=== PATIENT | male | born 1955 | race African-American/Black ===

== ENCOUNTER 2018-03-18 10:52 | Inpatient (IN) | payer SELFPAY ==
[2018-03-18 11:54] LABS: Absolute Lymphocytes (CBC) 1.2 K/uL (0.7-4.9); Absolute Monocytes 0.9 K/uL (0.1-1.3); Absolute Neutrophil 11.3 K/uL (1.8-8.0); Basophils % 0.5 % (0-1.3); Eosinophils % 0.2 % (0-4.4); Hematocrit 45.6 % (39.6-49.0); Lymphocytes % 9.1 % (15.3-44.8); MCH 27.7 pg (27.0-35.0); MCV 83.6 fL (80-100); MPV 7.6 fL (7.6-11.3); Monocytes % 6.4 % (3.3-12.3); RBC Red Blood Cell Count 5.46 M/uL (4.33-5.43)
[2018-03-18 12:05] LABS: Protime INR 1.03
[2018-03-18 12:25] LABS: Albumin 4.3 g/dL (3.4-5.0); Bilirubin Direct 0.1 mg/dL (0-0.2); Bilirubin Total 0.5 mg/dL (0.2-1.0); CKMB Creatine Kinase MB 2.2 ng/mL (0.3-3.6); Magnesium 2.3 mg/dL (1.8-2.4); Potassium 4.9 mmol/L (3.5-5.1); Protein, Total 8.6 g/dL (6.4-8.2)
--- NOTE | 2018-03-18 12:30 | RAD REPORT ---
EXAM DESCRIPTION: RAD - Chest Single View - 03/18/2018 11:58 am CLINICAL HISTORY: Hypertension, weakness, shortness of breath COMPARISON: September 2015 TECHNIQUE: AP portable chest image was obtained 1151 hours . FINDINGS: No peripheral mass or consolidation. Lung markings are prominent but not clearly different from the comparison. Heart and vasculature are normal. No measurable pleural effusion and no pneumot horax. No gross bony abnormality seen. No acute aortic findings suspected. IMPRESSION: No acute cardiopulmonary process. No significant change from comparison.
[2018-03-18] MEDS ORDERED: NA CHLORIDE 0.9% 1,000 ML ONE (12:41)
[2018-03-18] MEDS ORDERED: FENTANYL CITR 100 MCG/2 ML ONE (12:41)
--- NOTE | 2018-03-18 12:51 | EKG ---
Test Date: 2018-03-18 Test Time: 11:39:22 [employer] Manager: BALTA MEASUREMENT RESULTS: Intervals: Rate: 89 [place]: 160 QRSD: 68 QT: 342 QTc: 416 [place]: P: 43 [place]: 160 QRS: 8 T: 36 INTERPRETIVE STATEMENTS: Normal sinus rhythm Normal ECG Compared to ECG 10/14/2015 19:38:58 Left ventricular hypertrophy no longer present Myocardial infarct finding no longer present Electronically Signed On 03-18-18 12:50:42 CDT by Gold Ribeiro
[2018-03-18 13:18] LABS: Arterial Blood Carboxyhemoglob 0.6 % (0-1.5); Blood Gas Oxyhemoglobin 92.5 % (94-97); Blood O2 Saturation 94.1 % (92-98.5)
[2018-03-18 13:33] LABS: Uric Acid 10.3 mg/dL (3.5-7.2)
--- NOTE | 2018-03-18 13:35 | EDPHYS ---
Physician Documentation [facility] Name: Lambert Perera Age: 62 yrs Sex: Male : 1955 Arrival Date: 03/18/2018 Time: 11:07 Bed 16 Private MD: ED Physician Jorge Luis Urias HPI: 03/18 11:25 This 62 yrs old Black Male presents to ER via Ambulatory with complaints of weakness. snw 11:25 Pt states he felt generally weak yesterday and today he went to work and fell, c/o snw generalized bilateral extremity discomfort. Onset: The symptoms/episode began/occurred suddenly. Severity of symptoms: At their worst the symptoms were moderate. It is unknown whether or not the patient has had similar symptoms in the past. It is unknown whether or not the patient has recently seen a physician. . very poor historian, some history gleaned from family at bedside. Will call [facility] for list of meds. Historical: - Allergies: 11:17 No Known Allergies; hj - Home Meds: 11:28 omeprazole 20 mg Oral cpDR 1 cap once daily [Active]; lisinopril 20 mg Oral tab 1 tab hj twice a day [Active]; metformin 1,000 mg Oral tab 1 tab 2 times per day [Active]; lovastatin 20 mg Oral tab 1 tab once daily [Active]; Viagra 50 mg Oral tab 1 tab once daily [Active]; - PMHx: 11:17 Hypertension; hj 11:28 Diabetes - NIDDM; hj - PSHx: 11:17 None; hj - Immunization history:: Adult Immunizations unknown. - Social history:: Smoking status: Patient/guardian denies using tobacco, Patient/guardian denies using alcohol. - Ebola Screening: : Patient negative for fever greater than or equal to 101.5 degrees Fahrenheit, and additional compatible Ebola Virus Disease symptoms Patient denies exposure to infectious person Patient denies travel to an Ebola-affected area in the 21 days before illness onset. ROS: 11:25 Eyes: Negative for injury, pain, redness, and discharge, ENT: Negative for injury, snw pain, and discharge, Neck: Negative for injury, pain, and swelling, Cardiovascular: Negative for chest pain, palpitations, and edema, Respiratory: Negative for shortness of breath, cough, wheezing, and pleuritic chest pain, Abdomen/GI: Negative for abdominal pain, nausea, vomiting, diarrhea, and constipation, Back: Negative for injury and pain, : Negative for injury, bleeding, discharge, and swelling, Skin: Negative for injury, rash, and discoloration, Neuro: Negative for headache, weakness, numbness, tingling, and seizure. 11:25 Constitutional: Positive for malaise. 11:25 MS/extremity: Positive for lower extremity weakness and discomfort. Exam: 11:32 Head/Face: Normocephalic, atraumatic. Eyes: Pupils equal round and reactive to light, snw extra-ocular motions intact. Lids and lashes normal. Conjunctiva and sclera are non-icteric and not injected. Cornea within normal limits. Periorbital areas with no swelling, redness, or edema. ENT: Nares patent. No nasal discharge, no septal abnormalities noted. Tympanic membranes are normal and external auditory canals are clear. Oropharynx with no redness, swelling, or masses, exudates, or evidence of obstruction, uvula midline. Mucous membranes moist. Neck: Trachea midline, no thyromegaly or masses palpated, and no cervical lymphadenopathy. Supple, full range of motion without nuchal rigidity, or vertebral point tenderness. No Meningismus. Chest/axilla: Normal chest wall appearance and motion. Nontender with no deformity. No lesions are appreciated. Cardiovascular: Regular rate and rhythm with a normal S1 and S2. No gallops, murmurs, or rubs. Normal PMI, no JVD. No pulse deficits. Respiratory: Lungs have equal breath sounds bilaterally, clear to auscultation and percussion. No rales, rhonchi or wheezes noted. No increased work of breathing, no retractions or nasal flaring. Abdomen/GI: Soft, non-tender, with normal bowel sounds. No distension or tympany. No guarding or rebound. No evidence of tenderness throughout. Back: No spinal tenderness. No costovertebral tenderness. Full range of motion. Skin: Warm, dry with normal turgor. Normal color with no rashes, no lesions, and no evidence of cellulitis. MS/ Extremity: Pulses equal, no cyanosis. Neurovascular intact. Full, normal range of motion. Neuro: Awake and alert, GCS 15, oriented to person, place, time, and situation. Cranial nerves II-XII grossly intact. Motor strength 5/5 in all extremities. Sensory grossly intact. Cerebellar exam normal. Normal gait. 11:32 Constitutional: The patient appears alert, listless. Vital Signs: 11:18 BP 137 / 82; Pulse 89; Resp 18; Temp 98.1(O); Pulse Ox 98% on R/A; Weight 63.5 kg; hj Height 5 ft. 6 in. (167.64 cm); Pain 10/10; 11:18 Body Mass Index 22.60 (63.50 kg, 167.64 cm) hj MDM: 11:15 Patient medically screened. snw 13:33 Data reviewed: vital signs, nurses notes. Data interpreted: Pulse oximetry: on room air snw is 98 %. Interpretation: normal. Counseling: I had a detailed discussion with the patient and/or guardian regarding: the historical points, exam findings, and any diagnostic results supporting the discharge/admit diagnosis, the presence of at least one elevated blood pressure reading (>120/80) during this emergency department visit, lab results, radiology results, the need for further work-up and treatment in the hospital. Physician consultation: Derek Marcos DO was called at 13:33, was contacted at 13:33, regarding admission, to the telemetry unit. in the emergency department to see patient at 13:33. 03/18 11:24 Order name: Basic Metabolic Panel; Complete Time: 12:50 snw 03/18 11:24 Order name: CBC with Diff; Complete Time: 12:05 snw 03/18 11:24 Order name: Ckmb; Complete Time: 12:50 snw 03/18 11:24 Order name: CPK; Complete Time: 12:50 snw 03/18 11:24 Order name: LFT's; Complete Time: 12:50 snw 03/18 11:24 Order name: Magnesium; Complete Time: 12:50 snw 03/18 11:24 Order name: NT PRO-BNP; Complete Time: 12:50 snw 03/18 11:24 Order name: PT-INR; Complete Time: 12:24 snw 03/18 11:24 Order name: Ptt, Activated; Complete Time: 12:24 snw 03/18 11:24 Order name: Troponin (emerg Dept Use Only); Complete Time: 12:18 snw 03/18 12:49 Order name: Hepatitis Panel 03/18 12:49 Order name: Add On-Lab 03/18 12:49 Order name: ABG; Complete Time: 13:23 03/18 13:20 Order name: Uric Acid; Complete Time: 13:37 EDMS 03/18 11:24 Order name: XRAY Chest (1 view); Complete Time: 12:33 03/18 11:24 Order name: EKG; Complete Time: 11:25 03/18 11:24 Order name: Cardiac monitoring; Complete Time: 11:30 03/18 11:24 Order name: EKG - Nurse/Tech; Complete Time: 11:40 03/18 11:24 Order name: IV Saline Lock; Complete Time: 11:40 03/18 11:24 Order name: Labs collected and sent; Complete Time: 11:40 03/18 11:24 Order name: O2 Per Protocol; Complete Time: 11:30 03/18 11:24 Order name: O2 Sat Monitoring; Complete Time: 11:30 03/18 12:51 Order name: US Rp Exam Complete; Complete Time: 13:37 03/18 13:20 Order name: Lactic Dehydrogenase; Complete Time: 13:37 EDMS 03/18 13:54 Order name: Misc. Lab Test 03/18 14:12 Order name: Labs - recollect needed: Hepatitis panel; Complete Time: 14:33 iw Administered Medications: 12:36 Drug: NS 0.9% 1000 ml Route: IV; Rate: 75 ml/hr; Site: left antecubital; hj 14:20 Follow up: IV Status: Infusion continued hj 12:36 Drug: fentaNYL (PF) 25 mcg Route: IVP; Site: left antecubital; hj 13:19 Follow up: Response: No adverse reaction; Pain is decreased hj 13:31 Drug: NS 0.9% 500 ml Volume: 500 ml; Route: IV; Rate: 1 bolus; Site: left antecubital; hj 13:40 Follow up: IV Status: Completed infusion hj Disposition: 03/18/18 13:34 Hospitalization ordered by Derek Marcos for Inpatient Admission. Preliminary diagnosis is Acute kidney failure. - Bed requested for Telemetry/MedSurg (Inpatient). - Status is Inpatient Admission. hj - Condition is Stable. - Problem is new. - Symptoms are unchanged. UTI on Admission? No Addendum: 03/21/2018 10:21 Co-signature as Attending Physician, Jorge Luis Urias MD I agree with the assessment and c cantu plan of care. Signatures: Dispatcher [employer] EDUT Jorge Luis Urias MD MD cha Therrien, Shelly, OPERATIONS COORDINATOR-C OPERATIONS COORDINATOR-Csnw Nati Nunez RN RN Abdirizak Wallace RN RN Jacklyn Mix Corrections: (The following items were deleted from the chart) 03/18 11:28 11:17 Home Meds: blood pressure med; hj 14:51 13:34 Hospitalization Ordered by Derek Marcos DO for Inpatient Admission. Preliminary eb diagnosis is Acute kidney failure. Bed requested for Telemetry/MedSurg (Inpatient). Status is Inpatient Admission. Condition is Stable. Problem is new. Symptoms are unchanged. UTI on Admission? No. snw 15:45 14:51 03/18/2018 13:34 Hospitalization Ordered by Derek aMrcos DO for Inpatient hj Admission. Preliminary diagnosis is Acute kidney failure. Bed requested for Telemetry/MedSurg (Inpatient). Status is Inpatient Admission. Condition is Stable. Problem is new. Symptoms are unchanged. UTI on Admission? No. eb
--- NOTE | 2018-03-18 13:35 | ER ---
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 Transition of care: patient was not received from another setting of care. Onset of symptoms was March 18, 2018. Risk Assessment: Do you want to hurt yourself or someone else? Patient reports no desire to harm self or others. Initial Sepsis Screen: Does the patient meet any 2 criteria? No. Patient's initial sepsis screen is negative. Does the patient have a suspected source of infection? No. Patient's initial sepsis screen is negative. Care prior to arrival: None. 11:14 Method Of Arrival: Ambulatory 11:14 Acuity: SHERLEY 3 hj Triage Assessment: 11:17 General: Appears in no apparent distress. uncomfortable, Behavior is calm, cooperative, hj appropriate for age. Pain: Complains of pain in right leg and left leg. EENT: No signs and/or symptoms were reported regarding the EENT system. Neuro: Level of Consciousness is awake, alert, obeys commands, Oriented to person, place, time, situation, Appropriate for age. Cardiovascular: Capillary refill < 3 seconds Patient's skin is warm and dry. Respiratory: Airway is patent Respiratory effort is even, unlabored, Respiratory pattern is regular, symmetrical. GI: No signs and/or symptoms were reported involving the gastrointestinal system. : No signs and/or symptoms were reported regarding the genitourinary system. Derm: No signs and/or symptoms reported regarding the dermatologic system. Musculoskeletal: Reports pain in right leg and left leg. Historical: - Allergies: 11:17 No Known Allergies; hj - Home Meds: 11:28 omeprazole 20 mg Oral cpDR 1 cap once daily [Active]; lisinopril 20 mg Oral tab 1 tab hj twice a day [Active]; metformin 1,000 mg Oral tab 1 tab 2 times per day [Active]; lovastatin 20 mg Oral tab 1 tab once daily [Active]; Viagra 50 mg Oral tab 1 tab once daily [Active]; - PMHx: 11:17 Hypertension; hj 11:28 Diabetes - NIDDM; hj - PSHx: 11:17 None; hj - Immunization history:: Adult Immunizations unknown. - Social history:: Smoking status: Patient/guardian denies using tobacco, Patient/guardian denies using alcohol. - Ebola Screening: : Patient negative for fever greater than or equal to 101.5 degrees Fahrenheit, and additional compatible Ebola Virus Disease symptoms Patient denies exposure to infectious person Patient denies travel to an Ebola-affected area in the 21 days before illness onset. Screenin:17 Abuse screen: Denies threats or abuse. Denies injuries from another. Nutritional hj screening: No deficits noted. Tuberculosis screening: No symptoms or risk factors identified. Fall Risk None identified. Assessment: 11:17 Reassessment: see triage for assessment;. hj 11:29 Reassessment: called [facility] for list of Rx pt is taking;. hj Vital Signs: 11:18 BP 137 / 82; Pulse 89; Resp 18; Temp 98.1(O); Pulse Ox 98% on R/A; Weight 63.5 kg; hj Height 5 ft. 6 in. (167.64 cm); Pain 10/10; 11:18 Body Mass Index 22.60 (63.50 kg, 167.64 cm) hj ED Course: 11:07 Patient arrived in ED. as 11:13 Abdirizak Wallace, ZAHEER is Primary Nurse. hj 11:14 Roya Sparks FNP-C is PHCP. snw 11:15 Jorge Luis Urias MD is Attending Physician. snw 11:16 Triage completed. hj 11:18 Arm band placed on right wrist. hj 11:18 Patient has correct armband on for positive identification. Placed in gown. Bed in low hj position. Call light in reach. Side rails up X 1. Adult w/ patient. 11:40 Initial lab(s) drawn, by me, sent to lab. Inserted saline lock: 22 gauge in left hj antecubital area, using aseptic technique. Blood collected. 11:48 EKG done, by sleep tech. reviewed by Roya TORRES. at1 11:57 X-ray completed. Portable x-ray completed in exam room. Patient tolerated procedure jb2 well. 11:58 XRAY Chest (1 view) In Process Unspecified. EDMS 13:01 hepatitis drawn and sent to lab by me. dh3 13:27 US Rp Exam Complete In Process Unspecified. EDMS 13:34 Derek Marcos DO is Hospitalizing Provider. snw 14:32 Lab(s) recollected, by me, sent to lab. 3 15:44 No provider procedures requiring assistance completed. Patient admitted, IV remains in hj place. Administered Medications: 12:36 Drug: NS 0.9% 1000 ml Route: IV; Rate: 75 ml/hr; Site: left antecubital; hj 14:20 Follow up: IV Status: Infusion continued hj 12:36 Drug: fentaNYL (PF) 25 mcg Route: IVP; Site: left antecubital; hj 13:19 Follow up: Response: No adverse reaction; Pain is decreased hj 13:31 Drug: NS 0.9% 500 ml Volume: 500 ml; Route: IV; Rate: 1 bolus; Site: left antecubital; hj 13:40 Follow up: IV Status: Completed infusion hj Outcome: 13:34 Decision to Hospitalize by Provider. snw 15:44 Admitted to Tele accompanied by [facility], via wheelchair, room 414, with chart, Report hj called to Lavell Jones RN 15:44 Condition: stable 15:44 Instructed on the need for admit, Demonstrated understanding of instructions. 15:45 Patient left the ED. Signatures: Dispatcher [employer] EDVA Roya Sparks FNP-C COMPUTER AIDED DESIGN DRAFTER-CsnMarques Rosa jb2 Becky George Amanda, industrial technician EKG Tat1 Abdirizak Wallace, RN RN Heidi Gonzales 3 Corrections: (The following items were deleted from the chart) 11:28 11:17 Home Meds: blood pressure med; [facility]
--- NOTE | 2018-03-18 13:35 | RAD REPORT ---
EXAM DESCRIPTION: US - Renal Ultrasound-Complete - 03/18/2018 1:27 pm CLINICAL HISTORY: acute renal failure COMPARISON: ABDOMINAL EXAM LIMITED dated 09/30/2008 FINDINGS: Both kidneys are normal in size, shape and echotexture. The right kidney measures 8.6 x 4.7 x 4.2 cm. No hydronephrosis, focal mass or perinephric fluid. The left kidney measures 9.8 x 5.5 x 5.0 cm. No hydronephrosis, focal mass or perinephric fluid. The urinary bladder is incompletely distended without gross abnormality seen. IMPRESSION: Unremarkable renal sonogram.
[2018-03-18] MEDS ORDERED: ACETAMINOPHEN 500 MG TAB PO PRN (13:46)
[2018-03-18] MEDS ORDERED: ONDANSETRON 4 MG/2 ML VIAL IV PRN (13:46)
--- NOTE | 2018-03-18 14:34 | P.HP ---
Certification for Inpatient Patient admitted to: Inpatient With expected LOS: >2 Midnights Patient will require the following post-hospital care: None Practitioner: I am a practitioner with admitting privileges, knowledge of patient current condition, hospital course, and medical plan of care. Services: Services provided to patient in accordance with Admission requirements found in Title 42 Section 412.3 of the Code of Federal Regulations Patient History Date of Service: 03/18/18 Primary Care Provider: Bill Boyce Reason for admission: Fatigue and Leg pain History of Present Illness: 62 yo AAM presented to the ER with fatigue and pain to the lower extremities bilaterally. Patient reports that this started yesterday. He felt tired yesterday but went to work. 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 He felt nausea last night. Some mild discomfort noted to the lower abdomen last night. Today he went to work. He had increased fatigue with pain to the thighs bilaterally. He was not able to walk due to fatigue. His boss told that he could not work and that he need to go see his doctor. He came to the ER for evaluation. In the ER he was evaluated. He was found to be in acute renal failure with BUN- 48, Creatinine-6.9 and GFR of 10. His uric acid and calcium was elevated at 10.3 and 10.4 respectively. WBC-13.5. BNP 252. Trop and CPK was normal. CXR was normal. Renal US was normal. He was admitted for further evaluation. When I saw him he was slightly improved. He still had some mild pain to the thighs. He has history of HTN, DM and Hyperlipidemia. He is taking Metformin, Lisinopril and Lovastatin. He occasionally takes Alleve. He does not smoke or drink alcohol. He has been taking medication for quite some time. He does not recall any issues with his kidney. Allergies No Known Allergies Allergy (Verified 11/18/12 09:15) Home medications list reviewed: Yes - Past Medical/Surgical History Diabetic: Yes -: DM Type 2 -: HTN -: Hyperlipidemia Past Surgical History: Patient denies surgical history Psychosocial/ Personal History: He is . He has 2 children. 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 - Family History Family History: Reviewed- Non-Contributory - Social History Smoking Status: Never smoker Alcohol use: No CD- Drugs: No Caffeine use: Yes Place of Residence: Home Review of Systems General: Weakness, Malaise, As per HPI Eyes: Unremarkable ENT: Unremarkable Respiratory: Unremarkable Cardiovascular: Unremarkable Gastrointestinal: Nausea, As per HPI Genitourinary: Unremarkable Musculoskeletal: Leg Pain, As per HPI Integumentary: Unremarkable Neurological: Weakness, As per HPI Lymphatics: Unremarkable Physical Examination - Physical Exam General: Alert, In no apparent distress, Oriented x3, Cooperative HEENT: Atraumatic, Normocephalic, PERRLA, Other (dry mucous membranes. ) Neck: Supple, No Thyromegaly Respiratory: Clear to auscultation bilaterally, Normal air movement Cardiovascular: Normal pulses, Regular rate/rhythm Gastrointestinal: Normal bowel sounds, Soft and benign, Non-distended, No tenderness, No masses, No rebound, No guarding Musculoskeletal: No erythema, No warmth, Tenderness (Mild tenderness to the thighs. ) Integumentary: No tenderness/swelling, No erythema, No warmth, No cyanosis Neurological: Normal speech, Normal strength at 5/5 x4 extr, Normal tone, Normal affect Lymphatics: No axilla or inguinal lymphadenopathy - Studies Laboratory Data (last 24 hrs) 03/18/18 11:40: Uric Acid 10.3 H 03/18/18 11:40: PT 12.1, INR 1.03, APTT 29.4 03/18/18 11:40: WBC 13.5 H, Hgb 15.1, Hct 45.6, Plt Count 307 03/18/18 11:40: Sodium 137, Potassium 4.9, BUN 48 H, Creatinine 6.90 H*, Glucose 132 H, Magnesium 2.3, Total Bilirubin 0.5, AST 18, ALT 23, Alkaline Phosphatase 74 Assessment and Plan - Problems (Diagnosis) (1) Acute renal failure Current Visit: Yes Status: Acute Plan: Likely from dehydration and meds-Metformin/DISHA/NSAIDS. Will stop medication. Renal US is normal with no hydronephrosis or obstruction. Will give IV fluids. Will monitor renal function. Will consult Nephrology to further address. (2) Dehydration Current Visit: Yes Status: Acute Plan: Will provide IV fluids. (3) Muscle pain Current Visit: Yes Status: Acute Plan: Likely from Dehydration. Continue as above. (4) Diabetes mellitus Current Visit: Yes Status: Chronic Plan: Will HOLD Metformin. Will provide sliding scale. Will check A1c. Qualifiers: Diabetes mellitus type: type 2 Diabetes mellitus terminal make up operator insulin use: without terminal make up operator use Diabetes mellitus complication status: with kidney complications Diabetes mellitus complication detail: with other kidney complication Qualified Code(s): E11.29 - Type 2 diabetes mellitus with other diabetic kidney complication (5) HTN (hypertension) Current Visit: Yes Status: Chronic Plan: Will DC DISHA inhibitor. Will provide Coreg for HTN. Qualifiers: Hypertension type: essential hypertension Qualified Code(s): I10 - Essential (primary) hypertension (6) Hyperlipidemia Current Visit: Yes Status: Chronic Plan: Will HOLD Lovastatin. Will check Lipids. (7) GERD (gastroesophageal reflux disease) Current Visit: Yes Status: Suspected Plan: Will provide Protonix. Qualifiers: Esophagitis presence: esophagitis presence not specified Qualified Code(s) : K21.9 - Gastro-esophageal reflux disease without esophagitis (8) Nausea & vomiting Current Visit: Yes Status: Acute Plan: Will provide medication. Qualifiers: Vomiting type: unspecified Vomiting Intractability: unspecified Qualified Code(s): R11.2 - Nausea with vomiting, unspecified Discharge Plan: Home Plan to discharge in: Greater than 2 days - Advance Directives Does patient have a Living Will: No Does patient have a Durable POA for Healthcare: No - Code Status/Comfort Care Code Status Assessed: Yes Time Spent Managing Pts Care (In Minutes): 55
[2018-03-18] MEDS: INSULIN -REGULAR HUMAN 50 UNIT/0.5 ML ML SQ SCH ×2 (16:17→21:00)
[2018-03-18 16:36] LABS: Urine Appearance CLOUDY; Urine Blood NEGATIVE (NEG); Urine Color DK YELLOW; Urine Glucose NEGATIVE (NEG); Urine Protein 2+ (NEG); Urine Specific Gravity 1.025 (1.005-1.030); Urine Urobilinogen 0.2 mg/dL (0.2-1.0)
[2018-03-18 16:47] LABS: Urine Bilirubin NEGATIVE (NEG); Urine Microscopic Reflex ORDER UMIC
[2018-03-18] MEDS: CARVEDILOL 3.125 MG TAB PO SCH (18:06)
[2018-03-18] MEDS: NA CHLORIDE 0.9% 1,000 ML IV SCH (18:44)
[2018-03-18 19:41] LABS: Calcium Oxalate Crystals- Ur MODERATE (NONE SEEN); Urine Bacteria 20-50 /HPF (NONE SEEN); Urine Culture Reflex Order REFLEXED; Urine Mucus 3+ /HPF (NONE SEEN); Urine RBC <5 /HPF (NONE SEEN)
--- NOTE | 2018-03-19 00:58 | CON ---
Date of Consultation: 03/18/2018 Chief Complaint: Acute kidney injury. History Of Present Illness: The patient was found to have severe azotemia, creatinine is 6.9, BUN 48, associated with decreased urine output and generalized weakness. The patient came to the hospital because of recent status post fall and generalized weakness. The patient was found to have acute kidney injury. The patient has history of diabetes mellitus. Previously, he was taking metformin, lisinopril, and lovastatin. The patient is taken off metformin due to acute kidney injury and lisinopril was stopped because of risk of hyperkalemia. Review of Systems: Constitutional: The patient denies fever or chills. Eyes: Denies vision changes. Ears, Nose, Mouth, and Throat: Denies sore throat or earache. Respiratory: Denies PND or orthopnea. Cardiovascular: Denies chest pain or palpitation. GI: Denies nausea or vomiting. : Denies dysuria or hematuria. Musculoskeletal: Denies gout. Denies muscle aches, although he had a recent fall. All other systems reviewed and all are negative. Past Medical History: Diabetes mellitus type 2, hypertension, hyperlipidemia. The patient denies previous history of kidney stone, prostate problem, or kidney disease. Social History: Denies tobacco, alcohol, or illicit drugs. Family History: No kidney disease in the family. Physical Examination: General: Not in acute distress. Eyes: Anicteric sclerae. EOMI. Ears, Nose, Mouth, and Throat: Oral mucosa moist. No pallor. Neck: Supple. No JVD. No bruits. Lungs: Clear to auscultation bilaterally. Heart: S1, S2. Abdomen: Soft, benign, nontender. No rebound. No guarding. No flank tenderness. Extremities: No clubbing, no cyanosis, no edema. Neurological: Moving extremities. Cranial nerves intact. Psychiatric: Alert and oriented x3. Normal affect. Blood Work: Uric acid 10.3, PT 12.1, INR 1.03, PTT 29.4. WBC 13.5, hemoglobin 15.1, platelet count 307,000. Sodium 137, potassium 4.9, BUN 48, creatinine 6.9 , glucose 132, magnesium 2.3, bilirubin is 0.5. AST 18, ALT 23, 80, 74. Renal ultrasound unremarkable. Right kidney 8.6, left kidney 9.8. No perinephric fluid. No hydronephrosis. CK level is within normal limits. Impression And Plan: 1. Acute kidney injury, likely due to prerenal azotemia. Rhabdomyolysis was ruled out. The patient did not have hydronephrosis. There is no evidence of urinary retention. Continue IV fluids for hydration. The patient has prerenal azotemia. Urinalysis does not show acute changes. There is positive proteinuria present. Re-evaluate proteinuria panel when renal function is at baseline. The patient may need workup for monoclonal gammopathy of unknown significance. The patient was taken off DISHA inhibitor and the patient will avoid nonsteroidal anti-inflammatory medication due to acute kidney injury. 2. Continue normal saline for hydration. Monitor daily urine output and renal panel. JAKE/MODRafael Voice ID: [id number] Report ID: [id number] MTDBritt
[2018-03-19] MEDS: NA CHLORIDE 0.9% 1,000 ML IV SCH ×4 (02:46→20:46)
[2018-03-19 05:17] LABS: Absolute Lymphocytes (CBC) 2.6 K/uL (0.7-4.9); Absolute Monocytes 1.1 K/uL (0.1-1.3); Absolute Neutrophil 6.1 K/uL (1.8-8.0); Basophils % 0.6 % (0-1.3); Eosinophils % 0.7 % (0-4.4); Hematocrit 36.6 % (39.6-49.0); Lymphocytes % 26.3 % (15.3-44.8); MCH 27.9 pg (27.0-35.0); MCV 84.5 fL (80-100); MPV 7.6 fL (7.6-11.3); Monocytes % 10.7 % (3.3-12.3); RBC Red Blood Cell Count 4.33 M/uL (4.33-5.43)
[2018-03-19] MEDS: CARVEDILOL 3.125 MG TAB PO SCH ×2 (05:28→17:02)
[2018-03-19 05:43] LABS: Magnesium 2.1 mg/dL (1.8-2.4); Potassium 4.7 mmol/L (3.5-5.1); Thyroid Stimulating Hormone 0.3 uIU/mL (0.36-3.74)
[2018-03-19] MEDS: INSULIN -REGULAR HUMAN 50 UNIT/0.5 ML ML SQ SCH ×4 (07:30→21:00)
[2018-03-19] MEDS: PANTOPRAZOLE 40MG TABLET PO SCH (08:24)
--- NOTE | 2018-03-19 10:01 | P.PN ---
Subjective Date of Service: 03/19/18 Primary Care Provider: [facility] Chief Complaint: Fatigue and Leg pain Subjective: Improving Physical Examination - Vital Signs Temperature: 97.6 F Blood Pressure: 123/66 Pulse: 79 Respirations: 18 Pulse Ox (%): 99 - Physical Exam General: Alert, In no apparent distress, Oriented x3, Cooperative HEENT: Atraumatic Neck: Supple Respiratory: Clear to auscultation bilaterally, Normal air movement Cardiovascular: Normal pulses, Regular rate/rhythm Gastrointestinal: Normal bowel sounds, Soft and benign, Non-distended, No tenderness, No masses, No rebound, No guarding Musculoskeletal: No erythema, No tenderness, No warmth Integumentary: No tenderness/swelling, No erythema, No warmth, No cyanosis Neurological: Normal speech, Normal strength at 5/5 x4 extr, Normal tone, Normal affect - Studies Laboratory Data (last 24 hrs) 03/18/18 11:40: Uric Acid 10.3 H 03/18/18 11:40: PT 12.1, INR 1.03, APTT 29.4 03/18/18 11:40: WBC 13.5 H, Hgb 15.1, Hct 45.6, Plt Count 307 03/18/18 11:40: Sodium 137, Potassium 4.9, BUN 48 H, Creatinine 6.90 H*, Glucose 132 H, Magnesium 2.3, Total Bilirubin 0.5, AST 18, ALT 23, Alkaline Phosphatase 74 Medications List Reviewed: Yes Assessment & Plan - Problems (Diagnosis) (1) Acute renal failure Current Visit: Yes Status: Acute Plan: Likely from dehydration and meds-Metformin/DISHA/NSAIDS. Medications have been held. Continue IV fluids. Overall improved. Will continue to monitor electrolytes. Anticipate discharge in the next 1-2 days. Will discuss with nephrology. (2) Dehydration Current Visit: Yes Status: Acute Plan: Will continue with IV fluids. (3) Muscle pain Current Visit: Yes Status: Acute Plan: Likely from Dehydration. Continue as above. (4) Diabetes mellitus Current Visit: Yes Status: Chronic Plan: Will HOLD Metformin. A1c 6.9. Will continue sliding scale. Will need to make adjustments to medications at discharge. 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 Will continue with carvedilol for HTN. Blood pressure stable this time. Qualifiers: Hypertension type: essential hypertension Qualified Code(s): I10 - Essential (primary) hypertension (6) Hyperlipidemia Current Visit: Yes Status: Chronic Plan: Will HOLD Lovastatin. LDL well controlled. (7) GERD (gastroesophageal reflux disease) Current Visit: Yes Status: Suspected Plan: Will continue with PPI. Qualifiers: Esophagitis presence: esophagitis presence not specified Qualified Code(s) : K21.9 - Gastro-esophageal reflux disease without esophagitis (8) Nausea & vomiting Current Visit: Yes Status: Acute Plan: Will provide medication. Qualifiers: Vomiting type: unspecified Vomiting Intractability: unspecified Qualified Code(s): R11.2 - Nausea with vomiting, unspecified Discharge Plan: Home Plan to discharge in: 24 Hours (to 48 hours) Time Spent Managing Pts Care (In Minutes): 55
--- NOTE | 2018-03-19 11:37 | RAD REPORT ---
EXAM DESCRIPTION: RAD - Chest Single View - 03/19/2018 6:35 am CLINICAL HISTORY: Follow up SOB/Fatigue Chest pain. COMPARISON: Chest Single View dated 03/18/2018; CHEST PA AND LAT 2 VIEW dated 10/14/2015; CHEST SINGLE VIEW dated 01/21/2014; CHEST SINGLE VIEW dated 11/18/2012 FINDINGS: Portable technique limits examination quality. The lungs are underinflated resulting in vascular crowding. The heart is normal in size. No displaced fractures. IMPRESSION: Underinflated lungs.
[2018-03-19] MEDS: TRAMADOL HCL 50 MG TAB PO PRN ×2 (13:46→20:45)
[2018-03-19] MEDS: ENOXAPARIN 30 MG/0.3 ML SQ SCH (13:48)
--- NOTE | 2018-03-20 02:10 | PN ---
Date of Progress Note: 03/19/2018 Chief Complaint: Acute kidney injury, severe volume depletion. History Of Present Illness: The patient was found to have severe prerenal azotemia, nonoliguric ATN. Azotemia has not improved significantly. Urine output is improving. The patient is responding to IV fluids. Review of Systems: Denies cough, hemoptysis. Denies nausea, vomiting, diarrhea. Physical Examination: Lungs: Clear to auscultation bilaterally. Heart: S1, S2. Abdomen: Soft, benign. Extremities: No edema. Laboratory Data: Sodium 140, potassium 4.7, chloride 109, CO2 25, BUN 51, creatinine 3.70, glucose 133, calcium 8.9. Impression And Plan: 1. Acute kidney injury. The patient has history of diabetes and hypertension. The patient was taken off DISHA inhibitor because of acute kidney injury. Monitor electrolytes. Continue low-potassium diet. The patient has high risk of hyperkalemia. 2. Diabetes mellitus. Continue insulin. The patient is not a candidate of metformin because of acute kidney injury. 3. Hypovolemia. Continue IV fluids. Monitor urine output and fluid balance. Plan is to check daily renal panel to assess kidney function. I spent total 36 min including 26 min to coordinate care plan. JAKE/ANDRE Voice ID: [id number] Report ID: [id number] MARCELLO
[2018-03-20] MEDS: CARVEDILOL 3.125 MG TAB PO SCH (05:08)
[2018-03-20] MEDS: NA CHLORIDE 0.9% 1,000 ML IV SCH (05:09)
[2018-03-20 05:14] LABS: Absolute Lymphocytes (CBC) 2.7 K/uL (0.7-4.9); Absolute Monocytes 0.8 K/uL (0.1-1.3); Absolute Neutrophil 4.1 K/uL (1.8-8.0); Basophils % 0.5 % (0-1.3); Eosinophils % 1.4 % (0-4.4); Hematocrit 37.1 % (39.6-49.0); Lymphocytes % 34.5 % (15.3-44.8); MCH 28.2 pg (27.0-35.0); MCV 84.9 fL (80-100); MPV 7.7 fL (7.6-11.3); Monocytes % 10.2 % (3.3-12.3); RBC Red Blood Cell Count 4.37 M/uL (4.33-5.43)
[2018-03-20 05:39] LABS: Magnesium 1.6 mg/dL (1.8-2.4); Potassium 4.7 mmol/L (3.5-5.1)
[2018-03-20] MEDS ORDERED: MAGNESIUM SULFATE 1 gm IVPB 1 GM/100 ML BAG IV ONE ×2 (05:52→09:00)
[2018-03-20] MEDS: INSULIN -REGULAR HUMAN 50 UNIT/0.5 ML ML SQ SCH ×2 (07:30→11:30)
[2018-03-20] MEDS: PANTOPRAZOLE 40MG TABLET PO SCH (07:55)
[2018-03-20] MEDS ORDERED: CARVEDILOL 3.125 MG TAB PO SCH (08:00)
[2018-03-20] MEDS: ENOXAPARIN 30 MG/0.3 ML SQ SCH (09:08)
--- NOTE | 2018-03-20 13:27 | P.PN ---
Subjective Date of Service: 03/20/18 Primary Care Provider: Patt[facility] Carli Chief Complaint: Fatigue and Leg pain Subjective: Improving Physical Examination - Vital Signs Temperature: 98.1 F Blood Pressure: 165/84 Pulse: 89 Respirations: 17 Pulse Ox (%): 98 - Physical Exam General: Alert, In no apparent distress, Oriented x3, Cooperative HEENT: Atraumatic Neck: Supple Respiratory: Clear to auscultation bilaterally, Normal air movement Cardiovascular: Normal pulses, Regular rate/rhythm Gastrointestinal: Normal bowel sounds, Soft and benign, Non-distended, No tenderness, No masses, No rebound, No guarding Musculoskeletal: No tenderness, No warmth Integumentary: No tenderness/swelling, No erythema, No warmth, No cyanosis Neurological: Normal speech, Normal strength at 5/5 x4 extr, Normal tone, Normal affect Lymphatics: No axilla or inguinal lymphadenopathy - Studies Medications List Reviewed: Yes Assessment & Plan - Problems (Diagnosis) (1) Acute renal failure Current Visit: Yes Status: Acute Plan: Likely from dehydration and meds-Metformin/DISHA/NSAIDS. Overall improved. Renal function close to baseline. Will discuss with nephrology. Possible discharge today. Will need to discontinue metformin an DISHA-inhibitor along with NSAIDs at discharge. Medications will need to be adjusted. The patient will need a follow up with nephrology in 1 week. (2) Dehydration Current Visit: Yes Status: Acute Plan: Will continue with IV fluids. (3) Muscle pain Current Visit: Yes Status: Acute Plan: Likely from Dehydration. Continue as above. (4) Diabetes mellitus Current Visit: Yes Status: Chronic Plan: Will HOLD Metformin. A1c 6.9. Will continue sliding scale. Will need to make adjustments to medications at discharge. 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 Will continue to increase carvedilol for better blood pressure control. Qualifiers: Hypertension type: essential hypertension Qualified Code(s): I10 - Essential (primary) hypertension (6) Hyperlipidemia Current Visit: Yes Status: Chronic Plan: Will restart home medication. (7) GERD (gastroesophageal reflux disease) Current Visit: Yes Status: Suspected Plan: Will continue with PPI. Qualifiers: Esophagitis presence: esophagitis presence not specified Qualified Code(s) : K21.9 - Gastro-esophageal reflux disease without esophagitis (8) Nausea & vomiting Current Visit: Yes Status: Acute Plan: Will provide medication. Qualifiers: Vomiting type: unspecified Vomiting Intractability: unspecified Qualified Code(s): R11.2 - Nausea with vomiting, unspecified Discharge Plan: Home Plan to discharge in: 24 Hours Time Spent Managing Pts Care (In Minutes): 55
--- NOTE | 2018-03-20 14:42 | P.DS ---
Admission Date: 03/18/18 Discharge Date: 03/20/18 Primary Care Provider: Creswell Carli Disposition: ROUTINE DISCHARGE Discharge Condition: GOOD Reason for Admission: Fatigue and Leg pain Consultations: Nephrology-Dr. 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 - Type 2 diabetes mellitus with other diabetic kidney complication (5) HTN (hypertension) Current Visit: Yes Status: Chronic Qualifiers: Hypertension type: essential hypertension Qualified Code(s): I10 - Essential (primary) hypertension (6) Hyperlipidemia Current Visit: Yes Status: Chronic (7) GERD (gastroesophageal reflux disease) Current Visit: Yes Status: Suspected Qualifiers: Esophagitis presence: esophagitis presence not specified Qualified Code(s) : K21.9 - Gastro-esophageal reflux disease without esophagitis (8) Nausea & vomiting Current Visit: Yes Status: Acute Qualifiers: Vomiting type: unspecified Vomiting Intractability: unspecified Qualified Code(s): R11.2 - Nausea with vomiting, unspecified Brief History of Present Illness: 62 yo AAM presented to the ER with fatigue and pain to the lower extremities bilaterally. Patient reports that this started yesterday. He felt tired yesterday but went to work. 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 He felt nausea last night. Some mild discomfort noted to the lower abdomen last night. Today he went to work. He had increased fatigue with pain to the thighs bilaterally. He was not able to walk due to fatigue. His boss told that he could not work and that he need to go see his doctor. He came to the ER for evaluation. In the ER he was evaluated. He was found to be in acute renal failure with BUN- 48, Creatinine-6.9 and GFR of 10. His uric acid and calcium was elevated at 10.3 and 10.4 respectively. WBC-13.5. BNP 252. Trop and CPK was normal. CXR was normal. Renal US was normal. He was admitted for further evaluation. When I saw him he was slightly improved. He still had some mild pain to the thighs. He has history of HTN, DM and Hyperlipidemia. He is taking Metformin, Lisinopril and Lovastatin. He occasionally takes Alleve. He does not smoke or drink alcohol. He has been taking medication for quite some time. He does not recall any issues with his kidney. Hospital Course: Patient presented with acute renal failure likely secondary to medication and dehydration. Patient had been taking metformin and lisinopril for diabetes and hypertension. Patient had been working out side. 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 Patient is not been taking good oral intake. Patient received IV fluids. Nephrology evaluated patient. Renal ultrasound unremarkable. Renal function back to baseline. At discharge metformin and lisinopril has been discontinued. Patient encouraged to increase fluid intake. Recommendation to recheck lab- BMP in 1 week to monitor resolution. Recommendation for the patient follow up with nephrology in 1 week to follow up this hospitalization. He will need a follow up with his PCP within 1 week to recheck lab and to be cleared to go back to work. Patient has diabetes. Hemoglobin A1c well controlled. At discharge metformin has been discontinued due to acute renal failure. At discharge he will continue with glimepiride 1 mg daily. Recommendation is to maintain blood sugars less 140 fasting and less than 200 after meals. Further adjustment can be done by his PCP. Patient has hypertension. Lisinopril has been discontinued due to acute renal failure. At discharge he will continue with carvedilol 6.25 mg 1 pill twice daily. Recommendation is to maintain blood pressures less 150/80. Further adjustment can be done by his PCP. Patient has hyperlipidemia. He will continue with lovastatin 20 mg daily. Patient has GERD. He will continue with Prilosec daily. Vital Signs/Physical Exam: Temp Pulse Resp BP Pulse Ox 98.1 F 89 17 165/84 H 98 03/20/18 13:27 03/20/18 13:27 03/20/18 13:27 03/20/18 13:27 03/20/18 13:27 General: Alert, In no apparent distress, Oriented x3, Cooperative HEENT: Atraumatic Neck: Supple, No Thyromegaly Respiratory: Clear to auscultation bilaterally, Normal air movement Cardiovascular: Normal pulses, Regular rate/rhythm Gastrointestinal: Normal bowel sounds, Soft and benign, Non-distended, No tenderness, No masses, No rebound, No guarding Musculoskeletal: No erythema, No tenderness, No warmth Integumentary: No tenderness/swelling, No erythema, No warmth, No cyanosis Neurological: Normal speech, Normal strength at 5/5 x4 extr, Normal tone, Normal affect Laboratory Data at Discharge: WBC 7.7 K/uL (4.3-10.9) D 03/20/18 04:22 Hgb 12.3 g/dL (13.6-17.9) L 03/20/18 04:22 Hct 37.1 % (39.6-49.0) L 03/20/18 04:22 Plt Count 219 K/uL (152-406) 03/20/18 04:22 PT 12.1 SECONDS (9.5-12.5) 03/18/18 11:40 INR 1.03 03/18/18 11:40 APTT 29.4 SECONDS (24.3-36.9) 03/18/18 11:40 Sodium 141 mmol/L (136-145) 03/20/18 04:22 Potassium 4.7 mmol/L (3.5-5.1) 03/20/18 04:22 BUN 26 mg/dL (7-18) H D 03/20/18 04:22 Creatinine 1.60 mg/dL (0.55-1.3) H D 03/20/18 04:22 Glucose 123 mg/dL (74-106) H 03/20/18 04:22 Uric Acid 10.3 mg/dL (3.5-7.2) H 03/18/18 11:40 Magnesium 1.6 mg/dL (1.8-2.4) L D 03/20/18 04:22 Total Bilirubin 0.5 mg/dL (0.2-1.0) 03/18/18 11:40 AST 18 U/L (15-37) 03/18/18 11:40 ALT 23 U/L (12-78) 03/18/18 11:40 Alkaline Phosphatase 74 U/L (45-117) 03/18/18 11:40 Triglycerides 206 mg/dL (<150) H 03/19/18 04:45 Cholesterol 143 mg/dL (<200) 03/19/18 04:45 HDL Cholesterol 28 mg/dL (40-60) L 03/19/18 04:45 Cholesterol/HDL Ratio 5.11 03/19/18 04:45 Home Medications: Lovastatin 20 mg PO DAILY 03/18/18 Omeprazole 20 mg PO DAILY 03/18/18 Sildenafil Citrate [Viagra] 50 mg PO PRN PRN 03/18/18 Carvedilol [Coreg] 6.25 mg PO BID #60 tab 03/20/18 Glimepiride 1 mg PO DAILY #30 tablet 03/20/18 New Medications: Carvedilol [Coreg] 6.25 mg PO BID #60 tab Glimepiride 1 mg PO DAILY #30 tablet Patient Discharge Instructions: 1. Patient will need a follow up with his PCP in 1 week to follow up this hospitalization. 2. Patient presented with acute renal failure likely secondary to medication and dehydration. Renal function back to baseline. At discharge metformin and lisinopril has been discontinued. Patient encouraged to increase fluid intake. Recommendation to recheck lab- BMP in 1 week to monitor resolution. Recommendation for the patient follow up with nephrology in 1 week to follow up this hospitalization. He will need a follow up with his PCP within 1 week to recheck lab and to be cleared to go back to work. 3. Patient has diabetes. Hemoglobin A1c well controlled. At discharge metformin has been discontinued due to acute renal failure. At discharge he will continue with glimepiride 1 mg daily. Recommendation is to maintain blood sugars less 140 fasting and less than 200 after meals. Further adjustment can be done by his PCP. 4. Patient has hypertension. Lisinopril has been discontinued due to acute renal failure. At discharge he will continue with carvedilol 6.25 mg 1 pill twice daily. Recommendation is to maintain blood pressures less 150/80. Further adjustment can be done by his PCP. 5. Patient has hyperlipidemia. He will continue with lovastatin 20 mg daily. 6. Patient has GERD. He will continue with Prilosec daily. Diet: ADA Activity: Ad alka Time spent managing pt's care (in minutes): 55
[2018-03-20] MEDS ORDERED: ATORVASTATIN 10 MG TAB PO SCH (21:00)
[2018-03-21 03:22] LABS: HBsAG Nonreactive (Nonreactive); Hepatitis A IgM Antibody Nonreactive
--- NOTE | 2018-03-21 04:13 | PN ---
Date of Progress Note: 03/20/2018 Chief Complaint: Acute kidney injury. History Of Present Illness: Acute kidney injury, severe, nonoliguric, associated with volume depleti on. The patient is responding to IV fluids. The patient is tolerating p.o. intake. He completed IV normal saline and renal function has improved significantly over the last 48 hours. Yesterday, crea tinine was 3.7 and today creatinine improved to 1.6. The patient denies nausea, vomiting. Physical Examination: LUNGS: Clear to auscultation bilaterally. HEART: S1, S2. ABDOMEN: Soft, benign. EXTREMITIES: No edema. Laboratory Data: Hemoglobin 12.3, WBC 7.7, platelet count is 219. Sodium 141, potassium 4.7, chlori de 109, CO2 26, BUN 26, creatinine 1.6, glucose 123, magnesium 1.6, calcium 8.3. Impression And Plan: 1.Acute kidney injury, in recovery phase. Continue p.o. hydration. 2.Hypomagnesemia. Replacement ordered. 3.Hypertension. Hold DISHA inhibitor. Adjust blood pressure medication for adequate blood pressure c ontrol. 4.Diabetes mellitus. The patient is not a candidate for metformin due to acute kidney injury and ri sk of lactic acidosis. The above plan was discussed with attending and with the patient and family m kj at the bedside. 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 JAKE/ANDRE Voice ID: [id number] Report ID: [id number]
[2018-03-21] MEDS ORDERED: HOME MED 1 EA UNK (Lovastatin [Lovastatin] 20 MG) PO SCH (09:00)
== END 2018-03-20 15:40 | disposition home or self-care (01) | DRG 684 ==
LOC: ER 10:52 → ERHOLD 13:36 → 4TH 15:33
PROVIDERS: ADMIT Family Medicine; ATTEND Family Medicine
DX: N17.9 Acute kidney failure, unspecified (principal); E83.42 Hypomagnesemia; I10 Essential (primary) hypertension; E11.29 Type 2 diabetes mellitus with other diabetic kidney complication; E78.5 Hyperlipidemia, unspecified; K21.9 Gastro-esophageal reflux disease without esophagitis; E86.0 Dehydration; M79.1 Myalgia; R11.2 Nausea with vomiting, unspecified; T38.3X5A Adverse effect of insulin and oral hypoglycemic [antidiabetic] drugs, initial encounter; T46.4X5A Adverse effect of angiotensin-converting-enzyme inhibitors, initial encounter; Z79.84 Long term (current) use of oral hypoglycemic drugs
CPT/HCPCS: 36415; 71045; 76770; 80048; 80061; 80074; 80076; 81003; 81015; 82550; 82553; 82805; 82962; 83036; 83615; 83735; 83880; 84439; 84443; 84484; 84550; 85025; 85610; 85730; 87086; 87088; 93005; 96361; 96374; 99285; J1650; J3010; J3475; J7030

== ENCOUNTER 2022-11-05 15:55 | Emergency (ER) | payer OTHER ==
--- OUTSIDE RECORDS SUMMARY | 2022-11-05 16:10 | XMS REPORT | Continuity of Care Document ---
:1955 Author Organization [facility] t Address [address] [facility] [address] [place] [address] Care Team Providers Name Role Phone ELIDIASONIZEKE Primary Care Physician Unavailable ERMA CAROLINA Attending Clinician Unavailable YULISA FELIPE Attending Clinician Unavailable Yulisa Felipe MD Attending Clinician Problems Condition Condition Condition Status Onset Resolution Last Treating Co mments Source Name Details Category Date Date Treatment Clinician Date No known No known Disease Unive rs active active ity of problems problems [facility] Allergies, Adverse Reactions, Alerts Allergy Allergy Status Severity Reaction(s) Onset Inactive Treating Comm ents Source Name Type Date Date Clinician NO KNOWN Drug Active Univers ALLERGIE Class ity of S [facility] Social History Social Habit Start Date Stop Date Quantity Comments [facility] to SARS-CoV[facility]2 Not sure [facility] [place] [facility] Smoking Status Start Date Stop Date Source Unknown if ever smoked [facility] y [facility] Medications Ordered Filled Start Stop Current Ordering Indication Dosage Frequency Signature Comments Components Source Medication Medication Date Date Medication? Clinician (SIG) Name Name TAKE 2021-08 No TABLET 2-16 DAILY. 00:00: 00 TAKE 2021-08 No CAPSULE BY 2-16 MOUTH ONCE 00:00: DAILY 00 TAKE 2021-08 No TABLET BY 2-16 MOUTH AT 00:00: BEDTIME 00 Dose 2021-08 No Unknown 2-16 00:00: 00 Dose 2021-08 No Unknown 2-13 00:00: 00 TAKE 2021-08 No TABLET BY 2-13 MOUTH ONCE 00:00: DAILY FOR 00 BLOOD PRESSURE Dose 2022-1 No Unknown 2-13 00:00: 00 Dose 2022-1 No Unknown 2-13 00:00: 00 TAKE 1 2-1 No TABLET BY 2-13 MOUTH TWICE 00:00: DAILY FOR 00 DIABETES Dose 2-1 No Unknown 2-13 00:00: 00 TAKE 1 2-1 No CAPSULE BY 2-13 MOUTH ONCE 00:00: DAILY 00 TAKE 1 2022-0 No CAPSULE 8-08 ONCE DAILY. 00:00: 00 Dose 2022-0 No Unknown 8-08 00:00: 00 TAKE 1 2022-0 No CAPSULE 8-08 ONCE DAILY. 00:00: 00 TAKE 1 2-0 No CAPSULE 8-08 ONCE DAILY. 00:00: 00 Dose 2022-0 No Unknown 8-04 00:00: 00 Dose 2022-0 No Unknown 8-04 00:00: 00 Dose 2022-0 No Unknown 8-04 00:00: 00 Dose 2022-0 No Unknown 8-04 00:00: 00 Dose 2022-0 No Unknown 8-02 00:00: 00 Dose 2022-0 No Unknown 8-02 00:00: 00 Dose 2022-0 No Unknown 8-02 00:00: 00 Dose 2022-0 No Unknown 8-02 00:00: 00 Dose 2022-0 No Unknown 8-02 00:00: 00 Dose 2022-0 No Unknown 8-02 00:00: 00 Dose 2022-0 No Unknown 8-02 00:00: 00 Dose 2022-0 No Unknown 8-02 00:00: 00 Dose 2022-0 No Unknown 7-19 00:00: 00 Dose 2022-0 No Unknown 7-19 00:00: 00 Dose 2022-0 No Unknown 7-19 00:00: 00 Dose 2022-0 No Unknown 7-19 00:00: 00 Dose 2022-0 No Unknown 7-19 00:00: 00 Dose 2022-0 No Unknown 7-19 00:00: 00 Dose 2022-0 No Unknown 7-19 00:00: 00 Dose 2022-0 No Unknown 7-19 00:00: 00 Nexium 40 2022-0 No 1mg mg 6-24 capsule,del 00:00: ayed 00 release TAKE 1 2-0 No 40 CAPSULE 6-24 ONCE DAILY. 00:00: 00 Nexium 40 2022-0 No 1mg mg 6-24 capsule,del 00:00: ayed 00 release TAKE 1 2022-0 No 40 CAPSULE 6-24 ONCE DAILY. 00:00: 00 Nexium 40 2022-0 No 1mg mg 6-24 capsule,del 00:00: ayed 00 release TAKE 1 2022-0 No 40 CAPSULE 6-24 ONCE DAILY. 00:00: 00 Nexium 40 2022-0 No 1mg mg 6-24 capsule,del 00:00: ayed 00 release TAKE 1 2022-0 No 40 CAPSULE 6-24 ONCE DAILY. 00:00: 00 famotidine 2022-0 No 1mg 20 mg 6-08 tablet 00:00: 00 famotidine 2022-0 No 1mg 20 mg 6-08 tablet 00:00: 00 famotidine 2022-0 No 1mg 20 mg 6-08 tablet 00:00: 00 famotidine 2022-0 No 1mg 20 mg 6-08 tablet 00:00: 00 Dose 2022-0 No Unknown 6-06 00:00: 00 Dose 2022-0 No Unknown 6-06 00:00: 00 Dose 2022-0 No Unknown 6-06 00:00: 00 Dose 2022-0 No Unknown 6-06 00:00: 00 docusate 2022-0 No 1mg calcium 240 6-04 mg capsule 00:00: 00 omeprazole 2022-0 No 1mg 40 mg 6-04 capsule,del 00:00: ayed 00 release Dose 2022-0 No Unknown 6-04 00:00: 00 docusate 2022-0 No 1mg calcium 240 6-04 mg capsule 00:00: 00 omeprazole 2022-0 No 1mg 40 mg 6-04 capsule,del 00:00: ayed 00 release Dose 2022-0 No Unknown 6-04 00:00: 00 docusate 2022-0 No 1mg calcium 240 6-04 mg capsule 00:00: 00 omeprazole 2022-0 No 1mg 40 mg 6-04 capsule,del 00:00: ayed 00 release Dose 2022-0 No Unknown 6-04 00:00: 00 docusate 2022-0 No 1mg calcium 240 6-04 mg capsule 00:00: 00 omeprazole 2022-0 No 1mg 40 mg 6-04 capsule,del 00:00: ayed 00 release Dose 2022-0 No Unknown 6-04 00:00: 00 Bromfed DM 2022-0 No 10mg/5 2 mg-30 5-01 mL mg-10 mg/5 00:00: mL oral 00 syrup Bromfed DM 2022-0 No 10mg/5 2 mg-30 5-01 mL mg-10 mg/5 00:00: mL oral 00 syrup Bromfed DM 2022-0 No 10mg/5 2 mg-30 5-01 mL mg-10 mg/5 00:00: mL oral 00 syrup Bromfed DM 2022-0 No 10mg/5 2 mg-30 5-01 mL mg-10 mg/5 00:00: mL oral 00 syrup amlodipine 2022-0 No 1mg 10 mg 4-29 tablet 00:00: 00 Dose 2022-0 No Unknown 4-29 00:00: 00 Dose 2022-0 No Unknown 4-29 00:00: 00 Dose 2022-0 No Unknown 4-29 00:00: 00 losartan 50 2022-0 No 1mg mg-hydrochl 4-29 orothiazide 00:00: 12.5 mg 00 tablet amlodipine 2022-0 No 1mg 10 mg 4-29 tablet 00:00: 00 carvedilol 2022-0 No 1mg 25 mg 4-29 tablet 00:00: 00 atorvastati 2022-0 No 1mg n 20 mg 4-29 tablet 00:00: 00 losartan 50 2022-0 No 1mg mg-hydrochl 4-29 orothiazide 00:00: 12.5 mg 00 tablet amlodipine 2022-0 No 1mg 10 mg 4-29 tablet 00:00: 00 carvedilol 2022-0 No 1mg 25 mg 4-29 tablet 00:00: 00 atorvastati 2022-0 No 1mg n 20 mg 4-29 tablet 00:00: 00 losartan 50 2022-0 No 1mg mg-hydrochl 4-29 orothiazide 00:00: 12.5 mg 00 tablet amlodipine 2022-0 No 1mg 10 mg 4-29 tablet 00:00: 00 carvedilol 2022-0 No 1mg 25 mg 4-29 tablet 00:00: 00 atorvastati 2022-0 No 1mg n 20 mg 4-29 tablet 00:00: 00 omeprazole 2022-0 No 1mg 20 mg 4-06 capsule,del 00:00: ayed 00 release omeprazole 2022-0 No 1mg 20 mg 4-06 capsule,del 00:00: ayed 00 release omeprazole 2022-0 No 1mg 20 mg 4-06 capsule,del 00:00: ayed 00 release omeprazole 2022-0 No 1mg 20 mg 4-06 capsule,del 00:00: ayed 00 release omeprazole 2022-0 No 1mg 20 mg 4-06 capsule,del 00:00: ayed 00 release omeprazole 2022-0 No 1mg 20 mg 4-06 capsule,del 00:00: ayed 00 release omeprazole 2022-0 No 1mg 20 mg 4-06 capsule,del 00:00: ayed 00 release omeprazole 2022-0 No 1mg 20 mg 4-06 capsule,del 00:00: ayed 00 release omeprazole 2022-0 No 1mg 20 mg 3-07 capsule,del 00:00: ayed 00 release omeprazole 2022-0 No 1mg 20 mg 3-07 capsule,del 00:00: ayed 00 release omeprazole 2022-0 No 1mg 20 mg 3-07 capsule,del 00:00: ayed 00 release omeprazole 2022-0 No 1mg 20 mg 3-07 capsule,del 00:00: ayed 00 release omeprazole 2022-0 No 1mg 20 mg 3-06 capsule,del 00:00: ayed 00 release omeprazole 2022-0 No 1mg 20 mg 3-06 capsule,del 00:00: ayed 00 release omeprazole 2022-0 No 1mg 20 mg 3-06 capsule,del 00:00: ayed 00 release omeprazole 2022-0 No 1mg 20 mg 3-06 capsule,del 00:00: ayed 00 release Dose 2022-0 No Unknown 3-05 00:00: 00 Dose 2022-0 No Unknown 3-05 00:00: 00 Dose 2022-0 No Unknown 3-05 00:00: 00 Dose 2022-0 No Unknown 3-05 00:00: 00 losartan 50 2022-0 No 1mg mg-hydrochl 2-02 orothiazide 00:00: 12.5 mg 00 tablet amlodipine 2022-0 No 1mg 10 mg 2-02 tablet 00:00: 00 carvedilol 2022-0 No 1mg 25 mg 2-02 tablet 00:00: 00 metformin 2022-0 No 1mg 1,000 mg 2-02 tablet 00:00: 00 atorvastati 2022-0 No 1mg n 20 mg 2-02 tablet 00:00: 00 Dose 2022-0 No Unknown 2-02 00:00: 00 losartan 50 2022-0 No 1mg mg-hydrochl 2-02 orothiazide 00:00: 12.5 mg 00 tablet amlodipine 2022-0 No 1mg 10 mg 2-02 tablet 00:00: 00 aspirin 81 2022-0 No 1mg mg 2-02 tablet,mariano 00:00: yed release 00 carvedilol 2022-0 No 1mg 25 mg 2-02 tablet 00:00: 00 metformin 2022-0 No 1mg 1,000 mg 2-02 tablet 00:00: 00 atorvastati 2022-0 No 1mg n 20 mg 2-02 tablet 00:00: 00 losartan 50 2022-0 No 1mg mg-hydrochl 2-02 orothiazide 00:00: 12.5 mg 00 tablet amlodipine 2022-0 No 1mg 10 mg 2-02 tablet 00:00: 00 aspirin 81 2022-0 No 1mg mg 2-02 tablet,mariano 00:00: yed release 00 carvedilol 2022-0 No 1mg 25 mg 2-02 tablet 00:00: 00 metformin 2022-0 No 1mg 1,000 mg 2-02 tablet 00:00: 00 atorvastati 2022-0 No 1mg n 20 mg 2-02 tablet 00:00: 00 losartan 50 2022-0 No 1mg mg-hydrochl 2-02 orothiazide 00:00: 12.5 mg 00 tablet amlodipine 2022-0 No 1mg 10 mg 2-02 tablet 00:00: 00 aspirin 81 2022-0 No 1mg mg 2-02 tablet,mariano 00:00: yed release 00 carvedilol 2022-0 No 1mg 25 mg 2-02 tablet 00:00: 00 metformin 2022-0 No 1mg 1,000 mg 2-02 tablet 00:00: 00 atorvastati 2021-0 No 1mg n 20 mg 2-02 tablet 00:00: 00 losartan 50 2020-1 No 1mg mg-hydrochl 1-18 orothiazide 00:00: 12.5 mg 00 tablet losartan 50 2020-1 No 1mg mg-hydrochl 1-18 orothiazide 00:00: 12.5 mg 00 tablet losartan 50 2020-1 No 1mg mg-hydrochl 1-18 orothiazide 00:00: 12.5 mg 00 tablet losartan 50 2020-1 No 1mg mg-hydrochl 1-18 orothiazide 00:00: 12.5 mg 00 tablet amlodipine 2020-1 No 1mg 10 mg 1-13 tablet 00:00: 00 amlodipine 2020-1 No 1mg 10 mg 1-13 tablet 00:00: 00 amlodipine 2020-1 No 1mg 10 mg 1-13 tablet 00:00: 00 amlodipine 2020-1 No 1mg 10 mg 1-13 tablet 00:00: 00 amlodipine 2020-1 No 1mg 10 mg 1-08 tablet 00:00: 00 aspirin 81 2020-1 No 1mg mg 1-08 tablet,mariano 00:00: yed release 00 carvedilol 2020-1 No 1mg 25 mg 1-08 tablet 00:00: 00 metformin 2020-1 No 1mg 1,000 mg 1-08 tablet 00:00: 00 atorvastati 2020-1 No 1mg n 20 mg 1-08 tablet 00:00: 00 atorvastati 2020-1 No 1mg n 20 mg 1-08 tablet 00:00: 00 amlodipine 2020-1 No 1mg 10 mg 1-08 tablet 00:00: 00 aspirin 81 2020-1 No 1mg mg 1-08 tablet,mariano 00:00: yed release 00 carvedilol 2020-1 No 1mg 25 mg 1-08 tablet 00:00: 00 metformin 1-1 No 1mg 1,000 mg 1-08 tablet 00:00: 00 atorvastati 2020-1 No 1mg n 20 mg 1-08 tablet 00:00: 00 atorvastati 2020-1 No 1mg n 20 mg 1-08 tablet 00:00: 00 amlodipine 2020-1 No 1mg 10 mg 1-08 tablet 00:00: 00 aspirin 81 2020-1 No 1mg mg 1-08 tablet,mariano 00:00: yed release 00 carvedilol 1-1 No 1mg 25 mg 1-08 tablet 00:00: 00 metformin 1-1 No 1mg 1,000 mg 1-08 tablet 00:00: 00 atorvastati 2020-1 No 1mg n 20 mg 1-08 tablet 00:00: 00 atorvastati 1-1 No 1mg n 20 mg 1-08 tablet 00:00: 00 amlodipine 1-1 No 1mg 10 mg 1-08 tablet 00:00: 00 aspirin 81 2020-1 No 1mg mg 1-08 tablet,mariano 00:00: yed release 00 carvedilol 1-1 No 1mg 25 mg 1-08 tablet 00:00: 00 metformin 1-1 No 1mg 1,000 mg 1-08 tablet 00:00: 00 atorvastati 2020-1 No 1mg n 20 mg 1-08 tablet 00:00: 00 atorvastati 1-1 No 1mg n 20 mg 1-08 tablet 00:00: 00 amlodipine 1-1 No 1mg 10 mg 1-03 tablet 00:00: 00 amlodipine 1-1 No 1mg 10 mg 1-03 tablet 00:00: 00 amlodipine 1-1 No 1mg 10 mg 1-03 tablet 00:00: 00 amlodipine 1-1 No 1mg 10 mg 1-03 tablet 00:00: 00 atorvastati 1-1 No 1mg n 20 mg 0-29 tablet 00:00: 00 atorvastati 1-1 No 1mg n 20 mg 0-29 tablet 00:00: 00 atorvastati 1-1 No 1mg n 20 mg 0-29 tablet 00:00: 00 atorvastati 1-1 No 1mg n 20 mg 0-29 tablet 00:00: 00 ibuprofen 2021-0 No 1mg 800 mg 7-05 tablet 00:00: 00 ibuprofen 2021-0 No 1mg 800 mg 7-05 tablet 00:00: 00 ibuprofen 2021-0 No 1mg 800 mg 7-05 tablet 00:00: 00 ibuprofen 2021-0 No 1mg 800 mg 7-05 tablet 00:00: 00 amlodipine 2021-0 No 1mg 10 mg 5-06 tablet 00:00: 00 amlodipine 2021-0 No 1mg 10 mg 5-06 tablet 00:00: 00 losartan 50 2021-0 No 1mg mg-hydrochl 5-06 orothiazide 00:00: 12.5 mg 00 tablet aspirin 81 2021-0 No 1mg mg 5-06 tablet,mariano 00:00: yed release 00 losartan 50 2021-0 No 1mg mg-hydrochl 5-06 orothiazide 00:00: 12.5 mg 00 tablet carvedilol 2021-0 No 1mg 25 mg 5-06 tablet 00:00: 00 metformin 2021-0 No 1mg 1,000 mg 5-06 tablet 00:00: 00 atorvastati 2021-0 No 1mg n 20 mg 5-06 tablet 00:00: 00 omeprazole 2021-0 No 1mg 20 mg 5-06 capsule,del 00:00: ayed 00 release aspirin 81 1-0 No 1mg mg 5-06 tablet,mariano 00:00: yed release 00 carvedilol 2021-0 No 1mg 25 mg 5-06 tablet 00:00: 00 metformin 2021-0 No 1mg 1,000 mg 5-06 tablet 00:00: 00 atorvastati 2021-0 No 1mg n 20 mg 5-06 tablet 00:00: 00 omeprazole 2021-0 No 1mg 20 mg 5-06 capsule,del 00:00: ayed 00 release amlodipine 2021-0 No 1mg 10 mg 5-06 tablet 00:00: 00 losartan 50 1-0 No 1mg mg-hydrochl 5-06 orothiazide 00:00: 12.5 mg 00 tablet aspirin 81 2021-0 No 1mg mg 5-06 tablet,mariano 00:00: yed release 00 carvedilol 2021-0 No 1mg 25 mg 5-06 tablet 00:00: 00 metformin 2021-0 No 1mg 1,000 mg 5-06 tablet 00:00: 00 atorvastati 2021-0 No 1mg n 20 mg 5-06 tablet 00:00: 00 omeprazole 2021-0 No 1mg 20 mg 5-06 capsule,del 00:00: ayed 00 release amlodipine 2021-0 No 1mg 10 mg 5-06 tablet 00:00: 00 losartan 50 2021-0 No 1mg mg-hydrochl 5-06 orothiazide 00:00: 12.5 mg 00 tablet aspirin 81 2021-0 No 1mg mg 5-06 tablet,mariano 00:00: yed release 00 carvedilol 2021-0 No 1mg 25 mg 5-06 tablet 00:00: 00 metformin 2021-0 No 1mg 1,000 mg 5-06 tablet 00:00: 00 atorvastati 2021-0 No 1mg n 20 mg 5-06 tablet 00:00: 00 omeprazole 2021-0 No 1mg 20 mg 5-06 capsule,del 00:00: ayed 00 release amlodipine 2021-0 No 1mg 10 mg 4-24 tablet 00:00: 00 losartan 50 2021-0 No 1mg mg-hydrochl 4-24 orothiazide 00:00: 12.5 mg 00 tablet carvedilol 2021-0 No 1mg 25 mg 4-24 tablet 00:00: 00 metformin 2021-0 No 1mg 1,000 mg 4-24 tablet 00:00: 00 atorvastati 2021-0 No 1mg n 20 mg 4-24 tablet 00:00: 00 amlodipine 2021-0 No 1mg 10 mg 4-24 tablet 00:00: 00 losartan 50 2021-0 No 1mg mg-hydrochl 4-24 orothiazide 00:00: 12.5 mg 00 tablet carvedilol 2021-0 No 1mg 25 mg 4-24 tablet 00:00: 00 metformin 2021-0 No 1mg 1,000 mg 4-24 tablet 00:00: 00 atorvastati 2021-0 No 1mg n 20 mg 4-24 tablet 00:00: 00 amlodipine 2021-0 No 1mg 10 mg 4-24 tablet 00:00: 00 losartan 50 2021-0 No 1mg mg-hydrochl 4-24 orothiazide 00:00: 12.5 mg 00 tablet carvedilol 2021-0 No 1mg 25 mg 4-24 tablet 00:00: 00 metformin 2021-0 No 1mg 1,000 mg 4-24 tablet 00:00: 00 atorvastati 2021-0 No 1mg n 20 mg 4-24 tablet 00:00: 00 amlodipine 2021-0 No 1mg 10 mg 4-24 tablet 00:00: 00 losartan 50 2021-0 No 1mg mg-hydrochl 4-24 orothiazide 00:00: 12.5 mg 00 tablet carvedilol 2021-0 No 1mg 25 mg 4-24 tablet 00:00: 00 metformin 2021-0 No 1mg 1,000 mg 4-24 tablet 00:00: 00 atorvastati 2021-0 No 1mg n 20 mg 4-24 tablet 00:00: 00 omeprazole 2021-0 No 1mg 20 mg 3-01 capsule,del 00:00: ayed 00 release omeprazole 2021-0 No 1mg 20 mg 3-01 capsule,del 00:00: ayed 00 release omeprazole 2021-0 No 1mg 20 mg 3-01 capsule,del 00:00: ayed 00 release omeprazole 2021-0 No 1mg 20 mg 3-01 capsule,del 00:00: ayed 00 release omeprazole 2021-0 No 1mg 20 mg 3-01 capsule,del 00:00: ayed 00 release omeprazole 2021-0 No 1mg 20 mg 3-01 capsule,del 00:00: ayed 00 release omeprazole 2021-0 No 1mg 20 mg 3-01 capsule,del 00:00: ayed 00 release omeprazole 2021-0 No 1mg 20 mg 3-01 capsule,del 00:00: ayed 00 release losartan 50 1-0 No 1mg mg-hydrochl 2-08 orothiazide 00:00: 12.5 mg 00 tablet carvedilol 2021-0 No 1mg 25 mg 2-08 tablet 00:00: 00 metformin 2021-0 No 1mg 1,000 mg 2-08 tablet 00:00: 00 atorvastati 2021-0 No 1mg n 20 mg 2-08 tablet 00:00: 00 amlodipine 2021-0 No 1mg 10 mg 2-08 tablet 00:00: 00 losartan 50 2021-0 No 1mg mg-hydrochl 2-08 orothiazide 00:00: 12.5 mg 00 tablet carvedilol 2021-0 No 1mg 25 mg 2-08 tablet 00:00: 00 metformin 2021-0 No 1mg 1,000 mg 2-08 tablet 00:00: 00 atorvastati 2021-0 No 1mg n 20 mg 2-08 tablet 00:00: 00 amlodipine 2021-0 No 1mg 10 mg 2-08 tablet 00:00: 00 losartan 50 2021-0 No 1mg mg-hydrochl 2-08 orothiazide 00:00: 12.5 mg 00 tablet carvedilol 2021-0 No 1mg 25 mg 2-08 tablet 00:00: 00 metformin 2021-0 No 1mg 1,000 mg 2-08 tablet 00:00: 00 atorvastati 2021-0 No 1mg n 20 mg 2-08 tablet 00:00: 00 amlodipine 2021-0 No 1mg 10 mg 2-08 tablet 00:00: 00 losartan 50 2021-0 No 1mg mg-hydrochl 2-08 orothiazide 00:00: 12.5 mg 00 tablet carvedilol 2021-0 No 1mg 25 mg 2-08 tablet 00:00: 00 metformin 2021-0 No 1mg 1,000 mg 2-08 tablet 00:00: 00 atorvastati 2021-0 No 1mg n 20 mg 2-08 tablet 00:00: 00 amlodipine 2021-0 No 1mg 10 mg 2-08 tablet 00:00: 00 omeprazole 2021-0 No 1mg 20 mg 1-25 capsule,del 00:00: ayed 00 release omeprazole 2021-0 No 1mg 20 mg 1-25 capsule,del 00:00: ayed 00 release omeprazole 2021-0 No 1mg 20 mg 1-25 capsule,del 00:00: ayed 00 release omeprazole 2021-0 No 1mg 20 mg 1-25 capsule,del 00:00: ayed 00 release omeprazole 2020-1 No 1mg 20 mg 2-01 capsule,del 00:00: ayed 00 release omeprazole 2020-1 No 1mg 20 mg 2-01 capsule,del 00:00: ayed 00 release omeprazole 2020-1 No 1mg 20 mg 2-01 capsule,del 00:00: ayed 00 release omeprazole 2020-1 No 1mg 20 mg 2-01 capsule,del 00:00: ayed 00 release losartan 50 2020-1 No 1mg mg-hydrochl 1-03 orothiazide 00:00: 12.5 mg 00 tablet amlodipine 2019-1 No 1mg 10 mg 1-03 tablet 00:00: 00 carvedilol 2019-1 No 1mg 25 mg 1-03 tablet 00:00: 00 metformin 2020-1 No 1mg 1,000 mg 1-03 tablet 00:00: 00 atorvastati 2019- No 1mg n 20 mg 1-03 tablet 00:00: 00 losartan 50 2019-1 No 1mg mg-hydrochl 1-03 orothiazide 00:00: 12.5 mg 00 tablet amlodipine 2019- No 1mg 10 mg 1-03 tablet 00:00: 00 carvedilol 2019- No 1mg 25 mg 1-03 tablet 00:00: 00 metformin 2019-1 No 1mg 1,000 mg 1-03 tablet 00:00: 00 atorvastati 2019- No 1mg n 20 mg 1-03 tablet 00:00: 00 losartan 50 2019-1 No 1mg mg-hydrochl 1-03 orothiazide 00:00: 12.5 mg 00 tablet amlodipine 2019- No 1mg 10 mg 1-03 tablet 00:00: 00 carvedilol 2019- No 1mg 25 mg 1-03 tablet 00:00: 00 metformin 2019-1 No 1mg 1,000 mg 1-03 tablet 00:00: 00 atorvastati 2019- No 1mg n 20 mg 1-03 tablet 00:00: 00 losartan 50 2019- No 1mg mg-hydrochl 1-03 orothiazide 00:00: 12.5 mg 00 tablet amlodipine 2019- No 1mg 10 mg 1-03 tablet 00:00: 00 carvedilol 2019- No 1mg 25 mg 1-03 tablet 00:00: 00 metformin 2019-1 No 1mg 1,000 mg 1-03 tablet 00:00: 00 atorvastati 2019- No 1mg n 20 mg 1-03 tablet 00:00: 00 omeprazole 2019-1 No 1mg 20 mg 0-29 capsule,del 00:00: ayed 00 release omeprazole 2019- No 1mg 20 mg 0-29 capsule,del 00:00: ayed 00 release omeprazole 2019- No 1mg 20 mg 0-29 capsule,del 00:00: ayed 00 release omeprazole 2019- No 1mg 20 mg 0-29 capsule,del 00:00: ayed 00 release losartan 50 2019-08 No 1mg mg-hydrochl 0-15 orothiazide 00:00: 12.5 mg 00 tablet losartan 50 2019-08 No 1mg mg-hydrochl 0-15 orothiazide 00:00: 12.5 mg 00 tablet losartan 50 2019-08 No 1mg mg-hydrochl 0-15 orothiazide 00:00: 12.5 mg 00 tablet losartan 50 2019-08 No 1mg mg-hydrochl 0-15 orothiazide 00:00: 12.5 mg 00 tablet metFORMIN 2019-0 Yes TAKE 1 Univer s 1,000 mg 9-15 TABLET BY ity of tablet 00:00: MOUTH [place] 00 TWICE Medical DAILY FOR Branch DIABETES metFORMIN 2019-0 Yes TAKE 1 Univer s 1,000 mg 9-15 TABLET BY ity of tablet 00:00: MOUTH [place] 00 TWICE Medical DAILY FOR Branch DIABETES atorvastati 2019-0 No 1mg n 20 mg 8-31 tablet 00:00: 00 atorvastati 2020-0 No 1mg n 20 mg 8-31 tablet 00:00: 00 atorvastati 2020-0 No 1mg n 20 mg 8-31 tablet 00:00: 00 atorvastati 2020-0 No 1mg n 20 mg 8-31 tablet 00:00: 00 losartan-hy 2019-0 Yes 1{tbl} Take 1 Un russell drochloroth 8-29 tablet by ity of iazide 00:00: mouth [place] 50-12.5 mg 00 daily. Medical per tablet Branch losartan-hy 2020-0 Yes 1{tbl} Take 1 Un russell drochloroth 8-29 tablet by ity of iazide 00:00: mouth [place] 50-12.5 mg 00 daily. Medical per tablet Branch atorvastati 2020-0 Yes 20mg Take 20 mg Univers n 20 mg 8-25 by mouth ity of tablet 00:00: at [place] [address] bedtime. Medical Branch atorvastati 2020-0 Yes 20mg Take 20 mg Univers n 20 mg 8-25 by mouth ity of tablet 00:00: at [place] [address] bedtime. Medical Branch atorvastati 2020-0 No 1mg n 20 mg 8-24 tablet 00:00: 00 atorvastati 2020-0 No 1mg n 20 mg 8-24 tablet 00:00: 00 atorvastati 2020-0 No 1mg n 20 mg 8-24 tablet 00:00: 00 atorvastati 2020-0 No 1mg n 20 mg 8-24 tablet 00:00: 00 losartan 50 2020-0 No 1mg mg-hydrochl 8-18 orothiazide 00:00: 12.5 mg 00 tablet amlodipine 2020-0 No 1mg 10 mg 8-18 tablet 00:00: 00 carvedilol 2020-0 No 1mg 25 mg 8-18 tablet 00:00: 00 metformin 2020-0 No 1mg 1,000 mg 8-18 tablet 00:00: 00 losartan 50 2020-0 No 1mg mg-hydrochl 8-18 orothiazide 00:00: 12.5 mg 00 tablet amlodipine 2020-0 No 1mg 10 mg 8-18 tablet 00:00: 00 carvedilol 2020-0 No 1mg 25 mg 8-18 tablet 00:00: 00 metformin 2020-0 No 1mg 1,000 mg 8-18 tablet 00:00: 00 losartan 50 2020-0 No 1mg mg-hydrochl 8-18 orothiazide 00:00: 12.5 mg 00 tablet amlodipine 2020-0 No 1mg 10 mg 8-18 tablet 00:00: 00 carvedilol 2020-0 No 1mg 25 mg 8-18 tablet 00:00: 00 metformin 2020-0 No 1mg 1,000 mg 8-18 tablet 00:00: 00 losartan 50 2020-0 No 1mg mg-hydrochl 8-18 orothiazide 00:00: 12.5 mg 00 tablet amlodipine 2020-0 No 1mg 10 mg 8-18 tablet 00:00: 00 carvedilol 2020-0 No 1mg 25 mg 8-18 tablet 00:00: 00 metformin 2020-0 No 1mg 1,000 mg 8-18 tablet 00:00: 00 carvediloL 2020-0 Yes 25mg Take 25 mg U nivers 25 mg 8-16 by mouth 2 ity of tablet 00:00: (two) [place] times Medical daily. Branch carvediloL 2020-0 Yes 25mg Take 25 mg U nivers 25 mg 8-16 by mouth 2 ity of tablet 00:00: (two) [place] times Medical daily. Branch amLODIPine 2020-0 Yes TAKE 1 Unive rs 10 mg 8-12 TABLET BY ity of tablet 00:00: MOUTH ONCE [place] DAILY FOR Medical BLOOD Branch PRESSURE amLODIPine 2020-0 Yes TAKE 1 Unive rs 10 mg 8-12 TABLET BY ity of tablet 00:00: MOUTH ONCE [place] DAILY FOR Medical BLOOD Branch PRESSURE omeprazole 2020-0 Yes 20mg Take 20 mg U nivers 20 mg 8-01 by mouth ity of capsule 00:00: daily. [place] [facility] [place] omeprazole 2020-0 Yes 20mg Take 20 mg U nivers 20 mg 8-01 by mouth ity of capsule 00:00: daily. [place] [facility] nystatin 2020-0 Yes SWISH AND Univ ers 100,000 7-21 HOLD ONE ity of unit/mL 00:00: [place]FU [place] suspension 00 L (4 6ML) Medi tressa IN MOUTH Branch FOR ONE MINUTE THEN SPIT OUT FOUR TIMES A DAY nystatin 2020-0 Yes SWISH AND Univ ers 100,000 7-21 HOLD ONE ity of unit/mL 00:00: [place]FU [place] suspension 00 L (4 6ML) Medi tressa IN MOUTH Branch FOR ONE MINUTE THEN SPIT OUT FOUR TIMES A DAY losartan 50 2020-0 No 1mg mg-hydrochl 7-14 orothiazide 00:00: 12.5 mg 00 tablet losartan 50 2020-0 No 1mg mg-hydrochl 7-14 orothiazide 00:00: 12.5 mg 00 tablet losartan 50 2020-0 No 1mg mg-hydrochl 7-14 orothiazide 00:00: 12.5 mg 00 tablet losartan 50 2020-0 No 1mg mg-hydrochl 7-14 orothiazide 00:00: 12.5 mg 00 tablet atorvastati 2020-0 No 1mg n 20 mg 6-24 tablet 00:00: 00 atorvastati 2020-0 No 1mg n 20 mg 6-24 tablet 00:00: 00 atorvastati 2020-0 No 1mg n 20 mg 6-24 tablet 00:00: 00 atorvastati 2020-0 No 1mg n 20 mg 6-24 tablet 00:00: 00 atorvastati 2020-0 No 1mg n 20 mg 6-23 tablet 00:00: 00 atorvastati 2020-0 No 1mg n 20 mg 6-23 tablet 00:00: 00 atorvastati 2020-0 No 1mg n 20 mg 6-23 tablet 00:00: 00 atorvastati 2020-0 No 1mg n 20 mg 6-23 tablet 00:00: 00 Macrobid 2020-0 No 1mg 100 mg 5-14 capsule 00:00: 00 aspirin 81 2020-0 No 1mg mg 5-14 tablet,mariano 00:00: yed release 00 amlodipine 2020-0 No 1mg 10 mg 5-14 tablet 00:00: 00 glimepiride 2020-0 No 1mg 2 mg tablet 5-14 00:00: 00 metformin 2020-0 No 1mg 1,000 mg 5-14 tablet 00:00: 00 carvedilol 2020-0 No 1mg 25 mg 5-14 tablet 00:00: 00 omeprazole 2020-0 No 1mg 20 mg 5-14 capsule,del 00:00: ayed 00 release Macrobid 2020-0 No 1mg 100 mg 5-14 capsule 00:00: 00 aspirin 81 2020-0 No 1mg mg 5-14 tablet,mariano 00:00: yed release 00 amlodipine 2020-0 No 1mg 10 mg 5-14 tablet 00:00: 00 glimepiride 2020-0 No 1mg 2 mg tablet 5-14 00:00: 00 aspirin 81 2020-0 No 1mg mg 5-14 tablet,mariano 00:00: yed release 00 amlodipine 2020-0 No 1mg 10 mg 5-14 tablet 00:00: 00 glimepiride 2020-0 No 1mg 2 mg tablet 5-14 00:00: 00 metformin 2020-0 No 1mg 1,000 mg 5-14 tablet 00:00: 00 carvedilol 2020-0 No 1mg 25 mg 5-14 tablet 00:00: 00 metformin 2020-0 No 1mg 1,000 mg 5-14 tablet 00:00: 00 omeprazole 2020-0 No 1mg 20 mg 5-14 capsule,del 00:00: ayed 00 release Macrobid 2020-0 No 1mg 100 mg 5-14 capsule 00:00: 00 carvedilol 2020-0 No 1mg 25 mg 5-14 tablet 00:00: 00 omeprazole 2020-0 No 1mg 20 mg 5-14 capsule,del 00:00: ayed 00 release Macrobid 2020-0 No 1mg 100 mg 5-14 capsule 00:00: 00 aspirin 81 2020-0 No 1mg mg 5-14 tablet,mariano 00:00: yed release 00 amlodipine 2020-0 No 1mg 10 mg 5-14 tablet 00:00: 00 glimepiride 2020-0 No 1mg 2 mg tablet 5-14 00:00: 00 metformin 2020-0 No 1mg 1,000 mg 5-14 tablet 00:00: 00 carvedilol 2020-0 No 1mg 25 mg 5-14 tablet 00:00: 00 omeprazole 2020-0 No 1mg 20 mg 5-14 capsule,del 00:00: ayed 00 release aspirin 81 2020-0 No 1mg mg 2-26 tablet,mariano 00:00: yed release 00 amlodipine 2020-0 No 1mg 10 mg 2-26 tablet 00:00: 00 metformin 2020-0 No 1mg 1,000 mg 2-26 tablet 00:00: 00 carvedilol 2020-0 No 1mg 25 mg 2-26 tablet 00:00: 00 glimepiride 2020-0 No 1mg 2 mg tablet 2-26 00:00: 00 omeprazole 2020-0 No 1mg 20 mg 2-26 capsule,del 00:00: ayed 00 release aspirin 81 2020-0 No 1mg mg 2-26 tablet,mariano 00:00: yed release 00 amlodipine 2020-0 No 1mg 10 mg 2-26 tablet 00:00: 00 metformin 2020-0 No 1mg 1,000 mg 2-26 tablet 00:00: 00 carvedilol 2020-0 No 1mg 25 mg 2-26 tablet 00:00: 00 glimepiride 2020-0 No 1mg 2 mg tablet 2-26 00:00: 00 omeprazole 2020-0 No 1mg 20 mg 2-26 capsule,del 00:00: ayed 00 release aspirin 81 2020-0 No 1mg mg 2-26 tablet,mariano 00:00: yed release 00 amlodipine 2020-0 No 1mg 10 mg 2-26 tablet 00:00: 00 metformin 2020-0 No 1mg 1,000 mg 2-26 tablet 00:00: 00 carvedilol 2020-0 No 1mg 25 mg 2-26 tablet 00:00: 00 glimepiride 2020-0 No 1mg 2 mg tablet 2-26 00:00: 00 omeprazole 2020-0 No 1mg 20 mg 2-26 capsule,del 00:00: ayed 00 release aspirin 81 2020-0 No 1mg mg 2-26 tablet,mariano 00:00: yed release 00 amlodipine 2020-0 No 1mg 10 mg 2-26 tablet 00:00: 00 metformin 2020-0 No 1mg 1,000 mg 2-26 tablet 00:00: 00 carvedilol 2020-0 No 1mg 25 mg 2-26 tablet 00:00: 00 glimepiride 2020-0 No 1mg 2 mg tablet 2-26 00:00: 00 omeprazole 2020-0 No 1mg 20 mg 2-26 capsule,del 00:00: ayed 00 release amoxicillin 2020-0 No 1mg 500 mg 1-11 tablet 00:00: 00 amoxicillin 2020-0 No 1mg 500 mg 1-11 tablet 00:00: 00 amoxicillin 2020-0 No 1mg 500 mg 1-11 tablet 00:00: 00 amoxicillin 2020-0 No 1mg 500 mg 1-11 tablet 00:00: 00 amoxicillin 2019-1 No 1mg 500 mg 1-21 capsule 00:00: 00 Tessalon 2019-1 No 1mg Perles 100 1-21 mg capsule 00:00: 00 amoxicillin 2019-1 No 1mg 500 mg 1-21 capsule 00:00: 00 Tessalon 2019-1 No 1mg Perles 100 1-21 mg capsule 00:00: 00 amoxicillin 2019-1 No 1mg 500 mg 1-21 capsule 00:00: 00 Tessalon 2019-1 No 1mg Perles 100 1-21 mg capsule 00:00: 00 amoxicillin 2019-1 No 1mg 500 mg 1-21 capsule 00:00: 00 Tessalon 2019-1 No 1mg Perles 100 1-21 mg capsule 00:00: 00 aspirin 81 2019-1 No 1mg mg 1-14 tablet,mariano 00:00: yed release 00 aspirin 81 2019-1 No 1mg mg 1-14 tablet,mariano 00:00: yed release 00 aspirin 81 2019-1 No 1mg mg 1-14 tablet,mariano 00:00: yed release 00 aspirin 81 2019-1 No 1mg mg 1-14 tablet,mariano 00:00: yed release 00 amlodipine 2019-1 No 1mg 10 mg 1-04 tablet 00:00: 00 losartan 50 2018-1 No 1mg mg-hydrochl 1-04 orothiazide 00:00: 12.5 mg 00 tablet glimepiride 2018- No 1mg 2 mg tablet 104 00:00: 00 carvedilol 2019-1 No 1mg 25 mg 1-04 tablet 00:00: 00 metformin 2019-1 No 1mg 1,000 mg 1-04 tablet 00:00: 00 atorvastati 2018-1 No 1mg n 20 mg 1-04 tablet 00:00: 00 omeprazole 2018-1 No 1mg 20 mg 1-04 capsule,del 00:00: ayed 00 release amlodipine 2018- No 1mg 10 mg 1-04 tablet 00:00: 00 losartan 50 2018- No 1mg mg-hydrochl 1-04 orothiazide 00:00: 12.5 mg 00 tablet glimepiride 2018- No 1mg 2 mg tablet 04 00:00: 00 carvedilol 2018-1 No 1mg 25 mg 1-04 tablet 00:00: 00 metformin 2018-1 No 1mg 1,000 mg 1-04 tablet 00:00: 00 atorvastati 2018-1 No 1mg n 20 mg 1-04 tablet 00:00: 00 omeprazole 2018-1 No 1mg 20 mg 1-04 capsule,del 00:00: ayed 00 release amlodipine 2018-1 No 1mg 10 mg 1-04 tablet 00:00: 00 losartan 50 2018-1 No 1mg mg-hydrochl 1-04 orothiazide 00:00: 12.5 mg 00 tablet glimepiride 2018- No 1mg 2 mg tablet 104 00:00: 00 carvedilol 2018-1 No 1mg 25 mg 1-04 tablet 00:00: 00 metformin 2019-1 No 1mg 1,000 mg 1-04 tablet 00:00: 00 atorvastati 2018-1 No 1mg n 20 mg 1-04 tablet 00:00: 00 omeprazole 2019-1 No 1mg 20 mg 1-04 capsule,del 00:00: ayed 00 release amlodipine 2018-1 No 1mg 10 mg 1-04 tablet 00:00: 00 losartan 50 2018-1 No 1mg mg-hydrochl 1-04 orothiazide 00:00: 12.5 mg 00 tablet glimepiride 2019-1 No 1mg 2 mg tablet 1-04 00:00: 00 carvedilol 2019-1 No 1mg 25 mg 1-04 tablet 00:00: 00 metformin 2019-1 No 1mg 1,000 mg 1-04 tablet 00:00: 00 atorvastati 2019-1 No 1mg n 20 mg 1-04 tablet 00:00: 00 omeprazole 2019-1 No 1mg 20 mg 1-04 capsule,del 00:00: ayed 00 release meclizine 2019-0 No 1mg 25 mg 8-22 tablet 00:00: 00 ondansetron 2019-0 No 1mg 8 mg 8-22 disintegrat 00:00: ing tablet 00 meclizine 2019-0 No 1mg 25 mg 8-22 tablet 00:00: 00 ondansetron 2019-0 No 1mg 8 mg 8-22 disintegrat 00:00: ing tablet 00 meclizine 2019-0 No 1mg 25 mg 8-22 tablet 00:00: 00 ondansetron 2019-0 No 1mg 8 mg 8-22 disintegrat 00:00: ing tablet 00 meclizine 2019-0 No 1mg 25 mg 8-22 tablet 00:00: 00 ondansetron 2019-0 No 1mg 8 mg 8-22 disintegrat 00:00: ing tablet 00 amlodipine 2019-0 No 1mg 10 mg 8-03 tablet 00:00: 00 aspirin 81 2019-0 No 1mg mg 8-03 tablet,mariano 00:00: yed release 00 glimepiride 2019-0 No 1mg 2 mg tablet 8-03 00:00: 00 carvedilol 2019-0 No 1mg 25 mg 8-03 tablet 00:00: 00 metformin 2019-0 No 1mg 1,000 mg 8-03 tablet 00:00: 00 omeprazole 2019-0 No 1mg 20 mg 8-03 capsule,del 00:00: ayed 00 release amlodipine 2019-0 No 1mg 10 mg 8-03 tablet 00:00: 00 aspirin 81 2019-0 No 1mg mg 8-03 tablet,mariano 00:00: yed release 00 glimepiride 2019-0 No 1mg 2 mg tablet 8-03 00:00: 00 carvedilol 2019-0 No 1mg 25 mg 8-03 tablet 00:00: 00 metformin 2019-0 No 1mg 1,000 mg 8-03 tablet 00:00: 00 omeprazole 2019-0 No 1mg 20 mg 8-03 capsule,del 00:00: ayed 00 release amlodipine 2019-0 No 1mg 10 mg 8-03 tablet 00:00: 00 aspirin 81 2019-0 No 1mg mg 8-03 tablet,mariano 00:00: yed release 00 glimepiride 2019-0 No 1mg 2 mg tablet 8-03 00:00: 00 carvedilol 2019-0 No 1mg 25 mg 8-03 tablet 00:00: 00 metformin 2019-0 No 1mg 1,000 mg 8-03 tablet 00:00: 00 omeprazole 2019-0 No 1mg 20 mg 8-03 capsule,del 00:00: ayed 00 release amlodipine 2019-0 No 1mg 10 mg 8-03 tablet 00:00: 00 aspirin 81 2019-0 No 1mg mg 8-03 tablet,mariano 00:00: yed release 00 glimepiride 2019-0 No 1mg 2 mg tablet 8-03 00:00: 00 carvedilol 2019-0 No 1mg 25 mg 8-03 tablet 00:00: 00 metformin 2019-0 No 1mg 1,000 mg 8-03 tablet 00:00: 00 omeprazole 2019-0 No 1mg 20 mg 8-03 capsule,del 00:00: ayed 00 release aspirin 81 2019-0 No 1mg mg 3-22 tablet,mariano 00:00: yed release 00 amlodipine 2019-0 No 1mg 10 mg 3-22 tablet 00:00: 00 glimepiride 2019-0 No 1mg 2 mg tablet 3-22 00:00: 00 carvedilol 2019-0 No 1mg 25 mg 3-22 tablet 00:00: 00 metformin 2019-0 No 1mg 1,000 mg 3-22 tablet 00:00: 00 omeprazole 2019-0 No 1mg 20 mg 3-22 capsule,del 00:00: ayed 00 release aspirin 81 2019-0 No 1mg mg 3-22 tablet,mariano 00:00: yed release 00 amlodipine 2019-0 No 1mg 10 mg 3-22 tablet 00:00: 00 glimepiride 2019-0 No 1mg 2 mg tablet 3-22 00:00: 00 carvedilol 2019-0 No 1mg 25 mg 3-22 tablet 00:00: 00 metformin 2019-0 No 1mg 1,000 mg 3-22 tablet 00:00: 00 omeprazole 2019-0 No 1mg 20 mg 3-22 capsule,del 00:00: ayed 00 release aspirin 81 2019-0 No 1mg mg 3-22 tablet,mariano 00:00: yed release 00 amlodipine 2019-0 No 1mg 10 mg 3-22 tablet 00:00: 00 glimepiride 2019-0 No 1mg 2 mg tablet 3-22 00:00: 00 carvedilol 2019-0 No 1mg 25 mg 3-22 tablet 00:00: 00 metformin 2019-0 No 1mg 1,000 mg 3-22 tablet 00:00: 00 omeprazole 2019-0 No 1mg 20 mg 3-22 capsule,del 00:00: ayed 00 release aspirin 81 2019-0 No 1mg mg 3-22 tablet,mariano 00:00: yed release 00 amlodipine 2019-0 No 1mg 10 mg 3-22 tablet 00:00: 00 glimepiride 2019-0 No 1mg 2 mg tablet 3-22 00:00: 00 carvedilol 2019-0 No 1mg 25 mg 3-22 tablet 00:00: 00 metformin 2019-0 No 1mg 1,000 mg 3-22 tablet 00:00: 00 omeprazole 2019-0 No 1mg 20 mg 3-22 capsule,del 00:00: ayed 00 release aspirin 81 2019-0 No 1mg mg 1-30 tablet,mariano 00:00: yed release 00 aspirin 81 2019-0 No 1mg mg 1-30 tablet,mariano 00:00: yed release 00 aspirin 81 2019-0 No 1mg mg 1-30 tablet,mariano 00:00: yed release 00 aspirin 81 2019-0 No 1mg mg 1-30 tablet,mariano 00:00: yed release 00 glimepiride 2018-1 No 1mg 2 mg tablet 2-20 00:00: 00 omeprazole 2018-1 No 1mg 20 mg 2-20 capsule,del 00:00: ayed 00 release glimepiride 2018-1 No 1mg 2 mg tablet 2-20 00:00: 00 omeprazole 2018-1 No 1mg 20 mg 2-20 capsule,del 00:00: ayed 00 release glimepiride 2018-1 No 1mg 2 mg tablet 2-20 00:00: 00 omeprazole 2018-1 No 1mg 20 mg 2-20 capsule,del 00:00: ayed 00 release glimepiride 2018-1 No 1mg 2 mg tablet 2-20 00:00: 00 omeprazole 2018-1 No 1mg 20 mg 2-20 capsule,del 00:00: ayed 00 release amlodipine 2018-1 No 1mg 10 mg 2-19 tablet 00:00: 00 carvedilol 2018-1 No 1mg 25 mg 2-19 tablet 00:00: 00 metformin 2018-1 No 1mg 1,000 mg 2-19 tablet 00:00: 00 amlodipine 2018-1 No 1mg 10 mg 2-19 tablet 00:00: 00 carvedilol 2018-1 No 1mg 25 mg 2-19 tablet 00:00: 00 metformin 2018-1 No 1mg 1,000 mg 2-19 tablet 00:00: 00 amlodipine 2018-1 No 1mg 10 mg 2-19 tablet 00:00: 00 carvedilol 2018-1 No 1mg 25 mg 2-19 tablet 00:00: 00 metformin 2018-1 No 1mg 1,000 mg 2-19 tablet 00:00: 00 amlodipine 2018-1 No 1mg 10 mg 2-19 tablet 00:00: 00 carvedilol 2018-1 No 1mg 25 mg 2-19 tablet 00:00: 00 metformin 2018-1 No 1mg 1,000 mg 2-19 tablet 00:00: 00 glimepiride 2018-1 No 1mg 1 mg tablet 0-30 00:00: 00 omeprazole 2018-1 No 1mg 20 mg 0-30 capsule,del 00:00: ayed 00 release glimepiride 2018-1 No 1mg 1 mg tablet 0-30 00:00: 00 omeprazole 2018-1 No 1mg 20 mg 0-30 capsule,del 00:00: ayed 00 release glimepiride 2018-1 No 1mg 1 mg tablet 0-30 00:00: 00 omeprazole 2018-1 No 1mg 20 mg 0-30 capsule,del 00:00: ayed 00 release glimepiride 2018-1 No 1mg 1 mg tablet 0-30 00:00: 00 omeprazole 2018-1 No 1mg 20 mg 0-30 capsule,del 00:00: ayed 00 release amlodipine 2018-0 No 1mg 10 mg 9-26 tablet 00:00: 00 carvedilol 2018-0 No 1mg 12.5 mg 9-26 tablet 00:00: 00 metformin 2018-0 No 1mg 1,000 mg 9-26 tablet 00:00: 00 lovastatin 2018-0 No 1mg 20 mg 9-26 tablet 00:00: 00 amlodipine 2018-0 No 1mg 10 mg 9-26 tablet 00:00: 00 carvedilol 2018-0 No 1mg 12.5 mg 9-26 tablet 00:00: 00 metformin 2018-0 No 1mg 1,000 mg 9-26 tablet 00:00: 00 lovastatin 2018-0 No 1mg 20 mg 9-26 tablet 00:00: 00 amlodipine 2018-0 No 1mg 10 mg 9-26 tablet 00:00: 00 carvedilol 2018-0 No 1mg 12.5 mg 9-26 tablet 00:00: 00 metformin 2018-0 No 1mg 1,000 mg 9-26 tablet 00:00: 00 lovastatin 2018-0 No 1mg 20 mg 9-26 tablet 00:00: 00 amlodipine 2018-0 No 1mg 10 mg 9-26 tablet 00:00: 00 carvedilol 2018-0 No 1mg 12.5 mg 9-26 tablet 00:00: 00 metformin 2018-0 No 1mg 1,000 mg 9-26 tablet 00:00: 00 lovastatin 2018-0 No 1mg 20 mg 9-26 tablet 00:00: 00 lovastatin 2018-0 No 1mg 20 mg 9-15 tablet 00:00: 00 lovastatin 2018-0 No 1mg 20 mg 9-15 tablet 00:00: 00 lovastatin 2018-0 No 1mg 20 mg 9-15 tablet 00:00: 00 lovastatin 2018-0 No 1mg 20 mg 9-15 tablet 00:00: 00 amlodipine 2018-0 No 1mg 5 mg tablet 8 00:00: 00 amlodipine 2018-0 No 1mg 5 mg tablet 8 00:00: 00 amlodipine 2018-0 No 1mg 5 mg tablet 8 00:00: 00 amlodipine 2018-0 No 1mg 5 mg tablet 830 00:00: 00 glimepiride 2018-0 No 1mg 1 mg tablet 8 00:00: 00 carvedilol 2018-0 No 1mg 6.25 mg 8-22 tablet 00:00: 00 omeprazole 2018-0 No 1mg 20 mg 8-22 capsule,del 00:00: ayed 00 release glimepiride 2018-0 No 1mg 1 mg tablet 8 00:00: 00 carvedilol 2018-0 No 1mg 6.25 mg 8-22 tablet 00:00: 00 omeprazole 2018-0 No 1mg 20 mg 8-22 capsule,del 00:00: ayed 00 release glimepiride 2018-0 No 1mg 1 mg tablet 8 00:00: 00 carvedilol 2018-0 No 1mg 6.25 mg 8-22 tablet 00:00: 00 omeprazole 2018-0 No 1mg 20 mg 8-22 capsule,del 00:00: ayed 00 release glimepiride 2018-0 No 1mg 1 mg tablet 8 00:00: 00 carvedilol 2018-0 No 1mg 6.25 mg 8-22 tablet 00:00: 00 omeprazole 2018-0 No 1mg 20 mg 8-22 capsule,del 00:00: ayed 00 release glimepiride 2018-0 No 1mg 1 mg tablet 7 00:00: 00 carvedilol 2018-0 No 1mg 6.25 mg 7-31 tablet 00:00: 00 glimepiride 2018-0 No 1mg 1 mg tablet 7 00:00: 00 carvedilol 2018-0 No 1mg 6.25 mg 7-31 tablet 00:00: 00 glimepiride 2018-0 No 1mg 1 mg tablet 7 00:00: 00 carvedilol 2018-0 No 1mg 6.25 mg 7-31 tablet 00:00: 00 glimepiride 2018-0 No 1mg 1 mg tablet 7 00:00: 00 carvedilol 2018-0 No 1mg 6.25 mg 7-31 tablet 00:00: 00 Viagra 50 2018-0 No 1mg mg tablet 6 00:00: 00 metformin 2018-0 No 1mg 1,000 mg 6-30 tablet 00:00: 00 lisinopril 2018-0 No 1mg 20 mg 6-30 tablet 00:00: 00 lovastatin 2018-0 No 1mg 20 mg 6-30 tablet 00:00: 00 omeprazole 2018-0 No 1mg 20 mg 6-30 capsule,del 00:00: ayed 00 release Viagra 50 2018-0 No 1mg mg tablet 30 00:00: 00 metformin 2018-0 No 1mg 1,000 mg 6-30 tablet 00:00: 00 lisinopril 2018-0 No 1mg 20 mg 6-30 tablet 00:00: 00 lovastatin 2018-0 No 1mg 20 mg 6-30 tablet 00:00: 00 omeprazole 2018-0 No 1mg 20 mg 6-30 capsule,del 00:00: ayed 00 release Viagra 50 2018-0 No 1mg mg tablet 02-19 00:00: 00 metformin 2018-0 No 1mg 1,000 mg 6-30 tablet 00:00: 00 lisinopril 2018-0 No 1mg 20 mg 6-30 tablet 00:00: 00 lovastatin 2018-0 No 1mg 20 mg 6-30 tablet 00:00: 00 omeprazole 2018-0 No 1mg 20 mg 6-30 capsule,del 00:00: ayed 00 release Viagra 50 2018-0 No 1mg mg tablet 02-19 00:00: 00 metformin 2018-0 No 1mg 1,000 mg 6-30 tablet 00:00: 00 lisinopril 2018-0 No 1mg 20 mg 6-30 tablet 00:00: 00 lovastatin 2018-0 No 1mg 20 mg 6-30 tablet 00:00: 00 omeprazole 2018-0 No 1mg 20 mg 6-30 capsule,del 00:00: ayed 00 release Viagra 50 2018-0 No 1mg mg tablet 01-28 00:00: 00 Viagra 50 2018-0 No 1mg mg tablet 01-28 00:00: 00 Viagra 50 2018-0 No 1mg mg tablet 01-28 00:00: 00 Viagra 50 2018-0 No 1mg mg tablet 01-28 00:00: 00 omeprazole 2018-0 No 1mg 20 mg 6-05 capsule,del 00:00: ayed 00 release omeprazole 2018-0 No 1mg 20 mg 6-05 capsule,del 00:00: ayed 00 release omeprazole 2018-0 No 1mg 20 mg 6-05 capsule,del 00:00: ayed 00 release omeprazole 2018-0 No 1mg 20 mg 6-05 capsule,del 00:00: ayed 00 release ranitidine 2018-0 No 1mg 300 mg 3-24 tablet 00:00: 00 lisinopril 2018-0 No 1mg 20 mg 3-24 tablet 00:00: 00 metformin 2018-0 No mg 500 mg 3-24 tablet 00:00: 00 lovastatin 2018-0 No 1mg 20 mg 3-24 tablet 00:00: 00 ranitidine 2018-0 No 1mg 300 mg 3-24 tablet 00:00: 00 lisinopril 2018-0 No 1mg 20 mg 3-24 tablet 00:00: 00 metformin 2018-0 No mg 500 mg 3-24 tablet 00:00: 00 lovastatin 2018-0 No 1mg 20 mg 3-24 tablet 00:00: 00 ranitidine 2018-0 No 1mg 300 mg 3-24 tablet 00:00: 00 lisinopril 2018-0 No 1mg 20 mg 3-24 tablet 00:00: 00 metformin 2018-0 No mg 500 mg 3-24 tablet 00:00: 00 lovastatin 2018-0 No 1mg 20 mg 3-24 tablet 00:00: 00 ranitidine 2018-0 No 1mg 300 mg 3-24 tablet 00:00: 00 lisinopril 2018-0 No 1mg 20 mg 3-24 tablet 00:00: 00 metformin 2018-0 No mg 500 mg 3-24 tablet 00:00: 00 lovastatin 2018-0 No 1mg 20 mg 3-24 tablet 00:00: 00 Viagra 50 2018-0 No 1mg mg tablet 2-21 00:00: 00 Viagra 50 2018-0 No 1mg mg tablet 2-21 00:00: 00 Viagra 50 2018-0 No 1mg mg tablet 2-21 00:00: 00 Viagra 50 2018-0 No 1mg mg tablet 2-21 00:00: 00 ranitidine 2018-0 No 1mg 300 mg 2-14 tablet 00:00: 00 ranitidine 2018-0 No 1mg 300 mg 2-14 tablet 00:00: 00 ranitidine 2018-0 No 1mg 300 mg 2-14 tablet 00:00: 00 ranitidine 2018-0 No 1mg 300 mg 2-14 tablet 00:00: 00 lovastatin 2018-0 No 1mg 20 mg 2-04 tablet 00:00: 00 lisinopril 2018-0 No 1mg 20 mg 2-04 tablet 00:00: 00 metformin 2018-0 No mg 500 mg 2-04 tablet 00:00: 00 lovastatin 2018-0 No 1mg 20 mg 2-04 tablet 00:00: 00 lisinopril 2018-0 No 1mg 20 mg 2-04 tablet 00:00: 00 metformin 2018-0 No mg 500 mg 2-04 tablet 00:00: 00 lovastatin 2018-0 No 1mg 20 mg 2-04 tablet 00:00: 00 lisinopril 2018-0 No 1mg 20 mg 2-04 tablet 00:00: 00 metformin 2018-0 No mg 500 mg 2-04 tablet 00:00: 00 lovastatin 2018-0 No 1mg 20 mg 2-04 tablet 00:00: 00 lisinopril 2018-0 No 1mg 20 mg 2-04 tablet 00:00: 00 metformin 2018-0 No mg 500 mg 2-04 tablet 00:00: 00 lisinopril 2018-0 No 1mg 10 mg 1-30 tablet 00:00: 00 lisinopril 2018-0 No 1mg 10 mg 1-30 tablet 00:00: 00 lisinopril 2018-0 No 1mg 10 mg 1-30 tablet 00:00: 00 lisinopril 2018-0 No 1mg 10 mg 1-30 tablet 00:00: 00 hydrochloro 2018-0 No 1mg thiazide 25 1-23 mg tablet 00:00: 00 Norvasc 10 2018-0 No 1mg mg tablet 1- 00:00: 00 ranitidine 2018-0 No 1mg 300 mg 1-23 tablet 00:00: 00 aspirin 325 2018-0 No 1mg mg tablet 1 00:00: 00 hydrochloro 2018-0 No 1mg thiazide 25 1-23 mg tablet 00:00: 00 hydrochloro 2018-0 No 1mg thiazide 25 1-23 mg tablet 00:00: 00 Norvasc 10 2018-0 No 1mg mg tablet 1 00:00: 00 ranitidine 2018-0 No 1mg 300 mg 1-23 tablet 00:00: 00 aspirin 325 2018-0 No 1mg mg tablet 09-14 00:00: 00 Norvasc 10 2018-0 No 1mg mg tablet 09-14 00:00: 00 ranitidine 2018-0 No 1mg 300 mg 1-23 tablet 00:00: 00 aspirin 325 2018-0 No 1mg mg tablet 09-14 00:00: 00 hydrochloro 2018-0 No 1mg thiazide 25 1-23 mg tablet 00:00: 00 Norvasc 10 2018-0 No 1mg mg tablet 09-14 00:00: 00 ranitidine 2018-0 No 1mg 300 mg 1-23 tablet 00:00: 00 aspirin 325 2018-0 No 1mg mg tablet 09-14 00:00: 00 Immunizations Ordered Immunization Filled Immunization Date Status Commen ts Source Name Name Hector ROSA-Jose 2021-08-12 Completed Vaccine 00:00:00 Hector SQUIRESID-Jose 2021-08-12 Completed Vaccine 00:00:00 Hector COVID-19 2021-08-12 Completed Vaccine 00:00:00 Hector COVID-19 2021-08-12 Completed Vaccine 00:00:00 Influenza, seasonal, 2020-06-29 Completed inj 00:00:00 Influenza, seasonal, 2020-06-29 Completed inj 00:00:00 Influenza, seasonal, 2020-06-29 Completed inj 00:00:00 Influenza, seasonal, 2020-06-29 Completed inj 00:00:00 Tdap 2017-09-14 Completed 00:00:00 Tdap 2017-09-14 Completed 00:00:00 Tdap 2017-09-14 Completed 00:00:00 Tdap 2017-09-14 Completed 00:00:00 Vital Signs Vital Name Observation Time Observation Value Comments Source Systolic blood 2020-05-20 15:10:00 150 mm[Hg] [facility] Diastolic blood 2020-05-20 15:10:00 83 mm[Hg] [facility] Heart rate 2020-05-20 15:10:00 73 /[facility] Body temperature 2020-05-20 15:10:00 36.17 Mar[facility] Respiratory rate 2020-05-20 15:10:00 18 /min [facility] Body weight 2020-05-20 15:10:00 72.848 kg [facility] BP Systolic 2022-08-27 08:52:00 143 mm[Hg] BP Diastolic 2022-08-27 08:52:00 80 mm[Hg] Weight Measured 2022-08-27 08:52:00 156.60 pounds Height Measured 2022-08-27 08:52:00 65.00 inches Body Temperature 2022-08-27 08:52:00 97.90 degrees Heart Rate 2022-08-27 08:52:00 75.00 /min Respiratory Rate 2022-08-27 08:52:00 17.00 /min BP Systolic 2022-07-28 11:14:00 148 mm[Hg] BP Diastolic 2022-07-28 11:14:00 78 mm[Hg] Weight Measured 2022-07-28 11:14:00 161.20 pounds Height Measured 2022-07-28 11:14:00 65.00 inches Body Temperature 2022-07-28 11:14:00 99.20 degrees Heart Rate 2022-07-28 11:14:00 71.00 /min Respiratory Rate 2022-07-28 11:14:00 18.00 /min BP Systolic 2022-07-06 14:18:00 134 mm[Hg] BP Diastolic 2022-07-06 14:18:00 71 mm[Hg] Weight Measured 2022-07-06 14:18:00 160.60 pounds Height Measured 2022-07-06 14:18:00 65.00 inches Body Temperature 2022-07-06 14:18:00 98.90 degrees Heart Rate 2022-07-06 14:18:00 71.00 /min Respiratory Rate 2022-07-06 14:18:00 BP Systolic 2022-03-30 10:45:00 110 mm[Hg] BP Diastolic 2022-03-30 10:45:00 63 mm[Hg] Weight Measured 2022-03-30 10:45:00 162.00 pounds Height Measured 2022-03-30 10:45:00 65.00 inches Body Temperature 2022-03-30 10:45:00 97.50 degrees Heart Rate 2022-03-30 10:45:00 74.00 /min Respiratory Rate 2022-03-30 10:45:00 24.00 /min BP Systolic 2022-03-26 15:36:00 153 mm[Hg] BP Diastolic 2022-03-26 15:36:00 73 mm[Hg] Weight Measured 2022-03-26 15:36:00 Height Measured 2022-03-26 15:36:00 65.00 inches Body Temperature 2022-03-26 15:36:00 98.60 degrees Heart Rate 2022-03-26 15:36:00 68.00 /min Respiratory Rate 2022-03-26 15:36:00 18.00 /min BP Systolic 2022-03-06 09:56:00 149 mm[Hg] BP Diastolic 2022-03-06 09:56:00 79 mm[Hg] Weight Measured 2022-03-06 09:56:00 Height Measured 2022-03-06 09:56:00 Body Temperature 2022-03-06 09:56:00 Heart Rate 2022-03-06 09:56:00 Respiratory Rate 2022-03-06 09:56:00 BP Systolic 2022-02-03 15:47:00 142 mm[Hg] BP Diastolic 2022-02-03 15:47:00 81 mm[Hg] Weight Measured 2022-02-03 15:47:00 158.80 pounds Height Measured 2022-02-03 15:47:00 65.00 inches Body Temperature 2022-02-03 15:47:00 97.60 degrees Heart Rate 2022-02-03 15:47:00 72.00 /min Respiratory Rate 2022-02-03 15:47:00 21.00 /min BP Systolic 2022-01-28 15:13:00 133 mm[Hg] BP Diastolic 2022-01-28 15:13:00 65 mm[Hg] Weight Measured 2022-01-28 15:13:00 160.80 pounds Height Measured 2022-01-28 15:13:00 65.00 inches Body Temperature 2022-01-28 15:13:00 97.80 degrees Heart Rate 2022-01-28 15:13:00 73.00 /min Respiratory Rate 2022-01-28 15:13:00 24.00 /min BP Systolic 2022-01-24 08:46:00 128 mm[Hg] BP Diastolic 2022-01-24 08:46:00 70 mm[Hg] Weight Measured 2022-01-24 08:46:00 160.00 pounds Height Measured 2022-01-24 08:46:00 65.00 inches Body Temperature 2022-01-24 08:46:00 98.90 degrees Heart Rate 2022-01-24 08:46:00 78.00 /min Respiratory Rate 2022-01-24 08:46:00 BP Systolic 2021-12-18 16:25:00 BP Diastolic 2021-12-18 16:25:00 Weight Measured 2021-12-18 16:25:00 161.80 pounds Height Measured 2021-12-18 16:25:00 65.00 inches Body Temperature 2021-12-18 16:25:00 Heart Rate 2021-12-18 16:25:00 Respiratory Rate 2021-12-18 16:25:00 BP Systolic 2021-11-26 11:53:00 103 mm[Hg] BP Diastolic 2021-11-26 11:53:00 76 mm[Hg] Weight Measured 2021-11-26 11:53:00 161.80 pounds Height Measured 2021-11-26 11:53:00 65.00 inches Body Temperature 2021-11-26 11:53:00 97.60 degrees Heart Rate 2021-11-26 11:53:00 70.00 /min Respiratory Rate 2021-11-26 11:53:00 21.00 /min BP Systolic 2021-10-13 09:41:00 144 mm[Hg] BP Diastolic 2021-10-13 09:41:00 78 mm[Hg] Weight Measured 2021-10-13 09:41:00 161.20 pounds Height Measured 2021-10-13 09:41:00 65.00 inches Body Temperature 2021-10-13 09:41:00 98.10 degrees Heart Rate 2021-10-13 09:41:00 75.00 /min Respiratory Rate 2021-10-13 09:41:00 16.00 /min BP Systolic 2021-09-24 08:26:00 147 mm[Hg] BP Diastolic 2021-09-24 08:26:00 87 mm[Hg] Weight Measured 2021-09-24 08:26:00 161.80 pounds Height Measured 2021-09-24 08:26:00 65.00 inches Body Temperature 2021-09-24 08:26:00 98.30 degrees Heart Rate 2021-09-24 08:26:00 71.00 /min Respiratory Rate 2021-09-24 08:26:00 16.00 /min Procedures Procedure Date / Time Performed Performing Clinician Sourc e POCT URINALYSIS AUTO 2020-05-20 15:23:00 Yulisa Felipe [facility] Plan of Care Planned Activity Planned Date Details Comments Source Goal Plan of Care Note [code = 37428-9] Goal Plan of Care Note [code = 34766-9] Goal Plan of Care Note [code = 42644-1] Goal Plan of Care Note [code = 84673-8] Goal Plan of Care Note [code = 40501-9] Goal Plan of Care Note [code = 33919-6] Goal Plan of Care Note [code = 92257-8] Goal Plan of Care Note [code = 18041-2] Goal Plan of Care Note [code = 55536-6] Goal Plan of Care Note [code = 63064-2] Goal Plan of Care Note [code = 02672-4] Goal Plan of Care Note [code = 10545-3] Goal Plan of Care Note [code = 51149-6] Goal Plan of Care Note [code = 28262-4] Goal Plan of Care Note [code = 72617-7] Goal Plan of Care Note [code = 76050-9] Goal Plan of Care Note [code = 97694-6] Goal Plan of Care Note [code = 78998-1] Goal Plan of Care Note [code = 98367-2] Goal Plan of Care Note [code = 83303-6] Goal Plan of Care Note [code = 51889-6] Goal Plan of Care Note [code = 07589-4] Goal Plan of Care Note [code = 71783-6] Goal Plan of Care Note [code = 07608-5] Goal Plan of Care Note [code = 00249-3] Goal Plan of Care Note [code = 60238-5] Goal Plan of Care Note [code = 47131-5] Goal Plan of Care Note [code = 33879-5] Goal Plan of Care Note [code = 60226-1] Goal Plan of Care Note [code = 50886-0] Goal Plan of Care Note [code = 75272-1] Goal Plan of Care Note [code = 33195-4] Goal Plan of Care Note [code = 99684-8] Goal Plan of Care Note [code = 90732-9] Goal Plan of Care Note [code = 73078-9] Goal Plan of Care Note [code = 25856-3] Goal Plan of Care Note [code = 05248-2] Goal Plan of Care Note [code = 54045-1] Goal Plan of Care Note [code = 65804-7] Goal Plan of Care Note [code = 29808-9] Goal Plan of Care Note [code = 18354-7] Goal Plan of Care Note [code = 49210-8] Goal Plan of Care Note [code = 55714-5] Goal Plan of Care Note [code = 16923-5] Goal Plan of Care Note [code = 59151-5] Goal Plan of Care Note [code = 41834-2] Goal Plan of Care Note [code = 88428-3] Goal Plan of Care Note [code = 80472-8] Goal Plan of Care Note [code = 65357-8] Goal Plan of Care Note [code = 81051-6] Goal Plan of Care Note [code = 50589-5] Goal Plan of Care Note [code = 87243-5] Goal Plan of Care Note [code = 62394-0] Goal Plan of Care Note [code = 86826-7] Goal Plan of Care Note [code = 99176-0] Goal Plan of Care Note [code = 53738-4] Goal Plan of Care Note [code = 57696-9] Goal Plan of Care Note [code = 64436-0] Goal Plan of Care Note [code = 07767-4] Goal Plan of Care Note [code = 44976-3] Goal Plan of Care Note [code = 05530-9] Goal Plan of Care Note [code = 90630-7] Goal Plan of Care Note [code = 91913-5] Goal Plan of Care Note [code = 26977-9] Goal Plan of Care Note [code = 54188-2] Goal Plan of Care Note [code = 78492-1] Goal Plan of Care Note [code = 43616-7] Goal Plan of Care Note [code = 03809-6] Goal Plan of Care Note [code = 27927-8] Goal Plan of Care Note [code = 93242-3] Goal Plan of Care Note [code = 68862-6] Goal Plan of Care Note [code = 29926-5] Goal Plan of Care Note [code = 76112-5] Goal Plan of Care Note [code = 97507-9] Goal Plan of Care Note [code = 15802-8] Goal Plan of Care Note [code = 71087-9] Goal Plan of Care Note [code = 05723-5] Goal Plan of Care Note [code = 60008-2] Goal Plan of Care Note [code = 16172-0] Goal Plan of Care Note [code = 94809-8] Goal Plan of Care Note [code = 61171-5] Goal Plan of Care Note [code = 94349-1] Goal Plan of Care Note [code = 54218-7] Goal Plan of Care Note [code = 50015-9] Goal Plan of Care Note [code = 82512-4] Goal Plan of Care Note [code = 20664-0] Goal Plan of Care Note [code = 41097-5] Goal Plan of Care Note [code = 80922-7] Goal Plan of Care Note [code = 35468-6] Goal Plan of Care Note [code = 73612-2] Goal Plan of Care Note [code = 50759-0] Goal Plan of Care Note [code = 54628-7] Goal Plan of Care Note [code = 92866-6] Goal Plan of Care Note [code = 25366-8] Goal Plan of Care Note [code = 37510-2] Goal Plan of Care Note [code = 65343-3] Goal Plan of Care Note [code = 89582-6] Goal Plan of Care Note [code = 39985-0] Goal Plan of Care Note [code = 52845-6] Goal Plan of Care Note [code = 15188-1] Goal Plan of Care Note [code = 91153-1] Goal Plan of Care Note [code = 95728-5] Goal Plan of Care Note [code = 85114-5] Goal Plan of Care Note [code = 68056-5] Goal Plan of Care Note [code = 06197-8] Goal Plan of Care Note [code = 03162-0] Goal Plan of Care Note [code = 05466-6] Goal Plan of Care Note [code = 00425-8] Goal Plan of Care Note [code = 70627-3] Goal Plan of Care Note [code = 47251-6] Goal Plan of Care Note [code = 51753-7] Goal Plan of Care Note [code = 09206-8] Goal Plan of Care Note [code = 46295-8] Goal Plan of Care Note [code = 68884-7] Goal Plan of Care Note [code = 82053-1] Goal Plan of Care Note [code = 71435-1] Goal Plan of Care Note [code = 90027-1] Goal Plan of Care Note [code = 81532-8] Goal Plan of Care Note [code = 11620-2] Goal Plan of Care Note [code = 38034-1] Goal Plan of Care Note [code = 42249-0] Goal Plan of Care Note [code = 30407-6] Goal Plan of Care Note [code = 00092-8] Goal Plan of Care Note [code = 74713-9] Goal Plan of Care Note [code = 55648-5] Goal Plan of Care Note [code = 89866-0] Encounters Start End Encounter Admission Attending Care Care Encounter Source Date/Time Date/Time Type Type Clinicians Facility Department ID 2022-10-21 2022-10-21 Outpatient SFA SFA [id number] 023 Anoop 09:05:48 09:05:48 0301 F Gabriel 2022-09-29 2022-09-29 Outpatient SFA SFA [id number] 023 Anoop 11:21:33 11:21:33 0207 F Morenci 2022-08-28 2022-08-28 Outpatient SFA SFA [id number] 023 Anoop 10:50:45 10:50:45 0106 [facility] 2022-08-27 2022-08-27 Outpatient SFA SFA [id number] 023 Anoop 08:31:37 08:31:37 0105 F Morenci 2022-08-27 2022-08-27 Outpatient [id number]- [id number] 00:00:00 00:00:00 Visit 036e-4fa1 36e-4fa1-a -y8ca-508 9eb-63618w 32csc0u87 eb8a94 2022-07-30 2022-07-30 Outpatient SFA SFA 84567-6 022 Anoop 10:15:02 10:15:02 1208 F Gabriel 2022-07-28 2022-07-28 Outpatient SFA SFA [id number] 022 Anoop 11:11:30 11:11:30 1206 F Gabriel 2022-07-28 2022-07-28 Outpatient [id number]- [id number] b74t8b-e 00:00:00 00:00:00 Visit sl07-319x t17-070l-f -s301-h33 902-e56e0f [id number] 223d47 2022-07-06 2022-07-06 Outpatient SFA SFA 12307-2 022 Anoop 14:10:48 14:10:48 1114 F Gabriel 2022-07-06 2022-07-06 Outpatient [id number]- [id number] b94zeh-8 00:00:00 00:00:00 Visit 91g3-3i83 5u7-0b79-d -bbaa-728 baa-7284e1 [id number] 8172-10-10 2022-06-01 Outpatient SFA SFA 14289-3 022 Anoop 11:11:54 11:11:54 1010 F Gabriel 2022-03-30 2022-03-30 Outpatient [id number]- [id number] 0z5123-3 00:00:00 00:00:00 Visit 8533-4b53 533-4b53-b -h43e-ffa 82c-vuz367 819ks8co7 ca3ef7 2020-11-04 2020-11-04 Outpatient Apolonia [facility] [id number] [facility] 16:00:00 15:29:37 ERMA [facility] 2020-10-14 2020-10-14 Outpatient Apolonia [facility] [id number] [facility] 12:40:00 15:41:21 ERMA [facility] 2020-06-17 2020-06-17 Outpatient Apolonia FELIPE [facility] [id number] [facility] 09:00:00 09:00:00 YULISA [facility] 2020-05-20 2020-05-20 Office Regine [facility] [id number] [facility] 09:15:33 09:45:33 Visit Yulisa Bonilla [id number] i Gila 4.2.7.2.686 Cleve Mason [id number] Nv dical [address] 2020-05-20 2020-05-20 Outpatient R MAHINKHRIS [facility] [id number] [facility] 09:30:00 09:30:00 YULISA [facility] Results Test Description Test Time Test Comments Results Result Comments Source LIPID PANEL 2022-08-28 06:51:25 Test Item Value Reference Range Interpretation Comme nts CHOLESTEROL (test code = 2210) 141 MG/DL <200 TRIGLYCERIDES (test code = 2232) 187 MG/DL <150 H HDL CHOLESTEROL (test code = 35 MG/DL >39 L 2219) CALC LDL CHOL (test code = 2237) 78 MG/DL <100 NOTE: CALCULATED LDL IS BASED ON AMALIA-BECERRA METHOD WHICHINCLUDES A DJUSTABLE TRIGLYCERIDE:VL DL CHOLESTEROL RATIO.THIS FACT OR VARIES BY MEASURED TRIGLY CERIDE AND NON-HDLCHOLESTE ROL CONCENTRATIONS WITH INCREASED CALCULATED LDL SEENIN HIGHER T RIGLYCERIDE OR LOWER NON-HDL S PECIMENS. FOR MOREINFORMATION , SEE CLIENT ANNOUNCEMENT AT [email or web address] RATIO LDL/HDL (test code = 2.23 RATIO <3.55 2237) COMPREHENSIVE METABOLIC [id number] 06:51:25 Test Item Value Reference Range Interpretation Comments GLUCOSE (test code = 164 MG/DL 70-99 H 2216) BUN (test code = 18 MG/DL 8-23 2207) CREATININE (test 1.16 MG/DL 0.80-1.40 code = 2214) eGFR (2020 CKD-EPI) 70 >60 (test code = 90325) ML/MIN/1.73 CALC BUN/CREAT (test 16 RATIO 28 code = 2235) SODIUM (test code = 137 MEQ/L 577-118 1726) POTASSIUM (test code 4.2 MEQ/L 3.5-5.4 = 2228) CHLORIDE (test code 96 MEQ/L 95-107 = 2215) CARBON DIOXIDE (test 27 MEQ/L 19-31 code = 2206) CALCIUM (test code = 10.0 MG/DL 8.5-10.5 2208) PROTEIN, TOTAL (test 6.9 G/DL 6.1-8.3 code = 2229) ALBUMIN (test code = 4.4 G/DL 3.5-5.2 2200) CALC GLOBULIN (test 2.5 G/DL 1.9-3.7 code = 2240) CALC A/G RATIO (test 1.8 RATIO 1.0-2.6 code = 2234) BILIRUBIN, TOTAL 0.5 MG/DL See_Comment [Automated message] (test code = 2207) The Osurv which generated this result transmitted ref erence range: <=1.2. T he reference range was not used to int erpret this result as normal/abnormal . ALKALINE PHOSPHATASE 76 U/L 40-123 (test code = 2204) AST (test code = 14 U/L 9-50 2217) ALT (test code = 14 U/L 5-50 UNLESS OTH ERWISE 2218) INDICATED, ALL TESTING PERFORM ED ATCLINICAL PATH [facility], [facility]. [address] [place] [id number] [place] [address] DIRECTOR: JARRET BOND M.D. CLIA NUMBER [id number] CAP ACCREDITATION N O. [id number] HEMOGLOBIN [id number] 02:33:17 Test Item Value Reference Range Interpretation Comments HEMOGLOBIN A1c (test 7.0 % 4.2-5.6 H AMERIC AN DIABETES code = 35957) ASSOCIATION IDELINES FOR HGB A1C: PREDIABETES/INC REASED RISK . . . . . . . 5.7 -6.4% DIAGNOSIS OF DI ABETES . . . . . . . . . >=6 .5% WITH CONFIRMATION OR APPROPRIATE SYMPTOMS NOTE: ASSAY MAY BE AFFECTED BY HEMOGLOBINOPATH IES (SICKLE CELL ANEMIA, S- C DISEASE, OTHERS) OR [place] FICIALLY LOWERED BY DECR EASED RED CELL SURVIVAL ( HEMOLYTIC ANEMIAS, BLOOD LOSS, ETC.). CONSIDER ALTERN ATE TESTING OR LABORATORY C ONSULTATION. H. PYLORI (BREATH)2022-02-12 13:01:06 Test Item Value Reference Range Interpretation Comments H. PYLORI (BREATH) NEGATIVE NEGATIVE UNLESS O THERWISE (test code = 93543) INDICATE D, ALL TESTING PERFORMED [facility] PATHOLOGY FOR[facility], [facility]. [address] [place] [address] [address]ERESA DIRECTOR: JARRET BOND M.D. CLIA NUMBER [id number] CAP ACCREDITATION N O. [id number] H. PYLORI (BREATH)2022-02-12 00:00:00 Test Item Value Reference Range Interpretation Comments H. PYLORI (BREATH) (test code = NEGATIVE 90850) H. PYLORI (BREATH)2022-02-12 00:00:00 Test Item Value Reference Range Interpretation Comments H. PYLORI (BREATH) (test code = NEGATIVE 68195) H. PYLORI (BREATH)2022-02-12 00:00:00 Test Item Value Reference Range Interpretation Comments H. PYLORI (BREATH) (test code = NEGATIVE 28353) H. PYLORI (BREATH)2022-02-12 00:00:00 Test Item Value Reference Range Interpretation Comments H. PYLORI (BREATH) (test code = NEGATIVE 37420) H. PYLORI (BREATH)2022-02-12 00:00:00 Test Item Value Reference Range Interpretation Comments H. PYLORI (BREATH) (test code = NEGATIVE 48532) H. PYLORI (BREATH)2022-02-12 00:00:00 Test Item Value Reference Range Interpretation Comments H. PYLORI (BREATH) (test code = NEGATIVE 73569) H. PYLORI (BREATH)2022-02-12 00:00:00 Test Item Value Reference Range Interpretation Comments H. PYLORI (BREATH) (test code = NEGATIVE 94639) H. PYLORI (BREATH)2022-02-12 00:00:00 Test Item Value Reference Range Interpretation Comments H. PYLORI (BREATH) (test code = NEGATIVE 99103) COMPREHENSIVE METABOLIC [id number] 02:04:03 Test Item Value Reference Range Interpretation Comments GLUCOSE (test code = 123 MG/DL 70-99 H 2216) BUN (test code = 14 MG/DL 04-14) CREATININE (test 1.17 MG/DL 0.80-1.40 code = 2214) eGFR (2020 CKD-EPI) 70 ML/MIN/1.73 >60 (test code = 94597) CALC BUN/CREAT (test 12 RATIO 6-28 code = 2235) SODIUM (test code = 141 MEQ/L 640-025 0210) POTASSIUM (test code 4.6 MEQ/L 3.5-5.4 = 222) CHLORIDE (test code 99 MEQ/L 95-107 = 221) CARBON DIOXIDE (test 26 MEQ/L 19-31 code = 2206) CALCIUM (test code = 10.3 MG/DL 8.5-10.5 2208) PROTEIN, TOTAL (test 7.5 G/DL 6.1-8.3 code = 222) ALBUMIN (test code = 4.6 G/DL 3.5-5.2 2200) CALC GLOBULIN (test 2.9 G/DL 1.9-3.7 code = 224) CALC A/G RATIO (test 1.6 RATIO 1.0-2.6 code = 223) BILIRUBIN, TOTAL 0.5 MG/DL See_Comment [Automated message] (test code = 2206) The syste m which generated this result transmit richard reference range : <=1.2. The refe rence range was not u sed to interpret th is result as normal/abnormal . ALKALINE PHOSPHATASE 81 U/L 40-123 (test code = 2203) AST (test code = 20 U/L 9-50 2217) ALT (test code = 21 U/L 5-50 2218) [id number] 02:03:52 Test Item Value Reference Range Interpretation Comments LIPASE (test code = 2057) 36 U/L 13-60 [id number] 02:03:52 Test Item Value Reference Range Interpretation Comments AMYLASE (test code = 93 U/L 28-100 UNLESS OTHERWISE 2204) INDICATED, ALL TESTING PERFORMED [facility] [address] [place], [place] [id number] [place] [address] DIRECTOR: JARRET BOND M.D. CLIA NUMBER [id number] CAP ACCREDITATION N O. [id number] COMPREHENSIVE METABOLIC [id number] 00:00:00 Test Item Value Reference Range Interpretation Comments GLUCOSE (test code = 7) 123 MG/DL BUN (test code = 2207) 14 MG/DL CREATININE (test code = 4) 1.17 MG/DL eGFR (2020 CKD-EPI) (test code 70 ML/MIN/1.73 = 26652) CALC BUN/CREAT (test code = 12 RATIO 2235) SODIUM (test code = 2231) 141 MEQ/L POTASSIUM (test code = 2228) 4.6 MEQ/L CHLORIDE (test code = 2215) 99 MEQ/L CARBON DIOXIDE (test code = 26 MEQ/L 2206) CALCIUM (test code = 2209) 10.3 MG/DL PROTEIN, TOTAL (test code = 7.5 G/DL 222) ALBUMIN (test code = 2201) 4.6 G/DL CALC GLOBULIN (test code = 2.9 G/DL 2240) CALC A/G RATIO (test code = 1.6 RATIO 2234) BILIRUBIN, TOTAL (test code = 0.5 MG/DL 2206) ALKALINE PHOSPHATASE (test 81 U/L code = 2204) AST (test code = 2218) 20 U/L ALT (test code = 2219) 21 U/L COMPREHENSIVE METABOLIC [id number] 00:00:00 Test Item Value Reference Range Interpretation Comments GLUCOSE (test code = 2217) 123 MG/DL BUN (test code = 2208) 14 MG/DL CREATININE (test code = 2214) 1.17 MG/DL eGFR (2020 CKD-EPI) (test code 70 ML/MIN/1.73 = 25070) CALC BUN/CREAT (test code = 12 RATIO 2235) SODIUM (test code = 2231) 141 MEQ/L POTASSIUM (test code = 2228) 4.6 MEQ/L CHLORIDE (test code = 2215) 99 MEQ/L CARBON DIOXIDE (test code = 26 MEQ/L 2205) CALCIUM (test code = 2209) 10.3 MG/DL PROTEIN, TOTAL (test code = 7.5 G/DL 2229) ALBUMIN (test code = 2201) 4.6 G/DL CALC GLOBULIN (test code = 2.9 G/DL 2240) CALC A/G RATIO (test code = 1.6 RATIO 2234) BILIRUBIN, TOTAL (test code = 0.5 MG/DL 2206) ALKALINE PHOSPHATASE (test 81 U/L code = 2204) AST (test code = 2218) 20 U/L ALT (test code = 2219) 21 U/L [id number] 00:00:00 Test Item Value Reference Range Interpretation Comments LIPASE (test code = 205) 36 U/L [id number] 00:00:00 Test Item Value Reference Range Interpretation Comments LIPASE (test code = 2057) 36 U/L [id number] 00:00:00 Test Item Value Reference Range Interpretation Comments LIPASE (test code = 2057) 36 U/L [id number] 00:00:00 Test Item Value Reference Range Interpretation Comments AMYLASE (test code = 5) 93 U/L [id number] 00:00:00 Test Item Value Reference Range Interpretation Comments AMYLASE (test code = 2205) 93 U/L COMPREHENSIVE METABOLIC [id number] 00:00:00 Test Item Value Reference Range Interpretation Comments GLUCOSE (test code = 2217) 123 MG/DL BUN (test code = 2208) 14 MG/DL CREATININE (test code = 2214) 1.17 MG/DL eGFR (2020 CKD-EPI) (test code 70 ML/MIN/1.73 = 86355) CALC BUN/CREAT (test code = 12 RATIO 2235) SODIUM (test code = 2231) 141 MEQ/L POTASSIUM (test code = 2228) 4.6 MEQ/L CHLORIDE (test code = 2215) 99 MEQ/L CARBON DIOXIDE (test code = 26 MEQ/L 6) CALCIUM (test code = 2209) 10.3 MG/DL PROTEIN, TOTAL (test code = 7.5 G/DL 2228) ALBUMIN (test code = 2201) 4.6 G/DL CALC GLOBULIN (test code = 2.9 G/DL 2240) CALC A/G RATIO (test code = 1.6 RATIO 2234) BILIRUBIN, TOTAL (test code = 0.5 MG/DL 2206) ALKALINE PHOSPHATASE (test 81 U/L code = 2204) AST (test code = 2218) 20 U/L ALT (test code = 2219) 21 U/L COMPREHENSIVE METABOLIC [id number] 00:00:00 Test Item Value Reference Range Interpretation Comments GLUCOSE (test code = 2217) 123 MG/DL BUN (test code = 2208) 14 MG/DL CREATININE (test code = 2214) 1.17 MG/DL eGFR (2020 CKD-EPI) (test code 70 ML/MIN/1.73 = 20357) CALC BUN/CREAT (test code = 12 RATIO 2235) SODIUM (test code = 2231) 141 MEQ/L POTASSIUM (test code = 2228) 4.6 MEQ/L CHLORIDE (test code = 2215) 99 MEQ/L CARBON DIOXIDE (test code = 26 MEQ/L 2205) CALCIUM (test code = 2209) 10.3 MG/DL PROTEIN, TOTAL (test code = 7.5 G/DL 2228) ALBUMIN (test code = 2201) 4.6 G/DL CALC GLOBULIN (test code = 2.9 G/DL 2239) CALC A/G RATIO (test code = 1.6 RATIO 2233) BILIRUBIN, TOTAL (test code = 0.5 MG/DL 2206) ALKALINE PHOSPHATASE (test 81 U/L code = 2204) AST (test code = 2218) 20 U/L ALT (test code = 2219) 21 U/L [id number] 00:00:00 Test Item Value Reference Range Interpretation Comments LIPASE (test code = 205) 36 U/L [id number] 00:00:00 Test Item Value Reference Range Interpretation Comments LIPASE (test code = 2058) 36 U/L [id number] 00:00:00 Test Item Value Reference Range Interpretation Comments LIPASE (test code = 2058) 36 U/L [id number] 00:00:00 Test Item Value Reference Range Interpretation Comments AMYLASE (test code = 2205) 93 U/L [id number] 00:00:00 Test Item Value Reference Range Interpretation Comments AMYLASE (test code = 2205) 93 U/L COMPREHENSIVE METABOLIC [id number] 00:00:00 Test Item Value Reference Range Interpretation Comments GLUCOSE (test code = 2217) 123 MG/DL BUN (test code = 2208) 14 MG/DL CREATININE (test code = 2214) 1.17 MG/DL eGFR (2020 CKD-EPI) (test code 70 ML/MIN/1.73 = 23376) CALC BUN/CREAT (test code = 12 RATIO 2234) SODIUM (test code = 2231) 141 MEQ/L POTASSIUM (test code = 2228) 4.6 MEQ/L CHLORIDE (test code = 2215) 99 MEQ/L CARBON DIOXIDE (test code = 26 MEQ/L 2205) CALCIUM (test code = 2209) 10.3 MG/DL PROTEIN, TOTAL (test code = 7.5 G/DL 222) ALBUMIN (test code = 2201) 4.6 G/DL CALC GLOBULIN (test code = 2.9 G/DL 2240) CALC A/G RATIO (test code = 1.6 RATIO 2234) BILIRUBIN, TOTAL (test code = 0.5 MG/DL 2206) ALKALINE PHOSPHATASE (test 81 U/L code = 2204) AST (test code = 2218) 20 U/L ALT (test code = 2219) 21 U/L COMPREHENSIVE METABOLIC [id number] 00:00:00 Test Item Value Reference Range Interpretation Comments GLUCOSE (test code = 2217) 123 MG/DL BUN (test code = 2208) 14 MG/DL CREATININE (test code = 2214) 1.17 MG/DL eGFR (2020 CKD-EPI) (test code 70 ML/MIN/1.73 = 61400) CALC BUN/CREAT (test code = 12 RATIO 2235) SODIUM (test code = 2231) 141 MEQ/L POTASSIUM (test code = 2228) 4.6 MEQ/L CHLORIDE (test code = 2215) 99 MEQ/L CARBON DIOXIDE (test code = 26 MEQ/L 6) CALCIUM (test code = 2209) 10.3 MG/DL PROTEIN, TOTAL (test code = 7.5 G/DL 2228) ALBUMIN (test code = 2201) 4.6 G/DL CALC GLOBULIN (test code = 2.9 G/DL 2240) CALC A/G RATIO (test code = 1.6 RATIO 2234) BILIRUBIN, TOTAL (test code = 0.5 MG/DL 2206) ALKALINE PHOSPHATASE (test 81 U/L code = 2204) AST (test code = 2218) 20 U/L ALT (test code = 2219) 21 U/L [id number] 00:00:00 Test Item Value Reference Range Interpretation Comments LIPASE (test code = 2057) 36 U/L [id number] 00:00:00 Test Item Value Reference Range Interpretation Comments LIPASE (test code = 2057) 36 U/L [id number] 00:00:00 Test Item Value Reference Range Interpretation Comments LIPASE (test code = 2057) 36 U/L [id number] 00:00:00 Test Item Value Reference Range Interpretation Comments AMYLASE (test code = 2205) 93 U/L [id number] 00:00:00 Test Item Value Reference Range Interpretation Comments AMYLASE (test code = 2205) 93 U/L COMPREHENSIVE METABOLIC [id number] 00:00:00 Test Item Value Reference Range Interpretation Comments GLUCOSE (test code = 2217) 123 MG/DL BUN (test code = 2208) 14 MG/DL CREATININE (test code = 2214) 1.17 MG/DL eGFR (2020 CKD-EPI) (test code 70 ML/MIN/1.73 = 17907) CALC BUN/CREAT (test code = 12 RATIO 2235) SODIUM (test code = 2231) 141 MEQ/L POTASSIUM (test code = 2228) 4.6 MEQ/L CHLORIDE (test code = 2215) 99 MEQ/L CARBON DIOXIDE (test code = 26 MEQ/L 2205) CALCIUM (test code = 2209) 10.3 MG/DL PROTEIN, TOTAL (test code = 7.5 G/DL 2228) ALBUMIN (test code = 2201) 4.6 G/DL CALC GLOBULIN (test code = 2.9 G/DL 2239) CALC A/G RATIO (test code = 1.6 RATIO 2234) BILIRUBIN, TOTAL (test code = 0.5 MG/DL 2206) ALKALINE PHOSPHATASE (test 81 U/L code = 2204) AST (test code = 2218) 20 U/L ALT (test code = 2219) 21 U/L COMPREHENSIVE METABOLIC [id number] 00:00:00 Test Item Value Reference Range Interpretation Comments GLUCOSE (test code = 2217) 123 MG/DL BUN (test code = 2208) 14 MG/DL CREATININE (test code = 2214) 1.17 MG/DL eGFR (2020 CKD-EPI) (test code 70 ML/MIN/1.73 = 65393) CALC BUN/CREAT (test code = 12 RATIO 2235) SODIUM (test code = 2231) 141 MEQ/L POTASSIUM (test code = 2228) 4.6 MEQ/L CHLORIDE (test code = 2215) 99 MEQ/L CARBON DIOXIDE (test code = 26 MEQ/L 220) CALCIUM (test code = 2209) 10.3 MG/DL PROTEIN, TOTAL (test code = 7.5 G/DL 2228) ALBUMIN (test code = 2201) 4.6 G/DL CALC GLOBULIN (test code = 2.9 G/DL 2239) CALC A/G RATIO (test code = 1.6 RATIO 4) BILIRUBIN, TOTAL (test code = 0.5 MG/DL 2206) ALKALINE PHOSPHATASE (test 81 U/L code = 2204) AST (test code = 2218) 20 U/L ALT (test code = 2219) 21 U/L [id number] 00:00:00 Test Item Value Reference Range Interpretation Comments LIPASE (test code = 2057) 36 U/L [id number] 00:00:00 Test Item Value Reference Range Interpretation Comments LIPASE (test code = 2057) 36 U/L [id number] 00:00:00 Test Item Value Reference Range Interpretation Comments LIPASE (test code = 2057) 36 U/L [id number] 00:00:00 Test Item Value Reference Range Interpretation Comments AMYLASE (test code = 2204) 93 U/L [id number] 00:00:00 Test Item Value Reference Range Interpretation Comments AMYLASE (test code = 2204) 93 U/L HEMOGLOBIN [id number] 04:23:33 Test Item Value Reference Range Interpretation Comments HEMOGLOBIN A1c (test 6.8 % 4.2-5.6 H AMERI CAN DIABETES code = 56737) ASSOCIATION IDELINES FOR HGB A1C: PREDIABETES/INC REASED RISK . . . . . . . 5.7 -6.4% DIAGNOSIS OF DI ABETES . . . . . . . . . >=6 .5% WITH CONFIRMATION OR APPROPRIATE SYMPTOMS NOTE: ASSAY MAY BE AFFECTED BY HEMOGLOBINOPATH IES (SICKLE CELL ANEMIA, S- C DISEASE, OTHERS) OR [place] FICIALLY LOWERED BY DECR EASED RED CELL SURVIVAL ( HEMOLYTIC ANEMIAS, BLOOD LOSS, ETC.). CONSIDER ALTERN ATE TESTING OR LABORATORY C ONSULTATION. CBC W/AUTO DIFF WITH [id number] 04:15:41 Test Item Value Reference Range Interpretation Comments WBC (test code = 13.4 K/UL 3.5-11.0 H 1001) RBC (test code = 5.15 M/UL 4.50-6.10 1002) HEMOGLOBIN (test code 14.0 G/DL 13.5-17.0 = 1003) HEMATOCRIT (test code 43.7 % 40.0-51.0 = 1004) MCV (test code = 84.9 fL 80.0-99.0 1005) MCH (test code = 27.2 PG 25.0-33.0 1006) MCHC (test code = 32.0 G/DL 31.0-36.0 1007) RDW (test code = 13.3 % 11.5-15.0 1038) NEUTROPHILS (test 83.4 % code = 1008) LYMPHOCYTES (test 10.1 % code = 1010) MONOCYTES (test code 5.5 % = 1011) EOSINOPHILS (test 0.3 % code = 1012) BASOPHILS (test code 0.3 % = 1013) IMMATURE GRANULOCYTES 0.4 % (test code = 1036) NUCLEATED RBCS (test 0.0 /100 WBC'S See_Comment [Aut omated code = 1065) message] The sy stem which generated this result transmitted reference range : 0.0. The refere nce range was not u sed to interpret th is result as normal/abnormal . PLATELET COUNT (test 340 K/UL 130-400 code = 1015) ABSOLUTE NEUTROPHILS 11.18 K/UL 1.50-7.50 H (test code = 1066) ABSOLUTE LYMPHOCYTES 1.35 K/UL 1.00-4.00 (test code = 1067) ABSOLUTE MONOCYTES 0.73 K/UL 0.20-1.00 (test code = 1068) ABSOLUTE EOSINOPHILS 0.04 K/UL 0.00-0.50 (test code = 1040) ABSOLUTE BASOPHILS 0.04 K/UL 0.00-0.20 (test code = 1069) ABS IMMATURE 0.05 K/UL 0.00-0.10 GRANULOCYTES (test code = 1020) ABS NUCLEATED RBCS 0.00 K/UL 0.00-0.11 (test code = 83699) CBC W/AUTO [id number] 00:00:00 Test Item Value Reference Range Interpretation Comments WBC (test code = 1001) 13.4 K/UL RBC (test code = 1002) 5.15 M/UL HEMOGLOBIN (test code = 1003) 14.0 G/DL HEMATOCRIT (test code = 1004) 43.7 % MCV (test code = 1005) 84.9 fL MCH (test code = 1006) 27.2 PG MCHC (test code = 1007) 32.0 G/DL RDW (test code = 1038) 13.3 % NEUTROPHILS (test code = 1008) 83.4 % LYMPHOCYTES (test code = 1010) 10.1 % MONOCYTES (test code = 1011) 5.5 % EOSINOPHILS (test code = 1012) 0.3 % BASOPHILS (test code = 1013) 0.3 % IMMATURE GRANULOCYTES (test 0.4 % code = 1036) NUCLEATED RBCS (test code = 0.0 /100WBC'S 1065) PLATELET COUNT (test code = 340 K/UL 1015) ABSOLUTE NEUTROPHILS (test code 11.18 K/UL = 1066) ABSOLUTE LYMPHOCYTES (test code 1.35 K/UL = 1067) ABSOLUTE MONOCYTES (test code = 0.73 K/UL 1068) ABSOLUTE EOSINOPHILS (test code 0.04 K/UL = 1040) ABSOLUTE BASOPHILS (test code = 0.04 K/UL 1069) ABS IMMATURE GRANULOCYTES (test 0.05 K/UL code = 1020) ABS NUCLEATED RBCS (test code = 0.00 K/UL 55195) CBC W/AUTO [id number] 00:00:00 Test Item Value Reference Range Interpretation Comments WBC (test code = 1001) 13.4 K/UL RBC (test code = 1002) 5.15 M/UL HEMOGLOBIN (test code = 1003) 14.0 G/DL HEMATOCRIT (test code = 1004) 43.7 % MCV (test code = 1005) 84.9 fL MCH (test code = 1006) 27.2 PG MCHC (test code = 1007) 32.0 G/DL RDW (test code = 1038) 13.3 % NEUTROPHILS (test code = 1008) 83.4 % LYMPHOCYTES (test code = 1010) 10.1 % MONOCYTES (test code = 1011) 5.5 % EOSINOPHILS (test code = 1012) 0.3 % BASOPHILS (test code = 1013) 0.3 % IMMATURE GRANULOCYTES (test 0.4 % code = 1036) NUCLEATED RBCS (test code = 0.0 /100WBC'S 1065) PLATELET COUNT (test code = 340 K/UL 1015) ABSOLUTE NEUTROPHILS (test code 11.18 K/UL = 1066) ABSOLUTE LYMPHOCYTES (test code 1.35 K/UL = 1067) ABSOLUTE MONOCYTES (test code = 0.73 K/UL 1068) ABSOLUTE EOSINOPHILS (test code 0.04 K/UL = 1040) ABSOLUTE BASOPHILS (test code = 0.04 K/UL 1069) ABS IMMATURE GRANULOCYTES (test 0.05 K/UL code = 1020) ABS NUCLEATED RBCS (test code = 0.00 K/UL 82055) CBC W/AUTO [id number] 00:00:00 Test Item Value Reference Range Interpretation Comments WBC (test code = 1001) 13.4 K/UL RBC (test code = 1002) 5.15 M/UL HEMOGLOBIN (test code = 1003) 14.0 G/DL HEMATOCRIT (test code = 1004) 43.7 % MCV (test code = 1005) 84.9 fL MCH (test code = 1006) 27.2 PG MCHC (test code = 1007) 32.0 G/DL RDW (test code = 1038) 13.3 % NEUTROPHILS (test code = 1008) 83.4 % LYMPHOCYTES (test code = 1010) 10.1 % MONOCYTES (test code = 1011) 5.5 % EOSINOPHILS (test code = 1012) 0.3 % BASOPHILS (test code = 1013) 0.3 % IMMATURE GRANULOCYTES (test 0.4 % code = 1036) NUCLEATED RBCS (test code = 0.0 /100WBC'S 1065) PLATELET COUNT (test code = 340 K/UL 1015) ABSOLUTE NEUTROPHILS (test code 11.18 K/UL = 1066) ABSOLUTE LYMPHOCYTES (test code 1.35 K/UL = 1067) ABSOLUTE MONOCYTES (test code = 0.73 K/UL 1068) ABSOLUTE EOSINOPHILS (test code 0.04 K/UL = 1040) ABSOLUTE BASOPHILS (test code = 0.04 K/UL 1069) ABS IMMATURE GRANULOCYTES (test 0.05 K/UL code = 1020) ABS NUCLEATED RBCS (test code = 0.00 K/UL 90626) HEMOGLOBIN [id number] 00:00:00 Test Item Value Reference Range Interpretation Comments HEMOGLOBIN A1c (test code = 70901) 6.8 % HEMOGLOBIN [id number] 00:00:00 Test Item Value Reference Range Interpretation Comments HEMOGLOBIN A1c (test code = 07237) 6.8 % HEMOGLOBIN [id number] 00:00:00 Test Item Value Reference Range Interpretation Comments HEMOGLOBIN A1c (test code = 68638) 6.8 % CBC W/AUTO [id number] 00:00:00 Test Item Value Reference Range Interpretation Comments WBC (test code = 1001) 13.4 K/UL RBC (test code = 1002) 5.15 M/UL HEMOGLOBIN (test code = 1003) 14.0 G/DL HEMATOCRIT (test code = 1004) 43.7 % MCV (test code = 1005) 84.9 fL MCH (test code = 1006) 27.2 PG MCHC (test code = 1007) 32.0 G/DL RDW (test code = 1038) 13.3 % NEUTROPHILS (test code = 1008) 83.4 % LYMPHOCYTES (test code = 1010) 10.1 % MONOCYTES (test code = 1011) 5.5 % EOSINOPHILS (test code = 1012) 0.3 % BASOPHILS (test code = 1013) 0.3 % IMMATURE GRANULOCYTES (test 0.4 % code = 1036) NUCLEATED RBCS (test code = 0.0 /100WBC'S 1065) PLATELET COUNT (test code = 340 K/UL 1015) ABSOLUTE NEUTROPHILS (test code 11.18 K/UL = 1066) ABSOLUTE LYMPHOCYTES (test code 1.35 K/UL = 1067) ABSOLUTE MONOCYTES (test code = 0.73 K/UL 1068) ABSOLUTE EOSINOPHILS (test code 0.04 K/UL = 1040) ABSOLUTE BASOPHILS (test code = 0.04 K/UL 1069) ABS IMMATURE GRANULOCYTES (test 0.05 K/UL code = 1020) ABS NUCLEATED RBCS (test code = 0.00 K/UL 40387) CBC W/AUTO [id number] 00:00:00 Test Item Value Reference Range Interpretation Comments WBC (test code = 1001) 13.4 K/UL RBC (test code = 1002) 5.15 M/UL HEMOGLOBIN (test code = 1003) 14.0 G/DL HEMATOCRIT (test code = 1004) 43.7 % MCV (test code = 1005) 84.9 fL MCH (test code = 1006) 27.2 PG MCHC (test code = 1007) 32.0 G/DL RDW (test code = 1038) 13.3 % NEUTROPHILS (test code = 1008) 83.4 % LYMPHOCYTES (test code = 1010) 10.1 % MONOCYTES (test code = 1011) 5.5 % EOSINOPHILS (test code = 1012) 0.3 % BASOPHILS (test code = 1013) 0.3 % IMMATURE GRANULOCYTES (test 0.4 % code = 1036) NUCLEATED RBCS (test code = 0.0 /100WBC'S 1065) PLATELET COUNT (test code = 340 K/UL 1015) ABSOLUTE NEUTROPHILS (test code 11.18 K/UL = 1066) ABSOLUTE LYMPHOCYTES (test code 1.35 K/UL = 1067) ABSOLUTE MONOCYTES (test code = 0.73 K/UL 1068) ABSOLUTE EOSINOPHILS (test code 0.04 K/UL = 1040) ABSOLUTE BASOPHILS (test code = 0.04 K/UL 1069) ABS IMMATURE GRANULOCYTES (test 0.05 K/UL code = 1020) ABS NUCLEATED RBCS (test code = 0.00 K/UL 22717) CBC W/AUTO [id number] 00:00:00 Test Item Value Reference Range Interpretation Comments WBC (test code = 1001) 13.4 K/UL RBC (test code = 1002) 5.15 M/UL HEMOGLOBIN (test code = 1003) 14.0 G/DL HEMATOCRIT (test code = 1004) 43.7 % MCV (test code = 1005) 84.9 fL MCH (test code = 1006) 27.2 PG MCHC (test code = 1007) 32.0 G/DL RDW (test code = 1038) 13.3 % NEUTROPHILS (test code = 1008) 83.4 % LYMPHOCYTES (test code = 1010) 10.1 % MONOCYTES (test code = 1011) 5.5 % EOSINOPHILS (test code = 1012) 0.3 % BASOPHILS (test code = 1013) 0.3 % IMMATURE GRANULOCYTES (test 0.4 % code = 1036) NUCLEATED RBCS (test code = 0.0 /100WBC'S 1065) PLATELET COUNT (test code = 340 K/UL 1015) ABSOLUTE NEUTROPHILS (test code 11.18 K/UL = 1066) ABSOLUTE LYMPHOCYTES (test code 1.35 K/UL = 1067) ABSOLUTE MONOCYTES (test code = 0.73 K/UL 1068) ABSOLUTE EOSINOPHILS (test code 0.04 K/UL = 1040) ABSOLUTE BASOPHILS (test code = 0.04 K/UL 1069) ABS IMMATURE GRANULOCYTES (test 0.05 K/UL code = 1020) ABS NUCLEATED RBCS (test code = 0.00 K/UL 85936) HEMOGLOBIN [id number] 00:00:00 Test Item Value Reference Range Interpretation Comments HEMOGLOBIN A1c (test code = 32284) 6.8 % HEMOGLOBIN [id number] 00:00:00 Test Item Value Reference Range Interpretation Comments HEMOGLOBIN A1c (test code = 48465) 6.8 % HEMOGLOBIN [id number] 00:00:00 Test Item Value Reference Range Interpretation Comments HEMOGLOBIN A1c (test code = 77983) 6.8 % CBC W/AUTO [id number] 00:00:00 Test Item Value Reference Range Interpretation Comments WBC (test code = 1001) 13.4 K/UL RBC (test code = 1002) 5.15 M/UL HEMOGLOBIN (test code = 1003) 14.0 G/DL HEMATOCRIT (test code = 1004) 43.7 % MCV (test code = 1005) 84.9 fL MCH (test code = 1006) 27.2 PG MCHC (test code = 1007) 32.0 G/DL RDW (test code = 1038) 13.3 % NEUTROPHILS (test code = 1008) 83.4 % LYMPHOCYTES (test code = 1010) 10.1 % MONOCYTES (test code = 1011) 5.5 % EOSINOPHILS (test code = 1012) 0.3 % BASOPHILS (test code = 1013) 0.3 % IMMATURE GRANULOCYTES (test 0.4 % code = 1036) NUCLEATED RBCS (test code = 0.0 /100WBC'S 1065) PLATELET COUNT (test code = 340 K/UL 1015) ABSOLUTE NEUTROPHILS (test code 11.18 K/UL = 1066) ABSOLUTE LYMPHOCYTES (test code 1.35 K/UL = 1067) ABSOLUTE MONOCYTES (test code = 0.73 K/UL 1068) ABSOLUTE EOSINOPHILS (test code 0.04 K/UL = 1040) ABSOLUTE BASOPHILS (test code = 0.04 K/UL 1069) ABS IMMATURE GRANULOCYTES (test 0.05 K/UL code = 1020) ABS NUCLEATED RBCS (test code = 0.00 K/UL 35906) CBC W/AUTO [id number] 00:00:00 Test Item Value Reference Range Interpretation Comments WBC (test code = 1001) 13.4 K/UL RBC (test code = 1002) 5.15 M/UL HEMOGLOBIN (test code = 1003) 14.0 G/DL HEMATOCRIT (test code = 1004) 43.7 % MCV (test code = 1005) 84.9 fL MCH (test code = 1006) 27.2 PG MCHC (test code = 1007) 32.0 G/DL RDW (test code = 1038) 13.3 % NEUTROPHILS (test code = 1008) 83.4 % LYMPHOCYTES (test code = 1010) 10.1 % MONOCYTES (test code = 1011) 5.5 % EOSINOPHILS (test code = 1012) 0.3 % BASOPHILS (test code = 1013) 0.3 % IMMATURE GRANULOCYTES (test 0.4 % code = 1036) NUCLEATED RBCS (test code = 0.0 /100WBC'S 1065) PLATELET COUNT (test code = 340 K/UL 1015) ABSOLUTE NEUTROPHILS (test code 11.18 K/UL = 1066) ABSOLUTE LYMPHOCYTES (test code 1.35 K/UL = 1067) ABSOLUTE MONOCYTES (test code = 0.73 K/UL 1068) ABSOLUTE EOSINOPHILS (test code 0.04 K/UL = 1040) ABSOLUTE BASOPHILS (test code = 0.04 K/UL 1069) ABS IMMATURE GRANULOCYTES (test 0.05 K/UL code = 1020) ABS NUCLEATED RBCS (test code = 0.00 K/UL 83695) CBC W/AUTO [id number] 00:00:00 Test Item Value Reference Range Interpretation Comments WBC (test code = 1001) 13.4 K/UL RBC (test code = 1002) 5.15 M/UL HEMOGLOBIN (test code = 1003) 14.0 G/DL HEMATOCRIT (test code = 1004) 43.7 % MCV (test code = 1005) 84.9 fL MCH (test code = 1006) 27.2 PG MCHC (test code = 1007) 32.0 G/DL RDW (test code = 1038) 13.3 % NEUTROPHILS (test code = 1008) 83.4 % LYMPHOCYTES (test code = 1010) 10.1 % MONOCYTES (test code = 1011) 5.5 % EOSINOPHILS (test code = 1012) 0.3 % BASOPHILS (test code = 1013) 0.3 % IMMATURE GRANULOCYTES (test 0.4 % code = 1036) NUCLEATED RBCS (test code = 0.0 /100WBC'S 1065) PLATELET COUNT (test code = 340 K/UL 1015) ABSOLUTE NEUTROPHILS (test code 11.18 K/UL = 1066) ABSOLUTE LYMPHOCYTES (test code 1.35 K/UL = 1067) ABSOLUTE MONOCYTES (test code = 0.73 K/UL 1068) ABSOLUTE EOSINOPHILS (test code 0.04 K/UL = 1040) ABSOLUTE BASOPHILS (test code = 0.04 K/UL 1069) ABS IMMATURE GRANULOCYTES (test 0.05 K/UL code = 1020) ABS NUCLEATED RBCS (test code = 0.00 K/UL 70153) HEMOGLOBIN [id number] 00:00:00 Test Item Value Reference Range Interpretation Comments HEMOGLOBIN A1c (test code = 50402) 6.8 % HEMOGLOBIN [id number] 00:00:00 Test Item Value Reference Range Interpretation Comments HEMOGLOBIN A1c (test code = 55375) 6.8 % HEMOGLOBIN [id number] 00:00:00 Test Item Value Reference Range Interpretation Comments HEMOGLOBIN A1c (test code = 75130) 6.8 % CBC W/AUTO [id number] 00:00:00 Test Item Value Reference Range Interpretation Comments WBC (test code = 1001) 13.4 K/UL RBC (test code = 1002) 5.15 M/UL HEMOGLOBIN (test code = 1003) 14.0 G/DL HEMATOCRIT (test code = 1004) 43.7 % MCV (test code = 1005) 84.9 fL MCH (test code = 1006) 27.2 PG MCHC (test code = 1007) 32.0 G/DL RDW (test code = 1038) 13.3 % NEUTROPHILS (test code = 1008) 83.4 % LYMPHOCYTES (test code = 1010) 10.1 % MONOCYTES (test code = 1011) 5.5 % EOSINOPHILS (test code = 1012) 0.3 % BASOPHILS (test code = 1013) 0.3 % IMMATURE GRANULOCYTES (test 0.4 % code = 1036) NUCLEATED RBCS (test code = 0.0 /100WBC'S 1065) PLATELET COUNT (test code = 340 K/UL 1015) ABSOLUTE NEUTROPHILS (test code 11.18 K/UL = 1066) ABSOLUTE LYMPHOCYTES (test code 1.35 K/UL = 1067) ABSOLUTE MONOCYTES (test code = 0.73 K/UL 1068) ABSOLUTE EOSINOPHILS (test code 0.04 K/UL = 1040) ABSOLUTE BASOPHILS (test code = 0.04 K/UL 1069) ABS IMMATURE GRANULOCYTES (test 0.05 K/UL code = 1020) ABS NUCLEATED RBCS (test code = 0.00 K/UL 24229) CBC W/AUTO [id number] 00:00:00 Test Item Value Reference Range Interpretation Comments WBC (test code = 1001) 13.4 K/UL RBC (test code = 1002) 5.15 M/UL HEMOGLOBIN (test code = 1003) 14.0 G/DL HEMATOCRIT (test code = 1004) 43.7 % MCV (test code = 1005) 84.9 fL MCH (test code = 1006) 27.2 PG MCHC (test code = 1007) 32.0 G/DL RDW (test code = 1038) 13.3 % NEUTROPHILS (test code = 1008) 83.4 % LYMPHOCYTES (test code = 1010) 10.1 % MONOCYTES (test code = 1011) 5.5 % EOSINOPHILS (test code = 1012) 0.3 % BASOPHILS (test code = 1013) 0.3 % IMMATURE GRANULOCYTES (test 0.4 % code = 1036) NUCLEATED RBCS (test code = 0.0 /100WBC'S 1065) PLATELET COUNT (test code = 340 K/UL 1015) ABSOLUTE NEUTROPHILS (test code 11.18 K/UL = 1066) ABSOLUTE LYMPHOCYTES (test code 1.35 K/UL = 1067) ABSOLUTE MONOCYTES (test code = 0.73 K/UL 1068) ABSOLUTE EOSINOPHILS (test code 0.04 K/UL = 1040) ABSOLUTE BASOPHILS (test code = 0.04 K/UL 1069) ABS IMMATURE GRANULOCYTES (test 0.05 K/UL code = 1020) ABS NUCLEATED RBCS (test code = 0.00 K/UL 64192) CBC W/AUTO [id number] 00:00:00 Test Item Value Reference Range Interpretation Comments WBC (test code = 1001) 13.4 K/UL RBC (test code = 1002) 5.15 M/UL HEMOGLOBIN (test code = 1003) 14.0 G/DL HEMATOCRIT (test code = 1004) 43.7 % MCV (test code = 1005) 84.9 fL MCH (test code = 1006) 27.2 PG MCHC (test code = 1007) 32.0 G/DL RDW (test code = 1038) 13.3 % NEUTROPHILS (test code = 1008) 83.4 % LYMPHOCYTES (test code = 1010) 10.1 % MONOCYTES (test code = 1011) 5.5 % EOSINOPHILS (test code = 1012) 0.3 % BASOPHILS (test code = 1013) 0.3 % IMMATURE GRANULOCYTES (test 0.4 % code = 1036) NUCLEATED RBCS (test code = 0.0 /100WBC'S 1065) PLATELET COUNT (test code = 340 K/UL 1015) ABSOLUTE NEUTROPHILS (test code 11.18 K/UL = 1066) ABSOLUTE LYMPHOCYTES (test code 1.35 K/UL = 1067) ABSOLUTE MONOCYTES (test code = 0.73 K/UL 1068) ABSOLUTE EOSINOPHILS (test code 0.04 K/UL = 1040) ABSOLUTE BASOPHILS (test code = 0.04 K/UL 1069) ABS IMMATURE GRANULOCYTES (test 0.05 K/UL code = 1020) ABS NUCLEATED RBCS (test code = 0.00 K/UL 13330) HEMOGLOBIN [id number] 00:00:00 Test Item Value Reference Range Interpretation Comments HEMOGLOBIN A1c (test code = 76318) 6.8 % HEMOGLOBIN [id number] 00:00:00 Test Item Value Reference Range Interpretation Comments HEMOGLOBIN A1c (test code = 28773) 6.8 % HEMOGLOBIN [id number] 00:00:00 Test Item Value Reference Range Interpretation Comments HEMOGLOBIN A1c (test code = 44019) 6.8 % LIPID [id number] 03:48:14 Test Item Value Reference Range Interpretation Comments CHOLESTEROL (test 132 MG/DL <200 code = 2210) TRIGLYCERIDES (test 63 MG/DL <150 code = 2232) HDL CHOLESTEROL (test 37 MG/DL >39 L code = 2220) CALC LDL CHOL (test 81 MG/DL <100 NOTE: C ALCULATED LDL code = 2237) IS BASED ON AMALIA-BECERRA METHOD WHICHINCLUDES ADJUSTABLE TRIGLYCERIDE:VL DL CHOLESTEROL RAT IO.THIS FACTOR VARIES B Y MEASURED TRIGLY CERIDE AND NON-HDLCHOL ESTEROL CONCENTRATIONS WITH INCREASED CALCU LATED LDL SEENIN HIGH ER TRIGLYCERIDE OR LOWER NON-HDL SPECIME NS. FOR MOREINFORMATION , SEE CLIENT ANNOUNCE MENT AT [email or web address] RISK RATIO LDL/HDL 2.19 RATIO <3.55 UNLESS O THERWISE (test code = 2238) INDICATED , ALL TESTING PERFORMED [facility], [facility] [address] [place] [id number] [facility] DIRECTOR: JARRET BOND M.D. CLIA NUMBER [id number] CAP ACCREDITATION N O. [id number] HEMOGLOBIN [id number] 03:30:53 Test Item Value Reference Range Interpretation Comments HEMOGLOBIN A1c (test 7.1 % 4.2-5.6 H AMERIC AN DIABETES code = 66733) ASSOCIATION IDELINES FOR HGB A1C: PREDIABETES/INC REASED RISK . . . . . . . 5.7 -6.4% DIAGNOSIS OF DI ABETES . . . . . . . . . >=6 .5% WITH CONFIRMATION OR APPROPRIATE SYMPTOMS NOTE: ASSAY MAY BE AFFECTED BY HEMOGLOBINOPATH IES (SICKLE CELL ANEMIA, S- C DISEASE, OTHERS) OR [place] FICIALLY LOWERED BY DECR EASED RED CELL SURVIVAL ( HEMOLYTIC ANEMIAS, BLOOD LOSS, ETC.). CONSIDER ALTERN ATE TESTING OR LABORATORY C ONSULTATION. HEMOGLOBIN [id number] 00:00:00 Test Item Value Reference Range Interpretation Comments HEMOGLOBIN A1c (test code = 58906) 7.1 % HEMOGLOBIN [id number] 00:00:00 Test Item Value Reference Range Interpretation Comments HEMOGLOBIN A1c (test code = 11479) 7.1 % HEMOGLOBIN [id number] 00:00:00 Test Item Value Reference Range Interpretation Comments HEMOGLOBIN A1c (test code = 81344) 7.1 % LIPID [id number] 00:00:00 Test Item Value Reference Range Interpretation Comments CHOLESTEROL (test code = 2210) 132 MG/DL TRIGLYCERIDES (test code = 2232) 63 MG/DL HDL CHOLESTEROL (test code = 2220) 37 MG/DL CALC LDL CHOL (test code = 2237) 81 MG/DL RISK RATIO LDL/HDL (test code = 2.19 RATIO 2238) LIPID [id number] 00:00:00 Test Item Value Reference Range Interpretation Comments CHOLESTEROL (test code = 2210) 132 MG/DL TRIGLYCERIDES (test code = 2232) 63 MG/DL HDL CHOLESTEROL (test code = 2220) 37 MG/DL CALC LDL CHOL (test code = 2237) 81 MG/DL RISK RATIO LDL/HDL (test code = 2.19 RATIO 2238) HEMOGLOBIN [id number] 00:00:00 Test Item Value Reference Range Interpretation Comments HEMOGLOBIN A1c (test code = 33786) 7.1 % HEMOGLOBIN [id number] 00:00:00 Test Item Value Reference Range Interpretation Comments HEMOGLOBIN A1c (test code = 38439) 7.1 % HEMOGLOBIN [id number] 00:00:00 Test Item Value Reference Range Interpretation Comments HEMOGLOBIN A1c (test code = 13982) 7.1 % LIPID [id number] 00:00:00 Test Item Value Reference Range Interpretation Comments CHOLESTEROL (test code = 2210) 132 MG/DL TRIGLYCERIDES (test code = 2232) 63 MG/DL HDL CHOLESTEROL (test code = 2220) 37 MG/DL CALC LDL CHOL (test code = 2237) 81 MG/DL RISK RATIO LDL/HDL (test code = 2.19 RATIO 2238) LIPID [id number] 00:00:00 Test Item Value Reference Range Interpretation Comments CHOLESTEROL (test code = 2210) 132 MG/DL TRIGLYCERIDES (test code = 2232) 63 MG/DL HDL CHOLESTEROL (test code = 2220) 37 MG/DL CALC LDL CHOL (test code = 2237) 81 MG/DL RISK RATIO LDL/HDL (test code = 2.19 RATIO 2238) HEMOGLOBIN [id number] 00:00:00 Test Item Value Reference Range Interpretation Comments HEMOGLOBIN A1c (test code = 07506) 7.1 % HEMOGLOBIN [id number] 00:00:00 Test Item Value Reference Range Interpretation Comments HEMOGLOBIN A1c (test code = 94097) 7.1 % HEMOGLOBIN [id number] 00:00:00 Test Item Value Reference Range Interpretation Comments HEMOGLOBIN A1c (test code = 17893) 7.1 % LIPID [id number] 00:00:00 Test Item Value Reference Range Interpretation Comments CHOLESTEROL (test code = 2210) 132 MG/DL TRIGLYCERIDES (test code = 2232) 63 MG/DL HDL CHOLESTEROL (test code = 2220) 37 MG/DL CALC LDL CHOL (test code = 2237) 81 MG/DL RISK RATIO LDL/HDL (test code = 2.19 RATIO 2238) LIPID [id number] 00:00:00 Test Item Value Reference Range Interpretation Comments CHOLESTEROL (test code = 2210) 132 MG/DL TRIGLYCERIDES (test code = 2232) 63 MG/DL HDL CHOLESTEROL (test code = 2220) 37 MG/DL CALC LDL CHOL (test code = 2237) 81 MG/DL RISK RATIO LDL/HDL (test code = 2.19 RATIO 2238) HEMOGLOBIN [id number] 00:00:00 Test Item Value Reference Range Interpretation Comments HEMOGLOBIN A1c (test code = 79193) 7.1 % HEMOGLOBIN [id number] 00:00:00 Test Item Value Reference Range Interpretation Comments HEMOGLOBIN A1c (test code = 35306) 7.1 % HEMOGLOBIN [id number] 00:00:00 Test Item Value Reference Range Interpretation Comments HEMOGLOBIN A1c (test code = 72491) 7.1 % LIPID [id number] 00:00:00 Test Item Value Reference Range Interpretation Comments CHOLESTEROL (test code = 2210) 132 MG/DL TRIGLYCERIDES (test code = 2232) 63 MG/DL HDL CHOLESTEROL (test code = 2220) 37 MG/DL CALC LDL CHOL (test code = 2237) 81 MG/DL RISK RATIO LDL/HDL (test code = 2.19 RATIO 2238) LIPID [id number] 00:00:00 Test Item Value Reference Range Interpretation Comments CHOLESTEROL (test code = 2210) 132 MG/DL TRIGLYCERIDES (test code = 2232) 63 MG/DL HDL CHOLESTEROL (test code = 2220) 37 MG/DL CALC LDL CHOL (test code = 2237) 81 MG/DL RISK RATIO LDL/HDL (test code = 2.19 RATIO 2238) HEMOGLOBIN [id number] 00:00:00 Test Item Value Reference Range Interpretation Comments HEMOGLOBIN A1c (test code = 53140) 6.7 % HEMOGLOBIN [id number] 00:00:00 Test Item Value Reference Range Interpretation Comments HEMOGLOBIN A1c (test code = 03708) 6.7 % HEMOGLOBIN [id number] 00:00:00 Test Item Value Reference Range Interpretation Comments HEMOGLOBIN A1c (test code = 29979) 6.7 % LIPID [id number] 00:00:00 Test Item Value Reference Range Interpretation Comments CHOLESTEROL (test code = 2210) 128 MG/DL TRIGLYCERIDES (test code = 2232) 97 MG/DL HDL CHOLESTEROL (test code = 2220) 34 MG/DL CALC LDL CHOL (test code = 2237) 76 MG/DL RISK RATIO LDL/HDL (test code = 2.24 RATIO 2238) LIPID [id number] 00:00:00 Test Item Value Reference Range Interpretation Comments CHOLESTEROL (test code = 2210) 128 MG/DL TRIGLYCERIDES (test code = 2232) 97 MG/DL HDL CHOLESTEROL (test code = 2220) 34 MG/DL CALC LDL CHOL (test code = 2237) 76 MG/DL RISK RATIO LDL/HDL (test code = 2.24 RATIO 2238) HEMOGLOBIN [id number] 00:00:00 Test Item Value Reference Range Interpretation Comments HEMOGLOBIN A1c (test code = 94303) 6.7 % HEMOGLOBIN [id number] 00:00:00 Test Item Value Reference Range Interpretation Comments HEMOGLOBIN A1c (test code = 84590) 6.7 % HEMOGLOBIN [id number] 00:00:00 Test Item Value Reference Range Interpretation Comments HEMOGLOBIN A1c (test code = 07813) 6.7 % LIPID [id number] 00:00:00 Test Item Value Reference Range Interpretation Comments CHOLESTEROL (test code = 2210) 128 MG/DL TRIGLYCERIDES (test code = 2232) 97 MG/DL HDL CHOLESTEROL (test code = 2220) 34 MG/DL CALC LDL CHOL (test code = 2237) 76 MG/DL RISK RATIO LDL/HDL (test code = 2.24 RATIO 2238) LIPID [id number] 00:00:00 Test Item Value Reference Range Interpretation Comments CHOLESTEROL (test code = 2210) 128 MG/DL TRIGLYCERIDES (test code = 2232) 97 MG/DL HDL CHOLESTEROL (test code = 2220) 34 MG/DL CALC LDL CHOL (test code = 2237) 76 MG/DL RISK RATIO LDL/HDL (test code = 2.24 RATIO 2238) HEMOGLOBIN [id number] 00:00:00 Test Item Value Reference Range Interpretation Comments HEMOGLOBIN A1c (test code = 11433) 6.7 % HEMOGLOBIN [id number] 00:00:00 Test Item Value Reference Range Interpretation Comments HEMOGLOBIN A1c (test code = 18539) 6.7 % HEMOGLOBIN [id number] 00:00:00 Test Item Value Reference Range Interpretation Comments HEMOGLOBIN A1c (test code = 59456) 6.7 % LIPID [id number] 00:00:00 Test Item Value Reference Range Interpretation Comments CHOLESTEROL (test code = 2210) 128 MG/DL TRIGLYCERIDES (test code = 2232) 97 MG/DL HDL CHOLESTEROL (test code = 2220) 34 MG/DL CALC LDL CHOL (test code = 2237) 76 MG/DL RISK RATIO LDL/HDL (test code = 2.24 RATIO 2238) LIPID [id number] 00:00:00 Test Item Value Reference Range Interpretation Comments CHOLESTEROL (test code = 2210) 128 MG/DL TRIGLYCERIDES (test code = 2232) 97 MG/DL HDL CHOLESTEROL (test code = 2220) 34 MG/DL CALC LDL CHOL (test code = 2237) 76 MG/DL RISK RATIO LDL/HDL (test code = 2.24 RATIO 2238) HEMOGLOBIN [id number] 00:00:00 Test Item Value Reference Range Interpretation Comments HEMOGLOBIN A1c (test code = 70176) 6.7 % HEMOGLOBIN [id number] 00:00:00 Test Item Value Reference Range Interpretation Comments HEMOGLOBIN A1c (test code = 22863) 6.7 % HEMOGLOBIN [id number] 00:00:00 Test Item Value Reference Range Interpretation Comments HEMOGLOBIN A1c (test code = 20139) 6.7 % LIPID [id number] 00:00:00 Test Item Value Reference Range Interpretation Comments CHOLESTEROL (test code = 2210) 128 MG/DL TRIGLYCERIDES (test code = 2232) 97 MG/DL HDL CHOLESTEROL (test code = 2220) 34 MG/DL CALC LDL CHOL (test code = 2237) 76 MG/DL RISK RATIO LDL/HDL (test code = 2.24 RATIO 2238) LIPID [id number] 00:00:00 Test Item Value Reference Range Interpretation Comments CHOLESTEROL (test code = 2210) 128 MG/DL TRIGLYCERIDES (test code = 2232) 97 MG/DL HDL CHOLESTEROL (test code = 2220) 34 MG/DL CALC LDL CHOL (test code = 2237) 76 MG/DL RISK RATIO LDL/HDL (test code = 2.24 RATIO 2238) HEMOGLOBIN [id number] 00:00:00 Test Item Value Reference Range Interpretation Comments HEMOGLOBIN A1c (test code = 76842) 6.8 % HEMOGLOBIN [id number] 00:00:00 Test Item Value Reference Range Interpretation Comments HEMOGLOBIN A1c (test code = 48375) 6.8 % HEMOGLOBIN [id number] 00:00:00 Test Item Value Reference Range Interpretation Comments HEMOGLOBIN A1c (test code = 54456) 6.8 % LIPID [id number] 00:00:00 Test Item Value Reference Range Interpretation Comments CHOLESTEROL (test code = 2210) 146 MG/DL TRIGLYCERIDES (test code = 2232) 90 MG/DL HDL CHOLESTEROL (test code = 2220) 36 MG/DL CALC LDL CHOL (test code = 2237) 92 MG/DL RISK RATIO LDL/HDL (test code = 2.56 RATIO 2238) LIPID [id number] 00:00:00 Test Item Value Reference Range Interpretation Comments CHOLESTEROL (test code = 2210) 146 MG/DL TRIGLYCERIDES (test code = 2232) 90 MG/DL HDL CHOLESTEROL (test code = 2220) 36 MG/DL CALC LDL CHOL (test code = 2237) 92 MG/DL RISK RATIO LDL/HDL (test code = 2.56 RATIO 2238) COMPREHENSIVE METABOLIC [id number] 00:00:00 Test Item Value Reference Range Interpretation Comments GLUCOSE (test code = 2217) 121 MG/DL BUN (test code = 2208) 16 MG/DL CREATININE (test code = 2214) 1.02 MG/DL eGFR AMER. (test code 90 ML/MIN/1.73 = 94463) eGFR NON- AMER. (test 78 ML/MIN/1.73 code = 82319) CALC BUN/CREAT (test code = 16 RATIO 2235) SODIUM (test code = 2231) 139 MEQ/L POTASSIUM (test code = 2228) 4.3 MEQ/L CHLORIDE (test code = 2215) 101 MEQ/L CARBON DIOXIDE (test code = 28 MEQ/L 2205) CALCIUM (test code = 2209) 9.9 MG/DL PROTEIN, TOTAL (test code = 7.3 G/DL 2228) ALBUMIN (test code = 2201) 4.6 G/DL CALC GLOBULIN (test code = 2.7 G/DL 2239) CALC A/G RATIO (test code = 1.7 RATIO 2234) BILIRUBIN, TOTAL (test code = 0.4 MG/DL 2206) ALKALINE PHOSPHATASE (test 67 U/L code = 2204) AST (test code = 2218) 12 U/L ALT (test code = 2219) 11 U/L COMPREHENSIVE METABOLIC [id number] 00:00:00 Test Item Value Reference Range Interpretation Comments GLUCOSE (test code = 2217) 121 MG/DL BUN (test code = 2208) 16 MG/DL CREATININE (test code = 2214) 1.02 MG/DL eGFR AMER. (test code 90 ML/MIN/1.73 = 38166) eGFR NON- AMER. (test 78 ML/MIN/1.73 code = 81731) CALC BUN/CREAT (test code = 16 RATIO 2235) SODIUM (test code = 2231) 139 MEQ/L POTASSIUM (test code = 2228) 4.3 MEQ/L CHLORIDE (test code = 2215) 101 MEQ/L CARBON DIOXIDE (test code = 28 MEQ/L 2205) CALCIUM (test code = 2209) 9.9 MG/DL PROTEIN, TOTAL (test code = 7.3 G/DL 2228) ALBUMIN (test code = 2201) 4.6 G/DL CALC GLOBULIN (test code = 2.7 G/DL 224) CALC A/G RATIO (test code = 1.7 RATIO 2234) BILIRUBIN, TOTAL (test code = 0.4 MG/DL 2206) ALKALINE PHOSPHATASE (test 67 U/L code = 2204) AST (test code = 2218) 12 U/L ALT (test code = 2219) 11 U/L HEMOGLOBIN [id number] 00:00:00 Test Item Value Reference Range Interpretation Comments HEMOGLOBIN A1c (test code = 53931) 6.8 % HEMOGLOBIN [id number] 00:00:00 Test Item Value Reference Range Interpretation Comments HEMOGLOBIN A1c (test code = 92350) 6.8 % HEMOGLOBIN [id number] 00:00:00 Test Item Value Reference Range Interpretation Comments HEMOGLOBIN A1c (test code = 00225) 6.8 % LIPID [id number] 00:00:00 Test Item Value Reference Range Interpretation Comments CHOLESTEROL (test code = 2210) 146 MG/DL TRIGLYCERIDES (test code = 2232) 90 MG/DL HDL CHOLESTEROL (test code = 2220) 36 MG/DL CALC LDL CHOL (test code = 2237) 92 MG/DL RISK RATIO LDL/HDL (test code = 2.56 RATIO 2238) LIPID [id number] 00:00:00 Test Item Value Reference Range Interpretation Comments CHOLESTEROL (test code = 2210) 146 MG/DL TRIGLYCERIDES (test code = 2232) 90 MG/DL HDL CHOLESTEROL (test code = 2220) 36 MG/DL CALC LDL CHOL (test code = 2237) 92 MG/DL RISK RATIO LDL/HDL (test code = 2.56 RATIO 2238) COMPREHENSIVE METABOLIC [id number] 00:00:00 Test Item Value Reference Range Interpretation Comments GLUCOSE (test code = 2217) 121 MG/DL BUN (test code = 2208) 16 MG/DL CREATININE (test code = 2214) 1.02 MG/DL eGFR AMER. (test code 90 ML/MIN/1.73 = 97559) eGFR NON- AMER. (test 78 ML/MIN/1.73 code = 13538) CALC BUN/CREAT (test code = 16 RATIO 2235) SODIUM (test code = 2231) 139 MEQ/L POTASSIUM (test code = 2228) 4.3 MEQ/L CHLORIDE (test code = 2215) 101 MEQ/L CARBON DIOXIDE (test code = 28 MEQ/L 6) CALCIUM (test code = 2209) 9.9 MG/DL PROTEIN, TOTAL (test code = 7.3 G/DL 222) ALBUMIN (test code = 2201) 4.6 G/DL CALC GLOBULIN (test code = 2.7 G/DL 2240) CALC A/G RATIO (test code = 1.7 RATIO 2234) BILIRUBIN, TOTAL (test code = 0.4 MG/DL 220) ALKALINE PHOSPHATASE (test 67 U/L code = 2204) AST (test code = 2218) 12 U/L ALT (test code = 2219) 11 U/L COMPREHENSIVE METABOLIC [id number] 00:00:00 Test Item Value Reference Range Interpretation Comments GLUCOSE (test code = 2217) 121 MG/DL BUN (test code = 2208) 16 MG/DL CREATININE (test code = 2214) 1.02 MG/DL eGFR AMER. (test code 90 ML/MIN/1.73 = 12973) eGFR NON- AMER. (test 78 ML/MIN/1.73 code = 22440) CALC BUN/CREAT (test code = 16 RATIO 2235) SODIUM (test code = 2231) 139 MEQ/L POTASSIUM (test code = 2228) 4.3 MEQ/L CHLORIDE (test code = 2215) 101 MEQ/L CARBON DIOXIDE (test code = 28 MEQ/L 2205) CALCIUM (test code = 2209) 9.9 MG/DL PROTEIN, TOTAL (test code = 7.3 G/DL 2228) ALBUMIN (test code = 2201) 4.6 G/DL CALC GLOBULIN (test code = 2.7 G/DL 2239) CALC A/G RATIO (test code = 1.7 RATIO 2233) BILIRUBIN, TOTAL (test code = 0.4 MG/DL 2206) ALKALINE PHOSPHATASE (test 67 U/L code = 2204) AST (test code = 2218) 12 U/L ALT (test code = 2219) 11 U/L HEMOGLOBIN [id number] 00:00:00 Test Item Value Reference Range Interpretation Comments HEMOGLOBIN A1c (test code = 19016) 6.8 % HEMOGLOBIN [id number] 00:00:00 Test Item Value Reference Range Interpretation Comments HEMOGLOBIN A1c (test code = 38050) 6.8 % HEMOGLOBIN [id number] 00:00:00 Test Item Value Reference Range Interpretation Comments HEMOGLOBIN A1c (test code = 35511) 6.8 % LIPID [id number] 00:00:00 Test Item Value Reference Range Interpretation Comments CHOLESTEROL (test code = 2210) 146 MG/DL TRIGLYCERIDES (test code = 2232) 90 MG/DL HDL CHOLESTEROL (test code = 2220) 36 MG/DL CALC LDL CHOL (test code = 2237) 92 MG/DL RISK RATIO LDL/HDL (test code = 2.56 RATIO 2238) LIPID [id number] 00:00:00 Test Item Value Reference Range Interpretation Comments CHOLESTEROL (test code = 2210) 146 MG/DL TRIGLYCERIDES (test code = 2232) 90 MG/DL HDL CHOLESTEROL (test code = 2220) 36 MG/DL CALC LDL CHOL (test code = 2237) 92 MG/DL RISK RATIO LDL/HDL (test code = 2.56 RATIO 2238) COMPREHENSIVE METABOLIC [id number] 00:00:00 Test Item Value Reference Range Interpretation Comments GLUCOSE (test code = 2217) 121 MG/DL BUN (test code = 2208) 16 MG/DL CREATININE (test code = 2214) 1.02 MG/DL eGFR AMER. (test code 90 ML/MIN/1.73 = 20498) eGFR NON- AMER. (test 78 ML/MIN/1.73 code = 58651) CALC BUN/CREAT (test code = 16 RATIO 2235) SODIUM (test code = 2231) 139 MEQ/L POTASSIUM (test code = 2228) 4.3 MEQ/L CHLORIDE (test code = 2215) 101 MEQ/L CARBON DIOXIDE (test code = 28 MEQ/L 220) CALCIUM (test code = 2209) 9.9 MG/DL PROTEIN, TOTAL (test code = 7.3 G/DL 2228) ALBUMIN (test code = 2201) 4.6 G/DL CALC GLOBULIN (test code = 2.7 G/DL 2240) CALC A/G RATIO (test code = 1.7 RATIO 2234) BILIRUBIN, TOTAL (test code = 0.4 MG/DL 2206) ALKALINE PHOSPHATASE (test 67 U/L code = 2204) AST (test code = 2218) 12 U/L ALT (test code = 2219) 11 U/L COMPREHENSIVE METABOLIC [id number] 00:00:00 Test Item Value Reference Range Interpretation Comments GLUCOSE (test code = 2217) 121 MG/DL BUN (test code = 2208) 16 MG/DL CREATININE (test code = 2214) 1.02 MG/DL eGFR AMER. (test code 90 ML/MIN/1.73 = 78913) eGFR NON- AMER. (test 78 ML/MIN/1.73 code = 05697) CALC BUN/CREAT (test code = 16 RATIO 2235) SODIUM (test code = 2231) 139 MEQ/L POTASSIUM (test code = 2228) 4.3 MEQ/L CHLORIDE (test code = 2215) 101 MEQ/L CARBON DIOXIDE (test code = 28 MEQ/L 2206) CALCIUM (test code = 2209) 9.9 MG/DL PROTEIN, TOTAL (test code = 7.3 G/DL 2228) ALBUMIN (test code = 2201) 4.6 G/DL CALC GLOBULIN (test code = 2.7 G/DL 2240) CALC A/G RATIO (test code = 1.7 RATIO 2234) BILIRUBIN, TOTAL (test code = 0.4 MG/DL 2206) ALKALINE PHOSPHATASE (test 67 U/L code = 2204) AST (test code = 2218) 12 U/L ALT (test code = 2219) 11 U/L HEMOGLOBIN [id number] 00:00:00 Test Item Value Reference Range Interpretation Comments HEMOGLOBIN A1c (test code = 55248) 6.8 % HEMOGLOBIN [id number] 00:00:00 Test Item Value Reference Range Interpretation Comments HEMOGLOBIN A1c (test code = 97456) 6.8 % HEMOGLOBIN [id number] 00:00:00 Test Item Value Reference Range Interpretation Comments HEMOGLOBIN A1c (test code = 10911) 6.8 % LIPID [id number] 00:00:00 Test Item Value Reference Range Interpretation Comments CHOLESTEROL (test code = 2210) 146 MG/DL TRIGLYCERIDES (test code = 2232) 90 MG/DL HDL CHOLESTEROL (test code = 2220) 36 MG/DL CALC LDL CHOL (test code = 2237) 92 MG/DL RISK RATIO LDL/HDL (test code = 2.56 RATIO 2238) LIPID [id number] 00:00:00 Test Item Value Reference Range Interpretation Comments CHOLESTEROL (test code = 2210) 146 MG/DL TRIGLYCERIDES (test code = 2232) 90 MG/DL HDL CHOLESTEROL (test code = 2220) 36 MG/DL CALC LDL CHOL (test code = 2237) 92 MG/DL RISK RATIO LDL/HDL (test code = 2.56 RATIO 2238) COMPREHENSIVE METABOLIC [id number] 00:00:00 Test Item Value Reference Range Interpretation Comments GLUCOSE (test code = 2217) 121 MG/DL BUN (test code = 2208) 16 MG/DL CREATININE (test code = 2214) 1.02 MG/DL eGFR AMER. (test code 90 ML/MIN/1.73 = 42635) eGFR NON- AMER. (test 78 ML/MIN/1.73 code = 57476) CALC BUN/CREAT (test code = 16 RATIO 2235) SODIUM (test code = 2231) 139 MEQ/L POTASSIUM (test code = 2228) 4.3 MEQ/L CHLORIDE (test code = 2215) 101 MEQ/L CARBON DIOXIDE (test code = 28 MEQ/L 2205) CALCIUM (test code = 2209) 9.9 MG/DL PROTEIN, TOTAL (test code = 7.3 G/DL 2229) ALBUMIN (test code = 2201) 4.6 G/DL CALC GLOBULIN (test code = 2.7 G/DL 2240) CALC A/G RATIO (test code = 1.7 RATIO 2234) BILIRUBIN, TOTAL (test code = 0.4 MG/DL 2206) ALKALINE PHOSPHATASE (test 67 U/L code = 2204) AST (test code = 2218) 12 U/L ALT (test code = 2219) 11 U/L COMPREHENSIVE METABOLIC [id number] 00:00:00 Test Item Value Reference Range Interpretation Comments GLUCOSE (test code = 2217) 121 MG/DL BUN (test code = 2208) 16 MG/DL CREATININE (test code = 2214) 1.02 MG/DL eGFR AMER. (test code 90 ML/MIN/1.73 = 50141) eGFR NON- AMER. (test 78 ML/MIN/1.73 code = 39473) CALC BUN/CREAT (test code = 16 RATIO 2235) SODIUM (test code = 2231) 139 MEQ/L POTASSIUM (test code = 2228) 4.3 MEQ/L CHLORIDE (test code = 2215) 101 MEQ/L CARBON DIOXIDE (test code = 28 MEQ/L 2206) CALCIUM (test code = 2209) 9.9 MG/DL PROTEIN, TOTAL (test code = 7.3 G/DL 2228) ALBUMIN (test code = 2201) 4.6 G/DL CALC GLOBULIN (test code = 2.7 G/DL 2240) CALC A/G RATIO (test code = 1.7 RATIO 2234) BILIRUBIN, TOTAL (test code = 0.4 MG/DL 2206) ALKALINE PHOSPHATASE (test 67 U/L code = 2204) AST (test code = 2218) 12 U/L ALT (test code = 2219) 11 U/L HEMOGLOBIN [id number] 00:00:00 Test Item Value Reference Range Interpretation Comments HEMOGLOBIN A1c (test code = 90985) 6.7 % HEMOGLOBIN [id number] 00:00:00 Test Item Value Reference Range Interpretation Comments HEMOGLOBIN A1c (test code = 18843) 6.7 % HEMOGLOBIN [id number] 00:00:00 Test Item Value Reference Range Interpretation Comments HEMOGLOBIN A1c (test code = 60625) 6.7 % MICROALBUMIN/CREATININE, RANDOM AND [id number] 00:00:00 Test Item Value Reference Range Interpretation Comments CREATININE, URINE, CONC. (test 121.3 MG/DL code = 2072) ALBUMIN, URINE, RANDOM (test code <0.2 MG/DL = 18095) CALC ALBUMIN/CREAT, RND (test <2 MG/G code = 78800) MICROALBUMIN/CREATININE, RANDOM AND [id number] 00:00:00 Test Item Value Reference Range Interpretation Comments CREATININE, URINE, CONC. (test 121.3 MG/DL code = 2072) ALBUMIN, URINE, RANDOM (test code <0.2 MG/DL = 55754) CALC ALBUMIN/CREAT, RND (test <2 MG/G code = 73748) HEMOGLOBIN [id number] 00:00:00 Test Item Value Reference Range Interpretation Comments HEMOGLOBIN A1c (test code = 40405) 6.7 % HEMOGLOBIN [id number] 00:00:00 Test Item Value Reference Range Interpretation Comments HEMOGLOBIN A1c (test code = 77517) 6.7 % HEMOGLOBIN [id number] 00:00:00 Test Item Value Reference Range Interpretation Comments HEMOGLOBIN A1c (test code = 92682) 6.7 % MICROALBUMIN/CREATININE, RANDOM AND [id number] 00:00:00 Test Item Value Reference Range Interpretation Comments CREATININE, URINE, CONC. (test 121.3 MG/DL code = 2072) ALBUMIN, URINE, RANDOM (test code <0.2 MG/DL = 61115) CALC ALBUMIN/CREAT, RND (test <2 MG/G code = 55584) MICROALBUMIN/CREATININE, RANDOM AND [id number] 00:00:00 Test Item Value Reference Range Interpretation Comments CREATININE, URINE, CONC. (test 121.3 MG/DL code = 2072) ALBUMIN, URINE, RANDOM (test code <0.2 MG/DL = 43385) CALC ALBUMIN/CREAT, RND (test <2 MG/G code = 93726) HEMOGLOBIN [id number] 00:00:00 Test Item Value Reference Range Interpretation Comments HEMOGLOBIN A1c (test code = 10635) 6.7 % HEMOGLOBIN [id number] 00:00:00 Test Item Value Reference Range Interpretation Comments HEMOGLOBIN A1c (test code = 79245) 6.7 % HEMOGLOBIN [id number] 00:00:00 Test Item Value Reference Range Interpretation Comments HEMOGLOBIN A1c (test code = 43604) 6.7 % MICROALBUMIN/CREATININE, RANDOM AND [id number] 00:00:00 Test Item Value Reference Range Interpretation Comments CREATININE, URINE, CONC. (test 121.3 MG/DL code = 2072) ALBUMIN, URINE, RANDOM (test code <0.2 MG/DL = 85293) CALC ALBUMIN/CREAT, RND (test <2 MG/G code = 72344) MICROALBUMIN/CREATININE, RANDOM AND [id number] 00:00:00 Test Item Value Reference Range Interpretation Comments CREATININE, URINE, CONC. (test 121.3 MG/DL code = 2072) ALBUMIN, URINE, RANDOM (test code <0.2 MG/DL = 80762) CALC ALBUMIN/CREAT, RND (test <2 MG/G code = 50155) HEMOGLOBIN [id number] 00:00:00 Test Item Value Reference Range Interpretation Comments HEMOGLOBIN A1c (test code = 02746) 6.7 % HEMOGLOBIN [id number] 00:00:00 Test Item Value Reference Range Interpretation Comments HEMOGLOBIN A1c (test code = 18346) 6.7 % HEMOGLOBIN [id number] 00:00:00 Test Item Value Reference Range Interpretation Comments HEMOGLOBIN A1c (test code = 80218) 6.7 % MICROALBUMIN/CREATININE, RANDOM AND [id number] 00:00:00 Test Item Value Reference Range Interpretation Comments CREATININE, URINE, CONC. (test 121.3 MG/DL code = 2072) ALBUMIN, URINE, RANDOM (test code <0.2 MG/DL = 35410) CALC ALBUMIN/CREAT, RND (test <2 MG/G code = 35843) MICROALBUMIN/CREATININE, RANDOM AND [id number] 00:00:00 Test Item Value Reference Range Interpretation Comments CREATININE, URINE, CONC. (test 121.3 MG/DL code = 2072) ALBUMIN, URINE, RANDOM (test code <0.2 MG/DL = 86065) CALC ALBUMIN/CREAT, RND (test <2 MG/G code = 72372) POCT URINALYSIS, [id number] 15:23:00 Test Item Value Reference Range Interpretation Comments POCT U SP GRAV (test code = 1.020 mg/dl 1.005-1.025 3255) POCT PH U (test code = 3254) 7.5 mg/dl 5-8 POCT U LEUK EST (test code = Negative Negative - Negative 3263) POCT U NIT (test code = 3262) Negative Negative - Negative POCT U PROT (test code = Negative Negative - Negative 3259) POCT U GLU (test code = 3256) Negative Negative - Negative POCT U KETONE (test code = Negative Negative - Negative 3258) POCT U UROBILI (test code = 1.0 mg/dl 0.2-1 3260) POCT U BILI (test code = Negative Negative - Negative 3261) POCT U BLD (test code = 3257) Negative Negative - Negative POCT U COLOR (test code = yellow 3266) POCT U APPEAR (test code = clear 3267) Lab Interpretation (test code Normal = 00251-3) [facility] [id number] 15:23:00 Test Item Value Reference Range Interpretation Comments POCT U SP GRAV (test code = 1.020 mg/dl 1.005-1.025 3255) POCT PH U (test code = 3254) 7.5 mg/dl 5-8 POCT U LEUK EST (test code = Negative Negative - Negative 3263) POCT U NIT (test code = 3262) Negative Negative - Negative POCT U PROT (test code = Negative Negative - Negative 3259) POCT U GLU (test code = 3256) Negative Negative - Negative POCT U KETONE (test code = Negative Negative - Negative 3258) POCT U UROBILI (test code = 1.0 mg/dl 0.2-1 3260) POCT U BILI (test code = Negative Negative - Negative 3261) POCT U BLD (test code = 3257) Negative Negative - Negative POCT U COLOR (test code = yellow 3266) POCT U APPEAR (test code = clear 3267) Lab Interpretation (test code Normal = 76579-5) [facility] [id number] 00:00:00 Test Item Value Reference Range Interpretation Comments GLUCOSE (test code = 2217) 219 MG/DL BUN (test code = 2208) 16 MG/DL CREATININE (test code = 2214) 1.13 MG/DL eGFR AMER. (test code 80 ML/MIN/1.73 = 52935) eGFR NON- AMER. (test 69 ML/MIN/1.73 code = 38048) CALC BUN/CREAT (test code = 14 RATIO 2235) SODIUM (test code = 2231) 137 MEQ/L POTASSIUM (test code = 2228) 4.2 MEQ/L CHLORIDE (test code = 2215) 99 MEQ/L CARBON DIOXIDE (test code = 23 MEQ/L 2205) CALCIUM (test code = 2209) 10.0 MG/DL PROTEIN, TOTAL (test code = 6.8 G/DL 2228) ALBUMIN (test code = 2201) 4.5 G/DL CALC GLOBULIN (test code = 2.3 G/DL 2240) CALC A/G RATIO (test code = 2.0 RATIO 2234) BILIRUBIN, TOTAL (test code = 0.4 MG/DL 2206) ALKALINE PHOSPHATASE (test 70 U/L code = 2204) AST (test code = 2218) 18 U/L ALT (test code = 2219) 17 U/L COMPREHENSIVE METABOLIC [id number] 00:00:00 Test Item Value Reference Range Interpretation Comments GLUCOSE (test code = 2217) 219 MG/DL BUN (test code = 2208) 16 MG/DL CREATININE (test code = 2214) 1.13 MG/DL eGFR AMER. (test code 80 ML/MIN/1.73 = 83645) eGFR NON- AMER. (test 69 ML/MIN/1.73 code = 09442) CALC BUN/CREAT (test code = 14 RATIO 2235) SODIUM (test code = 2231) 137 MEQ/L POTASSIUM (test code = 2228) 4.2 MEQ/L CHLORIDE (test code = 2215) 99 MEQ/L CARBON DIOXIDE (test code = 23 MEQ/L 2205) CALCIUM (test code = 2209) 10.0 MG/DL PROTEIN, TOTAL (test code = 6.8 G/DL 2228) ALBUMIN (test code = 2201) 4.5 G/DL CALC GLOBULIN (test code = 2.3 G/DL 2240) CALC A/G RATIO (test code = 2.0 RATIO 2234) BILIRUBIN, TOTAL (test code = 0.4 MG/DL 2206) ALKALINE PHOSPHATASE (test 70 U/L code = 2204) AST (test code = 2218) 18 U/L ALT (test code = 2219) 17 U/L VITAMIN [id number] 00:00:00 Test Item Value Reference Range Interpretation Comments VITAMIN B-12 (test code = 2840) 340 PG/ML VITAMIN [id number] 00:00:00 Test Item Value Reference Range Interpretation Comments VITAMIN B-12 (test code = 2840) 340 PG/ML VITAMIN [id number] 00:00:00 Test Item Value Reference Range Interpretation Comments VITAMIN B-12 (test code = 2840) 340 PG/ML VITAMIN D, 25 [id number] 00:00:00 Test Item Value Reference Range Interpretation Comments VITAMIN D, 25 OH (test code = 4958) 28 NG/ML VITAMIN D, 25 [id number] 00:00:00 Test Item Value Reference Range Interpretation Comments VITAMIN D, 25 OH (test code = 4958) 28 NG/ML COMPREHENSIVE METABOLIC [id number] 00:00:00 Test Item Value Reference Range Interpretation Comments GLUCOSE (test code = 2217) 219 MG/DL BUN (test code = 2208) 16 MG/DL CREATININE (test code = 2214) 1.13 MG/DL eGFR AMER. (test code 80 ML/MIN/1.73 = 41434) eGFR NON- AMER. (test 69 ML/MIN/1.73 code = 88807) CALC BUN/CREAT (test code = 14 RATIO 2234) SODIUM (test code = 2231) 137 MEQ/L POTASSIUM (test code = 2228) 4.2 MEQ/L CHLORIDE (test code = 2215) 99 MEQ/L CARBON DIOXIDE (test code = 23 MEQ/L 2205) CALCIUM (test code = 2209) 10.0 MG/DL PROTEIN, TOTAL (test code = 6.8 G/DL 2228) ALBUMIN (test code = 220) 4.5 G/DL CALC GLOBULIN (test code = 2.3 G/DL 2239) CALC A/G RATIO (test code = 2.0 RATIO 2233) BILIRUBIN, TOTAL (test code = 0.4 MG/DL 2207) ALKALINE PHOSPHATASE (test 70 U/L code = 2204) AST (test code = 2218) 18 U/L ALT (test code = 2219) 17 U/L COMPREHENSIVE METABOLIC [id number] 00:00:00 Test Item Value Reference Range Interpretation Comments GLUCOSE (test code = 2217) 219 MG/DL BUN (test code = 2208) 16 MG/DL CREATININE (test code = 2214) 1.13 MG/DL eGFR AMER. (test code 80 ML/MIN/1.73 = 01763) eGFR NON- AMER. (test 69 ML/MIN/1.73 code = 59119) CALC BUN/CREAT (test code = 14 RATIO 2235) SODIUM (test code = 2231) 137 MEQ/L POTASSIUM (test code = 2228) 4.2 MEQ/L CHLORIDE (test code = 2215) 99 MEQ/L CARBON DIOXIDE (test code = 23 MEQ/L 2205) CALCIUM (test code = 2209) 10.0 MG/DL PROTEIN, TOTAL (test code = 6.8 G/DL 2228) ALBUMIN (test code = 2201) 4.5 G/DL CALC GLOBULIN (test code = 2.3 G/DL 2240) CALC A/G RATIO (test code = 2.0 RATIO 2234) BILIRUBIN, TOTAL (test code = 0.4 MG/DL 2206) ALKALINE PHOSPHATASE (test 70 U/L code = 2204) AST (test code = 2218) 18 U/L ALT (test code = 2219) 17 U/L VITAMIN [id number] 00:00:00 Test Item Value Reference Range Interpretation Comments VITAMIN B-12 (test code = 2840) 340 PG/ML VITAMIN [id number] 00:00:00 Test Item Value Reference Range Interpretation Comments VITAMIN B-12 (test code = 2840) 340 PG/ML VITAMIN [id number] 00:00:00 Test Item Value Reference Range Interpretation Comments VITAMIN B-12 (test code = 2840) 340 PG/ML VITAMIN D, 25 [id number] 00:00:00 Test Item Value Reference Range Interpretation Comments VITAMIN D, 25 OH (test code = 4958) 28 NG/ML VITAMIN D, 25 [id number] 00:00:00 Test Item Value Reference Range Interpretation Comments VITAMIN D, 25 OH (test code = 4958) 28 NG/ML COMPREHENSIVE METABOLIC [id number] 00:00:00 Test Item Value Reference Range Interpretation Comments GLUCOSE (test code = 2217) 219 MG/DL BUN (test code = 2208) 16 MG/DL CREATININE (test code = 2214) 1.13 MG/DL eGFR AMER. (test code 80 ML/MIN/1.73 = 37012) eGFR NON- AMER. (test 69 ML/MIN/1.73 code = 20807) CALC BUN/CREAT (test code = 14 RATIO 2235) SODIUM (test code = 2231) 137 MEQ/L POTASSIUM (test code = 2228) 4.2 MEQ/L CHLORIDE (test code = 2215) 99 MEQ/L CARBON DIOXIDE (test code = 23 MEQ/L 220) CALCIUM (test code = 2209) 10.0 MG/DL PROTEIN, TOTAL (test code = 6.8 G/DL 2228) ALBUMIN (test code = 2201) 4.5 G/DL CALC GLOBULIN (test code = 2.3 G/DL 224) CALC A/G RATIO (test code = 2.0 RATIO 2234) BILIRUBIN, TOTAL (test code = 0.4 MG/DL 2206) ALKALINE PHOSPHATASE (test 70 U/L code = 2204) AST (test code = 2218) 18 U/L ALT (test code = 2219) 17 U/L COMPREHENSIVE METABOLIC [id number] 00:00:00 Test Item Value Reference Range Interpretation Comments GLUCOSE (test code = 2217) 219 MG/DL BUN (test code = 2208) 16 MG/DL CREATININE (test code = 2214) 1.13 MG/DL eGFR AMER. (test code 80 ML/MIN/1.73 = 30570) eGFR NON- AMER. (test 69 ML/MIN/1.73 code = 69648) CALC BUN/CREAT (test code = 14 RATIO 2235) SODIUM (test code = 2231) 137 MEQ/L POTASSIUM (test code = 2228) 4.2 MEQ/L CHLORIDE (test code = 2215) 99 MEQ/L CARBON DIOXIDE (test code = 23 MEQ/L 2206) CALCIUM (test code = 2209) 10.0 MG/DL PROTEIN, TOTAL (test code = 6.8 G/DL 2229) ALBUMIN (test code = 2201) 4.5 G/DL CALC GLOBULIN (test code = 2.3 G/DL 2239) CALC A/G RATIO (test code = 2.0 RATIO 2233) BILIRUBIN, TOTAL (test code = 0.4 MG/DL 2206) ALKALINE PHOSPHATASE (test 70 U/L code = 2204) AST (test code = 2218) 18 U/L ALT (test code = 2219) 17 U/L VITAMIN [id number] 00:00:00 Test Item Value Reference Range Interpretation Comments VITAMIN B-12 (test code = 2840) 340 PG/ML VITAMIN [id number] 00:00:00 Test Item Value Reference Range Interpretation Comments VITAMIN B-12 (test code = 2840) 340 PG/ML VITAMIN [id number] 00:00:00 Test Item Value Reference Range Interpretation Comments VITAMIN B-12 (test code = 2840) 340 PG/ML VITAMIN D, 25 [id number] 00:00:00 Test Item Value Reference Range Interpretation Comments VITAMIN D, 25 OH (test code = 4958) 28 NG/ML VITAMIN D, 25 [id number] 00:00:00 Test Item Value Reference Range Interpretation Comments VITAMIN D, 25 OH (test code = 4958) 28 NG/ML COMPREHENSIVE METABOLIC [id number] 00:00:00 Test Item Value Reference Range Interpretation Comments GLUCOSE (test code = 2217) 219 MG/DL BUN (test code = 2208) 16 MG/DL CREATININE (test code = 2214) 1.13 MG/DL eGFR AMER. (test code 80 ML/MIN/1.73 = 47906) eGFR NON- AMER. (test 69 ML/MIN/1.73 code = 00517) CALC BUN/CREAT (test code = 14 RATIO 2235) SODIUM (test code = 2231) 137 MEQ/L POTASSIUM (test code = 2228) 4.2 MEQ/L CHLORIDE (test code = 2215) 99 MEQ/L CARBON DIOXIDE (test code = 23 MEQ/L 2205) CALCIUM (test code = 2209) 10.0 MG/DL PROTEIN, TOTAL (test code = 6.8 G/DL 2228) ALBUMIN (test code = 2201) 4.5 G/DL CALC GLOBULIN (test code = 2.3 G/DL 2240) CALC A/G RATIO (test code = 2.0 RATIO 2234) BILIRUBIN, TOTAL (test code = 0.4 MG/DL 2206) ALKALINE PHOSPHATASE (test 70 U/L code = 2204) AST (test code = 2218) 18 U/L ALT (test code = 2219) 17 U/L COMPREHENSIVE METABOLIC [id number] 00:00:00 Test Item Value Reference Range Interpretation Comments GLUCOSE (test code = 2217) 219 MG/DL BUN (test code = 2208) 16 MG/DL CREATININE (test code = 2214) 1.13 MG/DL eGFR AMER. (test code 80 ML/MIN/1.73 = 59468) eGFR NON- AMER. (test 69 ML/MIN/1.73 code = 26875) CALC BUN/CREAT (test code = 14 RATIO 2235) SODIUM (test code = 2231) 137 MEQ/L POTASSIUM (test code = 2228) 4.2 MEQ/L CHLORIDE (test code = 2215) 99 MEQ/L CARBON DIOXIDE (test code = 23 MEQ/L 2205) CALCIUM (test code = 2209) 10.0 MG/DL PROTEIN, TOTAL (test code = 6.8 G/DL 2228) ALBUMIN (test code = 2201) 4.5 G/DL CALC GLOBULIN (test code = 2.3 G/DL 2240) CALC A/G RATIO (test code = 2.0 RATIO 2234) BILIRUBIN, TOTAL (test code = 0.4 MG/DL 2206) ALKALINE PHOSPHATASE (test 70 U/L code = 2204) AST (test code = 2218) 18 U/L ALT (test code = 2219) 17 U/L VITAMIN [id number] 00:00:00 Test Item Value Reference Range Interpretation Comments VITAMIN B-12 (test code = 2840) 340 PG/ML VITAMIN [id number] 00:00:00 Test Item Value Reference Range Interpretation Comments VITAMIN B-12 (test code = 2840) 340 PG/ML VITAMIN [id number] 00:00:00 Test Item Value Reference Range Interpretation Comments VITAMIN B-12 (test code = 2840) 340 PG/ML VITAMIN D, 25 [id number] 00:00:00 Test Item Value Reference Range Interpretation Comments VITAMIN D, 25 OH (test code = 4958) 28 NG/ML VITAMIN D, 25 [id number] 00:00:00 Test Item Value Reference Range Interpretation Comments VITAMIN D, 25 OH (test code = 4958) 28 NG/ML CBC W/AUTO [id number] 00:00:00 Test Item Value Reference Range Interpretation Comments WBC (test code = 1001) 7.4 K/UL RBC (test code = 1002) 4.92 M/UL HEMOGLOBIN (test code = 1003) 13.7 G/DL HEMATOCRIT (test code = 1004) 40.0 % MCV (test code = 1005) 81.3 fL MCH (test code = 1006) 27.8 PG MCHC (test code = 1007) 34.3 G/DL RDW (test code = 1038) 13.3 % NEUTROPHILS (test code = 1008) 54.9 % LYMPHOCYTES (test code = 1010) 34.5 % MONOCYTES (test code = 1011) 7.7 % EOSINOPHILS (test code = 1012) 2.2 % BASOPHILS (test code = 1013) 0.7 % PLATELET COUNT (test code = 1015) 346 K/UL CBC W/AUTO [id number] 00:00:00 Test Item Value Reference Range Interpretation Comments WBC (test code = 1001) 7.4 K/UL RBC (test code = 1002) 4.92 M/UL HEMOGLOBIN (test code = 1003) 13.7 G/DL HEMATOCRIT (test code = 1004) 40.0 % MCV (test code = 1005) 81.3 fL MCH (test code = 1006) 27.8 PG MCHC (test code = 1007) 34.3 G/DL RDW (test code = 1038) 13.3 % NEUTROPHILS (test code = 1008) 54.9 % LYMPHOCYTES (test code = 1010) 34.5 % MONOCYTES (test code = 1011) 7.7 % EOSINOPHILS (test code = 1012) 2.2 % BASOPHILS (test code = 1013) 0.7 % PLATELET COUNT (test code = 1015) 346 K/UL CBC W/AUTO [id number] 00:00:00 Test Item Value Reference Range Interpretation Comments WBC (test code = 1001) 7.4 K/UL RBC (test code = 1002) 4.92 M/UL HEMOGLOBIN (test code = 1003) 13.7 G/DL HEMATOCRIT (test code = 1004) 40.0 % MCV (test code = 1005) 81.3 fL MCH (test code = 1006) 27.8 PG MCHC (test code = 1007) 34.3 G/DL RDW (test code = 1038) 13.3 % NEUTROPHILS (test code = 1008) 54.9 % LYMPHOCYTES (test code = 1010) 34.5 % MONOCYTES (test code = 1011) 7.7 % EOSINOPHILS (test code = 1012) 2.2 % BASOPHILS (test code = 1013) 0.7 % PLATELET COUNT (test code = 1015) 346 K/UL HEMOGLOBIN [id number] 00:00:00 Test Item Value Reference Range Interpretation Comments HEMOGLOBIN A1c (test code = 62750) 6.2 % HEMOGLOBIN [id number] 00:00:00 Test Item Value Reference Range Interpretation Comments HEMOGLOBIN A1c (test code = 93512) 6.2 % HEMOGLOBIN [id number] 00:00:00 Test Item Value Reference Range Interpretation Comments HEMOGLOBIN A1c (test code = 03909) 6.2 % LIPID [id number] 00:00:00 Test Item Value Reference Range Interpretation Comments CHOLESTEROL (test code = 2210) 124 MG/DL TRIGLYCERIDES (test code = 2232) 97 MG/DL HDL CHOLESTEROL (test code = 2220) 33 MG/DL CALC LDL CHOL (test code = 2237) 73 MG/DL RISK RATIO LDL/HDL (test code = 2.21 RATIO 2238) LIPID [id number] 00:00:00 Test Item Value Reference Range Interpretation Comments CHOLESTEROL (test code = 2210) 124 MG/DL TRIGLYCERIDES (test code = 2232) 97 MG/DL HDL CHOLESTEROL (test code = 2220) 33 MG/DL CALC LDL CHOL (test code = 2237) 73 MG/DL RISK RATIO LDL/HDL (test code = 2.21 RATIO 2238) COMPREHENSIVE METABOLIC [id number] 00:00:00 Test Item Value Reference Range Interpretation Comments GLUCOSE (test code = 2217) 99 MG/DL BUN (test code = 2208) 18 MG/DL CREATININE (test code = 2214) 1.04 MG/DL eGFR AMER. (test code 89 ML/MIN/1.73 = 37612) eGFR NON- AMER. (test 77 ML/MIN/1.73 code = 54632) CALC BUN/CREAT (test code = 17 RATIO 2235) SODIUM (test code = 2231) 142 MEQ/L POTASSIUM (test code = 2228) 4.0 MEQ/L CHLORIDE (test code = 2215) 101 MEQ/L CARBON DIOXIDE (test code = 27 MEQ/L 2205) CALCIUM (test code = 2209) 9.6 MG/DL PROTEIN, TOTAL (test code = 7.3 G/DL 2228) ALBUMIN (test code = 2201) 4.7 G/DL CALC GLOBULIN (test code = 2.6 G/DL 2240) CALC A/G RATIO (test code = 1.8 RATIO 2234) BILIRUBIN, TOTAL (test code = 0.4 MG/DL 2206) ALKALINE PHOSPHATASE (test 69 U/L code = 2204) AST (test code = 2218) 15 U/L ALT (test code = 2219) 16 U/L COMPREHENSIVE METABOLIC [id number] 00:00:00 Test Item Value Reference Range Interpretation Comments GLUCOSE (test code = 2217) 99 MG/DL BUN (test code = 2208) 18 MG/DL CREATININE (test code = 2214) 1.04 MG/DL eGFR AMER. (test code 89 ML/MIN/1.73 = 41600) eGFR NON- AMER. (test 77 ML/MIN/1.73 code = 38973) CALC BUN/CREAT (test code = 17 RATIO 2235) SODIUM (test code = 2231) 142 MEQ/L POTASSIUM (test code = 2228) 4.0 MEQ/L CHLORIDE (test code = 2215) 101 MEQ/L CARBON DIOXIDE (test code = 27 MEQ/L 220) CALCIUM (test code = 2209) 9.6 MG/DL PROTEIN, TOTAL (test code = 7.3 G/DL 2228) ALBUMIN (test code = 2201) 4.7 G/DL CALC GLOBULIN (test code = 2.6 G/DL 2240) CALC A/G RATIO (test code = 1.8 RATIO 2234) BILIRUBIN, TOTAL (test code = 0.4 MG/DL 2206) ALKALINE PHOSPHATASE (test 69 U/L code = 2204) AST (test code = 2218) 15 U/L ALT (test code = 2219) 16 U/L ALBUMIN, URINE, RANDOM [ADDED]2020-01-05 00:00:00 Test Item Value Reference Range Interpretation Comments ALBUMIN, URINE, RANDOM (test code <0.2 MG/DL = 37354) ALBUMIN, URINE, RANDOM [ADDED]2020-01-05 00:00:00 Test Item Value Reference Range Interpretation Comments ALBUMIN, URINE, RANDOM (test code <0.2 MG/DL = 24983) CBC W/AUTO [id number] 00:00:00 Test Item Value Reference Range Interpretation Comments WBC (test code = 1001) 7.4 K/UL RBC (test code = 1002) 4.92 M/UL HEMOGLOBIN (test code = 1003) 13.7 G/DL HEMATOCRIT (test code = 1004) 40.0 % MCV (test code = 1005) 81.3 fL MCH (test code = 1006) 27.8 PG MCHC (test code = 1007) 34.3 G/DL RDW (test code = 1038) 13.3 % NEUTROPHILS (test code = 1008) 54.9 % LYMPHOCYTES (test code = 1010) 34.5 % MONOCYTES (test code = 1011) 7.7 % EOSINOPHILS (test code = 1012) 2.2 % BASOPHILS (test code = 1013) 0.7 % PLATELET COUNT (test code = 1015) 346 K/UL CBC W/AUTO [id number] 00:00:00 Test Item Value Reference Range Interpretation Comments WBC (test code = 1001) 7.4 K/UL RBC (test code = 1002) 4.92 M/UL HEMOGLOBIN (test code = 1003) 13.7 G/DL HEMATOCRIT (test code = 1004) 40.0 % MCV (test code = 1005) 81.3 fL MCH (test code = 1006) 27.8 PG MCHC (test code = 1007) 34.3 G/DL RDW (test code = 1038) 13.3 % NEUTROPHILS (test code = 1008) 54.9 % LYMPHOCYTES (test code = 1010) 34.5 % MONOCYTES (test code = 1011) 7.7 % EOSINOPHILS (test code = 1012) 2.2 % BASOPHILS (test code = 1013) 0.7 % PLATELET COUNT (test code = 1015) 346 K/UL CBC W/AUTO [id number] 00:00:00 Test Item Value Reference Range Interpretation Comments WBC (test code = 1001) 7.4 K/UL RBC (test code = 1002) 4.92 M/UL HEMOGLOBIN (test code = 1003) 13.7 G/DL HEMATOCRIT (test code = 1004) 40.0 % MCV (test code = 1005) 81.3 fL MCH (test code = 1006) 27.8 PG MCHC (test code = 1007) 34.3 G/DL RDW (test code = 1038) 13.3 % NEUTROPHILS (test code = 1008) 54.9 % LYMPHOCYTES (test code = 1010) 34.5 % MONOCYTES (test code = 1011) 7.7 % EOSINOPHILS (test code = 1012) 2.2 % BASOPHILS (test code = 1013) 0.7 % PLATELET COUNT (test code = 1015) 346 K/UL HEMOGLOBIN [id number] 00:00:00 Test Item Value Reference Range Interpretation Comments HEMOGLOBIN A1c (test code = 53984) 6.2 % HEMOGLOBIN [id number] 00:00:00 Test Item Value Reference Range Interpretation Comments HEMOGLOBIN A1c (test code = 14701) 6.2 % HEMOGLOBIN [id number] 00:00:00 Test Item Value Reference Range Interpretation Comments HEMOGLOBIN A1c (test code = 64906) 6.2 % LIPID [id number] 00:00:00 Test Item Value Reference Range Interpretation Comments CHOLESTEROL (test code = 2210) 124 MG/DL TRIGLYCERIDES (test code = 2232) 97 MG/DL HDL CHOLESTEROL (test code = 2220) 33 MG/DL CALC LDL CHOL (test code = 2237) 73 MG/DL RISK RATIO LDL/HDL (test code = 2.21 RATIO 2238) LIPID [id number] 00:00:00 Test Item Value Reference Range Interpretation Comments CHOLESTEROL (test code = 2210) 124 MG/DL TRIGLYCERIDES (test code = 2232) 97 MG/DL HDL CHOLESTEROL (test code = 2220) 33 MG/DL CALC LDL CHOL (test code = 2237) 73 MG/DL RISK RATIO LDL/HDL (test code = 2.21 RATIO 2238) COMPREHENSIVE METABOLIC [id number] 00:00:00 Test Item Value Reference Range Interpretation Comments GLUCOSE (test code = 2217) 99 MG/DL BUN (test code = 2208) 18 MG/DL CREATININE (test code = 2214) 1.04 MG/DL eGFR AMER. (test code 89 ML/MIN/1.73 = 85029) eGFR NON- AMER. (test 77 ML/MIN/1.73 code = 33291) CALC BUN/CREAT (test code = 17 RATIO 2235) SODIUM (test code = 2231) 142 MEQ/L POTASSIUM (test code = 2228) 4.0 MEQ/L CHLORIDE (test code = 2215) 101 MEQ/L CARBON DIOXIDE (test code = 27 MEQ/L 220) CALCIUM (test code = 2209) 9.6 MG/DL PROTEIN, TOTAL (test code = 7.3 G/DL 2228) ALBUMIN (test code = 2201) 4.7 G/DL CALC GLOBULIN (test code = 2.6 G/DL 2240) CALC A/G RATIO (test code = 1.8 RATIO 2234) BILIRUBIN, TOTAL (test code = 0.4 MG/DL 2206) ALKALINE PHOSPHATASE (test 69 U/L code = 2204) AST (test code = 2218) 15 U/L ALT (test code = 2219) 16 U/L COMPREHENSIVE METABOLIC [id number] 00:00:00 Test Item Value Reference Range Interpretation Comments GLUCOSE (test code = 2217) 99 MG/DL BUN (test code = 2208) 18 MG/DL CREATININE (test code = 2214) 1.04 MG/DL eGFR AMER. (test code 89 ML/MIN/1.73 = 69275) eGFR NON- AMER. (test 77 ML/MIN/1.73 code = 02596) CALC BUN/CREAT (test code = 17 RATIO 2235) SODIUM (test code = 2231) 142 MEQ/L POTASSIUM (test code = 2228) 4.0 MEQ/L CHLORIDE (test code = 2215) 101 MEQ/L CARBON DIOXIDE (test code = 27 MEQ/L 2206) CALCIUM (test code = 2209) 9.6 MG/DL PROTEIN, TOTAL (test code = 7.3 G/DL 2228) ALBUMIN (test code = 2201) 4.7 G/DL CALC GLOBULIN (test code = 2.6 G/DL 2240) CALC A/G RATIO (test code = 1.8 RATIO 2234) BILIRUBIN, TOTAL (test code = 0.4 MG/DL 2207) ALKALINE PHOSPHATASE (test 69 U/L code = 2204) AST (test code = 2218) 15 U/L ALT (test code = 2219) 16 U/L ALBUMIN, URINE, RANDOM [ADDED]2020-01-05 00:00:00 Test Item Value Reference Range Interpretation Comments ALBUMIN, URINE, RANDOM (test code <0.2 MG/DL = 82684) ALBUMIN, URINE, RANDOM [ADDED]2020-01-05 00:00:00 Test Item Value Reference Range Interpretation Comments ALBUMIN, URINE, RANDOM (test code <0.2 MG/DL = 12157) CBC W/AUTO [id number] 00:00:00 Test Item Value Reference Range Interpretation Comments WBC (test code = 1001) 7.4 K/UL RBC (test code = 1002) 4.92 M/UL HEMOGLOBIN (test code = 1003) 13.7 G/DL HEMATOCRIT (test code = 1004) 40.0 % MCV (test code = 1005) 81.3 fL MCH (test code = 1006) 27.8 PG MCHC (test code = 1007) 34.3 G/DL RDW (test code = 1038) 13.3 % NEUTROPHILS (test code = 1008) 54.9 % LYMPHOCYTES (test code = 1010) 34.5 % MONOCYTES (test code = 1011) 7.7 % EOSINOPHILS (test code = 1012) 2.2 % BASOPHILS (test code = 1013) 0.7 % PLATELET COUNT (test code = 1015) 346 K/UL CBC W/AUTO [id number] 00:00:00 Test Item Value Reference Range Interpretation Comments WBC (test code = 1001) 7.4 K/UL RBC (test code = 1002) 4.92 M/UL HEMOGLOBIN (test code = 1003) 13.7 G/DL HEMATOCRIT (test code = 1004) 40.0 % MCV (test code = 1005) 81.3 fL MCH (test code = 1006) 27.8 PG MCHC (test code = 1007) 34.3 G/DL RDW (test code = 1038) 13.3 % NEUTROPHILS (test code = 1008) 54.9 % LYMPHOCYTES (test code = 1010) 34.5 % MONOCYTES (test code = 1011) 7.7 % EOSINOPHILS (test code = 1012) 2.2 % BASOPHILS (test code = 1013) 0.7 % PLATELET COUNT (test code = 1015) 346 K/UL CBC W/AUTO [id number] 00:00:00 Test Item Value Reference Range Interpretation Comments WBC (test code = 1001) 7.4 K/UL RBC (test code = 1002) 4.92 M/UL HEMOGLOBIN (test code = 1003) 13.7 G/DL HEMATOCRIT (test code = 1004) 40.0 % MCV (test code = 1005) 81.3 fL MCH (test code = 1006) 27.8 PG MCHC (test code = 1007) 34.3 G/DL RDW (test code = 1038) 13.3 % NEUTROPHILS (test code = 1008) 54.9 % LYMPHOCYTES (test code = 1010) 34.5 % MONOCYTES (test code = 1011) 7.7 % EOSINOPHILS (test code = 1012) 2.2 % BASOPHILS (test code = 1013) 0.7 % PLATELET COUNT (test code = 1015) 346 K/UL HEMOGLOBIN [id number] 00:00:00 Test Item Value Reference Range Interpretation Comments HEMOGLOBIN A1c (test code = 41521) 6.2 % HEMOGLOBIN [id number] 00:00:00 Test Item Value Reference Range Interpretation Comments HEMOGLOBIN A1c (test code = 15662) 6.2 % HEMOGLOBIN [id number] 00:00:00 Test Item Value Reference Range Interpretation Comments HEMOGLOBIN A1c (test code = 11955) 6.2 % LIPID [id number] 00:00:00 Test Item Value Reference Range Interpretation Comments CHOLESTEROL (test code = 2210) 124 MG/DL TRIGLYCERIDES (test code = 2232) 97 MG/DL HDL CHOLESTEROL (test code = 2220) 33 MG/DL CALC LDL CHOL (test code = 2237) 73 MG/DL RISK RATIO LDL/HDL (test code = 2.21 RATIO 2238) LIPID [id number] 00:00:00 Test Item Value Reference Range Interpretation Comments CHOLESTEROL (test code = 2210) 124 MG/DL TRIGLYCERIDES (test code = 2232) 97 MG/DL HDL CHOLESTEROL (test code = 2220) 33 MG/DL CALC LDL CHOL (test code = 2237) 73 MG/DL RISK RATIO LDL/HDL (test code = 2.21 RATIO 2238) COMPREHENSIVE METABOLIC [id number] 00:00:00 Test Item Value Reference Range Interpretation Comments GLUCOSE (test code = 2217) 99 MG/DL BUN (test code = 2208) 18 MG/DL CREATININE (test code = 2214) 1.04 MG/DL eGFR AMER. (test code 89 ML/MIN/1.73 = 80981) eGFR NON- AMER. (test 77 ML/MIN/1.73 code = 30475) CALC BUN/CREAT (test code = 17 RATIO 2235) SODIUM (test code = 2231) 142 MEQ/L POTASSIUM (test code = 2228) 4.0 MEQ/L CHLORIDE (test code = 2215) 101 MEQ/L CARBON DIOXIDE (test code = 27 MEQ/L 2206) CALCIUM (test code = 2209) 9.6 MG/DL PROTEIN, TOTAL (test code = 7.3 G/DL 2228) ALBUMIN (test code = 2201) 4.7 G/DL CALC GLOBULIN (test code = 2.6 G/DL 2240) CALC A/G RATIO (test code = 1.8 RATIO 4) BILIRUBIN, TOTAL (test code = 0.4 MG/DL 2206) ALKALINE PHOSPHATASE (test 69 U/L code = 2204) AST (test code = 2218) 15 U/L ALT (test code = 2219) 16 U/L COMPREHENSIVE METABOLIC [id number] 00:00:00 Test Item Value Reference Range Interpretation Comments GLUCOSE (test code = 2217) 99 MG/DL BUN (test code = 2208) 18 MG/DL CREATININE (test code = 2214) 1.04 MG/DL eGFR AMER. (test code 89 ML/MIN/1.73 = 97402) eGFR NON- AMER. (test 77 ML/MIN/1.73 code = 29757) CALC BUN/CREAT (test code = 17 RATIO 2235) SODIUM (test code = 2231) 142 MEQ/L POTASSIUM (test code = 2228) 4.0 MEQ/L CHLORIDE (test code = 2215) 101 MEQ/L CARBON DIOXIDE (test code = 27 MEQ/L 2206) CALCIUM (test code = 2209) 9.6 MG/DL PROTEIN, TOTAL (test code = 7.3 G/DL 2229) ALBUMIN (test code = 2201) 4.7 G/DL CALC GLOBULIN (test code = 2.6 G/DL 2240) CALC A/G RATIO (test code = 1.8 RATIO 2234) BILIRUBIN, TOTAL (test code = 0.4 MG/DL 220) ALKALINE PHOSPHATASE (test 69 U/L code = 2204) AST (test code = 2218) 15 U/L ALT (test code = 2219) 16 U/L ALBUMIN, URINE, RANDOM [ADDED]2020-01-05 00:00:00 Test Item Value Reference Range Interpretation Comments ALBUMIN, URINE, RANDOM (test code <0.2 MG/DL = 89176) ALBUMIN, URINE, RANDOM [ADDED]2020-01-05 00:00:00 Test Item Value Reference Range Interpretation Comments ALBUMIN, URINE, RANDOM (test code <0.2 MG/DL = 25334) CBC W/AUTO [id number] 00:00:00 Test Item Value Reference Range Interpretation Comments WBC (test code = 1001) 7.4 K/UL RBC (test code = 1002) 4.92 M/UL HEMOGLOBIN (test code = 1003) 13.7 G/DL HEMATOCRIT (test code = 1004) 40.0 % MCV (test code = 1005) 81.3 fL MCH (test code = 1006) 27.8 PG MCHC (test code = 1007) 34.3 G/DL RDW (test code = 1038) 13.3 % NEUTROPHILS (test code = 1008) 54.9 % LYMPHOCYTES (test code = 1010) 34.5 % MONOCYTES (test code = 1011) 7.7 % EOSINOPHILS (test code = 1012) 2.2 % BASOPHILS (test code = 1013) 0.7 % PLATELET COUNT (test code = 1015) 346 K/UL CBC W/AUTO [id number] 00:00:00 Test Item Value Reference Range Interpretation Comments WBC (test code = 1001) 7.4 K/UL RBC (test code = 1002) 4.92 M/UL HEMOGLOBIN (test code = 1003) 13.7 G/DL HEMATOCRIT (test code = 1004) 40.0 % MCV (test code = 1005) 81.3 fL MCH (test code = 1006) 27.8 PG MCHC (test code = 1007) 34.3 G/DL RDW (test code = 1038) 13.3 % NEUTROPHILS (test code = 1008) 54.9 % LYMPHOCYTES (test code = 1010) 34.5 % MONOCYTES (test code = 1011) 7.7 % EOSINOPHILS (test code = 1012) 2.2 % BASOPHILS (test code = 1013) 0.7 % PLATELET COUNT (test code = 1015) 346 K/UL CBC W/AUTO [id number] 00:00:00 Test Item Value Reference Range Interpretation Comments WBC (test code = 1001) 7.4 K/UL RBC (test code = 1002) 4.92 M/UL HEMOGLOBIN (test code = 1003) 13.7 G/DL HEMATOCRIT (test code = 1004) 40.0 % MCV (test code = 1005) 81.3 fL MCH (test code = 1006) 27.8 PG MCHC (test code = 1007) 34.3 G/DL RDW (test code = 1038) 13.3 % NEUTROPHILS (test code = 1008) 54.9 % LYMPHOCYTES (test code = 1010) 34.5 % MONOCYTES (test code = 1011) 7.7 % EOSINOPHILS (test code = 1012) 2.2 % BASOPHILS (test code = 1013) 0.7 % PLATELET COUNT (test code = 1015) 346 K/UL HEMOGLOBIN [id number] 00:00:00 Test Item Value Reference Range Interpretation Comments HEMOGLOBIN A1c (test code = 00295) 6.2 % HEMOGLOBIN [id number] 00:00:00 Test Item Value Reference Range Interpretation Comments HEMOGLOBIN A1c (test code = 94262) 6.2 % HEMOGLOBIN [id number] 00:00:00 Test Item Value Reference Range Interpretation Comments HEMOGLOBIN A1c (test code = 24233) 6.2 % LIPID [id number] 00:00:00 Test Item Value Reference Range Interpretation Comments CHOLESTEROL (test code = 2210) 124 MG/DL TRIGLYCERIDES (test code = 2232) 97 MG/DL HDL CHOLESTEROL (test code = 2220) 33 MG/DL CALC LDL CHOL (test code = 2237) 73 MG/DL RISK RATIO LDL/HDL (test code = 2.21 RATIO 2238) LIPID [id number] 00:00:00 Test Item Value Reference Range Interpretation Comments CHOLESTEROL (test code = 2210) 124 MG/DL TRIGLYCERIDES (test code = 2232) 97 MG/DL HDL CHOLESTEROL (test code = 2220) 33 MG/DL CALC LDL CHOL (test code = 2237) 73 MG/DL RISK RATIO LDL/HDL (test code = 2.21 RATIO 2238) COMPREHENSIVE METABOLIC [id number] 00:00:00 Test Item Value Reference Range Interpretation Comments GLUCOSE (test code = 2217) 99 MG/DL BUN (test code = 2208) 18 MG/DL CREATININE (test code = 2214) 1.04 MG/DL eGFR AMER. (test code 89 ML/MIN/1.73 = 18993) eGFR NON- AMER. (test 77 ML/MIN/1.73 code = 64642) CALC BUN/CREAT (test code = 17 RATIO 2235) SODIUM (test code = 2231) 142 MEQ/L POTASSIUM (test code = 2228) 4.0 MEQ/L CHLORIDE (test code = 2215) 101 MEQ/L CARBON DIOXIDE (test code = 27 MEQ/L 2205) CALCIUM (test code = 2209) 9.6 MG/DL PROTEIN, TOTAL (test code = 7.3 G/DL 2228) ALBUMIN (test code = 2201) 4.7 G/DL CALC GLOBULIN (test code = 2.6 G/DL 2240) CALC A/G RATIO (test code = 1.8 RATIO 2234) BILIRUBIN, TOTAL (test code = 0.4 MG/DL 2206) ALKALINE PHOSPHATASE (test 69 U/L code = 2204) AST (test code = 2218) 15 U/L ALT (test code = 2219) 16 U/L COMPREHENSIVE METABOLIC [id number] 00:00:00 Test Item Value Reference Range Interpretation Comments GLUCOSE (test code = 2217) 99 MG/DL BUN (test code = 2208) 18 MG/DL CREATININE (test code = 2214) 1.04 MG/DL eGFR AMER. (test code 89 ML/MIN/1.73 = 48926) eGFR NON- AMER. (test 77 ML/MIN/1.73 code = 22844) CALC BUN/CREAT (test code = 17 RATIO 2235) SODIUM (test code = 2231) 142 MEQ/L POTASSIUM (test code = 2228) 4.0 MEQ/L CHLORIDE (test code = 2215) 101 MEQ/L CARBON DIOXIDE (test code = 27 MEQ/L 2205) CALCIUM (test code = 2209) 9.6 MG/DL PROTEIN, TOTAL (test code = 7.3 G/DL 2228) ALBUMIN (test code = 2201) 4.7 G/DL CALC GLOBULIN (test code = 2.6 G/DL 2239) CALC A/G RATIO (test code = 1.8 RATIO 2233) BILIRUBIN, TOTAL (test code = 0.4 MG/DL 2206) ALKALINE PHOSPHATASE (test 69 U/L code = 2203) AST (test code = 2218) 15 U/L ALT (test code = 221) 16 U/L ALBUMIN, URINE, RANDOM [ADDED]2020-01-05 00:00:00 Test Item Value Reference Range Interpretation Comments ALBUMIN, URINE, RANDOM (test code <0.2 MG/DL = 44075) ALBUMIN, URINE, RANDOM [ADDED]2020-01-05 00:00:00 Test Item Value Reference Range Interpretation Comments ALBUMIN, URINE, RANDOM (test code <0.2 MG/DL = 93934) [id number] 00:00:00 Test Item Value Reference Range Interpretation Comments TESTOSTERONE (test code = 2830) 452 NG/DL [id number] 00:00:00 Test Item Value Reference Range Interpretation Comments TESTOSTERONE (test code = 2830) 452 NG/DL PSA, [id number] 00:00:00 Test Item Value Reference Range Interpretation Comments PSA, TOTAL (test code = 2606) 2.08 NG/ML PSA, [id number] 00:00:00 Test Item Value Reference Range Interpretation Comments PSA, TOTAL (test code = 2606) 2.08 NG/ML PSA, [id number] 00:00:00 Test Item Value Reference Range Interpretation Comments PSA, TOTAL (test code = 2606) 2.08 NG/ML [id number] 00:00:00 Test Item Value Reference Range Interpretation Comments TESTOSTERONE (test code = 2830) 452 NG/DL [id number] 00:00:00 Test Item Value Reference Range Interpretation Comments TESTOSTERONE (test code = 2830) 452 NG/DL PSA, [id number] 00:00:00 Test Item Value Reference Range Interpretation Comments PSA, TOTAL (test code = 2606) 2.08 NG/ML PSA, [id number] 00:00:00 Test Item Value Reference Range Interpretation Comments PSA, TOTAL (test code = 2606) 2.08 NG/ML PSA, [id number] 00:00:00 Test Item Value Reference Range Interpretation Comments PSA, TOTAL (test code = 2606) 2.08 NG/ML [id number] 00:00:00 Test Item Value Reference Range Interpretation Comments TESTOSTERONE (test code = 2830) 452 NG/DL [id number] 00:00:00 Test Item Value Reference Range Interpretation Comments TESTOSTERONE (test code = 2830) 452 NG/DL PSA, [id number] 00:00:00 Test Item Value Reference Range Interpretation Comments PSA, TOTAL (test code = 2606) 2.08 NG/ML PSA, [id number] 00:00:00 Test Item Value Reference Range Interpretation Comments PSA, TOTAL (test code = 2606) 2.08 NG/ML PSA, [id number] 00:00:00 Test Item Value Reference Range Interpretation Comments PSA, TOTAL (test code = 2606) 2.08 NG/ML [id number] 00:00:00 Test Item Value Reference Range Interpretation Comments TESTOSTERONE (test code = 2830) 452 NG/DL [id number] 00:00:00 Test Item Value Reference Range Interpretation Comments TESTOSTERONE (test code = 2830) 452 NG/DL PSA, [id number] 00:00:00 Test Item Value Reference Range Interpretation Comments PSA, TOTAL (test code = 2606) 2.08 NG/ML PSA, [id number] 00:00:00 Test Item Value Reference Range Interpretation Comments PSA, TOTAL (test code = 2606) 2.08 NG/ML PSA, [id number] 00:00:00 Test Item Value Reference Range Interpretation Comments PSA, TOTAL (test code = 2606) 2.08 NG/ML CBC W/AUTO [id number] 00:00:00 Test Item Value Reference Range Interpretation Comments WBC (test code = 1001) 6.9 K/UL RBC (test code = 1002) 5.36 M/UL HEMOGLOBIN (test code = 1003) 14.4 G/DL HEMATOCRIT (test code = 1004) 43.4 % MCV (test code = 1005) 81.0 fL MCH (test code = 1006) 26.9 PG MCHC (test code = 1007) 33.2 G/DL RDW (test code = 1038) 12.9 % NEUTROPHILS (test code = 1008) 58.4 % LYMPHOCYTES (test code = 1010) 30.7 % MONOCYTES (test code = 1011) 8.3 % EOSINOPHILS (test code = 1012) 1.9 % BASOPHILS (test code = 1013) 0.7 % PLATELET COUNT (test code = 1015) 368 K/UL CBC W/AUTO [id number] 00:00:00 Test Item Value Reference Range Interpretation Comments WBC (test code = 1001) 6.9 K/UL RBC (test code = 1002) 5.36 M/UL HEMOGLOBIN (test code = 1003) 14.4 G/DL HEMATOCRIT (test code = 1004) 43.4 % MCV (test code = 1005) 81.0 fL MCH (test code = 1006) 26.9 PG MCHC (test code = 1007) 33.2 G/DL RDW (test code = 1038) 12.9 % NEUTROPHILS (test code = 1008) 58.4 % LYMPHOCYTES (test code = 1010) 30.7 % MONOCYTES (test code = 1011) 8.3 % EOSINOPHILS (test code = 1012) 1.9 % BASOPHILS (test code = 1013) 0.7 % PLATELET COUNT (test code = 1015) 368 K/UL CBC W/AUTO [id number] 00:00:00 Test Item Value Reference Range Interpretation Comments WBC (test code = 1001) 6.9 K/UL RBC (test code = 1002) 5.36 M/UL HEMOGLOBIN (test code = 1003) 14.4 G/DL HEMATOCRIT (test code = 1004) 43.4 % MCV (test code = 1005) 81.0 fL MCH (test code = 1006) 26.9 PG MCHC (test code = 1007) 33.2 G/DL RDW (test code = 1038) 12.9 % NEUTROPHILS (test code = 1008) 58.4 % LYMPHOCYTES (test code = 1010) 30.7 % MONOCYTES (test code = 1011) 8.3 % EOSINOPHILS (test code = 1012) 1.9 % BASOPHILS (test code = 1013) 0.7 % PLATELET COUNT (test code = 1015) 368 K/UL LIPID [id number] 00:00:00 Test Item Value Reference Range Interpretation Comments CHOLESTEROL (test code = 2210) 142 MG/DL TRIGLYCERIDES (test code = 2232) 62 MG/DL HDL CHOLESTEROL (test code = 2220) 38 MG/DL CALC LDL CHOL (test code = 2237) 92 MG/DL RISK RATIO LDL/HDL (test code = 2.41 RATIO 2238) LIPID [id number] 00:00:00 Test Item Value Reference Range Interpretation Comments CHOLESTEROL (test code = 2210) 142 MG/DL TRIGLYCERIDES (test code = 2232) 62 MG/DL HDL CHOLESTEROL (test code = 2220) 38 MG/DL CALC LDL CHOL (test code = 2237) 92 MG/DL RISK RATIO LDL/HDL (test code = 2.41 RATIO 2238) HEMOGLOBIN [id number] 00:00:00 Test Item Value Reference Range Interpretation Comments HEMOGLOBIN A1c (test code = 11563) 6.4 % HEMOGLOBIN [id number] 00:00:00 Test Item Value Reference Range Interpretation Comments HEMOGLOBIN A1c (test code = 88493) 6.4 % HEMOGLOBIN [id number] 00:00:00 Test Item Value Reference Range Interpretation Comments HEMOGLOBIN A1c (test code = 75573) 6.4 % COMPREHENSIVE METABOLIC [id number] 00:00:00 Test Item Value Reference Range Interpretation Comments GLUCOSE (test code = 2217) 109 MG/DL BUN (test code = 2208) 14 MG/DL CREATININE (test code = 2214) 0.94 MG/DL eGFR AMER. (test code 101 ML/MIN/1.73 = 02419) eGFR NON- AMER. (test 87 ML/MIN/1.73 code = 08593) CALC BUN/CREAT (test code = 15 RATIO 2235) SODIUM (test code = 2231) 141 MEQ/L POTASSIUM (test code = 2228) 4.6 MEQ/L CHLORIDE (test code = 2215) 99 MEQ/L CARBON DIOXIDE (test code = 30 MEQ/L 2205) CALCIUM (test code = 2209) 9.8 MG/DL PROTEIN, TOTAL (test code = 7.3 G/DL 222) ALBUMIN (test code = 2201) 4.5 G/DL CALC GLOBULIN (test code = 2.8 G/DL 2240) CALC A/G RATIO (test code = 1.6 RATIO 2234) BILIRUBIN, TOTAL (test code = 0.4 MG/DL 2207) ALKALINE PHOSPHATASE (test 79 U/L code = 2204) AST (test code = 2218) 19 U/L ALT (test code = 2219) 29 U/L COMPREHENSIVE METABOLIC [id number] 00:00:00 Test Item Value Reference Range Interpretation Comments GLUCOSE (test code = 2217) 109 MG/DL BUN (test code = 2208) 14 MG/DL CREATININE (test code = 2214) 0.94 MG/DL eGFR AMER. (test code 101 ML/MIN/1.73 = 80198) eGFR NON- AMER. (test 87 ML/MIN/1.73 code = 11402) CALC BUN/CREAT (test code = 15 RATIO 2235) SODIUM (test code = 2231) 141 MEQ/L POTASSIUM (test code = 2228) 4.6 MEQ/L CHLORIDE (test code = 2215) 99 MEQ/L CARBON DIOXIDE (test code = 30 MEQ/L 2205) CALCIUM (test code = 2209) 9.8 MG/DL PROTEIN, TOTAL (test code = 7.3 G/DL 2228) ALBUMIN (test code = 2201) 4.5 G/DL CALC GLOBULIN (test code = 2.8 G/DL 2240) CALC A/G RATIO (test code = 1.6 RATIO 2234) BILIRUBIN, TOTAL (test code = 0.4 MG/DL 7) ALKALINE PHOSPHATASE (test 79 U/L code = 2204) AST (test code = 2218) 19 U/L ALT (test code = 2219) 29 U/L CBC W/AUTO [id number] 00:00:00 Test Item Value Reference Range Interpretation Comments WBC (test code = 1001) 6.9 K/UL RBC (test code = 1002) 5.36 M/UL HEMOGLOBIN (test code = 1003) 14.4 G/DL HEMATOCRIT (test code = 1004) 43.4 % MCV (test code = 1005) 81.0 fL MCH (test code = 1006) 26.9 PG MCHC (test code = 1007) 33.2 G/DL RDW (test code = 1038) 12.9 % NEUTROPHILS (test code = 1008) 58.4 % LYMPHOCYTES (test code = 1010) 30.7 % MONOCYTES (test code = 1011) 8.3 % EOSINOPHILS (test code = 1012) 1.9 % BASOPHILS (test code = 1013) 0.7 % PLATELET COUNT (test code = 1015) 368 K/UL CBC W/AUTO [id number] 00:00:00 Test Item Value Reference Range Interpretation Comments WBC (test code = 1001) 6.9 K/UL RBC (test code = 1002) 5.36 M/UL HEMOGLOBIN (test code = 1003) 14.4 G/DL HEMATOCRIT (test code = 1004) 43.4 % MCV (test code = 1005) 81.0 fL MCH (test code = 1006) 26.9 PG MCHC (test code = 1007) 33.2 G/DL RDW (test code = 1038) 12.9 % NEUTROPHILS (test code = 1008) 58.4 % LYMPHOCYTES (test code = 1010) 30.7 % MONOCYTES (test code = 1011) 8.3 % EOSINOPHILS (test code = 1012) 1.9 % BASOPHILS (test code = 1013) 0.7 % PLATELET COUNT (test code = 1015) 368 K/UL CBC W/AUTO [id number] 00:00:00 Test Item Value Reference Range Interpretation Comments WBC (test code = 1001) 6.9 K/UL RBC (test code = 1002) 5.36 M/UL HEMOGLOBIN (test code = 1003) 14.4 G/DL HEMATOCRIT (test code = 1004) 43.4 % MCV (test code = 1005) 81.0 fL MCH (test code = 1006) 26.9 PG MCHC (test code = 1007) 33.2 G/DL RDW (test code = 1038) 12.9 % NEUTROPHILS (test code = 1008) 58.4 % LYMPHOCYTES (test code = 1010) 30.7 % MONOCYTES (test code = 1011) 8.3 % EOSINOPHILS (test code = 1012) 1.9 % BASOPHILS (test code = 1013) 0.7 % PLATELET COUNT (test code = 1015) 368 K/UL LIPID [id number] 00:00:00 Test Item Value Reference Range Interpretation Comments CHOLESTEROL (test code = 2210) 142 MG/DL TRIGLYCERIDES (test code = 2232) 62 MG/DL HDL CHOLESTEROL (test code = 2220) 38 MG/DL CALC LDL CHOL (test code = 2237) 92 MG/DL RISK RATIO LDL/HDL (test code = 2.41 RATIO 2238) LIPID [id number] 00:00:00 Test Item Value Reference Range Interpretation Comments CHOLESTEROL (test code = 2210) 142 MG/DL TRIGLYCERIDES (test code = 2232) 62 MG/DL HDL CHOLESTEROL (test code = 2220) 38 MG/DL CALC LDL CHOL (test code = 2237) 92 MG/DL RISK RATIO LDL/HDL (test code = 2.41 RATIO 2238) HEMOGLOBIN [id number] 00:00:00 Test Item Value Reference Range Interpretation Comments HEMOGLOBIN A1c (test code = 16599) 6.4 % HEMOGLOBIN [id number] 00:00:00 Test Item Value Reference Range Interpretation Comments HEMOGLOBIN A1c (test code = 93721) 6.4 % HEMOGLOBIN [id number] 00:00:00 Test Item Value Reference Range Interpretation Comments HEMOGLOBIN A1c (test code = 35381) 6.4 % COMPREHENSIVE METABOLIC [id number] 00:00:00 Test Item Value Reference Range Interpretation Comments GLUCOSE (test code = 2217) 109 MG/DL BUN (test code = 2208) 14 MG/DL CREATININE (test code = 2214) 0.94 MG/DL eGFR AMER. (test code 101 ML/MIN/1.73 = 90291) eGFR NON- AMER. (test 87 ML/MIN/1.73 code = 95890) CALC BUN/CREAT (test code = 15 RATIO 2235) SODIUM (test code = 2231) 141 MEQ/L POTASSIUM (test code = 2228) 4.6 MEQ/L CHLORIDE (test code = 2215) 99 MEQ/L CARBON DIOXIDE (test code = 30 MEQ/L 2205) CALCIUM (test code = 2209) 9.8 MG/DL PROTEIN, TOTAL (test code = 7.3 G/DL 2228) ALBUMIN (test code = 220) 4.5 G/DL CALC GLOBULIN (test code = 2.8 G/DL 2240) CALC A/G RATIO (test code = 1.6 RATIO 2234) BILIRUBIN, TOTAL (test code = 0.4 MG/DL 2206) ALKALINE PHOSPHATASE (test 79 U/L code = 2204) AST (test code = 2218) 19 U/L ALT (test code = 2219) 29 U/L COMPREHENSIVE METABOLIC [id number] 00:00:00 Test Item Value Reference Range Interpretation Comments GLUCOSE (test code = 2217) 109 MG/DL BUN (test code = 2208) 14 MG/DL CREATININE (test code = 2214) 0.94 MG/DL eGFR AMER. (test code 101 ML/MIN/1.73 = 33629) eGFR NON- AMER. (test 87 ML/MIN/1.73 code = 79034) CALC BUN/CREAT (test code = 15 RATIO 2235) SODIUM (test code = 2231) 141 MEQ/L POTASSIUM (test code = 2228) 4.6 MEQ/L CHLORIDE (test code = 2215) 99 MEQ/L CARBON DIOXIDE (test code = 30 MEQ/L 2205) CALCIUM (test code = 2209) 9.8 MG/DL PROTEIN, TOTAL (test code = 7.3 G/DL 2228) ALBUMIN (test code = 2201) 4.5 G/DL CALC GLOBULIN (test code = 2.8 G/DL 2240) CALC A/G RATIO (test code = 1.6 RATIO 2234) BILIRUBIN, TOTAL (test code = 0.4 MG/DL 2206) ALKALINE PHOSPHATASE (test 79 U/L code = 2204) AST (test code = 2218) 19 U/L ALT (test code = 2219) 29 U/L CBC W/AUTO [id number] 00:00:00 Test Item Value Reference Range Interpretation Comments WBC (test code = 1001) 6.9 K/UL RBC (test code = 1002) 5.36 M/UL HEMOGLOBIN (test code = 1003) 14.4 G/DL HEMATOCRIT (test code = 1004) 43.4 % MCV (test code = 1005) 81.0 fL MCH (test code = 1006) 26.9 PG MCHC (test code = 1007) 33.2 G/DL RDW (test code = 1038) 12.9 % NEUTROPHILS (test code = 1008) 58.4 % LYMPHOCYTES (test code = 1010) 30.7 % MONOCYTES (test code = 1011) 8.3 % EOSINOPHILS (test code = 1012) 1.9 % BASOPHILS (test code = 1013) 0.7 % PLATELET COUNT (test code = 1015) 368 K/UL CBC W/AUTO [id number] 00:00:00 Test Item Value Reference Range Interpretation Comments WBC (test code = 1001) 6.9 K/UL RBC (test code = 1002) 5.36 M/UL HEMOGLOBIN (test code = 1003) 14.4 G/DL HEMATOCRIT (test code = 1004) 43.4 % MCV (test code = 1005) 81.0 fL MCH (test code = 1006) 26.9 PG MCHC (test code = 1007) 33.2 G/DL RDW (test code = 1038) 12.9 % NEUTROPHILS (test code = 1008) 58.4 % LYMPHOCYTES (test code = 1010) 30.7 % MONOCYTES (test code = 1011) 8.3 % EOSINOPHILS (test code = 1012) 1.9 % BASOPHILS (test code = 1013) 0.7 % PLATELET COUNT (test code = 1015) 368 K/UL CBC W/AUTO [id number] 00:00:00 Test Item Value Reference Range Interpretation Comments WBC (test code = 1001) 6.9 K/UL RBC (test code = 1002) 5.36 M/UL HEMOGLOBIN (test code = 1003) 14.4 G/DL HEMATOCRIT (test code = 1004) 43.4 % MCV (test code = 1005) 81.0 fL MCH (test code = 1006) 26.9 PG MCHC (test code = 1007) 33.2 G/DL RDW (test code = 1038) 12.9 % NEUTROPHILS (test code = 1008) 58.4 % LYMPHOCYTES (test code = 1010) 30.7 % MONOCYTES (test code = 1011) 8.3 % EOSINOPHILS (test code = 1012) 1.9 % BASOPHILS (test code = 1013) 0.7 % PLATELET COUNT (test code = 1015) 368 K/UL LIPID [id number] 00:00:00 Test Item Value Reference Range Interpretation Comments CHOLESTEROL (test code = 2210) 142 MG/DL TRIGLYCERIDES (test code = 2232) 62 MG/DL HDL CHOLESTEROL (test code = 2220) 38 MG/DL CALC LDL CHOL (test code = 2237) 92 MG/DL RISK RATIO LDL/HDL (test code = 2.41 RATIO 2238) LIPID [id number] 00:00:00 Test Item Value Reference Range Interpretation Comments CHOLESTEROL (test code = 2210) 142 MG/DL TRIGLYCERIDES (test code = 2232) 62 MG/DL HDL CHOLESTEROL (test code = 2220) 38 MG/DL CALC LDL CHOL (test code = 2237) 92 MG/DL RISK RATIO LDL/HDL (test code = 2.41 RATIO 2238) HEMOGLOBIN [id number] 00:00:00 Test Item Value Reference Range Interpretation Comments HEMOGLOBIN A1c (test code = 56697) 6.4 % HEMOGLOBIN [id number] 00:00:00 Test Item Value Reference Range Interpretation Comments HEMOGLOBIN A1c (test code = 37581) 6.4 % HEMOGLOBIN [id number] 00:00:00 Test Item Value Reference Range Interpretation Comments HEMOGLOBIN A1c (test code = 56283) 6.4 % COMPREHENSIVE METABOLIC [id number] 00:00:00 Test Item Value Reference Range Interpretation Comments GLUCOSE (test code = 2217) 109 MG/DL BUN (test code = 2208) 14 MG/DL CREATININE (test code = 2214) 0.94 MG/DL eGFR AMER. (test code 101 ML/MIN/1.73 = 74246) eGFR NON- AMER. (test 87 ML/MIN/1.73 code = 02751) CALC BUN/CREAT (test code = 15 RATIO 2235) SODIUM (test code = 2231) 141 MEQ/L POTASSIUM (test code = 2228) 4.6 MEQ/L CHLORIDE (test code = 2215) 99 MEQ/L CARBON DIOXIDE (test code = 30 MEQ/L 2205) CALCIUM (test code = 2209) 9.8 MG/DL PROTEIN, TOTAL (test code = 7.3 G/DL 2228) ALBUMIN (test code = 2201) 4.5 G/DL CALC GLOBULIN (test code = 2.8 G/DL 2239) CALC A/G RATIO (test code = 1.6 RATIO 2233) BILIRUBIN, TOTAL (test code = 0.4 MG/DL 2207) ALKALINE PHOSPHATASE (test 79 U/L code = 2204) AST (test code = 2218) 19 U/L ALT (test code = 2219) 29 U/L COMPREHENSIVE METABOLIC [id number] 00:00:00 Test Item Value Reference Range Interpretation Comments GLUCOSE (test code = 2217) 109 MG/DL BUN (test code = 2208) 14 MG/DL CREATININE (test code = 2214) 0.94 MG/DL eGFR AMER. (test code 101 ML/MIN/1.73 = 33224) eGFR NON- AMER. (test 87 ML/MIN/1.73 code = 81372) CALC BUN/CREAT (test code = 15 RATIO 2235) SODIUM (test code = 2231) 141 MEQ/L POTASSIUM (test code = 2228) 4.6 MEQ/L CHLORIDE (test code = 2215) 99 MEQ/L CARBON DIOXIDE (test code = 30 MEQ/L 2205) CALCIUM (test code = 2209) 9.8 MG/DL PROTEIN, TOTAL (test code = 7.3 G/DL 2228) ALBUMIN (test code = 2201) 4.5 G/DL CALC GLOBULIN (test code = 2.8 G/DL 2240) CALC A/G RATIO (test code = 1.6 RATIO 2234) BILIRUBIN, TOTAL (test code = 0.4 MG/DL 2206) ALKALINE PHOSPHATASE (test 79 U/L code = 2204) AST (test code = 2218) 19 U/L ALT (test code = 2219) 29 U/L CBC W/AUTO [id number] 00:00:00 Test Item Value Reference Range Interpretation Comments WBC (test code = 1001) 6.9 K/UL RBC (test code = 1002) 5.36 M/UL HEMOGLOBIN (test code = 1003) 14.4 G/DL HEMATOCRIT (test code = 1004) 43.4 % MCV (test code = 1005) 81.0 fL MCH (test code = 1006) 26.9 PG MCHC (test code = 1007) 33.2 G/DL RDW (test code = 1038) 12.9 % NEUTROPHILS (test code = 1008) 58.4 % LYMPHOCYTES (test code = 1010) 30.7 % MONOCYTES (test code = 1011) 8.3 % EOSINOPHILS (test code = 1012) 1.9 % BASOPHILS (test code = 1013) 0.7 % PLATELET COUNT (test code = 1015) 368 K/UL CBC W/AUTO [id number] 00:00:00 Test Item Value Reference Range Interpretation Comments WBC (test code = 1001) 6.9 K/UL RBC (test code = 1002) 5.36 M/UL HEMOGLOBIN (test code = 1003) 14.4 G/DL HEMATOCRIT (test code = 1004) 43.4 % MCV (test code = 1005) 81.0 fL MCH (test code = 1006) 26.9 PG MCHC (test code = 1007) 33.2 G/DL RDW (test code = 1038) 12.9 % NEUTROPHILS (test code = 1008) 58.4 % LYMPHOCYTES (test code = 1010) 30.7 % MONOCYTES (test code = 1011) 8.3 % EOSINOPHILS (test code = 1012) 1.9 % BASOPHILS (test code = 1013) 0.7 % PLATELET COUNT (test code = 1015) 368 K/UL CBC W/AUTO [id number] 00:00:00 Test Item Value Reference Range Interpretation Comments WBC (test code = 1001) 6.9 K/UL RBC (test code = 1002) 5.36 M/UL HEMOGLOBIN (test code = 1003) 14.4 G/DL HEMATOCRIT (test code = 1004) 43.4 % MCV (test code = 1005) 81.0 fL MCH (test code = 1006) 26.9 PG MCHC (test code = 1007) 33.2 G/DL RDW (test code = 1038) 12.9 % NEUTROPHILS (test code = 1008) 58.4 % LYMPHOCYTES (test code = 1010) 30.7 % MONOCYTES (test code = 1011) 8.3 % EOSINOPHILS (test code = 1012) 1.9 % BASOPHILS (test code = 1013) 0.7 % PLATELET COUNT (test code = 1015) 368 K/UL LIPID [id number] 00:00:00 Test Item Value Reference Range Interpretation Comments CHOLESTEROL (test code = 2210) 142 MG/DL TRIGLYCERIDES (test code = 2232) 62 MG/DL HDL CHOLESTEROL (test code = 2220) 38 MG/DL CALC LDL CHOL (test code = 2237) 92 MG/DL RISK RATIO LDL/HDL (test code = 2.41 RATIO 2238) LIPID [id number] 00:00:00 Test Item Value Reference Range Interpretation Comments CHOLESTEROL (test code = 2210) 142 MG/DL TRIGLYCERIDES (test code = 2232) 62 MG/DL HDL CHOLESTEROL (test code = 2220) 38 MG/DL CALC LDL CHOL (test code = 2237) 92 MG/DL RISK RATIO LDL/HDL (test code = 2.41 RATIO 2238) HEMOGLOBIN [id number] 00:00:00 Test Item Value Reference Range Interpretation Comments HEMOGLOBIN A1c (test code = 30076) 6.4 % HEMOGLOBIN [id number] 00:00:00 Test Item Value Reference Range Interpretation Comments HEMOGLOBIN A1c (test code = 07725) 6.4 % HEMOGLOBIN [id number] 00:00:00 Test Item Value Reference Range Interpretation Comments HEMOGLOBIN A1c (test code = 99083) 6.4 % COMPREHENSIVE METABOLIC [id number] 00:00:00 Test Item Value Reference Range Interpretation Comments GLUCOSE (test code = 2217) 109 MG/DL BUN (test code = 2208) 14 MG/DL CREATININE (test code = 2214) 0.94 MG/DL eGFR AMER. (test code 101 ML/MIN/1.73 = 48156) eGFR NON- AMER. (test 87 ML/MIN/1.73 code = 54534) CALC BUN/CREAT (test code = 15 RATIO 2235) SODIUM (test code = 2231) 141 MEQ/L POTASSIUM (test code = 2228) 4.6 MEQ/L CHLORIDE (test code = 2215) 99 MEQ/L CARBON DIOXIDE (test code = 30 MEQ/L 2205) CALCIUM (test code = 2209) 9.8 MG/DL PROTEIN, TOTAL (test code = 7.3 G/DL 2228) ALBUMIN (test code = 2201) 4.5 G/DL CALC GLOBULIN (test code = 2.8 G/DL 2239) CALC A/G RATIO (test code = 1.6 RATIO 2234) BILIRUBIN, TOTAL (test code = 0.4 MG/DL 2206) ALKALINE PHOSPHATASE (test 79 U/L code = 2204) AST (test code = 2218) 19 U/L ALT (test code = 2219) 29 U/L COMPREHENSIVE METABOLIC [id number] 00:00:00 Test Item Value Reference Range Interpretation Comments GLUCOSE (test code = 2217) 109 MG/DL BUN (test code = 2208) 14 MG/DL CREATININE (test code = 2214) 0.94 MG/DL eGFR AMER. (test code 101 ML/MIN/1.73 = 97161) eGFR NON- AMER. (test 87 ML/MIN/1.73 code = 53045) CALC BUN/CREAT (test code = 15 RATIO 2235) SODIUM (test code = 2231) 141 MEQ/L POTASSIUM (test code = 2228) 4.6 MEQ/L CHLORIDE (test code = 2215) 99 MEQ/L CARBON DIOXIDE (test code = 30 MEQ/L 2205) CALCIUM (test code = 2209) 9.8 MG/DL PROTEIN, TOTAL (test code = 7.3 G/DL 2228) ALBUMIN (test code = 2201) 4.5 G/DL CALC GLOBULIN (test code = 2.8 G/DL 2239) CALC A/G RATIO (test code = 1.6 RATIO 2234) BILIRUBIN, TOTAL (test code = 0.4 MG/DL 2206) ALKALINE PHOSPHATASE (test 79 U/L code = 2204) AST (test code = 2218) 19 U/L ALT (test code = 2219) 29 U/L COMPREHENSIVE METABOLIC [id number] 00:00:00 Test Item Value Reference Range Interpretation Comments GLUCOSE (test code = 2217) 182 MG/DL BUN (test code = 2208) 12 MG/DL CREATININE (test code = 2214) 0.97 MG/DL eGFR AMER. (test code 97 ML/MIN/1.73 = 55716) eGFR NON- AMER. (test 84 ML/MIN/1.73 code = 58312) CALC BUN/CREAT (test code = 12 RATIO 2235) SODIUM (test code = 2231) 140 MEQ/L POTASSIUM (test code = 2228) 4.2 MEQ/L CHLORIDE (test code = 2215) 99 MEQ/L CARBON DIOXIDE (test code = 28 MEQ/L 220) CALCIUM (test code = 2209) 9.2 MG/DL PROTEIN, TOTAL (test code = 6.9 G/DL 2228) ALBUMIN (test code = 2201) 4.4 G/DL CALC GLOBULIN (test code = 2.5 G/DL 2240) CALC A/G RATIO (test code = 1.8 RATIO 2234) BILIRUBIN, TOTAL (test code = 0.6 MG/DL 220) ALKALINE PHOSPHATASE (test 74 U/L code = 2204) AST (test code = 2218) 19 U/L ALT (test code = 2219) 28 U/L COMPREHENSIVE METABOLIC [id number] 00:00:00 Test Item Value Reference Range Interpretation Comments GLUCOSE (test code = 2217) 182 MG/DL BUN (test code = 2208) 12 MG/DL CREATININE (test code = 2214) 0.97 MG/DL eGFR AMER. (test code 97 ML/MIN/1.73 = 28536) eGFR NON- AMER. (test 84 ML/MIN/1.73 code = 98712) CALC BUN/CREAT (test code = 12 RATIO 2235) SODIUM (test code = 2231) 140 MEQ/L POTASSIUM (test code = 2228) 4.2 MEQ/L CHLORIDE (test code = 2215) 99 MEQ/L CARBON DIOXIDE (test code = 28 MEQ/L 6) CALCIUM (test code = 2209) 9.2 MG/DL PROTEIN, TOTAL (test code = 6.9 G/DL 2228) ALBUMIN (test code = 2201) 4.4 G/DL CALC GLOBULIN (test code = 2.5 G/DL 2240) CALC A/G RATIO (test code = 1.8 RATIO 2234) BILIRUBIN, TOTAL (test code = 0.6 MG/DL 2206) ALKALINE PHOSPHATASE (test 74 U/L code = 2204) AST (test code = 2218) 19 U/L ALT (test code = 2219) 28 U/L COMPREHENSIVE METABOLIC [id number] 00:00:00 Test Item Value Reference Range Interpretation Comments GLUCOSE (test code = 2217) 182 MG/DL BUN (test code = 2208) 12 MG/DL CREATININE (test code = 2214) 0.97 MG/DL eGFR AMER. (test code 97 ML/MIN/1.73 = 98892) eGFR NON- AMER. (test 84 ML/MIN/1.73 code = 70314) CALC BUN/CREAT (test code = 12 RATIO 2235) SODIUM (test code = 2231) 140 MEQ/L POTASSIUM (test code = 2228) 4.2 MEQ/L CHLORIDE (test code = 2215) 99 MEQ/L CARBON DIOXIDE (test code = 28 MEQ/L 2206) CALCIUM (test code = 2209) 9.2 MG/DL PROTEIN, TOTAL (test code = 6.9 G/DL 222) ALBUMIN (test code = 2201) 4.4 G/DL CALC GLOBULIN (test code = 2.5 G/DL 2240) CALC A/G RATIO (test code = 1.8 RATIO 2234) BILIRUBIN, TOTAL (test code = 0.6 MG/DL 2206) ALKALINE PHOSPHATASE (test 74 U/L code = 2204) AST (test code = 2218) 19 U/L ALT (test code = 2219) 28 U/L COMPREHENSIVE METABOLIC [id number] 00:00:00 Test Item Value Reference Range Interpretation Comments GLUCOSE (test code = 2217) 182 MG/DL BUN (test code = 2208) 12 MG/DL CREATININE (test code = 2214) 0.97 MG/DL eGFR AMER. (test code 97 ML/MIN/1.73 = 26015) eGFR NON- AMER. (test 84 ML/MIN/1.73 code = 62556) CALC BUN/CREAT (test code = 12 RATIO 2235) SODIUM (test code = 2231) 140 MEQ/L POTASSIUM (test code = 2228) 4.2 MEQ/L CHLORIDE (test code = 2215) 99 MEQ/L CARBON DIOXIDE (test code = 28 MEQ/L 2205) CALCIUM (test code = 2209) 9.2 MG/DL PROTEIN, TOTAL (test code = 6.9 G/DL 2229) ALBUMIN (test code = 2201) 4.4 G/DL CALC GLOBULIN (test code = 2.5 G/DL 2240) CALC A/G RATIO (test code = 1.8 RATIO 2234) BILIRUBIN, TOTAL (test code = 0.6 MG/DL 2206) ALKALINE PHOSPHATASE (test 74 U/L code = 2204) AST (test code = 2218) 19 U/L ALT (test code = 2219) 28 U/L COMPREHENSIVE METABOLIC [id number] 00:00:00 Test Item Value Reference Range Interpretation Comments GLUCOSE (test code = 2217) 182 MG/DL BUN (test code = 2208) 12 MG/DL CREATININE (test code = 2214) 0.97 MG/DL eGFR AMER. (test code 97 ML/MIN/1.73 = 66957) eGFR NON- AMER. (test 84 ML/MIN/1.73 code = 79246) CALC BUN/CREAT (test code = 12 RATIO 2235) SODIUM (test code = 2231) 140 MEQ/L POTASSIUM (test code = 2228) 4.2 MEQ/L CHLORIDE (test code = 2215) 99 MEQ/L CARBON DIOXIDE (test code = 28 MEQ/L 220) CALCIUM (test code = 2209) 9.2 MG/DL PROTEIN, TOTAL (test code = 6.9 G/DL 2228) ALBUMIN (test code = 2201) 4.4 G/DL CALC GLOBULIN (test code = 2.5 G/DL 2240) CALC A/G RATIO (test code = 1.8 RATIO 2234) BILIRUBIN, TOTAL (test code = 0.6 MG/DL 2206) ALKALINE PHOSPHATASE (test 74 U/L code = 2204) AST (test code = 2218) 19 U/L ALT (test code = 2219) 28 U/L COMPREHENSIVE METABOLIC [id number] 00:00:00 Test Item Value Reference Range Interpretation Comments GLUCOSE (test code = 2217) 182 MG/DL BUN (test code = 2208) 12 MG/DL CREATININE (test code = 2214) 0.97 MG/DL eGFR AMER. (test code 97 ML/MIN/1.73 = 78668) eGFR NON- AMER. (test 84 ML/MIN/1.73 code = 61474) CALC BUN/CREAT (test code = 12 RATIO 2235) SODIUM (test code = 2231) 140 MEQ/L POTASSIUM (test code = 2228) 4.2 MEQ/L CHLORIDE (test code = 2215) 99 MEQ/L CARBON DIOXIDE (test code = 28 MEQ/L 2206) CALCIUM (test code = 2209) 9.2 MG/DL PROTEIN, TOTAL (test code = 6.9 G/DL 2228) ALBUMIN (test code = 2201) 4.4 G/DL CALC GLOBULIN (test code = 2.5 G/DL 2240) CALC A/G RATIO (test code = 1.8 RATIO 2234) BILIRUBIN, TOTAL (test code = 0.6 MG/DL 2207) ALKALINE PHOSPHATASE (test 74 U/L code = 2204) AST (test code = 2218) 19 U/L ALT (test code = 2219) 28 U/L COMPREHENSIVE METABOLIC [id number] 00:00:00 Test Item Value Reference Range Interpretation Comments GLUCOSE (test code = 2217) 182 MG/DL BUN (test code = 2208) 12 MG/DL CREATININE (test code = 2214) 0.97 MG/DL eGFR AMER. (test code 97 ML/MIN/1.73 = 32353) eGFR NON- AMER. (test 84 ML/MIN/1.73 code = 56106) CALC BUN/CREAT (test code = 12 RATIO 2235) SODIUM (test code = 2231) 140 MEQ/L POTASSIUM (test code = 2228) 4.2 MEQ/L CHLORIDE (test code = 2215) 99 MEQ/L CARBON DIOXIDE (test code = 28 MEQ/L 2205) CALCIUM (test code = 2209) 9.2 MG/DL PROTEIN, TOTAL (test code = 6.9 G/DL 2228) ALBUMIN (test code = 2201) 4.4 G/DL CALC GLOBULIN (test code = 2.5 G/DL 2240) CALC A/G RATIO (test code = 1.8 RATIO 2234) BILIRUBIN, TOTAL (test code = 0.6 MG/DL 2206) ALKALINE PHOSPHATASE (test 74 U/L code = 2204) AST (test code = 2218) 19 U/L ALT (test code = 2219) 28 U/L COMPREHENSIVE METABOLIC [id number] 00:00:00 Test Item Value Reference Range Interpretation Comments GLUCOSE (test code = 2217) 182 MG/DL BUN (test code = 2208) 12 MG/DL CREATININE (test code = 2214) 0.97 MG/DL eGFR AMER. (test code 97 ML/MIN/1.73 = 08598) eGFR NON- AMER. (test 84 ML/MIN/1.73 code = 90361) CALC BUN/CREAT (test code = 12 RATIO 2235) SODIUM (test code = 2231) 140 MEQ/L POTASSIUM (test code = 2228) 4.2 MEQ/L CHLORIDE (test code = 2215) 99 MEQ/L CARBON DIOXIDE (test code = 28 MEQ/L 2205) CALCIUM (test code = 2209) 9.2 MG/DL PROTEIN, TOTAL (test code = 6.9 G/DL 2228) ALBUMIN (test code = 2201) 4.4 G/DL CALC GLOBULIN (test code = 2.5 G/DL 224) CALC A/G RATIO (test code = 1.8 RATIO 2234) BILIRUBIN, TOTAL (test code = 0.6 MG/DL 2206) ALKALINE PHOSPHATASE (test 74 U/L code = 2204) AST (test code = 2218) 19 U/L ALT (test code = 2219) 28 U/L LIPID PANEL [ADDED]2019-04-08 00:00:00 Test Item Value Reference Range Interpretation Comments CHOLESTEROL (test code = 2210) 120 MG/DL TRIGLYCERIDES (test code = 2232) 206 MG/DL HDL CHOLESTEROL (test code = 2220) 32 MG/DL CALC LDL CHOL (test code = 2237) 47 MG/DL RISK RATIO LDL/HDL (test code = 1.46 RATIO 2238) LIPID PANEL [ADDED]2019-04-08 00:00:00 Test Item Value Reference Range Interpretation Comments CHOLESTEROL (test code = 2210) 120 MG/DL TRIGLYCERIDES (test code = 2232) 206 MG/DL HDL CHOLESTEROL (test code = 2220) 32 MG/DL CALC LDL CHOL (test code = 2237) 47 MG/DL RISK RATIO LDL/HDL (test code = 1.46 RATIO 2238) COMPREHENSIVE METABOLIC PANEL [ADDED]2019-04-08 00:00:00 Test Item Value Reference Range Interpretation Comments GLUCOSE (test code = 2217) 225 MG/DL BUN (test code = 2208) 14 MG/DL CREATININE (test code = 2214) 0.89 MG/DL eGFR AMER. (test code 81 ML/MIN/1.73 = 26871) eGFR NON- AMER. (test 70 ML/MIN/1.73 code = 59118) CALC BUN/CREAT (test code = 16 RATIO 2235) SODIUM (test code = 2231) 139 MEQ/L POTASSIUM (test code = 2228) 4.7 MEQ/L CHLORIDE (test code = 2215) 99 MEQ/L CARBON DIOXIDE (test code = 26 MEQ/L 2205) CALCIUM (test code = 2209) 9.1 MG/DL PROTEIN, TOTAL (test code = 6.6 G/DL 222) ALBUMIN (test code = 2201) 4.3 G/DL CALC GLOBULIN (test code = 2.3 G/DL 2240) CALC A/G RATIO (test code = 1.9 RATIO 2234) BILIRUBIN, TOTAL (test code = 0.7 MG/DL 2207) ALKALINE PHOSPHATASE (test 82 U/L code = 2204) AST (test code = 2218) 22 U/L ALT (test code = 2219) 33 U/L COMPREHENSIVE METABOLIC PANEL [ADDED]2019-04-08 00:00:00 Test Item Value Reference Range Interpretation Comments GLUCOSE (test code = 2217) 225 MG/DL BUN (test code = 2208) 14 MG/DL CREATININE (test code = 2214) 0.89 MG/DL eGFR AMER. (test code 81 ML/MIN/1.73 = 24938) eGFR NON- AMER. (test 70 ML/MIN/1.73 code = 37826) CALC BUN/CREAT (test code = 16 RATIO 2235) SODIUM (test code = 2231) 139 MEQ/L POTASSIUM (test code = 2228) 4.7 MEQ/L CHLORIDE (test code = 2215) 99 MEQ/L CARBON DIOXIDE (test code = 26 MEQ/L 2206) CALCIUM (test code = 2209) 9.1 MG/DL PROTEIN, TOTAL (test code = 6.6 G/DL 2229) ALBUMIN (test code = 2201) 4.3 G/DL CALC GLOBULIN (test code = 2.3 G/DL 2240) CALC A/G RATIO (test code = 1.9 RATIO 2234) BILIRUBIN, TOTAL (test code = 0.7 MG/DL 2207) ALKALINE PHOSPHATASE (test 82 U/L code = 2204) AST (test code = 2218) 22 U/L ALT (test code = 2219) 33 U/L PSA, TOTAL [ADDED]2019-04-08 00:00:00 Test Item Value Reference Range Interpretation Comments PSA, TOTAL (test code = 2606) 1.71 NG/ML PSA, TOTAL [ADDED]2019-04-08 00:00:00 Test Item Value Reference Range Interpretation Comments PSA, TOTAL (test code = 2606) 1.71 NG/ML PSA, TOTAL [ADDED]2019-04-08 00:00:00 Test Item Value Reference Range Interpretation Comments PSA, TOTAL (test code = 2606) 1.71 NG/ML LIPID PANEL [ADDED]2019-04-08 00:00:00 Test Item Value Reference Range Interpretation Comments CHOLESTEROL (test code = 2210) 120 MG/DL TRIGLYCERIDES (test code = 2232) 206 MG/DL HDL CHOLESTEROL (test code = 2220) 32 MG/DL CALC LDL CHOL (test code = 2237) 47 MG/DL RISK RATIO LDL/HDL (test code = 1.46 RATIO 2238) LIPID PANEL [ADDED]2019-04-08 00:00:00 Test Item Value Reference Range Interpretation Comments CHOLESTEROL (test code = 2210) 120 MG/DL TRIGLYCERIDES (test code = 2232) 206 MG/DL HDL CHOLESTEROL (test code = 2220) 32 MG/DL CALC LDL CHOL (test code = 2237) 47 MG/DL RISK RATIO LDL/HDL (test code = 1.46 RATIO 2238) COMPREHENSIVE METABOLIC PANEL [ADDED]2019-04-08 00:00:00 Test Item Value Reference Range Interpretation Comments GLUCOSE (test code = 2217) 225 MG/DL BUN (test code = 2208) 14 MG/DL CREATININE (test code = 2214) 0.89 MG/DL eGFR AMER. (test code 81 ML/MIN/1.73 = 42276) eGFR NON- AMER. (test 70 ML/MIN/1.73 code = 06833) CALC BUN/CREAT (test code = 16 RATIO 2235) SODIUM (test code = 2231) 139 MEQ/L POTASSIUM (test code = 2228) 4.7 MEQ/L CHLORIDE (test code = 2215) 99 MEQ/L CARBON DIOXIDE (test code = 26 MEQ/L 2205) CALCIUM (test code = 2209) 9.1 MG/DL PROTEIN, TOTAL (test code = 6.6 G/DL 2228) ALBUMIN (test code = 2201) 4.3 G/DL CALC GLOBULIN (test code = 2.3 G/DL 2239) CALC A/G RATIO (test code = 1.9 RATIO 2234) BILIRUBIN, TOTAL (test code = 0.7 MG/DL 2206) ALKALINE PHOSPHATASE (test 82 U/L code = 2204) AST (test code = 2218) 22 U/L ALT (test code = 2219) 33 U/L COMPREHENSIVE METABOLIC PANEL [ADDED]2019-04-08 00:00:00 Test Item Value Reference Range Interpretation Comments GLUCOSE (test code = 2217) 225 MG/DL BUN (test code = 2208) 14 MG/DL CREATININE (test code = 2214) 0.89 MG/DL eGFR AMER. (test code 81 ML/MIN/1.73 = 02356) eGFR NON- AMER. (test 70 ML/MIN/1.73 code = 36724) CALC BUN/CREAT (test code = 16 RATIO 2235) SODIUM (test code = 2231) 139 MEQ/L POTASSIUM (test code = 2228) 4.7 MEQ/L CHLORIDE (test code = 2215) 99 MEQ/L CARBON DIOXIDE (test code = 26 MEQ/L 2205) CALCIUM (test code = 2209) 9.1 MG/DL PROTEIN, TOTAL (test code = 6.6 G/DL 2228) ALBUMIN (test code = 2201) 4.3 G/DL CALC GLOBULIN (test code = 2.3 G/DL 2239) CALC A/G RATIO (test code = 1.9 RATIO 2233) BILIRUBIN, TOTAL (test code = 0.7 MG/DL 2206) ALKALINE PHOSPHATASE (test 82 U/L code = 2204) AST (test code = 2218) 22 U/L ALT (test code = 2219) 33 U/L PSA, TOTAL [ADDED]2019-04-08 00:00:00 Test Item Value Reference Range Interpretation Comments PSA, TOTAL (test code = 2606) 1.71 NG/ML PSA, TOTAL [ADDED]2019-04-08 00:00:00 Test Item Value Reference Range Interpretation Comments PSA, TOTAL (test code = 2606) 1.71 NG/ML PSA, TOTAL [ADDED]2019-04-08 00:00:00 Test Item Value Reference Range Interpretation Comments PSA, TOTAL (test code = 2606) 1.71 NG/ML LIPID PANEL [ADDED]2019-04-08 00:00:00 Test Item Value Reference Range Interpretation Comments CHOLESTEROL (test code = 2210) 120 MG/DL TRIGLYCERIDES (test code = 2232) 206 MG/DL HDL CHOLESTEROL (test code = 2220) 32 MG/DL CALC LDL CHOL (test code = 2237) 47 MG/DL RISK RATIO LDL/HDL (test code = 1.46 RATIO 2238) LIPID PANEL [ADDED]2019-04-08 00:00:00 Test Item Value Reference Range Interpretation Comments CHOLESTEROL (test code = 2210) 120 MG/DL TRIGLYCERIDES (test code = 2232) 206 MG/DL HDL CHOLESTEROL (test code = 2220) 32 MG/DL CALC LDL CHOL (test code = 2237) 47 MG/DL RISK RATIO LDL/HDL (test code = 1.46 RATIO 2238) COMPREHENSIVE METABOLIC PANEL [ADDED]2019-04-08 00:00:00 Test Item Value Reference Range Interpretation Comments GLUCOSE (test code = 2217) 225 MG/DL BUN (test code = 2208) 14 MG/DL CREATININE (test code = 2214) 0.89 MG/DL eGFR AMER. (test code 81 ML/MIN/1.73 = 10275) eGFR NON- AMER. (test 70 ML/MIN/1.73 code = 83039) CALC BUN/CREAT (test code = 16 RATIO 2235) SODIUM (test code = 2231) 139 MEQ/L POTASSIUM (test code = 2228) 4.7 MEQ/L CHLORIDE (test code = 2215) 99 MEQ/L CARBON DIOXIDE (test code = 26 MEQ/L 2206) CALCIUM (test code = 2209) 9.1 MG/DL PROTEIN, TOTAL (test code = 6.6 G/DL 2228) ALBUMIN (test code = 2201) 4.3 G/DL CALC GLOBULIN (test code = 2.3 G/DL 2240) CALC A/G RATIO (test code = 1.9 RATIO 2234) BILIRUBIN, TOTAL (test code = 0.7 MG/DL 2206) ALKALINE PHOSPHATASE (test 82 U/L code = 2204) AST (test code = 2218) 22 U/L ALT (test code = 2219) 33 U/L COMPREHENSIVE METABOLIC PANEL [ADDED]2019-04-08 00:00:00 Test Item Value Reference Range Interpretation Comments GLUCOSE (test code = 2217) 225 MG/DL BUN (test code = 2208) 14 MG/DL CREATININE (test code = 2214) 0.89 MG/DL eGFR AMER. (test code 81 ML/MIN/1.73 = 66183) eGFR NON- AMER. (test 70 ML/MIN/1.73 code = 69051) CALC BUN/CREAT (test code = 16 RATIO 2235) SODIUM (test code = 2231) 139 MEQ/L POTASSIUM (test code = 2228) 4.7 MEQ/L CHLORIDE (test code = 2215) 99 MEQ/L CARBON DIOXIDE (test code = 26 MEQ/L 2205) CALCIUM (test code = 2209) 9.1 MG/DL PROTEIN, TOTAL (test code = 6.6 G/DL 2228) ALBUMIN (test code = 2201) 4.3 G/DL CALC GLOBULIN (test code = 2.3 G/DL 224) CALC A/G RATIO (test code = 1.9 RATIO 2234) BILIRUBIN, TOTAL (test code = 0.7 MG/DL 2206) ALKALINE PHOSPHATASE (test 82 U/L code = 2204) AST (test code = 2218) 22 U/L ALT (test code = 2219) 33 U/L PSA, TOTAL [ADDED]2019-04-08 00:00:00 Test Item Value Reference Range Interpretation Comments PSA, TOTAL (test code = 2606) 1.71 NG/ML PSA, TOTAL [ADDED]2019-04-08 00:00:00 Test Item Value Reference Range Interpretation Comments PSA, TOTAL (test code = 2606) 1.71 NG/ML PSA, TOTAL [ADDED]2019-04-08 00:00:00 Test Item Value Reference Range Interpretation Comments PSA, TOTAL (test code = 2606) 1.71 NG/ML LIPID PANEL [ADDED]2019-04-08 00:00:00 Test Item Value Reference Range Interpretation Comments CHOLESTEROL (test code = 2210) 120 MG/DL TRIGLYCERIDES (test code = 2232) 206 MG/DL HDL CHOLESTEROL (test code = 2220) 32 MG/DL CALC LDL CHOL (test code = 2237) 47 MG/DL RISK RATIO LDL/HDL (test code = 1.46 RATIO 2238) LIPID PANEL [ADDED]2019-04-08 00:00:00 Test Item Value Reference Range Interpretation Comments CHOLESTEROL (test code = 2210) 120 MG/DL TRIGLYCERIDES (test code = 2232) 206 MG/DL HDL CHOLESTEROL (test code = 2220) 32 MG/DL CALC LDL CHOL (test code = 2237) 47 MG/DL RISK RATIO LDL/HDL (test code = 1.46 RATIO 2238) COMPREHENSIVE METABOLIC PANEL [ADDED]2019-04-08 00:00:00 Test Item Value Reference Range Interpretation Comments GLUCOSE (test code = 2217) 225 MG/DL BUN (test code = 2208) 14 MG/DL CREATININE (test code = 2214) 0.89 MG/DL eGFR AMER. (test code 81 ML/MIN/1.73 = 50377) eGFR NON- AMER. (test 70 ML/MIN/1.73 code = 78404) CALC BUN/CREAT (test code = 16 RATIO 2235) SODIUM (test code = 2231) 139 MEQ/L POTASSIUM (test code = 2228) 4.7 MEQ/L CHLORIDE (test code = 2215) 99 MEQ/L CARBON DIOXIDE (test code = 26 MEQ/L 220) CALCIUM (test code = 2209) 9.1 MG/DL PROTEIN, TOTAL (test code = 6.6 G/DL 2228) ALBUMIN (test code = 2201) 4.3 G/DL CALC GLOBULIN (test code = 2.3 G/DL 2240) CALC A/G RATIO (test code = 1.9 RATIO 2234) BILIRUBIN, TOTAL (test code = 0.7 MG/DL 2206) ALKALINE PHOSPHATASE (test 82 U/L code = 2204) AST (test code = 2218) 22 U/L ALT (test code = 2219) 33 U/L COMPREHENSIVE METABOLIC PANEL [ADDED]2019-04-08 00:00:00 Test Item Value Reference Range Interpretation Comments GLUCOSE (test code = 2217) 225 MG/DL BUN (test code = 2208) 14 MG/DL CREATININE (test code = 2214) 0.89 MG/DL eGFR AMER. (test code 81 ML/MIN/1.73 = 35608) eGFR NON- AMER. (test 70 ML/MIN/1.73 code = 62401) CALC BUN/CREAT (test code = 16 RATIO 2235) SODIUM (test code = 2231) 139 MEQ/L POTASSIUM (test code = 2228) 4.7 MEQ/L CHLORIDE (test code = 2215) 99 MEQ/L CARBON DIOXIDE (test code = 26 MEQ/L 2206) CALCIUM (test code = 2209) 9.1 MG/DL PROTEIN, TOTAL (test code = 6.6 G/DL 2228) ALBUMIN (test code = 2201) 4.3 G/DL CALC GLOBULIN (test code = 2.3 G/DL 2240) CALC A/G RATIO (test code = 1.9 RATIO 2234) BILIRUBIN, TOTAL (test code = 0.7 MG/DL 2207) ALKALINE PHOSPHATASE (test 82 U/L code = 2204) AST (test code = 2218) 22 U/L ALT (test code = 2219) 33 U/L PSA, TOTAL [ADDED]2019-04-08 00:00:00 Test Item Value Reference Range Interpretation Comments PSA, TOTAL (test code = 2606) 1.71 NG/ML PSA, TOTAL [ADDED]2019-04-08 00:00:00 Test Item Value Reference Range Interpretation Comments PSA, TOTAL (test code = 2606) 1.71 NG/ML PSA, TOTAL [ADDED]2019-04-08 00:00:00 Test Item Value Reference Range Interpretation Comments PSA, TOTAL (test code = 2606) 1.71 NG/ML HEMOGLOBIN [id number] 00:00:00 Test Item Value Reference Range Interpretation Comments HEMOGLOBIN A1c (test code = 16387) 6.5 % HEMOGLOBIN [id number] 00:00:00 Test Item Value Reference Range Interpretation Comments HEMOGLOBIN A1c (test code = 93131) 6.5 % HEMOGLOBIN [id number] 00:00:00 Test Item Value Reference Range Interpretation Comments HEMOGLOBIN A1c (test code = 06733) 6.5 % HEMOGLOBIN [id number] 00:00:00 Test Item Value Reference Range Interpretation Comments HEMOGLOBIN A1c (test code = 59509) 6.5 % HEMOGLOBIN [id number] 00:00:00 Test Item Value Reference Range Interpretation Comments HEMOGLOBIN A1c (test code = 77543) 6.5 % HEMOGLOBIN [id number] 00:00:00 Test Item Value Reference Range Interpretation Comments HEMOGLOBIN A1c (test code = 43016) 6.5 % HEMOGLOBIN [id number] 00:00:00 Test Item Value Reference Range Interpretation Comments HEMOGLOBIN A1c (test code = 98912) 6.5 % HEMOGLOBIN [id number] 00:00:00 Test Item Value Reference Range Interpretation Comments HEMOGLOBIN A1c (test code = 23831) 6.5 % HEMOGLOBIN [id number] 00:00:00 Test Item Value Reference Range Interpretation Comments HEMOGLOBIN A1c (test code = 98263) 6.5 % HEMOGLOBIN [id number] 00:00:00 Test Item Value Reference Range Interpretation Comments HEMOGLOBIN A1c (test code = 41532) 6.5 % HEMOGLOBIN [id number] 00:00:00 Test Item Value Reference Range Interpretation Comments HEMOGLOBIN A1c (test code = 03535) 6.5 % HEMOGLOBIN [id number] 00:00:00 Test Item Value Reference Range Interpretation Comments HEMOGLOBIN A1c (test code = 44122) 6.5 % HEMOGLOBIN [id number] 00:00:00 Test Item Value Reference Range Interpretation Comments HEMOGLOBIN A1c (test code = 49977) 7.5 % HEMOGLOBIN [id number] 00:00:00 Test Item Value Reference Range Interpretation Comments HEMOGLOBIN A1c (test code = 21463) 7.5 % HEMOGLOBIN [id number] 00:00:00 Test Item Value Reference Range Interpretation Comments HEMOGLOBIN A1c (test code = 13571) 7.5 % LIPID [id number] 00:00:00 Test Item Value Reference Range Interpretation Comments CHOLESTEROL (test code = 2210) 227 MG/DL TRIGLYCERIDES (test code = 2232) 66 MG/DL HDL CHOLESTEROL (test code = 2220) 40 MG/DL CALC LDL CHOL (test code = 2237) 174 MG/DL RISK RATIO LDL/HDL (test code = 4.35 RATIO 2238) LIPID [id number] 00:00:00 Test Item Value Reference Range Interpretation Comments CHOLESTEROL (test code = 2210) 227 MG/DL TRIGLYCERIDES (test code = 2232) 66 MG/DL HDL CHOLESTEROL (test code = 2220) 40 MG/DL CALC LDL CHOL (test code = 2237) 174 MG/DL RISK RATIO LDL/HDL (test code = 4.35 RATIO 2238) COMPREHENSIVE METABOLIC [id number] 00:00:00 Test Item Value Reference Range Interpretation Comments GLUCOSE (test code = 2217) 89 MG/DL BUN (test code = 2208) 13 MG/DL CREATININE (test code = 2214) 1.06 MG/DL eGFR AMER. (test code 87 ML/MIN/1.73 = 50780) eGFR NON- AMER. (test 75 ML/MIN/1.73 code = 02496) CALC BUN/CREAT (test code = 12 RATIO 2235) SODIUM (test code = 2231) 143 MEQ/L POTASSIUM (test code = 2228) 3.9 MEQ/L CHLORIDE (test code = 2215) 103 MEQ/L CARBON DIOXIDE (test code = 28 MEQ/L 220) CALCIUM (test code = 2209) 9.2 MG/DL PROTEIN, TOTAL (test code = 7.1 G/DL 2228) ALBUMIN (test code = 2201) 4.5 G/DL CALC GLOBULIN (test code = 2.6 G/DL 2240) CALC A/G RATIO (test code = 1.7 RATIO 2234) BILIRUBIN, TOTAL (test code = 0.3 MG/DL 2206) ALKALINE PHOSPHATASE (test 66 U/L code = 2204) AST (test code = 2218) 21 U/L ALT (test code = 2219) 18 U/L COMPREHENSIVE METABOLIC [id number] 00:00:00 Test Item Value Reference Range Interpretation Comments GLUCOSE (test code = 2217) 89 MG/DL BUN (test code = 2208) 13 MG/DL CREATININE (test code = 2214) 1.06 MG/DL eGFR AMER. (test code 87 ML/MIN/1.73 = 45768) eGFR NON- AMER. (test 75 ML/MIN/1.73 code = 05736) CALC BUN/CREAT (test code = 12 RATIO 2235) SODIUM (test code = 2231) 143 MEQ/L POTASSIUM (test code = 2228) 3.9 MEQ/L CHLORIDE (test code = 2215) 103 MEQ/L CARBON DIOXIDE (test code = 28 MEQ/L 2205) CALCIUM (test code = 2209) 9.2 MG/DL PROTEIN, TOTAL (test code = 7.1 G/DL 2228) ALBUMIN (test code = 2201) 4.5 G/DL CALC GLOBULIN (test code = 2.6 G/DL 2240) CALC A/G RATIO (test code = 1.7 RATIO 2234) BILIRUBIN, TOTAL (test code = 0.3 MG/DL 2206) ALKALINE PHOSPHATASE (test 66 U/L code = 2204) AST (test code = 2218) 21 U/L ALT (test code = 2219) 18 U/L HEMOGLOBIN [id number] 00:00:00 Test Item Value Reference Range Interpretation Comments HEMOGLOBIN A1c (test code = 26933) 7.5 % HEMOGLOBIN [id number] 00:00:00 Test Item Value Reference Range Interpretation Comments HEMOGLOBIN A1c (test code = 30332) 7.5 % HEMOGLOBIN [id number] 00:00:00 Test Item Value Reference Range Interpretation Comments HEMOGLOBIN A1c (test code = 10074) 7.5 % LIPID [id number] 00:00:00 Test Item Value Reference Range Interpretation Comments CHOLESTEROL (test code = 2210) 227 MG/DL TRIGLYCERIDES (test code = 2232) 66 MG/DL HDL CHOLESTEROL (test code = 2220) 40 MG/DL CALC LDL CHOL (test code = 2237) 174 MG/DL RISK RATIO LDL/HDL (test code = 4.35 RATIO 2238) LIPID [id number] 00:00:00 Test Item Value Reference Range Interpretation Comments CHOLESTEROL (test code = 2210) 227 MG/DL TRIGLYCERIDES (test code = 2232) 66 MG/DL HDL CHOLESTEROL (test code = 2220) 40 MG/DL CALC LDL CHOL (test code = 2237) 174 MG/DL RISK RATIO LDL/HDL (test code = 4.35 RATIO 2238) COMPREHENSIVE METABOLIC [id number] 00:00:00 Test Item Value Reference Range Interpretation Comments GLUCOSE (test code = 2217) 89 MG/DL BUN (test code = 2208) 13 MG/DL CREATININE (test code = 2214) 1.06 MG/DL eGFR AMER. (test code 87 ML/MIN/1.73 = 33322) eGFR NON- AMER. (test 75 ML/MIN/1.73 code = 81324) CALC BUN/CREAT (test code = 12 RATIO 2235) SODIUM (test code = 2231) 143 MEQ/L POTASSIUM (test code = 2228) 3.9 MEQ/L CHLORIDE (test code = 2215) 103 MEQ/L CARBON DIOXIDE (test code = 28 MEQ/L 2205) CALCIUM (test code = 2209) 9.2 MG/DL PROTEIN, TOTAL (test code = 7.1 G/DL 2228) ALBUMIN (test code = 2201) 4.5 G/DL CALC GLOBULIN (test code = 2.6 G/DL 2239) CALC A/G RATIO (test code = 1.7 RATIO 2234) BILIRUBIN, TOTAL (test code = 0.3 MG/DL 2206) ALKALINE PHOSPHATASE (test 66 U/L code = 2204) AST (test code = 2218) 21 U/L ALT (test code = 2219) 18 U/L COMPREHENSIVE METABOLIC [id number] 00:00:00 Test Item Value Reference Range Interpretation Comments GLUCOSE (test code = 2217) 89 MG/DL BUN (test code = 2208) 13 MG/DL CREATININE (test code = 2214) 1.06 MG/DL eGFR AMER. (test code 87 ML/MIN/1.73 = 83264) eGFR NON- AMER. (test 75 ML/MIN/1.73 code = 76169) CALC BUN/CREAT (test code = 12 RATIO 2235) SODIUM (test code = 2231) 143 MEQ/L POTASSIUM (test code = 2228) 3.9 MEQ/L CHLORIDE (test code = 2215) 103 MEQ/L CARBON DIOXIDE (test code = 28 MEQ/L 2205) CALCIUM (test code = 2209) 9.2 MG/DL PROTEIN, TOTAL (test code = 7.1 G/DL 2228) ALBUMIN (test code = 2201) 4.5 G/DL CALC GLOBULIN (test code = 2.6 G/DL 2239) CALC A/G RATIO (test code = 1.7 RATIO 2234) BILIRUBIN, TOTAL (test code = 0.3 MG/DL 2206) ALKALINE PHOSPHATASE (test 66 U/L code = 2204) AST (test code = 2218) 21 U/L ALT (test code = 2219) 18 U/L HEMOGLOBIN [id number] 00:00:00 Test Item Value Reference Range Interpretation Comments HEMOGLOBIN A1c (test code = 28278) 7.5 % HEMOGLOBIN [id number] 00:00:00 Test Item Value Reference Range Interpretation Comments HEMOGLOBIN A1c (test code = 32855) 7.5 % HEMOGLOBIN [id number] 00:00:00 Test Item Value Reference Range Interpretation Comments HEMOGLOBIN A1c (test code = 94247) 7.5 % LIPID [id number] 00:00:00 Test Item Value Reference Range Interpretation Comments CHOLESTEROL (test code = 2210) 227 MG/DL TRIGLYCERIDES (test code = 2232) 66 MG/DL HDL CHOLESTEROL (test code = 2220) 40 MG/DL CALC LDL CHOL (test code = 2237) 174 MG/DL RISK RATIO LDL/HDL (test code = 4.35 RATIO 2238) LIPID [id number] 00:00:00 Test Item Value Reference Range Interpretation Comments CHOLESTEROL (test code = 2210) 227 MG/DL TRIGLYCERIDES (test code = 2232) 66 MG/DL HDL CHOLESTEROL (test code = 2220) 40 MG/DL CALC LDL CHOL (test code = 2237) 174 MG/DL RISK RATIO LDL/HDL (test code = 4.35 RATIO 2238) COMPREHENSIVE METABOLIC [id number] 00:00:00 Test Item Value Reference Range Interpretation Comments GLUCOSE (test code = 2217) 89 MG/DL BUN (test code = 2208) 13 MG/DL CREATININE (test code = 2214) 1.06 MG/DL eGFR AMER. (test code 87 ML/MIN/1.73 = 98693) eGFR NON- AMER. (test 75 ML/MIN/1.73 code = 41455) CALC BUN/CREAT (test code = 12 RATIO 2235) SODIUM (test code = 2231) 143 MEQ/L POTASSIUM (test code = 2228) 3.9 MEQ/L CHLORIDE (test code = 2215) 103 MEQ/L CARBON DIOXIDE (test code = 28 MEQ/L 2205) CALCIUM (test code = 2209) 9.2 MG/DL PROTEIN, TOTAL (test code = 7.1 G/DL 2228) ALBUMIN (test code = 2201) 4.5 G/DL CALC GLOBULIN (test code = 2.6 G/DL 2240) CALC A/G RATIO (test code = 1.7 RATIO 2234) BILIRUBIN, TOTAL (test code = 0.3 MG/DL 2206) ALKALINE PHOSPHATASE (test 66 U/L code = 2204) AST (test code = 2218) 21 U/L ALT (test code = 2219) 18 U/L COMPREHENSIVE METABOLIC [id number] 00:00:00 Test Item Value Reference Range Interpretation Comments GLUCOSE (test code = 2217) 89 MG/DL BUN (test code = 2208) 13 MG/DL CREATININE (test code = 2214) 1.06 MG/DL eGFR AMER. (test code 87 ML/MIN/1.73 = 84230) eGFR NON- AMER. (test 75 ML/MIN/1.73 code = 13934) CALC BUN/CREAT (test code = 12 RATIO 2235) SODIUM (test code = 2231) 143 MEQ/L POTASSIUM (test code = 2228) 3.9 MEQ/L CHLORIDE (test code = 2215) 103 MEQ/L CARBON DIOXIDE (test code = 28 MEQ/L 2205) CALCIUM (test code = 2209) 9.2 MG/DL PROTEIN, TOTAL (test code = 7.1 G/DL 2228) ALBUMIN (test code = 2201) 4.5 G/DL CALC GLOBULIN (test code = 2.6 G/DL 2239) CALC A/G RATIO (test code = 1.7 RATIO 2233) BILIRUBIN, TOTAL (test code = 0.3 MG/DL 2206) ALKALINE PHOSPHATASE (test 66 U/L code = 2204) AST (test code = 2218) 21 U/L ALT (test code = 2219) 18 U/L HEMOGLOBIN [id number] 00:00:00 Test Item Value Reference Range Interpretation Comments HEMOGLOBIN A1c (test code = 66869) 7.5 % HEMOGLOBIN [id number] 00:00:00 Test Item Value Reference Range Interpretation Comments HEMOGLOBIN A1c (test code = 75720) 7.5 % HEMOGLOBIN [id number] 00:00:00 Test Item Value Reference Range Interpretation Comments HEMOGLOBIN A1c (test code = 66547) 7.5 % LIPID [id number] 00:00:00 Test Item Value Reference Range Interpretation Comments CHOLESTEROL (test code = 2210) 227 MG/DL TRIGLYCERIDES (test code = 2232) 66 MG/DL HDL CHOLESTEROL (test code = 2220) 40 MG/DL CALC LDL CHOL (test code = 2237) 174 MG/DL RISK RATIO LDL/HDL (test code = 4.35 RATIO 2238) LIPID [id number] 00:00:00 Test Item Value Reference Range Interpretation Comments CHOLESTEROL (test code = 2210) 227 MG/DL TRIGLYCERIDES (test code = 2232) 66 MG/DL HDL CHOLESTEROL (test code = 2220) 40 MG/DL CALC LDL CHOL (test code = 2237) 174 MG/DL RISK RATIO LDL/HDL (test code = 4.35 RATIO 2238) COMPREHENSIVE METABOLIC [id number] 00:00:00 Test Item Value Reference Range Interpretation Comments GLUCOSE (test code = 2217) 89 MG/DL BUN (test code = 2208) 13 MG/DL CREATININE (test code = 2214) 1.06 MG/DL eGFR AMER. (test code 87 ML/MIN/1.73 = 75441) eGFR NON- AMER. (test 75 ML/MIN/1.73 code = 55362) CALC BUN/CREAT (test code = 12 RATIO 2235) SODIUM (test code = 2231) 143 MEQ/L POTASSIUM (test code = 2228) 3.9 MEQ/L CHLORIDE (test code = 2215) 103 MEQ/L CARBON DIOXIDE (test code = 28 MEQ/L 220) CALCIUM (test code = 2209) 9.2 MG/DL PROTEIN, TOTAL (test code = 7.1 G/DL 2228) ALBUMIN (test code = 2201) 4.5 G/DL CALC GLOBULIN (test code = 2.6 G/DL 2240) CALC A/G RATIO (test code = 1.7 RATIO 2234) BILIRUBIN, TOTAL (test code = 0.3 MG/DL 2206) ALKALINE PHOSPHATASE (test 66 U/L code = 2204) AST (test code = 2218) 21 U/L ALT (test code = 2219) 18 U/L COMPREHENSIVE METABOLIC [id number] 00:00:00 Test Item Value Reference Range Interpretation Comments GLUCOSE (test code = 2217) 89 MG/DL BUN (test code = 2208) 13 MG/DL CREATININE (test code = 2214) 1.06 MG/DL eGFR AMER. (test code 87 ML/MIN/1.73 = 90300) eGFR NON- AMER. (test 75 ML/MIN/1.73 code = 84416) CALC BUN/CREAT (test code = 12 RATIO 2235) SODIUM (test code = 2231) 143 MEQ/L POTASSIUM (test code = 2228) 3.9 MEQ/L CHLORIDE (test code = 2215) 103 MEQ/L CARBON DIOXIDE (test code = 28 MEQ/L 2206) CALCIUM (test code = 2209) 9.2 MG/DL PROTEIN, TOTAL (test code = 7.1 G/DL 9) ALBUMIN (test code = 2201) 4.5 G/DL CALC GLOBULIN (test code = 2.6 G/DL 2240) CALC A/G RATIO (test code = 1.7 RATIO 2234) BILIRUBIN, TOTAL (test code = 0.3 MG/DL 2207) ALKALINE PHOSPHATASE (test 66 U/L code = 2204) AST (test code = 2218) 21 U/L ALT (test code = 2219) 18 U/L LIPID [id number] 00:00:00 Test Item Value Reference Range Interpretation Comments CHOLESTEROL (test code = 2210) 207 MG/DL TRIGLYCERIDES (test code = 2232) 274 MG/DL HDL CHOLESTEROL (test code = 2220) 37 MG/DL CALC LDL CHOL (test code = 2237) 115 MG/DL RISK RATIO LDL/HDL (test code = 3.11 RATIO 2238) LIPID [id number] 00:00:00 Test Item Value Reference Range Interpretation Comments CHOLESTEROL (test code = 2210) 207 MG/DL TRIGLYCERIDES (test code = 2232) 274 MG/DL HDL CHOLESTEROL (test code = 2220) 37 MG/DL CALC LDL CHOL (test code = 2237) 115 MG/DL RISK RATIO LDL/HDL (test code = 3.11 RATIO 2238) LIPID [id number] 00:00:00 Test Item Value Reference Range Interpretation Comments CHOLESTEROL (test code = 2210) 207 MG/DL TRIGLYCERIDES (test code = 2232) 274 MG/DL HDL CHOLESTEROL (test code = 2220) 37 MG/DL CALC LDL CHOL (test code = 2237) 115 MG/DL RISK RATIO LDL/HDL (test code = 3.11 RATIO 2238) LIPID [id number] 00:00:00 Test Item Value Reference Range Interpretation Comments CHOLESTEROL (test code = 2210) 207 MG/DL TRIGLYCERIDES (test code = 2232) 274 MG/DL HDL CHOLESTEROL (test code = 2220) 37 MG/DL CALC LDL CHOL (test code = 2237) 115 MG/DL RISK RATIO LDL/HDL (test code = 3.11 RATIO 2238) LIPID [id number] 00:00:00 Test Item Value Reference Range Interpretation Comments CHOLESTEROL (test code = 2210) 207 MG/DL TRIGLYCERIDES (test code = 2232) 274 MG/DL HDL CHOLESTEROL (test code = 2220) 37 MG/DL CALC LDL CHOL (test code = 2237) 115 MG/DL RISK RATIO LDL/HDL (test code = 3.11 RATIO 2238) LIPID [id number] 00:00:00 Test Item Value Reference Range Interpretation Comments CHOLESTEROL (test code = 2210) 207 MG/DL TRIGLYCERIDES (test code = 2232) 274 MG/DL HDL CHOLESTEROL (test code = 2220) 37 MG/DL CALC LDL CHOL (test code = 2237) 115 MG/DL RISK RATIO LDL/HDL (test code = 3.11 RATIO 2238) LIPID [id number] 00:00:00 Test Item Value Reference Range Interpretation Comments CHOLESTEROL (test code = 2210) 207 MG/DL TRIGLYCERIDES (test code = 2232) 274 MG/DL HDL CHOLESTEROL (test code = 2220) 37 MG/DL CALC LDL CHOL (test code = 2237) 115 MG/DL RISK RATIO LDL/HDL (test code = 3.11 RATIO 2238) LIPID [id number] 00:00:00 Test Item Value Reference Range Interpretation Comments CHOLESTEROL (test code = 2210) 207 MG/DL TRIGLYCERIDES (test code = 2232) 274 MG/DL HDL CHOLESTEROL (test code = 2220) 37 MG/DL CALC LDL CHOL (test code = 2237) 115 MG/DL RISK RATIO LDL/HDL (test code = 3.11 RATIO 2238) PSA, [id number] 00:00:00 Test Item Value Reference Range Interpretation Comments PSA, TOTAL (test code = 2606) 2.45 NG/ML PSA, [id number] 00:00:00 Test Item Value Reference Range Interpretation Comments PSA, TOTAL (test code = 2606) 2.45 NG/ML PSA, [id number] 00:00:00 Test Item Value Reference Range Interpretation Comments PSA, TOTAL (test code = 2606) 2.45 NG/ML PSA, [id number] 00:00:00 Test Item Value Reference Range Interpretation Comments PSA, TOTAL (test code = 2606) 2.45 NG/ML PSA, [id number] 00:00:00 Test Item Value Reference Range Interpretation Comments PSA, TOTAL (test code = 2606) 2.45 NG/ML PSA, [id number] 00:00:00 Test Item Value Reference Range Interpretation Comments PSA, TOTAL (test code = 2606) 2.45 NG/ML PSA, [id number] 00:00:00 Test Item Value Reference Range Interpretation Comments PSA, TOTAL (test code = 2606) 2.45 NG/ML PSA, [id number] 00:00:00 Test Item Value Reference Range Interpretation Comments PSA, TOTAL (test code = 2606) 2.45 NG/ML PSA, [id number] 00:00:00 Test Item Value Reference Range Interpretation Comments PSA, TOTAL (test code = 2606) 2.45 NG/ML PSA, [id number] 00:00:00 Test Item Value Reference Range Interpretation Comments PSA, TOTAL (test code = 2606) 2.45 NG/ML PSA, [id number] 00:00:00 Test Item Value Reference Range Interpretation Comments PSA, TOTAL (test code = 2606) 2.45 NG/ML PSA, [id number] 00:00:00 Test Item Value Reference Range Interpretation Comments PSA, TOTAL (test code = 2606) 2.45 NG/ML COMPREHENSIVE METABOLIC [id number] 00:00:00 Test Item Value Reference Range Interpretation Comments GLUCOSE (test code = 2217) 123 MG/DL BUN (test code = 2208) 12 MG/DL CREATININE (test code = 2214) 1.03 MG/DL eGFR AMER. (test code 91 ML/MIN/1.73 = 30982) eGFR NON- AMER. (test 79 ML/MIN/1.73 code = 80135) CALC BUN/CREAT (test code = 12 RATIO 2235) SODIUM (test code = 2231) 141 MEQ/L POTASSIUM (test code = 2228) 5.2 MEQ/L CHLORIDE (test code = 2215) 97 MEQ/L CARBON DIOXIDE (test code = 27 MEQ/L 2205) CALCIUM (test code = 2209) 10.0 MG/DL PROTEIN, TOTAL (test code = 8.1 G/DL 2228) ALBUMIN (test code = 2201) 4.4 G/DL CALC GLOBULIN (test code = 3.7 G/DL 2240) CALC A/G RATIO (test code = 1.2 RATIO 2234) BILIRUBIN, TOTAL (test code = 0.2 MG/DL 2206) ALKALINE PHOSPHATASE (test 95 U/L code = 2204) AST (test code = 2218) 18 U/L ALT (test code = 2219) 11 U/L COMPREHENSIVE METABOLIC [id number] 00:00:00 Test Item Value Reference Range Interpretation Comments GLUCOSE (test code = 2217) 123 MG/DL BUN (test code = 2208) 12 MG/DL CREATININE (test code = 2214) 1.03 MG/DL eGFR AMER. (test code 91 ML/MIN/1.73 = 15487) eGFR NON- AMER. (test 79 ML/MIN/1.73 code = 62992) CALC BUN/CREAT (test code = 12 RATIO 2235) SODIUM (test code = 2231) 141 MEQ/L POTASSIUM (test code = 2228) 5.2 MEQ/L CHLORIDE (test code = 2215) 97 MEQ/L CARBON DIOXIDE (test code = 27 MEQ/L 2205) CALCIUM (test code = 2209) 10.0 MG/DL PROTEIN, TOTAL (test code = 8.1 G/DL 2228) ALBUMIN (test code = 220) 4.4 G/DL CALC GLOBULIN (test code = 3.7 G/DL 2239) CALC A/G RATIO (test code = 1.2 RATIO 2233) BILIRUBIN, TOTAL (test code = 0.2 MG/DL 2206) ALKALINE PHOSPHATASE (test 95 U/L code = 2204) AST (test code = 2218) 18 U/L ALT (test code = 2219) 11 U/L HEMOGLOBIN [id number] 00:00:00 Test Item Value Reference Range Interpretation Comments HEMOGLOBIN A1c (test code = 14675) 6.8 % HEMOGLOBIN [id number] 00:00:00 Test Item Value Reference Range Interpretation Comments HEMOGLOBIN A1c (test code = 59772) 6.8 % HEMOGLOBIN [id number] 00:00:00 Test Item Value Reference Range Interpretation Comments HEMOGLOBIN A1c (test code = 38875) 6.8 % COMPREHENSIVE METABOLIC [id number] 00:00:00 Test Item Value Reference Range Interpretation Comments GLUCOSE (test code = 2217) 123 MG/DL BUN (test code = 2208) 12 MG/DL CREATININE (test code = 2214) 1.03 MG/DL eGFR AMER. (test code 91 ML/MIN/1.73 = 61677) eGFR NON- AMER. (test 79 ML/MIN/1.73 code = 47543) CALC BUN/CREAT (test code = 12 RATIO 2235) SODIUM (test code = 2231) 141 MEQ/L POTASSIUM (test code = 2228) 5.2 MEQ/L CHLORIDE (test code = 2215) 97 MEQ/L CARBON DIOXIDE (test code = 27 MEQ/L 2206) CALCIUM (test code = 2209) 10.0 MG/DL PROTEIN, TOTAL (test code = 8.1 G/DL 222) ALBUMIN (test code = 2201) 4.4 G/DL CALC GLOBULIN (test code = 3.7 G/DL 2240) CALC A/G RATIO (test code = 1.2 RATIO 2234) BILIRUBIN, TOTAL (test code = 0.2 MG/DL 220) ALKALINE PHOSPHATASE (test 95 U/L code = 2204) AST (test code = 2218) 18 U/L ALT (test code = 2219) 11 U/L COMPREHENSIVE METABOLIC [id number] 00:00:00 Test Item Value Reference Range Interpretation Comments GLUCOSE (test code = 2217) 123 MG/DL BUN (test code = 2208) 12 MG/DL CREATININE (test code = 2214) 1.03 MG/DL eGFR AMER. (test code 91 ML/MIN/1.73 = 84592) eGFR NON- AMER. (test 79 ML/MIN/1.73 code = 66027) CALC BUN/CREAT (test code = 12 RATIO 2235) SODIUM (test code = 2231) 141 MEQ/L POTASSIUM (test code = 2228) 5.2 MEQ/L CHLORIDE (test code = 2215) 97 MEQ/L CARBON DIOXIDE (test code = 27 MEQ/L 2206) CALCIUM (test code = 2209) 10.0 MG/DL PROTEIN, TOTAL (test code = 8.1 G/DL 2228) ALBUMIN (test code = 2201) 4.4 G/DL CALC GLOBULIN (test code = 3.7 G/DL 2240) CALC A/G RATIO (test code = 1.2 RATIO 2234) BILIRUBIN, TOTAL (test code = 0.2 MG/DL 2207) ALKALINE PHOSPHATASE (test 95 U/L code = 2204) AST (test code = 2218) 18 U/L ALT (test code = 2219) 11 U/L HEMOGLOBIN [id number] 00:00:00 Test Item Value Reference Range Interpretation Comments HEMOGLOBIN A1c (test code = 73460) 6.8 % HEMOGLOBIN [id number] 00:00:00 Test Item Value Reference Range Interpretation Comments HEMOGLOBIN A1c (test code = 99209) 6.8 % HEMOGLOBIN [id number] 00:00:00 Test Item Value Reference Range Interpretation Comments HEMOGLOBIN A1c (test code = 57850) 6.8 % COMPREHENSIVE METABOLIC [id number] 00:00:00 Test Item Value Reference Range Interpretation Comments GLUCOSE (test code = 2217) 123 MG/DL BUN (test code = 2208) 12 MG/DL CREATININE (test code = 2214) 1.03 MG/DL eGFR AMER. (test code 91 ML/MIN/1.73 = 43207) eGFR NON- AMER. (test 79 ML/MIN/1.73 code = 75134) CALC BUN/CREAT (test code = 12 RATIO 2235) SODIUM (test code = 2231) 141 MEQ/L POTASSIUM (test code = 2228) 5.2 MEQ/L CHLORIDE (test code = 2215) 97 MEQ/L CARBON DIOXIDE (test code = 27 MEQ/L 2205) CALCIUM (test code = 2209) 10.0 MG/DL PROTEIN, TOTAL (test code = 8.1 G/DL 2228) ALBUMIN (test code = 2201) 4.4 G/DL CALC GLOBULIN (test code = 3.7 G/DL 0) CALC A/G RATIO (test code = 1.2 RATIO 4) BILIRUBIN, TOTAL (test code = 0.2 MG/DL 2206) ALKALINE PHOSPHATASE (test 95 U/L code = 2204) AST (test code = 2218) 18 U/L ALT (test code = 2219) 11 U/L COMPREHENSIVE METABOLIC [id number] 00:00:00 Test Item Value Reference Range Interpretation Comments GLUCOSE (test code = 2217) 123 MG/DL BUN (test code = 2208) 12 MG/DL CREATININE (test code = 2214) 1.03 MG/DL eGFR AMER. (test code 91 ML/MIN/1.73 = 76807) eGFR NON- AMER. (test 79 ML/MIN/1.73 code = 01269) CALC BUN/CREAT (test code = 12 RATIO 2235) SODIUM (test code = 2231) 141 MEQ/L POTASSIUM (test code = 2228) 5.2 MEQ/L CHLORIDE (test code = 2215) 97 MEQ/L CARBON DIOXIDE (test code = 27 MEQ/L 2205) CALCIUM (test code = 220) 10.0 MG/DL PROTEIN, TOTAL (test code = 8.1 G/DL 2228) ALBUMIN (test code = 2201) 4.4 G/DL CALC GLOBULIN (test code = 3.7 G/DL 2240) CALC A/G RATIO (test code = 1.2 RATIO 2234) BILIRUBIN, TOTAL (test code = 0.2 MG/DL 2206) ALKALINE PHOSPHATASE (test 95 U/L code = 2204) AST (test code = 2218) 18 U/L ALT (test code = 2219) 11 U/L HEMOGLOBIN [id number] 00:00:00 Test Item Value Reference Range Interpretation Comments HEMOGLOBIN A1c (test code = 96371) 6.8 % HEMOGLOBIN [id number] 00:00:00 Test Item Value Reference Range Interpretation Comments HEMOGLOBIN A1c (test code = 07823) 6.8 % HEMOGLOBIN [id number] 00:00:00 Test Item Value Reference Range Interpretation Comments HEMOGLOBIN A1c (test code = 57981) 6.8 % COMPREHENSIVE METABOLIC [id number] 00:00:00 Test Item Value Reference Range Interpretation Comments GLUCOSE (test code = 2217) 123 MG/DL BUN (test code = 2208) 12 MG/DL CREATININE (test code = 2214) 1.03 MG/DL eGFR AMER. (test code 91 ML/MIN/1.73 = 79454) eGFR NON- AMER. (test 79 ML/MIN/1.73 code = 76210) CALC BUN/CREAT (test code = 12 RATIO 2235) SODIUM (test code = 2231) 141 MEQ/L POTASSIUM (test code = 2228) 5.2 MEQ/L CHLORIDE (test code = 2215) 97 MEQ/L CARBON DIOXIDE (test code = 27 MEQ/L 2205) CALCIUM (test code = 2209) 10.0 MG/DL PROTEIN, TOTAL (test code = 8.1 G/DL 2228) ALBUMIN (test code = 2201) 4.4 G/DL CALC GLOBULIN (test code = 3.7 G/DL 2240) CALC A/G RATIO (test code = 1.2 RATIO 2234) BILIRUBIN, TOTAL (test code = 0.2 MG/DL 2206) ALKALINE PHOSPHATASE (test 95 U/L code = 2204) AST (test code = 2218) 18 U/L ALT (test code = 2219) 11 U/L COMPREHENSIVE METABOLIC [id number] 00:00:00 Test Item Value Reference Range Interpretation Comments GLUCOSE (test code = 2217) 123 MG/DL BUN (test code = 2208) 12 MG/DL CREATININE (test code = 2214) 1.03 MG/DL eGFR AMER. (test code 91 ML/MIN/1.73 = 61467) eGFR NON- AMER. (test 79 ML/MIN/1.73 code = 64808) CALC BUN/CREAT (test code = 12 RATIO 2235) SODIUM (test code = 2231) 141 MEQ/L POTASSIUM (test code = 2228) 5.2 MEQ/L CHLORIDE (test code = 2215) 97 MEQ/L CARBON DIOXIDE (test code = 27 MEQ/L 6) CALCIUM (test code = 2209) 10.0 MG/DL PROTEIN, TOTAL (test code = 8.1 G/DL 2228) ALBUMIN (test code = 2201) 4.4 G/DL CALC GLOBULIN (test code = 3.7 G/DL 2240) CALC A/G RATIO (test code = 1.2 RATIO 2234) BILIRUBIN, TOTAL (test code = 0.2 MG/DL 2206) ALKALINE PHOSPHATASE (test 95 U/L code = 2204) AST (test code = 2218) 18 U/L ALT (test code = 2219) 11 U/L HEMOGLOBIN [id number] 00:00:00 Test Item Value Reference Range Interpretation Comments HEMOGLOBIN A1c (test code = 92091) 6.8 % HEMOGLOBIN [id number] 00:00:00 Test Item Value Reference Range Interpretation Comments HEMOGLOBIN A1c (test code = 67920) 6.8 % HEMOGLOBIN [id number] 00:00:00 Test Item Value Reference Range Interpretation Comments HEMOGLOBIN A1c (test code = 65127) 6.8 % COMPREHENSIVE METABOLIC [id number] 00:00:00 Test Item Value Reference Range Interpretation Comments GLUCOSE (test code = 2217) 147 MG/DL BUN (test code = 2208) 8 MG/DL CREATININE (test code = 2214) 0.91 MG/DL eGFR AMER. (test code 106 ML/MIN/1.73 = 07238) eGFR NON- AMER. (test 91 ML/MIN/1.73 code = 21780) CALC BUN/CREAT (test code = 9 RATIO 2235) SODIUM (test code = 2231) 136 MEQ/L POTASSIUM (test code = 2228) 4.3 MEQ/L CHLORIDE (test code = 2215) 94 MEQ/L CARBON DIOXIDE (test code = 28 MEQ/L 2206) CALCIUM (test code = 2209) 9.3 MG/DL PROTEIN, TOTAL (test code = 8.0 G/DL 222) ALBUMIN (test code = 2201) 4.1 G/DL CALC GLOBULIN (test code = 3.9 G/DL 2240) CALC A/G RATIO (test code = 1.1 RATIO 2234) BILIRUBIN, TOTAL (test code = 0.3 MG/DL 2206) ALKALINE PHOSPHATASE (test 92 U/L code = 2204) AST (test code = 2218) 20 U/L ALT (test code = 2219) 27 U/L COMPREHENSIVE METABOLIC [id number] 00:00:00 Test Item Value Reference Range Interpretation Comments GLUCOSE (test code = 2217) 147 MG/DL BUN (test code = 2208) 8 MG/DL CREATININE (test code = 2214) 0.91 MG/DL eGFR AMER. (test code 106 ML/MIN/1.73 = 38969) eGFR NON- AMER. (test 91 ML/MIN/1.73 code = 93969) CALC BUN/CREAT (test code = 9 RATIO 2235) SODIUM (test code = 2231) 136 MEQ/L POTASSIUM (test code = 2228) 4.3 MEQ/L CHLORIDE (test code = 2215) 94 MEQ/L CARBON DIOXIDE (test code = 28 MEQ/L 2206) CALCIUM (test code = 2209) 9.3 MG/DL PROTEIN, TOTAL (test code = 8.0 G/DL 2229) ALBUMIN (test code = 2201) 4.1 G/DL CALC GLOBULIN (test code = 3.9 G/DL 2240) CALC A/G RATIO (test code = 1.1 RATIO 2234) BILIRUBIN, TOTAL (test code = 0.3 MG/DL 2206) ALKALINE PHOSPHATASE (test 92 U/L code = 2204) AST (test code = 2218) 20 U/L ALT (test code = 2219) 27 U/L LIPID [id number] 00:00:00 Test Item Value Reference Range Interpretation Comments CHOLESTEROL (test code = 2210) 210 MG/DL TRIGLYCERIDES (test code = 2232) 126 MG/DL HDL CHOLESTEROL (test code = 2220) 32 MG/DL CALC LDL CHOL (test code = 2237) 153 MG/DL RISK RATIO LDL/HDL (test code = 4.78 RATIO 2238) LIPID [id number] 00:00:00 Test Item Value Reference Range Interpretation Comments CHOLESTEROL (test code = 2210) 210 MG/DL TRIGLYCERIDES (test code = 2232) 126 MG/DL HDL CHOLESTEROL (test code = 2220) 32 MG/DL CALC LDL CHOL (test code = 2237) 153 MG/DL RISK RATIO LDL/HDL (test code = 4.78 RATIO 2238) CBC W/AUTO [id number] 00:00:00 Test Item Value Reference Range Interpretation Comments WBC (test code = 1001) 7.7 K/UL RBC (test code = 1002) 5.45 M/UL HEMOGLOBIN (test code = 1003) 14.6 G/DL HEMATOCRIT (test code = 1004) 44.2 % MCV (test code = 1005) 81.1 fL MCH (test code = 1006) 26.8 PG MCHC (test code = 1007) 33.0 G/DL RDW (test code = 1038) 12.9 % NEUTROPHILS (test code = 1008) 62.4 % LYMPHOCYTES (test code = 1010) 28.9 % MONOCYTES (test code = 1011) 7.3 % EOSINOPHILS (test code = 1012) 0.9 % BASOPHILS (test code = 1013) 0.5 % PLATELET COUNT (test code = 1015) 527 K/UL CBC W/AUTO [id number] 00:00:00 Test Item Value Reference Range Interpretation Comments WBC (test code = 1001) 7.7 K/UL RBC (test code = 1002) 5.45 M/UL HEMOGLOBIN (test code = 1003) 14.6 G/DL HEMATOCRIT (test code = 1004) 44.2 % MCV (test code = 1005) 81.1 fL MCH (test code = 1006) 26.8 PG MCHC (test code = 1007) 33.0 G/DL RDW (test code = 1038) 12.9 % NEUTROPHILS (test code = 1008) 62.4 % LYMPHOCYTES (test code = 1010) 28.9 % MONOCYTES (test code = 1011) 7.3 % EOSINOPHILS (test code = 1012) 0.9 % BASOPHILS (test code = 1013) 0.5 % PLATELET COUNT (test code = 1015) 527 K/UL CBC W/AUTO [id number] 00:00:00 Test Item Value Reference Range Interpretation Comments WBC (test code = 1001) 7.7 K/UL RBC (test code = 1002) 5.45 M/UL HEMOGLOBIN (test code = 1003) 14.6 G/DL HEMATOCRIT (test code = 1004) 44.2 % MCV (test code = 1005) 81.1 fL MCH (test code = 1006) 26.8 PG MCHC (test code = 1007) 33.0 G/DL RDW (test code = 1038) 12.9 % NEUTROPHILS (test code = 1008) 62.4 % LYMPHOCYTES (test code = 1010) 28.9 % MONOCYTES (test code = 1011) 7.3 % EOSINOPHILS (test code = 1012) 0.9 % BASOPHILS (test code = 1013) 0.5 % PLATELET COUNT (test code = 1015) 527 K/UL HEMOGLOBIN [id number] 00:00:00 Test Item Value Reference Range Interpretation Comments HEMOGLOBIN A1c (test code = 98318) 8.9 % HEMOGLOBIN [id number] 00:00:00 Test Item Value Reference Range Interpretation Comments HEMOGLOBIN A1c (test code = 80972) 8.9 % HEMOGLOBIN [id number] 00:00:00 Test Item Value Reference Range Interpretation Comments HEMOGLOBIN A1c (test code = 12572) 8.9 % [id number] 00:00:00 Test Item Value Reference Range Interpretation Comments TSH (test code = 2821) 0.960 UIU/ML [id number] 00:00:00 Test Item Value Reference Range Interpretation Comments TSH (test code = 2821) 0.960 UIU/ML [id number] 00:00:00 Test Item Value Reference Range Interpretation Comments TSH (test code = 2821) 0.960 UIU/ML PSA, [id number] 00:00:00 Test Item Value Reference Range Interpretation Comments PSA, TOTAL (test code = 2606) 15.63 NG/ML PSA, [id number] 00:00:00 Test Item Value Reference Range Interpretation Comments PSA, TOTAL (test code = 2606) 15.63 NG/ML PSA, [id number] 00:00:00 Test Item Value Reference Range Interpretation Comments PSA, TOTAL (test code = 2606) 15.63 NG/ML COMPREHENSIVE METABOLIC [id number] 00:00:00 Test Item Value Reference Range Interpretation Comments GLUCOSE (test code = 2217) 147 MG/DL BUN (test code = 2208) 8 MG/DL CREATININE (test code = 2214) 0.91 MG/DL eGFR AMER. (test code 106 ML/MIN/1.73 = 14220) eGFR NON- AMER. (test 91 ML/MIN/1.73 code = 19488) CALC BUN/CREAT (test code = 9 RATIO 2235) SODIUM (test code = 2231) 136 MEQ/L POTASSIUM (test code = 2228) 4.3 MEQ/L CHLORIDE (test code = 2215) 94 MEQ/L CARBON DIOXIDE (test code = 28 MEQ/L 6) CALCIUM (test code = 2209) 9.3 MG/DL PROTEIN, TOTAL (test code = 8.0 G/DL 2228) ALBUMIN (test code = 2201) 4.1 G/DL CALC GLOBULIN (test code = 3.9 G/DL 2240) CALC A/G RATIO (test code = 1.1 RATIO 2234) BILIRUBIN, TOTAL (test code = 0.3 MG/DL 2206) ALKALINE PHOSPHATASE (test 92 U/L code = 2204) AST (test code = 2218) 20 U/L ALT (test code = 2219) 27 U/L COMPREHENSIVE METABOLIC [id number] 00:00:00 Test Item Value Reference Range Interpretation Comments GLUCOSE (test code = 2217) 147 MG/DL BUN (test code = 2208) 8 MG/DL CREATININE (test code = 2214) 0.91 MG/DL eGFR AMER. (test code 106 ML/MIN/1.73 = 87173) eGFR NON- AMER. (test 91 ML/MIN/1.73 code = 81737) CALC BUN/CREAT (test code = 9 RATIO 2235) SODIUM (test code = 2231) 136 MEQ/L POTASSIUM (test code = 2228) 4.3 MEQ/L CHLORIDE (test code = 2215) 94 MEQ/L CARBON DIOXIDE (test code = 28 MEQ/L 2205) CALCIUM (test code = 2209) 9.3 MG/DL PROTEIN, TOTAL (test code = 8.0 G/DL 2228) ALBUMIN (test code = 2201) 4.1 G/DL CALC GLOBULIN (test code = 3.9 G/DL 2239) CALC A/G RATIO (test code = 1.1 RATIO 2233) BILIRUBIN, TOTAL (test code = 0.3 MG/DL 2206) ALKALINE PHOSPHATASE (test 92 U/L code = 2204) AST (test code = 2218) 20 U/L ALT (test code = 2219) 27 U/L LIPID [id number] 00:00:00 Test Item Value Reference Range Interpretation Comments CHOLESTEROL (test code = 2210) 210 MG/DL TRIGLYCERIDES (test code = 2232) 126 MG/DL HDL CHOLESTEROL (test code = 2220) 32 MG/DL CALC LDL CHOL (test code = 2237) 153 MG/DL RISK RATIO LDL/HDL (test code = 4.78 RATIO 2238) LIPID [id number] 00:00:00 Test Item Value Reference Range Interpretation Comments CHOLESTEROL (test code = 2210) 210 MG/DL TRIGLYCERIDES (test code = 2232) 126 MG/DL HDL CHOLESTEROL (test code = 2220) 32 MG/DL CALC LDL CHOL (test code = 2237) 153 MG/DL RISK RATIO LDL/HDL (test code = 4.78 RATIO 2238) CBC W/AUTO [id number] 00:00:00 Test Item Value Reference Range Interpretation Comments WBC (test code = 1001) 7.7 K/UL RBC (test code = 1002) 5.45 M/UL HEMOGLOBIN (test code = 1003) 14.6 G/DL HEMATOCRIT (test code = 1004) 44.2 % MCV (test code = 1005) 81.1 fL MCH (test code = 1006) 26.8 PG MCHC (test code = 1007) 33.0 G/DL RDW (test code = 1038) 12.9 % NEUTROPHILS (test code = 1008) 62.4 % LYMPHOCYTES (test code = 1010) 28.9 % MONOCYTES (test code = 1011) 7.3 % EOSINOPHILS (test code = 1012) 0.9 % BASOPHILS (test code = 1013) 0.5 % PLATELET COUNT (test code = 1015) 527 K/UL CBC W/AUTO [id number] 00:00:00 Test Item Value Reference Range Interpretation Comments WBC (test code = 1001) 7.7 K/UL RBC (test code = 1002) 5.45 M/UL HEMOGLOBIN (test code = 1003) 14.6 G/DL HEMATOCRIT (test code = 1004) 44.2 % MCV (test code = 1005) 81.1 fL MCH (test code = 1006) 26.8 PG MCHC (test code = 1007) 33.0 G/DL RDW (test code = 1038) 12.9 % NEUTROPHILS (test code = 1008) 62.4 % LYMPHOCYTES (test code = 1010) 28.9 % MONOCYTES (test code = 1011) 7.3 % EOSINOPHILS (test code = 1012) 0.9 % BASOPHILS (test code = 1013) 0.5 % PLATELET COUNT (test code = 1015) 527 K/UL CBC W/AUTO [id number] 00:00:00 Test Item Value Reference Range Interpretation Comments WBC (test code = 1001) 7.7 K/UL RBC (test code = 1002) 5.45 M/UL HEMOGLOBIN (test code = 1003) 14.6 G/DL HEMATOCRIT (test code = 1004) 44.2 % MCV (test code = 1005) 81.1 fL MCH (test code = 1006) 26.8 PG MCHC (test code = 1007) 33.0 G/DL RDW (test code = 1038) 12.9 % NEUTROPHILS (test code = 1008) 62.4 % LYMPHOCYTES (test code = 1010) 28.9 % MONOCYTES (test code = 1011) 7.3 % EOSINOPHILS (test code = 1012) 0.9 % BASOPHILS (test code = 1013) 0.5 % PLATELET COUNT (test code = 1015) 527 K/UL HEMOGLOBIN [id number] 00:00:00 Test Item Value Reference Range Interpretation Comments HEMOGLOBIN A1c (test code = 45085) 8.9 % HEMOGLOBIN [id number] 00:00:00 Test Item Value Reference Range Interpretation Comments HEMOGLOBIN A1c (test code = 44445) 8.9 % HEMOGLOBIN [id number] 00:00:00 Test Item Value Reference Range Interpretation Comments HEMOGLOBIN A1c (test code = 82400) 8.9 % [id number] 00:00:00 Test Item Value Reference Range Interpretation Comments TSH (test code = 2821) 0.960 UIU/ML [id number] 00:00:00 Test Item Value Reference Range Interpretation Comments TSH (test code = 2821) 0.960 UIU/ML [id number] 00:00:00 Test Item Value Reference Range Interpretation Comments TSH (test code = 2821) 0.960 UIU/ML PSA, [id number] 00:00:00 Test Item Value Reference Range Interpretation Comments PSA, TOTAL (test code = 2606) 15.63 NG/ML PSA, [id number] 00:00:00 Test Item Value Reference Range Interpretation Comments PSA, TOTAL (test code = 2606) 15.63 NG/ML PSA, [id number] 00:00:00 Test Item Value Reference Range Interpretation Comments PSA, TOTAL (test code = 2606) 15.63 NG/ML COMPREHENSIVE METABOLIC [id number] 00:00:00 Test Item Value Reference Range Interpretation Comments GLUCOSE (test code = 2217) 147 MG/DL BUN (test code = 2208) 8 MG/DL CREATININE (test code = 2214) 0.91 MG/DL eGFR AMER. (test code 106 ML/MIN/1.73 = 76328) eGFR NON- AMER. (test 91 ML/MIN/1.73 code = 14381) CALC BUN/CREAT (test code = 9 RATIO 2235) SODIUM (test code = 2231) 136 MEQ/L POTASSIUM (test code = 2228) 4.3 MEQ/L CHLORIDE (test code = 2215) 94 MEQ/L CARBON DIOXIDE (test code = 28 MEQ/L 2205) CALCIUM (test code = 2209) 9.3 MG/DL PROTEIN, TOTAL (test code = 8.0 G/DL 2228) ALBUMIN (test code = 2201) 4.1 G/DL CALC GLOBULIN (test code = 3.9 G/DL 2239) CALC A/G RATIO (test code = 1.1 RATIO 2234) BILIRUBIN, TOTAL (test code = 0.3 MG/DL 220) ALKALINE PHOSPHATASE (test 92 U/L code = 2204) AST (test code = 2218) 20 U/L ALT (test code = 2219) 27 U/L COMPREHENSIVE METABOLIC [id number] 00:00:00 Test Item Value Reference Range Interpretation Comments GLUCOSE (test code = 2217) 147 MG/DL BUN (test code = 2208) 8 MG/DL CREATININE (test code = 2214) 0.91 MG/DL eGFR AMER. (test code 106 ML/MIN/1.73 = 71594) eGFR NON- AMER. (test 91 ML/MIN/1.73 code = 77587) CALC BUN/CREAT (test code = 9 RATIO 2235) SODIUM (test code = 2231) 136 MEQ/L POTASSIUM (test code = 2228) 4.3 MEQ/L CHLORIDE (test code = 2215) 94 MEQ/L CARBON DIOXIDE (test code = 28 MEQ/L 2205) CALCIUM (test code = 2209) 9.3 MG/DL PROTEIN, TOTAL (test code = 8.0 G/DL 2228) ALBUMIN (test code = 2201) 4.1 G/DL CALC GLOBULIN (test code = 3.9 G/DL 2240) CALC A/G RATIO (test code = 1.1 RATIO 2234) BILIRUBIN, TOTAL (test code = 0.3 MG/DL 2206) ALKALINE PHOSPHATASE (test 92 U/L code = 2204) AST (test code = 2218) 20 U/L ALT (test code = 2219) 27 U/L LIPID [id number] 00:00:00 Test Item Value Reference Range Interpretation Comments CHOLESTEROL (test code = 2210) 210 MG/DL TRIGLYCERIDES (test code = 2232) 126 MG/DL HDL CHOLESTEROL (test code = 2220) 32 MG/DL CALC LDL CHOL (test code = 2237) 153 MG/DL RISK RATIO LDL/HDL (test code = 4.78 RATIO 2238) LIPID [id number] 00:00:00 Test Item Value Reference Range Interpretation Comments CHOLESTEROL (test code = 2210) 210 MG/DL TRIGLYCERIDES (test code = 2232) 126 MG/DL HDL CHOLESTEROL (test code = 2220) 32 MG/DL CALC LDL CHOL (test code = 2237) 153 MG/DL RISK RATIO LDL/HDL (test code = 4.78 RATIO 2238) CBC W/AUTO [id number] 00:00:00 Test Item Value Reference Range Interpretation Comments WBC (test code = 1001) 7.7 K/UL RBC (test code = 1002) 5.45 M/UL HEMOGLOBIN (test code = 1003) 14.6 G/DL HEMATOCRIT (test code = 1004) 44.2 % MCV (test code = 1005) 81.1 fL MCH (test code = 1006) 26.8 PG MCHC (test code = 1007) 33.0 G/DL RDW (test code = 1038) 12.9 % NEUTROPHILS (test code = 1008) 62.4 % LYMPHOCYTES (test code = 1010) 28.9 % MONOCYTES (test code = 1011) 7.3 % EOSINOPHILS (test code = 1012) 0.9 % BASOPHILS (test code = 1013) 0.5 % PLATELET COUNT (test code = 1015) 527 K/UL CBC W/AUTO [id number] 00:00:00 Test Item Value Reference Range Interpretation Comments WBC (test code = 1001) 7.7 K/UL RBC (test code = 1002) 5.45 M/UL HEMOGLOBIN (test code = 1003) 14.6 G/DL HEMATOCRIT (test code = 1004) 44.2 % MCV (test code = 1005) 81.1 fL MCH (test code = 1006) 26.8 PG MCHC (test code = 1007) 33.0 G/DL RDW (test code = 1038) 12.9 % NEUTROPHILS (test code = 1008) 62.4 % LYMPHOCYTES (test code = 1010) 28.9 % MONOCYTES (test code = 1011) 7.3 % EOSINOPHILS (test code = 1012) 0.9 % BASOPHILS (test code = 1013) 0.5 % PLATELET COUNT (test code = 1015) 527 K/UL CBC W/AUTO [id number] 00:00:00 Test Item Value Reference Range Interpretation Comments WBC (test code = 1001) 7.7 K/UL RBC (test code = 1002) 5.45 M/UL HEMOGLOBIN (test code = 1003) 14.6 G/DL HEMATOCRIT (test code = 1004) 44.2 % MCV (test code = 1005) 81.1 fL MCH (test code = 1006) 26.8 PG MCHC (test code = 1007) 33.0 G/DL RDW (test code = 1038) 12.9 % NEUTROPHILS (test code = 1008) 62.4 % LYMPHOCYTES (test code = 1010) 28.9 % MONOCYTES (test code = 1011) 7.3 % EOSINOPHILS (test code = 1012) 0.9 % BASOPHILS (test code = 1013) 0.5 % PLATELET COUNT (test code = 1015) 527 K/UL HEMOGLOBIN [id number] 00:00:00 Test Item Value Reference Range Interpretation Comments HEMOGLOBIN A1c (test code = 53430) 8.9 % HEMOGLOBIN [id number] 00:00:00 Test Item Value Reference Range Interpretation Comments HEMOGLOBIN A1c (test code = 77708) 8.9 % HEMOGLOBIN [id number] 00:00:00 Test Item Value Reference Range Interpretation Comments HEMOGLOBIN A1c (test code = 82582) 8.9 % [id number] 00:00:00 Test Item Value Reference Range Interpretation Comments TSH (test code = 2821) 0.960 UIU/ML [id number] 00:00:00 Test Item Value Reference Range Interpretation Comments TSH (test code = 2821) 0.960 UIU/ML [id number] 00:00:00 Test Item Value Reference Range Interpretation Comments TSH (test code = 2821) 0.960 UIU/ML PSA, [id number] 00:00:00 Test Item Value Reference Range Interpretation Comments PSA, TOTAL (test code = 2606) 15.63 NG/ML PSA, [id number] 00:00:00 Test Item Value Reference Range Interpretation Comments PSA, TOTAL (test code = 2606) 15.63 NG/ML PSA, [id number] 00:00:00 Test Item Value Reference Range Interpretation Comments PSA, TOTAL (test code = 2606) 15.63 NG/ML COMPREHENSIVE METABOLIC [id number] 00:00:00 Test Item Value Reference Range Interpretation Comments GLUCOSE (test code = 2217) 147 MG/DL BUN (test code = 2208) 8 MG/DL CREATININE (test code = 2214) 0.91 MG/DL eGFR AMER. (test code 106 ML/MIN/1.73 = 39462) eGFR NON- AMER. (test 91 ML/MIN/1.73 code = 22502) CALC BUN/CREAT (test code = 9 RATIO 2235) SODIUM (test code = 2231) 136 MEQ/L POTASSIUM (test code = 2228) 4.3 MEQ/L CHLORIDE (test code = 2215) 94 MEQ/L CARBON DIOXIDE (test code = 28 MEQ/L 220) CALCIUM (test code = 2209) 9.3 MG/DL PROTEIN, TOTAL (test code = 8.0 G/DL 2228) ALBUMIN (test code = 2201) 4.1 G/DL CALC GLOBULIN (test code = 3.9 G/DL 2240) CALC A/G RATIO (test code = 1.1 RATIO 2234) BILIRUBIN, TOTAL (test code = 0.3 MG/DL 2206) ALKALINE PHOSPHATASE (test 92 U/L code = 2204) AST (test code = 2218) 20 U/L ALT (test code = 2219) 27 U/L COMPREHENSIVE METABOLIC [id number] 00:00:00 Test Item Value Reference Range Interpretation Comments GLUCOSE (test code = 2217) 147 MG/DL BUN (test code = 2208) 8 MG/DL CREATININE (test code = 2214) 0.91 MG/DL eGFR AMER. (test code 106 ML/MIN/1.73 = 05734) eGFR NON- AMER. (test 91 ML/MIN/1.73 code = 45859) CALC BUN/CREAT (test code = 9 RATIO 2235) SODIUM (test code = 2231) 136 MEQ/L POTASSIUM (test code = 2228) 4.3 MEQ/L CHLORIDE (test code = 2215) 94 MEQ/L CARBON DIOXIDE (test code = 28 MEQ/L 2206) CALCIUM (test code = 2209) 9.3 MG/DL PROTEIN, TOTAL (test code = 8.0 G/DL 2228) ALBUMIN (test code = 2201) 4.1 G/DL CALC GLOBULIN (test code = 3.9 G/DL 2240) CALC A/G RATIO (test code = 1.1 RATIO 2234) BILIRUBIN, TOTAL (test code = 0.3 MG/DL 2206) ALKALINE PHOSPHATASE (test 92 U/L code = 2204) AST (test code = 2218) 20 U/L ALT (test code = 2219) 27 U/L LIPID [id number] 00:00:00 Test Item Value Reference Range Interpretation Comments CHOLESTEROL (test code = 2210) 210 MG/DL TRIGLYCERIDES (test code = 2232) 126 MG/DL HDL CHOLESTEROL (test code = 2220) 32 MG/DL CALC LDL CHOL (test code = 2237) 153 MG/DL RISK RATIO LDL/HDL (test code = 4.78 RATIO 2238) LIPID [id number] 00:00:00 Test Item Value Reference Range Interpretation Comments CHOLESTEROL (test code = 2210) 210 MG/DL TRIGLYCERIDES (test code = 2232) 126 MG/DL HDL CHOLESTEROL (test code = 2220) 32 MG/DL CALC LDL CHOL (test code = 2237) 153 MG/DL RISK RATIO LDL/HDL (test code = 4.78 RATIO 2238) CBC W/AUTO [id number] 00:00:00 Test Item Value Reference Range Interpretation Comments WBC (test code = 1001) 7.7 K/UL RBC (test code = 1002) 5.45 M/UL HEMOGLOBIN (test code = 1003) 14.6 G/DL HEMATOCRIT (test code = 1004) 44.2 % MCV (test code = 1005) 81.1 fL MCH (test code = 1006) 26.8 PG MCHC (test code = 1007) 33.0 G/DL RDW (test code = 1038) 12.9 % NEUTROPHILS (test code = 1008) 62.4 % LYMPHOCYTES (test code = 1010) 28.9 % MONOCYTES (test code = 1011) 7.3 % EOSINOPHILS (test code = 1012) 0.9 % BASOPHILS (test code = 1013) 0.5 % PLATELET COUNT (test code = 1015) 527 K/UL CBC W/AUTO [id number] 00:00:00 Test Item Value Reference Range Interpretation Comments WBC (test code = 1001) 7.7 K/UL RBC (test code = 1002) 5.45 M/UL HEMOGLOBIN (test code = 1003) 14.6 G/DL HEMATOCRIT (test code = 1004) 44.2 % MCV (test code = 1005) 81.1 fL MCH (test code = 1006) 26.8 PG MCHC (test code = 1007) 33.0 G/DL RDW (test code = 1038) 12.9 % NEUTROPHILS (test code = 1008) 62.4 % LYMPHOCYTES (test code = 1010) 28.9 % MONOCYTES (test code = 1011) 7.3 % EOSINOPHILS (test code = 1012) 0.9 % BASOPHILS (test code = 1013) 0.5 % PLATELET COUNT (test code = 1015) 527 K/UL CBC W/AUTO [id number] 00:00:00 Test Item Value Reference Range Interpretation Comments WBC (test code = 1001) 7.7 K/UL RBC (test code = 1002) 5.45 M/UL HEMOGLOBIN (test code = 1003) 14.6 G/DL HEMATOCRIT (test code = 1004) 44.2 % MCV (test code = 1005) 81.1 fL MCH (test code = 1006) 26.8 PG MCHC (test code = 1007) 33.0 G/DL RDW (test code = 1038) 12.9 % NEUTROPHILS (test code = 1008) 62.4 % LYMPHOCYTES (test code = 1010) 28.9 % MONOCYTES (test code = 1011) 7.3 % EOSINOPHILS (test code = 1012) 0.9 % BASOPHILS (test code = 1013) 0.5 % PLATELET COUNT (test code = 1015) 527 K/UL HEMOGLOBIN [id number] 00:00:00 Test Item Value Reference Range Interpretation Comments HEMOGLOBIN A1c (test code = 00960) 8.9 % HEMOGLOBIN [id number] 00:00:00 Test Item Value Reference Range Interpretation Comments HEMOGLOBIN A1c (test code = 62993) 8.9 % HEMOGLOBIN [id number] 00:00:00 Test Item Value Reference Range Interpretation Comments HEMOGLOBIN A1c (test code = 98522) 8.9 % [id number] 00:00:00 Test Item Value Reference Range Interpretation Comments TSH (test code = 2821) 0.960 UIU/ML [id number] 00:00:00 Test Item Value Reference Range Interpretation Comments TSH (test code = 2821) 0.960 UIU/ML [id number] 00:00:00 Test Item Value Reference Range Interpretation Comments TSH (test code = 2821) 0.960 UIU/ML PSA, [id number] 00:00:00 Test Item Value Reference Range Interpretation Comments PSA, TOTAL (test code = 2606) 15.63 NG/ML PSA, [id number] 00:00:00 Test Item Value Reference Range Interpretation Comments PSA, TOTAL (test code = 2606) 15.63 NG/ML PSA, [id number] 00:00:00 Test Item Value Reference Range Interpretation Comments PSA, TOTAL (test code = 2606) 15.63 NG/ML
--- NOTE | 2022-11-05 17:43 | RAD REPORT ---
EXAM DESCRIPTION: RAD - Lumbar Spine 3 Views - 11/05/2022 4:48 pm CLINICAL HISTORY: Back pain FINDINGS: No fracture or dislocation is seen. Mild spondylosis involves the lumbar spine
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
== END 2022-11-05 18:07 | disposition home or self-care (01) ==
LOC: ER 15:55
DX: M54.50 Low back pain, unspecified (principal); V49.40XA Driver injured in collision with unspecified motor vehicles in traffic accident, initial encounter
CPT/HCPCS: 72040; 72100; 99284

== ENCOUNTER 2024-08-13 11:26 | Emergency (ER) | payer OTHER ==
--- OUTSIDE RECORDS SUMMARY | 2024-08-13 11:38 | XMS REPORT | Continuity of Care Document ---
Author Name Unknown Address [address] [facility] [address] [place] [address] [facility] thconnect Address [address] [facility] [address] [place] [address] Care Team Providers Care Director Of Religious Activities Name Role Phone ZEKE BRENNER Primary Care Physician UnavailERMA Freeman Attending Clinician Unavailable YULISA FELIPE Attending Clinician Unavailable Yulisa Felipe MD Attending Clinician [phone] Problems Condition Name Condition Details Condition Category Status Onset Date Resolution Date Last Treatment Date Treating Clinician Comments Source No known active problems No known active problems Disease [facility] Allergies, Adverse Reactions, Alerts Allergy Name Allergy Type Status Severity Reaction(s) Onset Date Inactive Date Treating Clinician Comments Source NO KNOWN ALLERGIE S Drug Class Active [facility] Social History Social Habit Start Date Stop Date Quantity Comments Source Sex Assigned At [facility] Exposure to SARS-CoV-2 (event) Not sure [facility] Smoking Status Start Date Stop Date Source Unknown if ever smoked [facility] Medications Ordered Medication Name Filled Medication Name Start Date Stop Date Current Medication? Ordering Clinician Indication Dosage Frequency Signature (SIG) Comments Components Source metformin 1,000 mg tablet 2023-08 00:00: 00 Yes 1mg Anoop Rios metformin 1,000 mg tablet 2023-08 00:00: 00 Yes 1mg Anoop Rios metformin 1,000 mg tablet 2023-08 00:00: 00 Yes 1mg Anoop Rios carvedilol 25 mg tablet 04-18 00:00: 00 Yes mg Anoop Rios atorvastati n 20 mg tablet 0 04-18 00:00: 00 Yes mg Anoop Rios omeprazole 40 mg capsule,del ayed release 0 04-18 00:00: 00 Yes mg Anoop Rios aspirin 81 mg tablet,mariano yed release 0 04-18 00:00: 00 Yes mg Anoop Rios amlodipine 10 mg tablet 0 04-18 00:00: 00 Yes mg Anoop Rios losartan 50 mg-hydrochl orothiazide 12.5 mg tablet 04-18 00:00: 00 Yes mg Anoop Rios gabapentin 600 mg tablet 0 04-18 00:00: 00 Yes 1mg Anoop Rios metformin 1,000 mg tablet 0 04-18 00:00: 00 Yes 1mg Anoop Rios metformin 1,000 mg tablet 04-14 00:00: 00 Yes 1mg Anoop Rios losartan 50 mg-hydrochl orothiazide 12.5 mg tablet 04-13 00:00: 00 Yes mg Anoop Rios colchicine 0.6 mg tablet 02-20 00:00: 00 Yes mg Anoop Rios omeprazole 40 mg capsule,del ayed release 6 00:00: 00 Yes mg Anoop Rios gabapentin 600 mg tablet 0 6- 00:00: 00 Yes 1mg Anoop Rios omeprazole 20 mg capsule,del ayed release 0 - 00:00: 00 Yes 1mg Anoop Rios amlodipine 10 mg tablet 0 - 00:00: 00 Yes mg Anoop Rios losartan 50 mg-hydrochl orothiazide 12.5 mg tablet 0 11-17 00:00: 00 Yes mg Anoop Rios gabapentin 300 mg capsule 0 - 00:00: 00 Yes mg Aonop Rios carvedilol 25 mg tablet 0 - 00:00: 00 Yes mg Anoop Rios aspirin 81 mg tablet,mariano yed release 11-17 00:00: 00 Yes mg Anoop Rios atorvastati n 20 mg tablet 0 - 00:00: 00 Yes mg Anoop Rios metformin 1,000 mg tablet 3-28 00:00: 00 Yes 1mg Anoop Rios metformin 1,000 mg tablet 3-27 00:00: 00 Yes mg Anoop Rios TAKE 1 TABLET BY MOUTH TWICE A DAY 3-17 00:00: 00 Yes 1000 Anoop Rios amlodipine 10 mg tablet 2-09 00:00: 00 Yes mg Anoop Rios losartan 50 mg-hydrochl orothiazide 12.5 mg tablet 2-04 00:00: 00 Yes mg Anoop Rios aspirin 81 mg tablet,mariano yed release 1-16 00:00: 00 Yes mg Anoop Rios carvedilol 25 mg tablet -16 00:00: 00 Yes mg Anoop Rios gabapentin 300 mg capsule -16 00:00: 00 Yes mg Anoop Rios TAKE 1 TABLET BY MOUTH EVERY DAY -16 00:00: 00 Yes 10 Anoop Rios TAKE 1 TABLET BY MOUTH EVERY DAY -16 00:00: 00 Yes 20 Anoop Rios TAKE 1 TABLET DAILY. -16 00:00: 00 Yes [id number] Anoop Rios atorvastati n 20 mg tablet -12 00:00: 00 Yes mg Anoop Rios TAKE 1 TABLET TWICE DAILY. 2022-08-18 00:00: 00 12-22 00:00 :00 No 1000 Anoop Rios LOSARTAN/HC T 50-12.5 2022-08-11 00:00: 00 12-22 00:00 :00 No Anoop Rios TAKE 1 TABLET BY MOUTH EVERY DAY 2022-08 0-24 00:00: 00 12-22 00:00 :00 No 10 Anoop Rios TAKE 1 TABLET DAILY. 2022-08 0-24 00:00: 00 12-22 00:00 :00 No [id number] Anoop Rios ATORVASTATI N 20MG 2022-08 0-24 00:00: 00 12-22 00:00 :00 No Anoop Rios CARVEDILOL 25MG 2022-08 0-24 00:00: 00 12-22 00:00 :00 No Anoop Rios TAKE 1 CAPSULE BY MOUTH THREE TIMES A DAY 2022-08 0-24 00:00: 00 12-22 00:00 :00 No Anoop Rios TAKE 1 TABLET TWICE A DAY 2022-08 0-18 00:00: 00 12-22 00:00 :00 No 25 Anoop Rios TAKE 1 TABLET DAILY. 2022-08 0-11 00:00: 00 12-22 00:00 :00 No [id number] Anoop Rios TAKE 1 CAPSULE 3 TIMES DAILY. 2022-08 0-03 00:00: 00 12-22 00:00 :00 No 300 Anoop Rios TAKE 1 CAPSULE 3 TIMES DAILY. 20 00:00: 00 12-22 00:00 :00 No 100 Anoop Rios TAKE 1 TABLET AT BEDTIME NEEDED. 05-12 00:00: 00 12-22 00:00 :00 No 750 Anoop Rios TAKE 1 TABLET BY MOUTH EVERY DAY 05-12 00:00: 00 12-22 00:00 :00 No Anoop Rios METFORMIN 1000MG 05-11 00:00: 00 12-22 00:00 :00 No [id number] Anoop Rios METFORMIN 1000MG 04-25 00:00: 00 12-22 00:00 :00 No Anoop Rios TAKE 1 TABLET TWICE DAILY. 03-29 00:00: 00 12-22 00:00 :00 No 1000 Anoop Rios LOSARTAN/HC T 50-12.5 03-19 00:00: 00 12-22 00:00 :00 No Anoop Rios ERYTHROMYCI N OP 0.5% OIN 03-17 00:00: 00 12-22 00:00 :00 No Anoop Rios TAKE 1 TABLET TWICE DAILY. 03-15 00:00: 00 12-22 00:00 :00 No 1000 Anoop Rios ATORVASTATI N 20MG 03-13 00:00: 00 12-22 00:00 :00 No Anoop Rios METFORMIN 1000MG 6-07 00:00: 00 12-22 00:00 :00 No Anoop Rios TAKE 5 ML EVERY 4 TO 6 HOURS NEEDED. 6-06 00:00: 00 12-22 00:00 :00 No [id number] Anoop Rios TAKE 1 TABLET TWICE DAILY. 12-16 00:00: 00 12-22 00:00 :00 No 25 Anoopneri Rios TAKE 1 TABLET DAILY. 12-16 00:00: 00 12-22 00:00 :00 No 20 Anoopneri Rios TAKE 1 TABLET DAILY. 12-16 00:00: 00 12-22 00:00 :00 No 10 Anoop Rios TAKE 1 TABLET TWICE DAILY. 12-16 00:00: 00 12-22 00:00 :00 No 1000 Anoop Rios TAKE 1 TABLET DAILY. 12-16 00:00: 00 12-22 00:00 :00 No 81 Anoop Rios TAKE 1 TABLET DAILY. 12-16 00:00: 00 12-22 00:00 :00 No [id number] Anoop Rios TAKE 1 CAPSULE AT BEDTIME. 3- 00:00: 00 12-22 00:00 :00 No 300 Anoopneri Rios atorvastati n 20 mg tablet 1-31 00:00: 00 12-22 00:00 :00 No Anoop Rios TAKE 1 TABLET TWICE DAILY. 1-05 00:00: 00 12-22 00:00 :00 No 1000 Anoop Rios TAKE 1 TABLET DAILY. 1-05 00:00: 00 12-22 00:00 :00 No 10 Anoopneri Rios ATORVASTATI N 20 MG 1-05 00:00: 00 12-22 00:00 :00 No Anoop Rios TAKE 1 TABLET DAILY. 2021-08 2-16 00:00: 00 No TAKE 1 CAPSULE BY MOUTH ONCE DAILY 2021-08 2-16 00:00: 00 No TAKE 1 TABLET BY MOUTH AT BEDTIME 2021- 2-16 00:00: 00 No Dose Unknown 2021-08 2-16 00:00: 00 No TAKE 1 TABLET DAILY. 2021-08 2-16 00:00: 00 12-22 00:00 :00 No Anoop F Gabriel TAKE 1 CAPSULE BY MOUTH ONCE DAILY 2021- 2-16 00:00: 00 12-22 00:00 :00 No Anoop F Gabriel TAKE 1 TABLET BY MOUTH AT BEDTIME 2021- 2-16 00:00: 00 12-22 00:00 :00 No Anoop F Gabriel Dose Unknown 2021-08 2-16 00:00: 00 12-22 00:00 :00 No Anoop F Gabriel Dose Unknown 2021-08 2- 00:00: 00 No TAKE 1 TABLET BY MOUTH ONCE DAILY FOR BLOOD PRESSURE 2021- 2-13 00:00: 00 No Dose Unknown 2021-08 2-13 00:00: 00 No Dose Unknown 2021-08 2-13 00:00: 00 No TAKE 1 TABLET BY MOUTH TWICE DAILY FOR DIABETES 2021-08 2-13 00:00: 00 No Dose Unknown 2021-08 2-13 00:00: 00 No TAKE 1 CAPSULE BY MOUTH ONCE DAILY 2021- 2-13 00:00: 00 No Dose Unknown 2021-08 2-13 00:00: 00 12-22 00:00 :00 No Anoop F Gabriel TAKE 1 TABLET BY MOUTH ONCE DAILY FOR BLOOD PRESSURE 2021- 2-13 00:00: 00 12-22 00:00 :00 No Anoop F Gabriel Dose Unknown 2021-08 2-13 00:00: 00 12-22 00:00 :00 No Anoop F Gabriel Dose Unknown 2021-08 2-13 00:00: 00 12-22 00:00 :00 No Anoop F Gabriel TAKE 1 TABLET BY MOUTH TWICE DAILY FOR DIABETES 2021-08 2-13 00:00: 00 12-22 00:00 :00 No Anoop F Gabriel Dose Unknown 2021-08 2-13 00:00: 00 12-22 00:00 :00 No Anoop F Gabriel TAKE 1 CAPSULE BY MOUTH ONCE DAILY 1 2-13 00:00: 00 12-22 00:00 :00 No Anoop Rios TAKE 1 CAPSULE ONCE DAILY. 1 1-14 00:00: 00 05 00:00 :00 No 40 Anoop Rios TAKE 1 CAPSULE ONCE DAILY. 2021-0 8-08 00:00: 00 No Dose Unknown 2021-0 8-08 00:00: 00 No TAKE 1 CAPSULE ONCE DAILY. 2021-0 8-08 00:00: 00 No TAKE 1 CAPSULE ONCE DAILY. 2021-0 8-08 00:00: 00 No TAKE 1 CAPSULE ONCE DAILY. 2021-0 8-08 00:00: 00 Yes Anoop Rios Dose Unknown 2021-0 8-04 00:00: 00 No Dose Unknown 2021-0 8-04 00:00: 00 No Dose Unknown 2-0 8-04 00:00: 00 No Dose Unknown 2-0 8-04 00:00: 00 No Dose Unknown 2-0 8-04 00:00: 00 Yes Anoop Rios Dose Unknown 2-0 8-02 00:00: 00 No Dose Unknown 2-0 8-02 00:00: 00 No Dose Unknown 2-0 8-02 00:00: 00 No Dose Unknown 2-0 8-02 00:00: 00 No Dose Unknown 2-0 8-02 00:00: 00 No Dose Unknown 2-0 8-02 00:00: 00 No Dose Unknown 2-0 8-02 00:00: 00 No Dose Unknown 2-0 8-02 00:00: 00 No Dose Unknown 2-0 8-02 00:00: 00 Yes Anoop Rios Dose Unknown 2-0 8-02 00:00: 00 Yes Anoop Rios Dose Unknown 2-0 8-02 00:00: 00 05- 00:00 :00 No Anoop Rios Dose Unknown 2-0 7-19 00:00: 00 No Dose Unknown 2022-0 7-19 00:00: 00 No Dose Unknown 2022-0 7-19 00:00: 00 No Dose Unknown 2-0 7-19 00:00: 00 No Dose Unknown 2022-0 7-19 00:00: 00 No Dose Unknown 0 03-10 00:00: 00 No Dose Unknown 0 03-10 00:00: 00 No Dose Unknown 0 03-10 00:00: 00 No Dose Unknown 0 03-10 00:00: 00 Yes Anoop Rios Dose Unknown 0 03-10 00:00: 00 Yes Anoop Rios Nexium 40 mg capsule,del ayed release 0 02-13 00:00: 00 No 1mg TAKE 1 CAPSULE ONCE DAILY. 0 02-13 00:00: 00 No 40 Nexium 40 mg capsule,del ayed release 0 02-13 00:00: 00 No 1mg TAKE 1 CAPSULE ONCE DAILY. 0 02-13 00:00: 00 No 40 Nexium 40 mg capsule,del ayed release 0 02-13 00:00: 00 No 1mg TAKE 1 CAPSULE ONCE DAILY. 0 02-13 00:00: 00 No 40 Nexium 40 mg capsule,del ayed release 0 02-13 00:00: 00 No 1mg TAKE 1 CAPSULE ONCE DAILY. 0 02-13 00:00: 00 No 40 Nexium 40 mg capsule,del ayed release 0 02-13 00:00: 00 Yes 1mg Anoop Rios TAKE 1 CAPSULE ONCE DAILY. 0 02-13 00:00: 00 Yes 40 Anoop Rios famotidine 20 mg tablet 2021-0 01-28 00:00: 00 No 1mg famotidine 20 mg tablet 2021-0 01-28 00:00: 00 No 1mg famotidine 20 mg tablet 2021-0 01-28 00:00: 00 No 1mg famotidine 20 mg tablet 2021-0 01-28 00:00: 00 No 1mg famotidine 20 mg tablet 2021-0 01-28 00:00: 00 Yes 1mg Anoop Rios Dose Unknown 0 01-26 00:00: 00 No Dose Unknown 0 01-26 00:00: 00 No Dose Unknown 0 01-26 00:00: 00 No Dose Unknown 0 01-26 00:00: 00 No Dose Unknown 202201-26 00:00: 00 Yes Anoop Rios docusate calcium 240 mg capsule 0 01-24 00:00: 00 No 1mg omeprazole 40 mg capsule,del ayed release 01-24 00:00: 00 No 1mg Dose Unknown 0 01-24 00:00: 00 No docusate calcium 240 mg capsule 0 01-24 00:00: 00 No 1mg omeprazole 40 mg capsule,del ayed release 01-24 00:00: 00 No 1mg Dose Unknown 01-24 00:00: 00 No docusate calcium 240 mg capsule 0 01-24 00:00: 00 No 1mg omeprazole 40 mg capsule,del ayed release 0 01-24 00:00: 00 No 1mg Dose Unknown 01-24 00:00: 00 No docusate calcium 240 mg capsule 0 01-24 00:00: 00 No 1mg omeprazole 40 mg capsule,del ayed release 01-24 00:00: 00 No 1mg Dose Unknown 01-24 00:00: 00 No docusate calcium 240 mg capsule 0 01-24 00:00: 00 Yes 1mg Anoop Rios omeprazole 40 mg capsule,del ayed release 01-24 00:00: 00 Yes 1mg Anoop Rios Dose Unknown 01-24 00:00: 00 Yes Anoop Rios Bromfed DM 2 mg-30 mg-10 mg/5 mL oral syrup 12-21 00:00: 00 No 10mg/5 mL Bromfed DM 2 mg-30 mg-10 mg/5 mL oral syrup 0 12-21 00:00: 00 No 10mg/5 mL Bromfed DM 2 mg-30 mg-10 mg/5 mL oral syrup 0 12-21 00:00: 00 No 10mg/5 mL Bromfed DM 2 mg-30 mg-10 mg/5 mL oral syrup 0 12-21 00:00: 00 No 10mg/5 mL Bromfed DM 2 mg-30 mg-10 mg/5 mL oral syrup 0 5-01 00:00: 00 Yes 10mg/5 mL Anoop Rios amlodipine 10 mg tablet 0 12-19 00:00: 00 No 1mg Dose Unknown 0 12-19 00:00: 00 No Dose Unknown 0 12-19 00:00: 00 No Dose Unknown 0 12-19 00:00: 00 No losartan 50 mg-hydrochl orothiazide 12.5 mg tablet 0 12-19 00:00: 00 No 1mg amlodipine 10 mg tablet 0 12-19 00:00: 00 No 1mg carvedilol 25 mg tablet 0 12-19 00:00: 00 No 1mg atorvastati n 20 mg tablet 0 12-19 00:00: 00 No 1mg losartan 50 mg-hydrochl orothiazide 12.5 mg tablet 0 12-19 00:00: 00 No 1mg amlodipine 10 mg tablet 0 12-19 00:00: 00 No 1mg carvedilol 25 mg tablet 0 12-19 00:00: 00 No 1mg atorvastati n 20 mg tablet 0 12-19 00:00: 00 No 1mg losartan 50 mg-hydrochl orothiazide 12.5 mg tablet 12-19 00:00: 00 No 1mg amlodipine 10 mg tablet 0 12-19 00:00: 00 No 1mg carvedilol 25 mg tablet 12-19 00:00: 00 No 1mg atorvastati n 20 mg tablet 12-19 00:00: 00 No 1mg amlodipine 10 mg tablet 12-19 00:00: 00 Yes 1mg Anoop Rios Dose Unknown 0 12-19 00:00: 00 Yes Anoop Rios Dose Unknown 0 12-19 00:00: 00 Yes Anoop Rios Dose Unknown 12-19 00:00: 00 Yes Anoop Rios omeprazole 20 mg capsule,del ayed release 2021-0 11-26 00:00: 00 No 1mg omeprazole 20 mg capsule,del ayed release 2021-0 11-26 00:00: 00 No 1mg omeprazole 20 mg capsule,del ayed release 2022-0 4-06 00:00: 00 No 1mg omeprazole 20 mg capsule,del ayed release 2-0 4-06 00:00: 00 No 1mg omeprazole 20 mg capsule,del ayed release 2-0 4-06 00:00: 00 Yes 1mg Anoop Rios omeprazole 20 mg capsule,del ayed release 2-0 3-07 00:00: 00 No 1mg omeprazole 20 mg capsule,del ayed release 2021-0 3-07 00:00: 00 No 1mg omeprazole 20 mg capsule,del ayed release 2-0 3-07 00:00: 00 No 1mg omeprazole 20 mg capsule,del ayed release 2-0 3-07 00:00: 00 No 1mg omeprazole 20 mg capsule,del ayed release 2021-0 3- 00:00: 00 Yes 1mg Anoop Rios omeprazole 20 mg capsule,del ayed release 2021-0 3-06 00:00: 00 No 1mg omeprazole 20 mg capsule,del ayed release 2021-0 3-06 00:00: 00 No 1mg omeprazole 20 mg capsule,del ayed release 2021-0 3-06 00:00: 00 No 1mg omeprazole 20 mg capsule,del ayed release 2021-0 3-06 00:00: 00 No 1mg omeprazole 20 mg capsule,del ayed release 2021-0 3-06 00:00: 00 Yes 1mg Anoop Rios Dose Unknown 2021-0 3-05 00:00: 00 No Dose Unknown 2021-0 3-05 00:00: 00 No Dose Unknown 2021-0 3-05 00:00: 00 No Dose Unknown 2021-0 3-05 00:00: 00 No Dose Unknown 2021-0 3-05 00:00: 00 Yes Anoop Rios losartan 50 mg-hydrochl orothiazide 12.5 mg tablet 2- 00:00: 00 No 1mg amlodipine 10 mg tablet 2- 00:00: 00 No 1mg carvedilol 25 mg tablet 0 2- 00:00: 00 No 1mg metformin 1,000 mg tablet 2- 00:00: 00 No 1mg atorvastati n 20 mg tablet 2- 00:00: 00 No 1mg Dose Unknown 2- 00:00: 00 No losartan 50 mg-hydrochl orothiazide 12.5 mg tablet 2- 00:00: 00 No 1mg amlodipine 10 mg tablet 2- 00:00: 00 No 1mg aspirin 81 mg tablet,mariano yed release 2- 00:00: 00 No 1mg carvedilol 25 mg tablet 2- 00:00: 00 No 1mg metformin 1,000 mg tablet 2- 00:00: 00 No 1mg atorvastati n 20 mg tablet - 00:00: 00 No 1mg losartan 50 mg-hydrochl orothiazide 12.5 mg tablet 09-24 00:00: 00 No 1mg amlodipine 10 mg tablet 2- 00:00: 00 No 1mg aspirin 81 mg tablet,mariano yed release 2- 00:00: 00 No 1mg carvedilol 25 mg tablet 2- 00:00: 00 No 1mg metformin 1,000 mg tablet - 00:00: 00 No 1mg atorvastati n 20 mg tablet 2- 00:00: 00 No 1mg losartan 50 mg-hydrochl orothiazide 12.5 mg tablet 2- 00:00: 00 No 1mg amlodipine 10 mg tablet 2- 00:00: 00 No 1mg aspirin 81 mg tablet,mariano yed release 2- 00:00: 00 No 1mg carvedilol 25 mg tablet 2- 00:00: 00 No 1mg metformin 1,000 mg tablet 2- 00:00: 00 No 1mg atorvastati n 20 mg tablet 2- 00:00: 00 No 1mg losartan 50 mg-hydrochl orothiazide 12.5 mg tablet 2- 00:00: 00 Yes 1mg Anoop Rios amlodipine 10 mg tablet 202209-24 00:00: 00 Yes 1mg Anoop Rios carvedilol 25 mg tablet 09-24 00:00: 00 Yes 1mg Anoop Rios metformin 1,000 mg tablet 09-24 00:00: 00 Yes 1mg Anoop Rios atorvastati n 20 mg tablet 09-24 00:00: 00 Yes 1mg Anoop Rios Dose Unknown 09-24 00:00: 00 Yes Anoop Rios losartan 50 mg-hydrochl orothiazide 12.5 mg tablet 2020-08 00:00: 00 No 1mg losartan 50 mg-hydrochl orothiazide 12.5 mg tablet 2020-08 00:00: 00 No 1mg losartan 50 mg-hydrochl orothiazide 12.5 mg tablet 2020-08 00:00: 00 No 1mg losartan 50 mg-hydrochl orothiazide 12.5 mg tablet 2020-08 00:00: 00 No 1mg losartan 50 mg-hydrochl orothiazide 12.5 mg tablet 2020-08 00:00: 00 Yes 1mg Anoop Rios amlodipine 10 mg tablet 2020-08 00:00: 00 No 1mg amlodipine 10 mg tablet 2020-08 00:00: 00 No 1mg amlodipine 10 mg tablet 2020-08 00:00: 00 No 1mg amlodipine 10 mg tablet 2020-08 00:00: 00 No 1mg amlodipine 10 mg tablet 2020-08 00:00: 00 Yes 1mg Anoop Rios amlodipine 10 mg tablet 2020-08 00:00: 00 No 1mg aspirin 81 mg tablet,mariano yed release 2020-08 00:00: 00 No 1mg carvedilol 25 mg tablet 2020-08 00:00: 00 No 1mg metformin 1,000 mg tablet 2020-08 00:00: 00 No 1mg atorvastati n 20 mg tablet 2020-08 00:00: 00 No 1mg amlodipine 10 mg tablet 2020-08 00:00: 00 No 1mg aspirin 81 mg tablet,mariano yed release 2020-08 00:00: 00 No 1mg carvedilol 25 mg tablet 2020-08 00:00: 00 No 1mg metformin 1,000 mg tablet 2020-08 00:00: 00 No 1mg atorvastati n 20 mg tablet 2020-08 00:00: 00 No 1mg amlodipine 10 mg tablet 2020-08 00:00: 00 No 1mg aspirin 81 mg tablet,mariano yed release 2020-08 00:00: 00 No 1mg carvedilol 25 mg tablet 2020-08 00:00: 00 No 1mg metformin 1,000 mg tablet 2020-08 00:00: 00 No 1mg atorvastati n 20 mg tablet 2020-08 00:00: 00 No 1mg amlodipine 10 mg tablet 2020-08 00:00: 00 No 1mg aspirin 81 mg tablet,mariano yed release 2020-08 00:00: 00 No 1mg carvedilol 25 mg tablet 2020-08 00:00: 00 No 1mg metformin 1,000 mg tablet 2020-08 00:00: 00 No 1mg atorvastati n 20 mg tablet 2020-08 00:00: 00 No 1mg amlodipine 10 mg tablet 2020-08 00:00: 00 Yes 1mg Anoop Rios aspirin 81 mg tablet,mariano yed release 2020-08 00:00: 00 Yes 1mg Anoop Rios carvedilol 25 mg tablet 2020-08 00:00: 00 Yes 1mg Anoop Rios metformin 1,000 mg tablet 2020-08 00:00: 00 Yes 1mg Anoop Rios atorvastati n 20 mg tablet 2020-08 00:00: 00 Yes 1mg Anoop Rios amlodipine 10 mg tablet 2020-08 00:00: 00 No 1mg amlodipine 10 mg tablet 2020-08 00:00: 00 No 1mg amlodipine 10 mg tablet 2020-08 00:00: 00 No 1mg amlodipine 10 mg tablet 2020-08 00:00: 00 No 1mg amlodipine 10 mg tablet 2020-08 00:00: 00 Yes 1mg Anoop Rios atorvastati n 20 mg tablet 2020-08 00:00: 00 No 1mg atorvastati n 20 mg tablet 2020-08 00:00: 00 No 1mg atorvastati n 20 mg tablet 2020-08 00:00: 00 No 1mg atorvastati n 20 mg tablet 2020-08 00:00: 00 No 1mg atorvastati n 20 mg tablet 2020-08 00:00: 00 Yes 1mg Anoop Rios ibuprofen 800 mg tablet 02-24 00:00: 00 No 1mg ibuprofen 800 mg tablet 02-24 00:00: 00 No 1mg ibuprofen 800 mg tablet 02-24 00:00: 00 No 1mg ibuprofen 800 mg tablet 02-24 00:00: 00 No 1mg ibuprofen 800 mg tablet 02-24 00:00: 00 Yes 1mg Anoop Rios amlodipine 10 mg tablet 12-26 00:00: 00 No 1mg amlodipine 10 mg tablet 12-26 00:00: 00 No 1mg losartan 50 mg-hydrochl orothiazide 12.5 mg tablet 12-26 00:00: 00 No 1mg aspirin 81 mg tablet,mariano yed release 12-26 00:00: 00 No 1mg losartan 50 mg-hydrochl orothiazide 12.5 mg tablet 12-26 00:00: 00 No 1mg carvedilol 25 mg tablet 12-26 00:00: 00 No 1mg metformin 1,000 mg tablet 12-26 00:00: 00 No 1mg atorvastati n 20 mg tablet 12-26 00:00: 00 No 1mg omeprazole 20 mg capsule,del ayed release 12-26 00:00: 00 No 1mg aspirin 81 mg tablet,mariano yed release 12-26 00:00: 00 No 1mg carvedilol 25 mg tablet 12-26 00:00: 00 No 1mg metformin 1,000 mg tablet 12-26 00:00: 00 No 1mg atorvastati n 20 mg tablet 12-26 00:00: 00 No 1mg omeprazole 20 mg capsule,del ayed release 12-26 00:00: 00 No 1mg amlodipine 10 mg tablet 12-26 00:00: 00 No 1mg losartan 50 mg-hydrochl orothiazide 12.5 mg tablet 12-26 00:00: 00 No 1mg aspirin 81 mg tablet,mariano yed release 12-26 00:00: 00 No 1mg carvedilol 25 mg tablet 12-26 00:00: 00 No 1mg metformin 1,000 mg tablet 12-26 00:00: 00 No 1mg atorvastati n 20 mg tablet 12-26 00:00: 00 No 1mg omeprazole 20 mg capsule,del ayed release 12-26 00:00: 00 No 1mg amlodipine 10 mg tablet 12-26 00:00: 00 No 1mg losartan 50 mg-hydrochl orothiazide 12.5 mg tablet 12-26 00:00: 00 No 1mg aspirin 81 mg tablet,mariano yed release 12-26 00:00: 00 No 1mg carvedilol 25 mg tablet 12-26 00:00: 00 No 1mg metformin 1,000 mg tablet 12-26 00:00: 00 No 1mg atorvastati n 20 mg tablet 12-26 00:00: 00 No 1mg omeprazole 20 mg capsule,del ayed release 12-26 00:00: 00 No 1mg amlodipine 10 mg tablet 12-26 00:00: 00 Yes 1mg Anoop Rios losartan 50 mg-hydrochl orothiazide 12.5 mg tablet 12-26 00:00: 00 Yes 1mg Anoop Rios aspirin 81 mg tablet,mariano yed release 12-26 00:00: 00 Yes 1mg Anoop Rios carvedilol 25 mg tablet 12-26 00:00: 00 Yes 1mg Anoop Rios metformin 1,000 mg tablet 12-26 00:00: 00 Yes 1mg Anoop Rios atorvastati n 20 mg tablet 12-26 00:00: 00 Yes 1mg Anoop Rios omeprazole 20 mg capsule,del ayed release 12-26 00:00: 00 Yes 1mg Anoop Rios amlodipine 10 mg tablet 12-14 00:00: 00 No 1mg losartan 50 mg-hydrochl orothiazide 12.5 mg tablet 12-14 00:00: 00 No 1mg carvedilol 25 mg tablet 12-14 00:00: 00 No 1mg metformin 1,000 mg tablet 12-14 00:00: 00 No 1mg atorvastati n 20 mg tablet 12-14 00:00: 00 No 1mg amlodipine 10 mg tablet 12-14 00:00: 00 No 1mg losartan 50 mg-hydrochl orothiazide 12.5 mg tablet 12-14 00:00: 00 No 1mg carvedilol 25 mg tablet 12-14 00:00: 00 No 1mg metformin 1,000 mg tablet 12-14 00:00: 00 No 1mg atorvastati n 20 mg tablet 12-14 00:00: 00 No 1mg amlodipine 10 mg tablet 12-14 00:00: 00 No 1mg losartan 50 mg-hydrochl orothiazide 12.5 mg tablet 12-14 00:00: 00 No 1mg carvedilol 25 mg tablet 12-14 00:00: 00 No 1mg metformin 1,000 mg tablet 12-14 00:00: 00 No 1mg atorvastati n 20 mg tablet 12-14 00:00: 00 No 1mg amlodipine 10 mg tablet 12-14 00:00: 00 No 1mg losartan 50 mg-hydrochl orothiazide 12.5 mg tablet 12-14 00:00: 00 No 1mg carvedilol 25 mg tablet 4- 00:00: 00 No 1mg metformin 1,000 mg tablet 4- 00:00: 00 No 1mg atorvastati n 20 mg tablet 4- 00:00: 00 No 1mg amlodipine 10 mg tablet 4- 00:00: 00 Yes 1mg Anoop Rios losartan 50 mg-hydrochl orothiazide 12.5 mg tablet - 00:00: 00 Yes 1mg Anoop Rios carvedilol 25 mg tablet 4 00:00: 00 Yes 1mg Anoop Rios metformin 1,000 mg tablet 12-14 00:00: 00 Yes 1mg Anoop Rios atorvastati n 20 mg tablet 12-14 00:00: 00 Yes 1mg Anoop Rios omeprazole 20 mg capsule,del ayed release 3- 00:00: 00 No 1mg omeprazole 20 mg capsule,del ayed release 3- 00:00: 00 No 1mg omeprazole 20 mg capsule,del ayed release 3- 00:00: 00 No 1mg omeprazole 20 mg capsule,del ayed release 3- 00:00: 00 No 1mg omeprazole 20 mg capsule,del ayed release 3- 00:00: 00 Yes 1mg Anoop Rios losartan 50 mg-hydrochl orothiazide 12.5 mg tablet 2-08 00:00: 00 No 1mg carvedilol 25 mg tablet 2-08 00:00: 00 No 1mg metformin 1,000 mg tablet 2-08 00:00: 00 No 1mg atorvastati n 20 mg tablet 2-08 00:00: 00 No 1mg amlodipine 10 mg tablet 2-08 00:00: 00 No 1mg losartan 50 mg-hydrochl orothiazide 12.5 mg tablet 2-08 00:00: 00 No 1mg carvedilol 25 mg tablet 2-08 00:00: 00 No 1mg metformin 1,000 mg tablet 2-08 00:00: 00 No 1mg atorvastati n 20 mg tablet 2-08 00:00: 00 No 1mg amlodipine 10 mg tablet 2-08 00:00: 00 No 1mg losartan 50 mg-hydrochl orothiazide 12.5 mg tablet 2-08 00:00: 00 No 1mg carvedilol 25 mg tablet 2-08 00:00: 00 No 1mg metformin 1,000 mg tablet 2-08 00:00: 00 No 1mg atorvastati n 20 mg tablet 2-08 00:00: 00 No 1mg amlodipine 10 mg tablet 2-08 00:00: 00 No 1mg losartan 50 mg-hydrochl orothiazide 12.5 mg tablet 2- 00:00: 00 No 1mg carvedilol 25 mg tablet 2-08 00:00: 00 No 1mg metformin 1,000 mg tablet 2- 00:00: 00 No 1mg atorvastati n 20 mg tablet 2-08 00:00: 00 No 1mg amlodipine 10 mg tablet 2-08 00:00: 00 No 1mg amlodipine 10 mg tablet 2- 00:00: 00 Yes 1mg Anoop Rios losartan 50 mg-hydrochl orothiazide 12.5 mg tablet 2-08 00:00: 00 Yes 1mg Anoop Rios carvedilol 25 mg tablet 2-08 00:00: 00 Yes 1mg Anoop Rios metformin 1,000 mg tablet 2-08 00:00: 00 Yes 1mg Anoop Rios atorvastati n 20 mg tablet 2-08 00:00: 00 Yes 1mg Anoop Rios omeprazole 20 mg capsule,del ayed release 1-25 00:00: 00 No 1mg omeprazole 20 mg capsule,del ayed release 1-25 00:00: 00 No 1mg omeprazole 20 mg capsule,del ayed release 1-25 00:00: 00 No 1mg omeprazole 20 mg capsule,del ayed release 09-16 00:00: 00 No 1mg omeprazole 20 mg capsule,del ayed release 09-16 00:00: 00 Yes 1mg Anoop Rios omeprazole 20 mg capsule,del ayed release 2019-08 00:00: 00 No 1mg omeprazole 20 mg capsule,del ayed release 2019-08 00:00: 00 No 1mg omeprazole 20 mg capsule,del ayed release 2019-08 00:00: 00 No 1mg omeprazole 20 mg capsule,del ayed release 2019-08 00:00: 00 No 1mg omeprazole 20 mg capsule,del ayed release 2019-08 00:00: 00 Yes 1mg Anoop Rios losartan 50 mg-hydrochl orothiazide 12.5 mg tablet 2019-08 00:00: 00 No 1mg amlodipine 10 mg tablet 2019-08 00:00: 00 No 1mg carvedilol 25 mg tablet 2019-08 00:00: 00 No 1mg metformin 1,000 mg tablet 2019-08 00:00: 00 No 1mg atorvastati n 20 mg tablet 2019-08 00:00: 00 No 1mg losartan 50 mg-hydrochl orothiazide 12.5 mg tablet 2019-08 00:00: 00 No 1mg amlodipine 10 mg tablet 2019-08 00:00: 00 No 1mg carvedilol 25 mg tablet 2019-08 00:00: 00 No 1mg metformin 1,000 mg tablet 2019-08 00:00: 00 No 1mg atorvastati n 20 mg tablet 2019-08 00:00: 00 No 1mg losartan 50 mg-hydrochl orothiazide 12.5 mg tablet 2019-08 00:00: 00 No 1mg amlodipine 10 mg tablet 2019-08 00:00: 00 No 1mg carvedilol 25 mg tablet 2019-08 00:00: 00 No 1mg metformin 1,000 mg tablet 2019-08 00:00: 00 No 1mg atorvastati n 20 mg tablet 2019-08 00:00: 00 No 1mg losartan 50 mg-hydrochl orothiazide 12.5 mg tablet 2019-08 00:00: 00 No 1mg amlodipine 10 mg tablet 2019-08 00:00: 00 No 1mg carvedilol 25 mg tablet 2019-08 00:00: 00 No 1mg metformin 1,000 mg tablet 2019-08 00:00: 00 No 1mg atorvastati n 20 mg tablet 2019-08 00:00: 00 No 1mg losartan 50 mg-hydrochl orothiazide 12.5 mg tablet 2019-08 00:00: 00 Yes 1mg Anoop Rios amlodipine 10 mg tablet 2019-08 00:00: 00 Yes 1mg Anoop Rios carvedilol 25 mg tablet 2019-08 00:00: 00 Yes 1mg Anoop Rios metformin 1,000 mg tablet 2019-08 00:00: 00 Yes 1mg Anoop Rios atorvastati n 20 mg tablet 2019-08 00:00: 00 Yes 1mg Anoop Rios omeprazole 20 mg capsule,del ayed release 2019-08 00:00: 00 No 1mg omeprazole 20 mg capsule,del ayed release 2019-08 00:00: 00 No 1mg omeprazole 20 mg capsule,del ayed release 2019-08 00:00: 00 No 1mg omeprazole 20 mg capsule,del ayed release 2019-08 00:00: 00 No 1mg omeprazole 20 mg capsule,del ayed release 2019-08 00:00: 00 Yes 1mg Anoop Rios losartan 50 mg-hydrochl orothiazide 12.5 mg tablet 2019-08 00:00: 00 No 1mg losartan 50 mg-hydrochl orothiazide 12.5 mg tablet 2019-08 00:00: 00 No 1mg losartan 50 mg-hydrochl orothiazide 12.5 mg tablet 2019-08 0 00:00: 00 No 1mg losartan 50 mg-hydrochl orothiazide 12.5 mg tablet 2019-08 0 00:00: 00 No 1mg losartan 50 mg-hydrochl orothiazide 12.5 mg tablet 2019-08 015 00:00: 00 Yes 1mg Anoop Rios metFORMIN 1,000 mg tablet 05-07 00:00: 00 Yes TAKE 1 TABLET BY MOUTH TWICE DAILY FOR DIABETES [facility] atorvastati n 20 mg tablet 04-22 00:00: 00 No 1mg atorvastati n 20 mg tablet 04-22 00:00: 00 No 1mg atorvastati n 20 mg tablet 04-22 00:00: 00 No 1mg atorvastati n 20 mg tablet 04-22 00:00: 00 No 1mg atorvastati n 20 mg tablet 04-22 00:00: 00 Yes 1mg Anoop Rios losartan-hy drochloroth iazide 50-12.5 mg per tablet 04-20 00:00: 00 Yes 1{tbl} Take 1 tablet by mouth daily. [facility] atorvastati n 20 mg tablet 04-16 00:00: 00 Yes 20mg Take 20 mg by mouth at bedtime. [facility] atorvastati n 20 mg tablet 04-15 00:00: 00 No 1mg atorvastati n 20 mg tablet 04-15 00:00: 00 No 1mg atorvastati n 20 mg tablet 04-15 00:00: 00 No 1mg atorvastati n 20 mg tablet 04-15 00:00: 00 No 1mg atorvastati n 20 mg tablet 04-15 00:00: 00 Yes 1mg Anoop Rios losartan 50 mg-hydrochl orothiazide 12.5 mg tablet 04-09 00:00: 00 No 1mg amlodipine 10 mg tablet 04-09 00:00: 00 No 1mg carvedilol 25 mg tablet 04-09 00:00: 00 No 1mg metformin 1,000 mg tablet 04-09 00:00: 00 No 1mg losartan 50 mg-hydrochl orothiazide 12.5 mg tablet 04-09 00:00: 00 No 1mg amlodipine 10 mg tablet 04-09 00:00: 00 No 1mg carvedilol 25 mg tablet 04-09 00:00: 00 No 1mg metformin 1,000 mg tablet 04-09 00:00: 00 No 1mg losartan 50 mg-hydrochl orothiazide 12.5 mg tablet 04-09 00:00: 00 No 1mg amlodipine 10 mg tablet 04-09 00:00: 00 No 1mg carvedilol 25 mg tablet 04-09 00:00: 00 No 1mg metformin 1,000 mg tablet 04-09 00:00: 00 No 1mg losartan 50 mg-hydrochl orothiazide 12.5 mg tablet 04-09 00:00: 00 No 1mg amlodipine 10 mg tablet 04-09 00:00: 00 No 1mg carvedilol 25 mg tablet 04-09 00:00: 00 No 1mg metformin 1,000 mg tablet 04-09 00:00: 00 No 1mg losartan 50 mg-hydrochl orothiazide 12.5 mg tablet 04-09 00:00: 00 Yes 1mg Anoop Rios amlodipine 10 mg tablet 04-09 00:00: 00 Yes 1mg Anoop Rios carvedilol 25 mg tablet 04-09 00:00: 00 Yes 1mg Anoop Rios metformin 1,000 mg tablet 04-09 00:00: 00 Yes 1mg Anoop Rios carvediloL 25 mg tablet 16 00:00: 00 Yes 25mg Take 25 mg by mouth 2 (two) times daily. [facility] amLODIPine 10 mg tablet 04-03 00:00: 00 Yes TAKE 1 TABLET BY MOUTH ONCE DAILY FOR BLOOD PRESSURE [facility] omeprazole 20 mg capsule 03-23 00:00: 00 Yes 20mg Take 20 mg by mouth daily. [facility] nystatin 100,000 unit/mL suspension 03-12 00:00: 00 Yes SWISH AND HOLD ONE TEASPOONFU L (4 6ML) IN MOUTH FOR ONE MINUTE THEN SPIT OUT FOUR TIMES A DAY [facility] losartan 50 mg-hydrochl orothiazide 12.5 mg tablet 03-05 00:00: 00 No 1mg losartan 50 mg-hydrochl orothiazide 12.5 mg tablet 03-05 00:00: 00 No 1mg losartan 50 mg-hydrochl orothiazide 12.5 mg tablet 03-05 00:00: 00 No 1mg losartan 50 mg-hydrochl orothiazide 12.5 mg tablet 03-05 00:00: 00 No 1mg losartan 50 mg-hydrochl orothiazide 12.5 mg tablet 03-05 00:00: 00 Yes 1mg Anoop Rios atorvastati n 20 mg tablet 02-13 00:00: 00 No 1mg atorvastati n 20 mg tablet 02-13 00:00: 00 No 1mg atorvastati n 20 mg tablet 02-13 00:00: 00 No 1mg atorvastati n 20 mg tablet 02-13 00:00: 00 No 1mg atorvastati n 20 mg tablet 02-13 00:00: 00 Yes 1mg Anoop Rios atorvastati n 20 mg tablet 02-12 00:00: 00 No 1mg atorvastati n 20 mg tablet 02-12 00:00: 00 No 1mg atorvastati n 20 mg tablet 02-12 00:00: 00 No 1mg atorvastati n 20 mg tablet 02-12 00:00: 00 No 1mg atorvastati n 20 mg tablet 02-12 00:00: 00 Yes 1mg Anoop Rios aspirin 81 mg tablet,mariano yed release 01-03 00:00: 00 No 1mg amlodipine 10 mg tablet 01-03 00:00: 00 No 1mg glimepiride 2 mg tablet 01-03 00:00: 00 No 1mg metformin 1,000 mg tablet 01-03 00:00: 00 No 1mg carvedilol 25 mg tablet 01-03 00:00: 00 No 1mg omeprazole 20 mg capsule,del ayed release 01-03 00:00: 00 No 1mg Macrobid 100 mg capsule 01-03 00:00: 00 No 1mg aspirin 81 mg tablet,mariano yed release 01-03 00:00: 00 No 1mg amlodipine 10 mg tablet 01-03 00:00: 00 No 1mg glimepiride 2 mg tablet 01-03 00:00: 00 No 1mg metformin 1,000 mg tablet 01-03 00:00: 00 No 1mg carvedilol 25 mg tablet 01-03 00:00: 00 No 1mg omeprazole 20 mg capsule,del ayed release 01-03 00:00: 00 No 1mg Macrobid 100 mg capsule 01-03 00:00: 00 No 1mg aspirin 81 mg tablet,mariano yed release 01-03 00:00: 00 No 1mg amlodipine 10 mg tablet 01-03 00:00: 00 No 1mg glimepiride 2 mg tablet 01-03 00:00: 00 No 1mg aspirin 81 mg tablet,mariano yed release 01-03 00:00: 00 No 1mg amlodipine 10 mg tablet 01-03 00:00: 00 No 1mg glimepiride 2 mg tablet 01-03 00:00: 00 No 1mg metformin 1,000 mg tablet 01-03 00:00: 00 No 1mg carvedilol 25 mg tablet 01-03 00:00: 00 No 1mg metformin 1,000 mg tablet 01-03 00:00: 00 No 1mg omeprazole 20 mg capsule,del ayed release 01-03 00:00: 00 No 1mg Macrobid 100 mg capsule 01-03 00:00: 00 No 1mg carvedilol 25 mg tablet 01-03 00:00: 00 No 1mg omeprazole 20 mg capsule,del ayed release 01-03 00:00: 00 No 1mg Macrobid 100 mg capsule 01-03 00:00: 00 No 1mg aspirin 81 mg tablet,mariano yed release 01-03 00:00: 00 Yes 1mg Anoop F Gabriel amlodipine 10 mg tablet 01-03 00:00: 00 Yes 1mg Anoop Rios glimepiride 2 mg tablet 01-03 00:00: 00 Yes 1mg Anoop Rios metformin 1,000 mg tablet 01-03 00:00: 00 Yes 1mg Anoop Rios carvedilol 25 mg tablet 01-03 00:00: 00 Yes 1mg Anoop Rios omeprazole 20 mg capsule,del ayed release 01-03 00:00: 00 Yes 1mg Anoop Rios Macrobid 100 mg capsule 01-03 00:00: 00 Yes 1mg Anoop Rios aspirin 81 mg tablet,mariano yed release 10-18 00:00: 00 No 1mg amlodipine 10 mg tablet 10-18 00:00: 00 No 1mg metformin 1,000 mg tablet 10-18 00:00: 00 No 1mg carvedilol 25 mg tablet 10-18 00:00: 00 No 1mg glimepiride 2 mg tablet 10-18 00:00: 00 No 1mg omeprazole 20 mg capsule,del ayed release 10-18 00:00: 00 No 1mg aspirin 81 mg tablet,mariano yed release 10-18 00:00: 00 No 1mg amlodipine 10 mg tablet 10-18 00:00: 00 No 1mg metformin 1,000 mg tablet 10-18 00:00: 00 No 1mg carvedilol 25 mg tablet 10-18 00:00: 00 No 1mg glimepiride 2 mg tablet 10-18 00:00: 00 No 1mg omeprazole 20 mg capsule,del ayed release 10-18 00:00: 00 No 1mg aspirin 81 mg tablet,mariano yed release 10-18 00:00: 00 No 1mg amlodipine 10 mg tablet 10-18 00:00: 00 No 1mg metformin 1,000 mg tablet 10-18 00:00: 00 No 1mg carvedilol 25 mg tablet 2 00:00: 00 No 1mg glimepiride 2 mg tablet 10-18 00:00: 00 No 1mg omeprazole 20 mg capsule,del ayed release 10-18 00:00: 00 No 1mg aspirin 81 mg tablet,mariano yed release 10-18 00:00: 00 No 1mg amlodipine 10 mg tablet 10-18 00:00: 00 No 1mg metformin 1,000 mg tablet 10-18 00:00: 00 No 1mg carvedilol 25 mg tablet 10-18 00:00: 00 No 1mg glimepiride 2 mg tablet 10-18 00:00: 00 No 1mg omeprazole 20 mg capsule,del ayed release 10-18 00:00: 00 No 1mg aspirin 81 mg tablet,mariano yed release 10-18 00:00: 00 Yes 1mg Anoop Rios amlodipine 10 mg tablet 10-18 00:00: 00 Yes 1mg Anoop Rios metformin 1,000 mg tablet 10-18 00:00: 00 Yes 1mg Anoop Rios carvedilol 25 mg tablet 10-18 00:00: 00 Yes 1mg Anoop Rios glimepiride 2 mg tablet 10-18 00:00: 00 Yes 1mg Anoop Rios omeprazole 20 mg capsule,del ayed release 10-18 00:00: 00 Yes 1mg Anoop Rios amoxicillin 500 mg tablet 09-02 00:00: 00 No 1mg amoxicillin 500 mg tablet 09-02 00:00: 00 No 1mg amoxicillin 500 mg tablet 09-02 00:00: 00 No 1mg amoxicillin 500 mg tablet 09-02 00:00: 00 No 1mg amoxicillin 500 mg tablet 09-02 00:00: 00 Yes 1mg Anoop Rios amoxicillin 500 mg capsule 2018-08 00:00: 00 No 1mg Tessalon Perles 100 mg capsule 2018-08 00:00: 00 No 1mg amoxicillin 500 mg capsule 2018-08 00:00: 00 No 1mg Tessalon Perles 100 mg capsule 2018-08 00:00: 00 No 1mg amoxicillin 500 mg capsule 2018-08 00:00: 00 No 1mg Tessalon Perles 100 mg capsule 2018-08 00:00: 00 No 1mg amoxicillin 500 mg capsule 2018-08 00:00: 00 No 1mg Tessalon Perles 100 mg capsule 2018-08 00:00: 00 No 1mg amoxicillin 500 mg capsule 2018-08 00:00: 00 Yes 1mg Anoop Rios Tessalon Perles 100 mg capsule 2018-08 00:00: 00 Yes 1mg Anoop Rios aspirin 81 mg tablet,mariano yed release 2018-08 00:00: 00 No 1mg aspirin 81 mg tablet,mariano yed release 2018-08 00:00: 00 No 1mg aspirin 81 mg tablet,mariano yed release 2018-08 00:00: 00 No 1mg aspirin 81 mg tablet,mariano yed release 2018-08 00:00: 00 No 1mg aspirin 81 mg tablet,mariano yed release 2018-08 00:00: 00 Yes 1mg Anoop Rios amlodipine 10 mg tablet 2018-08 00:00: 00 No 1mg losartan 50 mg-hydrochl orothiazide 12.5 mg tablet 2018-08 00:00: 00 No 1mg glimepiride 2 mg tablet 2018-08 00:00: 00 No 1mg carvedilol 25 mg tablet 2018-08 00:00: 00 No 1mg metformin 1,000 mg tablet 2018-08 00:00: 00 No 1mg atorvastati n 20 mg tablet 2018-08 00:00: 00 No 1mg omeprazole 20 mg capsule,del ayed release 2018-08 00:00: 00 No 1mg amlodipine 10 mg tablet 2018-08 00:00: 00 No 1mg losartan 50 mg-hydrochl orothiazide 12.5 mg tablet 2018-08 00:00: 00 No 1mg glimepiride 2 mg tablet 2018-08 00:00: 00 No 1mg carvedilol 25 mg tablet 2018-08 00:00: 00 No 1mg metformin 1,000 mg tablet 2018-08 00:00: 00 No 1mg atorvastati n 20 mg tablet 2018-08 00:00: 00 No 1mg omeprazole 20 mg capsule,del ayed release 2018-08 00:00: 00 No 1mg amlodipine 10 mg tablet 2018-08 00:00: 00 No 1mg losartan 50 mg-hydrochl orothiazide 12.5 mg tablet 2018-08 00:00: 00 No 1mg glimepiride 2 mg tablet 2018-08 00:00: 00 No 1mg carvedilol 25 mg tablet 2018-08 00:00: 00 No 1mg metformin 1,000 mg tablet 2018-08 00:00: 00 No 1mg atorvastati n 20 mg tablet 2018-08 00:00: 00 No 1mg omeprazole 20 mg capsule,del ayed release 2018-08 00:00: 00 No 1mg amlodipine 10 mg tablet 2018-08 00:00: 00 No 1mg losartan 50 mg-hydrochl orothiazide 12.5 mg tablet 2018-08 00:00: 00 No 1mg glimepiride 2 mg tablet 2018-08 00:00: 00 No 1mg carvedilol 25 mg tablet 2018-08 00:00: 00 No 1mg metformin 1,000 mg tablet 2018-08 00:00: 00 No 1mg atorvastati n 20 mg tablet 2018-08 00:00: 00 No 1mg omeprazole 20 mg capsule,del ayed release 2018-08 00:00: 00 No 1mg amlodipine 10 mg tablet 2018-08 00:00: 00 Yes 1mg Anoop Rios losartan 50 mg-hydrochl orothiazide 12.5 mg tablet 2018-08 00:00: 00 Yes 1mg Anoop Rios glimepiride 2 mg tablet 2018-08 00:00: 00 Yes 1mg Anoop Rios carvedilol 25 mg tablet 2018-08 00:00: 00 Yes 1mg Anoop Rios metformin 1,000 mg tablet 2018-08 00:00: 00 Yes 1mg Anoop Rios atorvastati n 20 mg tablet 2018-08 00:00: 00 Yes 1mg Anoop Rios omeprazole 20 mg capsule,del ayed release 2018-08 00:00: 00 Yes 1mg Anoop Rios meclizine 25 mg tablet 04-13 00:00: 00 No 1mg ondansetron 8 mg disintegrat ing tablet 04-13 00:00: 00 No 1mg meclizine 25 mg tablet 04-13 00:00: 00 No 1mg ondansetron 8 mg disintegrat ing tablet 04-13 00:00: 00 No 1mg meclizine 25 mg tablet 04-13 00:00: 00 No 1mg ondansetron 8 mg disintegrat ing tablet 04-13 00:00: 00 No 1mg meclizine 25 mg tablet 04-13 00:00: 00 No 1mg ondansetron 8 mg disintegrat ing tablet 04-13 00:00: 00 No 1mg meclizine 25 mg tablet 04-13 00:00: 00 Yes 1mg Anoop Rios ondansetron 8 mg disintegrat ing tablet 04-13 00:00: 00 Yes 1mg Anoop Rios amlodipine 10 mg tablet 03-25 00:00: 00 No 1mg aspirin 81 mg tablet,mariano yed release 03-25 00:00: 00 No 1mg glimepiride 2 mg tablet 03-25 00:00: 00 No 1mg carvedilol 25 mg tablet 03-25 00:00: 00 No 1mg metformin 1,000 mg tablet 03-25 00:00: 00 No 1mg omeprazole 20 mg capsule,del ayed release 03-25 00:00: 00 No 1mg amlodipine 10 mg tablet 03-25 00:00: 00 No 1mg aspirin 81 mg tablet,mariano yed release 03-25 00:00: 00 No 1mg glimepiride 2 mg tablet 03-25 00:00: 00 No 1mg carvedilol 25 mg tablet 03-25 00:00: 00 No 1mg metformin 1,000 mg tablet 03-25 00:00: 00 No 1mg omeprazole 20 mg capsule,del ayed release 03-25 00:00: 00 No 1mg amlodipine 10 mg tablet 03-25 00:00: 00 No 1mg aspirin 81 mg tablet,mariano yed release 03-25 00:00: 00 No 1mg glimepiride 2 mg tablet 03-25 00:00: 00 No 1mg carvedilol 25 mg tablet 03-25 00:00: 00 No 1mg metformin 1,000 mg tablet 03-25 00:00: 00 No 1mg omeprazole 20 mg capsule,del ayed release 03-25 00:00: 00 No 1mg amlodipine 10 mg tablet 03-25 00:00: 00 No 1mg aspirin 81 mg tablet,mariano yed release 03-25 00:00: 00 No 1mg glimepiride 2 mg tablet 03-25 00:00: 00 No 1mg carvedilol 25 mg tablet 03-25 00:00: 00 No 1mg metformin 1,000 mg tablet 03-25 00:00: 00 No 1mg omeprazole 20 mg capsule,del ayed release 03-25 00:00: 00 No 1mg amlodipine 10 mg tablet 03-25 00:00: 00 Yes 1mg Anoop Rios aspirin 81 mg tablet,mariano yed release 03-25 00:00: 00 Yes 1mg Anoop Rios glimepiride 2 mg tablet 03-25 00:00: 00 Yes 1mg Anoop Rios carvedilol 25 mg tablet 03-25 00:00: 00 Yes 1mg Anoop Rios metformin 1,000 mg tablet 03-25 00:00: 00 Yes 1mg Anoop Rios omeprazole 20 mg capsule,del ayed release 03-25 00:00: 00 Yes 1mg Anoop Rios aspirin 81 mg tablet,mariano yed release 11-11 00:00: 00 No 1mg amlodipine 10 mg tablet 11-11 00:00: 00 No 1mg glimepiride 2 mg tablet 11-11 00:00: 00 No 1mg carvedilol 25 mg tablet 11-11 00:00: 00 No 1mg metformin 1,000 mg tablet 11-11 00:00: 00 No 1mg omeprazole 20 mg capsule,del ayed release 11-11 00:00: 00 No 1mg aspirin 81 mg tablet,mariano yed release 11-11 00:00: 00 No 1mg amlodipine 10 mg tablet 11-11 00:00: 00 No 1mg glimepiride 2 mg tablet 11-11 00:00: 00 No 1mg carvedilol 25 mg tablet 11-11 00:00: 00 No 1mg metformin 1,000 mg tablet 11-11 00:00: 00 No 1mg omeprazole 20 mg capsule,del ayed release 11-11 00:00: 00 No 1mg aspirin 81 mg tablet,mariano yed release 11-11 00:00: 00 No 1mg amlodipine 10 mg tablet 11-11 00:00: 00 No 1mg glimepiride 2 mg tablet 11-11 00:00: 00 No 1mg carvedilol 25 mg tablet 11-11 00:00: 00 No 1mg metformin 1,000 mg tablet 11-11 00:00: 00 No 1mg omeprazole 20 mg capsule,del ayed release 11-11 00:00: 00 No 1mg aspirin 81 mg tablet,mariano yed release 11-11 00:00: 00 No 1mg amlodipine 10 mg tablet 11-11 00:00: 00 No 1mg glimepiride 2 mg tablet 11-11 00:00: 00 No 1mg carvedilol 25 mg tablet 11-11 00:00: 00 No 1mg metformin 1,000 mg tablet 11-11 00:00: 00 No 1mg omeprazole 20 mg capsule,del ayed release 11-11 00:00: 00 No 1mg aspirin 81 mg tablet,mariano yed release 11-11 00:00: 00 Yes 1mg Anoop F Gabriel amlodipine 10 mg tablet 11-11 00:00: 00 Yes 1mg Anoop Rios glimepiride 2 mg tablet 11-11 00:00: 00 Yes 1mg Anoop Rios carvedilol 25 mg tablet 11-11 00:00: 00 Yes 1mg Anoop Rios metformin 1,000 mg tablet 11-11 00:00: 00 Yes 1mg Anoop Rios omeprazole 20 mg capsule,del ayed release 11-11 00:00: 00 Yes 1mg Anoop Rios aspirin 81 mg tablet,mariano yed release 09-21 00:00: 00 No 1mg aspirin 81 mg tablet,mariano yed release 09-21 00:00: 00 No 1mg aspirin 81 mg tablet,mariano yed release 09-21 00:00: 00 No 1mg aspirin 81 mg tablet,mariano yed release 09-21 00:00: 00 No 1mg aspirin 81 mg tablet,mariano yed release 09-21 00:00: 00 Yes 1mg Anoop Rios glimepiride 2 mg tablet 2017-08 00:00: 00 No 1mg omeprazole 20 mg capsule,del ayed release 2017-08 00:00: 00 No 1mg glimepiride 2 mg tablet 2017-08 00:00: 00 No 1mg omeprazole 20 mg capsule,del ayed release 2017-08 00:00: 00 No 1mg glimepiride 2 mg tablet 2017-08 00:00: 00 No 1mg omeprazole 20 mg capsule,del ayed release 2017-08 00:00: 00 No 1mg glimepiride 2 mg tablet 2017-08 00:00: 00 No 1mg omeprazole 20 mg capsule,del ayed release 2017-08 00:00: 00 No 1mg glimepiride 2 mg tablet 2017-08 00:00: 00 Yes 1mg Anoop Rios omeprazole 20 mg capsule,del ayed release 2017-08 00:00: 00 Yes 1mg Anoop Rios amlodipine 10 mg tablet 2017-08 00:00: 00 No 1mg carvedilol 25 mg tablet 2017-08 00:00: 00 No 1mg metformin 1,000 mg tablet 2017-08 00:00: 00 No 1mg amlodipine 10 mg tablet 2017-08 00:00: 00 No 1mg carvedilol 25 mg tablet 2017-08 00:00: 00 No 1mg metformin 1,000 mg tablet 2017-08 00:00: 00 No 1mg amlodipine 10 mg tablet 2017-08 00:00: 00 No 1mg carvedilol 25 mg tablet 2017-08 00:00: 00 No 1mg metformin 1,000 mg tablet 2017-08 00:00: 00 No 1mg amlodipine 10 mg tablet 2017-08 00:00: 00 No 1mg carvedilol 25 mg tablet 2017-08 00:00: 00 No 1mg metformin 1,000 mg tablet 2017-08 00:00: 00 No 1mg amlodipine 10 mg tablet 2017-08 00:00: 00 Yes 1mg Anoop Rios carvedilol 25 mg tablet 2017-08 00:00: 00 Yes 1mg Anoop Rios metformin 1,000 mg tablet 2017-08 00:00: 00 Yes 1mg Anoop Rios glimepiride 1 mg tablet 2017-08 00:00: 00 No 1mg omeprazole 20 mg capsule,del ayed release 2017-08 00:00: 00 No 1mg glimepiride 1 mg tablet 2017-08 00:00: 00 No 1mg omeprazole 20 mg capsule,del ayed release 2017-08 00:00: 00 No 1mg glimepiride 1 mg tablet 2017-08 00:00: 00 No 1mg omeprazole 20 mg capsule,del ayed release 2017-08 00:00: 00 No 1mg glimepiride 1 mg tablet 2017-08 00:00: 00 No 1mg omeprazole 20 mg capsule,del ayed release 2017-08 00:00: 00 No 1mg glimepiride 1 mg tablet 2017-08 00:00: 00 Yes 1mg Anoop Rios omeprazole 20 mg capsule,del ayed release 2017-08 00:00: 00 Yes 1mg Anoop Rios amlodipine 10 mg tablet 05-18 00:00: 00 No 1mg carvedilol 12.5 mg tablet 05-18 00:00: 00 No 1mg metformin 1,000 mg tablet 05-18 00:00: 00 No 1mg lovastatin 20 mg tablet 05-18 00:00: 00 No 1mg amlodipine 10 mg tablet 05-18 00:00: 00 No 1mg carvedilol 12.5 mg tablet 05-18 00:00: 00 No 1mg metformin 1,000 mg tablet 05-18 00:00: 00 No 1mg lovastatin 20 mg tablet 05-18 00:00: 00 No 1mg amlodipine 10 mg tablet 05-18 00:00: 00 No 1mg carvedilol 12.5 mg tablet 05-18 00:00: 00 No 1mg metformin 1,000 mg tablet 05-18 00:00: 00 No 1mg lovastatin 20 mg tablet 05-18 00:00: 00 No 1mg amlodipine 10 mg tablet 05-18 00:00: 00 No 1mg carvedilol 12.5 mg tablet 05-18 00:00: 00 No 1mg metformin 1,000 mg tablet 05-18 00:00: 00 No 1mg lovastatin 20 mg tablet 05-18 00:00: 00 No 1mg amlodipine 10 mg tablet 05-18 00:00: 00 Yes 1mg Anoop Rios carvedilol 12.5 mg tablet 05-18 00:00: 00 Yes 1mg Anoop Rios metformin 1,000 mg tablet 05-18 00:00: 00 Yes 1mg Anoop Rios lovastatin 20 mg tablet 05-18 00:00: 00 Yes 1mg Anoop Rios lovastatin 20 mg tablet 05-07 00:00: 00 No 1mg lovastatin 20 mg tablet 05-07 00:00: 00 No 1mg lovastatin 20 mg tablet 05-07 00:00: 00 No 1mg lovastatin 20 mg tablet 05-07 00:00: 00 No 1mg lovastatin 20 mg tablet 05-07 00:00: 00 Yes 1mg Anoop Rios amlodipine 5 mg tablet 04-21 00:00: 00 No 1mg amlodipine 5 mg tablet 04-21 00:00: 00 No 1mg amlodipine 5 mg tablet 04-21 00:00: 00 No 1mg amlodipine 5 mg tablet 04-21 00:00: 00 No 1mg amlodipine 5 mg tablet 04-21 00:00: 00 Yes 1mg Anoop Rios glimepiride 1 mg tablet 04-13 00:00: 00 No 1mg carvedilol 6.25 mg tablet 04-13 00:00: 00 No 1mg omeprazole 20 mg capsule,del ayed release 04-13 00:00: 00 No 1mg glimepiride 1 mg tablet 04-13 00:00: 00 No 1mg carvedilol 6.25 mg tablet 04-13 00:00: 00 No 1mg omeprazole 20 mg capsule,del ayed release 04-13 00:00: 00 No 1mg glimepiride 1 mg tablet 04-13 00:00: 00 No 1mg carvedilol 6.25 mg tablet 04-13 00:00: 00 No 1mg omeprazole 20 mg capsule,del ayed release 04-13 00:00: 00 No 1mg glimepiride 1 mg tablet 04-13 00:00: 00 No 1mg carvedilol 6.25 mg tablet 04-13 00:00: 00 No 1mg omeprazole 20 mg capsule,del ayed release 04-13 00:00: 00 No 1mg glimepiride 1 mg tablet 04-13 00:00: 00 Yes 1mg Anoop Rios carvedilol 6.25 mg tablet 04-13 00:00: 00 Yes 1mg Anoop Rios omeprazole 20 mg capsule,del ayed release 04-13 00:00: 00 Yes 1mg Anoop Rios glimepiride 1 mg tablet 03-22 00:00: 00 No 1mg carvedilol 6.25 mg tablet 03-22 00:00: 00 No 1mg glimepiride 1 mg tablet 03-22 00:00: 00 No 1mg carvedilol 6.25 mg tablet 03-22 00:00: 00 No 1mg glimepiride 1 mg tablet 03-22 00:00: 00 No 1mg carvedilol 6.25 mg tablet 03-22 00:00: 00 No 1mg glimepiride 1 mg tablet 03-22 00:00: 00 No 1mg carvedilol 6.25 mg tablet 03-22 00:00: 00 No 1mg glimepiride 1 mg tablet 03-22 00:00: 00 Yes 1mg Anoop Rios carvedilol 6.25 mg tablet 03-22 00:00: 00 Yes 1mg Anoop Rios Viagra 50 mg tablet 02-19 00:00: 00 No 1mg metformin 1,000 mg tablet 02-19 00:00: 00 No 1mg lisinopril 20 mg tablet 02-19 00:00: 00 No 1mg lovastatin 20 mg tablet 02-19 00:00: 00 No 1mg omeprazole 20 mg capsule,del ayed release 02-19 00:00: 00 No 1mg Viagra 50 mg tablet 02-19 00:00: 00 No 1mg metformin 1,000 mg tablet 02-19 00:00: 00 No 1mg lisinopril 20 mg tablet 02-19 00:00: 00 No 1mg lovastatin 20 mg tablet 02-19 00:00: 00 No 1mg omeprazole 20 mg capsule,del ayed release 02-19 00:00: 00 No 1mg Viagra 50 mg tablet 02-19 00:00: 00 No 1mg metformin 1,000 mg tablet 02-19 00:00: 00 No 1mg lisinopril 20 mg tablet 02-19 00:00: 00 No 1mg lovastatin 20 mg tablet 02-19 00:00: 00 No 1mg omeprazole 20 mg capsule,del ayed release 02-19 00:00: 00 No 1mg Viagra 50 mg tablet 02-19 00:00: 00 No 1mg metformin 1,000 mg tablet 02-19 00:00: 00 No 1mg lisinopril 20 mg tablet 02-19 00:00: 00 No 1mg lovastatin 20 mg tablet 02-19 00:00: 00 No 1mg omeprazole 20 mg capsule,del ayed release 02-19 00:00: 00 No 1mg Viagra 50 mg tablet 02-19 00:00: 00 Yes 1mg Anoop Rios metformin 1,000 mg tablet 02-19 00:00: 00 Yes 1mg Anoop Rios lisinopril 20 mg tablet 02-19 00:00: 00 Yes 1mg Anoop Rios lovastatin 20 mg tablet 02-19 00:00: 00 Yes 1mg Anoop Rios omeprazole 20 mg capsule,del ayed release 02-19 00:00: 00 Yes 1mg Anoop Rios Viagra 50 mg tablet 01-28 00:00: 00 No 1mg Viagra 50 mg tablet 01-28 00:00: 00 No 1mg Viagra 50 mg tablet 01-28 00:00: 00 No 1mg Viagra 50 mg tablet 01-28 00:00: 00 No 1mg Viagra 50 mg tablet 01-28 00:00: 00 Yes 1mg Anoop Rios omeprazole 20 mg capsule,del ayed release 01-25 00:00: 00 No 1mg omeprazole 20 mg capsule,del ayed release 01-25 00:00: 00 No 1mg omeprazole 20 mg capsule,del ayed release 01-25 00:00: 00 No 1mg omeprazole 20 mg capsule,del ayed release 01-25 00:00: 00 No 1mg omeprazole 20 mg capsule,del ayed release 01-25 00:00: 00 Yes 1mg Anoop Rios ranitidine 300 mg tablet 11-13 00:00: 00 No 1mg lisinopril 20 mg tablet 11-13 00:00: 00 No 1mg metformin 500 mg tablet 11-13 00:00: 00 No mg lovastatin 20 mg tablet 11-13 00:00: 00 No 1mg ranitidine 300 mg tablet 11-13 00:00: 00 No 1mg lisinopril 20 mg tablet 11-13 00:00: 00 No 1mg metformin 500 mg tablet 11-13 00:00: 00 No mg lovastatin 20 mg tablet 11-13 00:00: 00 No 1mg ranitidine 300 mg tablet 11-13 00:00: 00 No 1mg lisinopril 20 mg tablet 11-13 00:00: 00 No 1mg metformin 500 mg tablet 11-13 00:00: 00 No mg lovastatin 20 mg tablet 11-13 00:00: 00 No 1mg ranitidine 300 mg tablet 11-13 00:00: 00 No 1mg lisinopril 20 mg tablet 11-13 00:00: 00 No 1mg metformin 500 mg tablet 11-13 00:00: 00 No mg lovastatin 20 mg tablet 11-13 00:00: 00 No 1mg ranitidine 300 mg tablet 11-13 00:00: 00 Yes 1mg Anoop Rios lisinopril 20 mg tablet 11-13 00:00: 00 Yes 1mg Anoop Rios metformin 500 mg tablet 11-13 00:00: 00 Yes mg Anoop Rios lovastatin 20 mg tablet 11-13 00:00: 00 Yes 1mg Anoop Rios Viagra 50 mg tablet 10-13 00:00: 00 No 1mg Viagra 50 mg tablet 10-13 00:00: 00 No 1mg Viagra 50 mg tablet 10-13 00:00: 00 No 1mg Viagra 50 mg tablet 10-13 00:00: 00 No 1mg Viagra 50 mg tablet 10-13 00:00: 00 Yes 1mg Anoop Rios ranitidine 300 mg tablet 10-06 00:00: 00 No 1mg ranitidine 300 mg tablet 10-06 00:00: 00 No 1mg ranitidine 300 mg tablet 10-06 00:00: 00 No 1mg ranitidine 300 mg tablet 10-06 00:00: 00 No 1mg ranitidine 300 mg tablet 10-06 00:00: 00 Yes 1mg Anoop Rios lovastatin 20 mg tablet 2 00:00: 00 No 1mg lisinopril 20 mg tablet 2 00:00: 00 No 1mg metformin 500 mg tablet 2 00:00: 00 No mg lovastatin 20 mg tablet 2 00:00: 00 No 1mg lisinopril 20 mg tablet 2 00:00: 00 No 1mg metformin 500 mg tablet 2 00:00: 00 No mg lovastatin 20 mg tablet 2 00:00: 00 No 1mg lisinopril 20 mg tablet 2 00:00: 00 No 1mg metformin 500 mg tablet 2 00:00: 00 No mg lovastatin 20 mg tablet 2 00:00: 00 No 1mg lisinopril 20 mg tablet 2 00:00: 00 No 1mg metformin 500 mg tablet 2 00:00: 00 No mg lisinopril 20 mg tablet 2 00:00: 00 Yes 1mg Anoop Rios metformin 500 mg tablet 2 00:00: 00 Yes mg Anoop Rios lovastatin 20 mg tablet 2 00:00: 00 Yes 1mg Anoop Rios lisinopril 10 mg tablet 09-21 00:00: 00 No 1mg lisinopril 10 mg tablet 09-21 00:00: 00 No 1mg lisinopril 10 mg tablet 09-21 00:00: 00 No 1mg lisinopril 10 mg tablet 09-21 00:00: 00 No 1mg lisinopril 10 mg tablet 09-21 00:00: 00 Yes 1mg Anoop Rios hydrochloro thiazide 25 mg tablet 09-14 00:00: 00 No 1mg Norvasc 10 mg tablet 09-14 00:00: 00 No 1mg ranitidine 300 mg tablet 09-14 00:00: 00 No 1mg aspirin 325 mg tablet 09-14 00:00: 00 No 1mg hydrochloro thiazide 25 mg tablet 09-14 00:00: 00 No 1mg hydrochloro thiazide 25 mg tablet 09-14 00:00: 00 No 1mg Norvasc 10 mg tablet 09-14 00:00: 00 No 1mg ranitidine 300 mg tablet 09-14 00:00: 00 No 1mg aspirin 325 mg tablet 09-14 00:00: 00 No 1mg Norvasc 10 mg tablet 09-14 00:00: 00 No 1mg ranitidine 300 mg tablet 09-14 00:00: 00 No 1mg aspirin 325 mg tablet 09-14 00:00: 00 No 1mg hydrochloro thiazide 25 mg tablet 09-14 00:00: 00 No 1mg Norvasc 10 mg tablet 09-14 00:00: 00 No 1mg ranitidine 300 mg tablet 09-14 00:00: 00 No 1mg aspirin 325 mg tablet 09-14 00:00: 00 No 1mg hydrochloro thiazide 25 mg tablet 09-14 00:00: 00 Yes 1mg Anoop Rios Norvasc 10 mg tablet 09-14 00:00: 00 Yes 1mg Anoop Rios ranitidine 300 mg tablet 09-14 00:00: 00 Yes 1mg Anoop Rios aspirin 325 mg tablet 09-14 00:00: 00 Yes 1mg Anoop Rios Immunizations Ordered Immunization Name Filled Immunization Name Date Status Comments Source influenza, seasonal vaccine, quadrivalent, adjuvanted, .5mL dose, preservative-free influenza, seasonal vaccine, quadrivalent, adjuvanted, .5mL dose, preservative-free 2023-08-03 00:00:00 Completed Anoop Rios influenza, seasonal vaccine, quadrivalent, adjuvanted, .5mL dose, preservative-free influenza, seasonal vaccine, quadrivalent, adjuvanted, .5mL dose, preservative-free 2023-08-03 00:00:00 Completed Anoop Rios influenza, seasonal vaccine, quadrivalent, adjuvanted, .5mL dose, preservative-free influenza, seasonal vaccine, quadrivalent, adjuvanted, .5mL dose, preservative-free 2023-06-15 00:00:00 Completed Anoop Rios influenza, seasonal vaccine, quadrivalent, adjuvanted, .5mL dose, preservative-free influenza, seasonal vaccine, quadrivalent, adjuvanted, .5mL dose, preservative-free 2023-06-15 00:00:00 Completed Anoop iRos Hep A-Hep B Hep A-Hep B 2023-04-05 00:00:00 Joshua Anoop Rios RSV Recombinant, Arexvy 0.5ML RSV Recombinant, Arexvy 0.5ML 2023-04-05 00:00:00 Completed Anoop Rios SHINGRIX VACCINE SHINGRIX VACCINE 2023-04-05 00:00:00 Joshua Rios influenza, high-dose, quadrivalent influenza, high-dose, quadrivalent 2023-04-05 00:00:00 Joshua Anoop Rios Hep A-Hep B Hep A-Hep B 2023-04-05 00:00:00 Joshua Anoop Rios RSV Recombinant, Arexvy 0.5ML RSV Recombinant, Arexvy 0.5ML 2023-04-05 00:00:00 Completed Anoop Rios SHINGRIX VACCINE SHINGRIX VACCINE 2023-04-05 00:00:00 Joshua Anoop Rios influenza, high-dose, quadrivalent influenza, high-dose, quadrivalent 2023-04-05 00:00:00 Joshua Anoop Rios Hep A-Hep B Hep A-Hep B 2023-01-26 00:00:00 Completed Anoop Rios SHINGRIX VACCINE SHINGRIX VACCINE 2023-01-26 00:00:00 Completed Anoop Rios Prevnar 20 Prevnar 20 2023-01-26 00:00:00 Completed Anoop Rios Hep A-Hep B Hep A-Hep B 2023-01-26 00:00:00 Completed Anoop Rios SHINGRIX VACCINE SHINGRIX VACCINE 2023-01-26 00:00:00 Completed Anoop Rios Prevnar 20 Prevnar 20 2023-01-26 00:00:00 Completed Anoop Anh Gabriel Moderna COVID-19 Vaccine 2021-08-12 00:00:00 Completed Moderna COVID-19 Vaccine 2021-08-12 00:00:00 Completed Moderna COVID-19 Vaccine 2021-08-12 00:00:00 Completed Moderna COVID-19 Vaccine 2021-08-12 00:00:00 Completed Moderna COVID-19 Vaccine Moderna COVID-19 Vaccine 2021-08-12 00:00:00 Completed Anoop Anh Gabriel Moderna COVID-19 Vaccine Moderna COVID-19 Vaccine 2021-08-12 00:00:00 Completed Anoop Rios Influenza, seasonal, inj 2020-06-29 00:00:00 Completed Influenza, seasonal, inj 2020-06-29 00:00:00 Completed Influenza, seasonal, inj 2020-06-29 00:00:00 Completed Influenza, seasonal, inj 2020-06-29 00:00:00 Completed Influenza, seasonal, inj Influenza, seasonal, inj 2020-06-29 00:00:00 Completed Anoop Anh Gabriel Influenza, seasonal, inj Influenza, seasonal, inj 2020-06-29 00:00:00 Completed Anoop Rios Tdap 2017-09-14 00:00:00 Completed Tdap 2017-09-14 00:00:00 Completed Tdap 2017-09-14 00:00:00 Completed Tdap 2017-09-14 00:00:00 Completed Tdap Tdap 2017-09-14 00:00:00 Completed Anoop Anh Gabriel Tdap Tdap 2017-09-14 00:00:00 Completed Anoop Rios Vital Signs Vital Name Observation Time Observation Value Comments S ource Systolic blood pressure 2020-05-20 15:10:00 150 mm[Hg] [place] [facility] Diastolic blood pressure 2020-05-20 15:10:00 83 mm[Hg] [place] [facility] Heart rate 2020-05-20 15:10:00 73 /min [facility] Body temperature 2020-05-20 15:10:00 36.17 [facility] Respiratory rate 2020-05-20 15:10:00 18 /min [facility] Body weight 2020-05-20 15:10:00 72.848 kg [facility] BP Systolic 2024-07-19 14:00:00 152 mm[Hg] Step hen F Gabriel BP Diastolic 2024-07-19 14:00:00 75 mm[Hg] Armando phen F Gabriel Weight Measured 2024-07-19 14:00:00 161.40 pounds Anoop F Gabriel Height Measured 2024-07-19 14:00:00 64.00 inches Anoop F Gabriel Body Temperature 2024-07-19 14:00:00 98.60 degrees Anoop F Gabriel Heart Rate 2024-07-19 14:00:00 79.00 /min Alicia en F Gabriel Respiratory Rate 2024-07-19 14:00:00 18.00 /min Anoop F Gabriel BP Systolic 2024-07-05 10:37:00 141 mm[Hg] Step hen F Gabriel BP Diastolic 2024-07-05 10:37:00 78 mm[Hg] Armando phen F Gabriel Weight Measured 2024-07-05 10:37:00 159.40 pounds Anoop F Gabriel Height Measured 2024-07-05 10:37:00 64.00 inches Anoop F Gabriel Body Temperature 2024-07-05 10:37:00 98.00 degrees Anoop F Gabriel Heart Rate 2024-07-05 10:37:00 66.00 /min Alicia en F Gabriel Respiratory Rate 2024-07-05 10:37:00 18.00 /min Anoop F Gabriel BP Systolic 2024-04-24 10:15:00 112 mm[Hg] Step hen F Gabriel BP Diastolic 2024-04-24 10:15:00 82 mm[Hg] Armando phen F Gabriel Weight Measured 2024-04-24 10:15:00 157.00 pounds Anoop F Gabriel Height Measured 2024-04-24 10:15:00 64.00 inches Anoop F Gabriel Body Temperature 2024-04-24 10:15:00 98.20 degrees Anoop F Gabriel Heart Rate 2024-04-24 10:15:00 71.00 /min Alicia en F Gabriel Respiratory Rate 2024-04-24 10:15:00 18.00 /min Anoop F Gabriel BP Systolic 2024-04-18 10:07:00 124 mm[Hg] Step hen F Gabriel BP Diastolic 2024-04-18 10:07:00 68 mm[Hg] Armando phen F Gabriel Weight Measured 2024-04-18 10:07:00 153.20 pounds Anoop F Gabriel Height Measured 2024-04-18 10:07:00 65.00 inches Anoop F Gabriel Body Temperature 2024-04-18 10:07:00 98.10 degrees Anoop F Gabriel Heart Rate 2024-04-18 10:07:00 75.00 /min Alicia en F Gabriel Respiratory Rate 2024-04-18 10:07:00 16.00 /min Anoop F Gabriel BP Systolic 2024-02-21 16:08:00 124 mm[Hg] Step hen F Gabriel BP Diastolic 2024-02-21 16:08:00 68 mm[Hg] Armando phen F Gabriel Weight Measured 2024-02-21 16:08:00 156.80 pounds Anoop F Gabriel Height Measured 2024-02-21 16:08:00 65.00 inches Anoop F Gabriel Body Temperature 2024-02-21 16:08:00 98.10 degrees Anoop F Gabriel Heart Rate 2024-02-21 16:08:00 69.00 /min Alicia en F Gabriel Respiratory Rate 2024-02-21 16:08:00 16.00 /min Anoop F Gabriel BP Systolic 2024-02-10 08:22:00 134 mm[Hg] Step hen F Gabriel BP Diastolic 2024-02-10 08:22:00 77 mm[Hg] Armando phen F Gabriel Weight Measured 2024-02-10 08:22:00 152.00 pounds Anoop F Gabriel Height Measured 2024-02-10 08:22:00 65.00 inches Anoop F Gabriel Body Temperature 2024-02-10 08:22:00 98.00 degrees Anoop F Gabriel Heart Rate 2024-02-10 08:22:00 64.00 /min Alicia en F Gabriel Respiratory Rate 2024-02-10 08:22:00 18.00 /min Anoop F Gabriel BP Systolic 2024-01-17 13:24:00 Step hen F Gabriel BP Diastolic 2024-01-17 13:24:00 Armando phen F Gabriel Weight Measured 2024-01-17 13:24:00 153.20 pounds Anoop F Gabriel Height Measured 2024-01-17 13:24:00 65.00 inches Anoop F Gabriel Body Temperature 2024-01-17 13:24:00 98.00 degrees Anoop F Gabriel Heart Rate 2024-01-17 13:24:00 62.00 /min Alicia en F Gabriel Respiratory Rate 2024-01-17 13:24:00 Anoop F Gabriel BP Systolic 2024-01-08 09:52:00 158 mm[Hg] Step hen F Gabriel BP Diastolic 2024-01-08 09:52:00 86 mm[Hg] Armando phen F Gabriel Weight Measured 2024-01-08 09:52:00 156.60 pounds Anoop F Gabriel Height Measured 2024-01-08 09:52:00 65.00 inches Anoop F Gabriel Body Temperature 2024-01-08 09:52:00 98.30 degrees Anoop F Gabriel Heart Rate 2024-01-08 09:52:00 63.00 /min Alicia en F Gabriel Respiratory Rate 2024-01-08 09:52:00 Anoop F Gabriel BP Systolic 2024-01-07 12:09:00 157 mm[Hg] Step hen F Gabriel BP Diastolic 2024-01-07 12:09:00 74 mm[Hg] Armando phen F Gabriel Weight Measured 2024-01-07 12:09:00 156.60 pounds Anoop F Gabriel Height Measured 2024-01-07 12:09:00 65.00 inches Anoop F Gabriel Body Temperature 2024-01-07 12:09:00 98.20 degrees Anoop F Gabriel Heart Rate 2024-01-07 12:09:00 65.00 /min Alicia en F Gabriel Respiratory Rate 2024-01-07 12:09:00 19.00 /min Anoop F Gabriel BP Systolic 2023-11-18 12:07:00 128 mm[Hg] Step hen F Gabriel BP Diastolic 2023-11-18 12:07:00 73 mm[Hg] Armando phen F Gabriel Weight Measured 2023-11-18 12:07:00 154.00 pounds Anoop F Gabriel Height Measured 2023-11-18 12:07:00 65.00 inches Anoop F Gabriel Body Temperature 2023-11-18 12:07:00 98.30 degrees Anoop F Gabriel Heart Rate 2023-11-18 12:07:00 64.00 /min Alicia en F Gabriel Respiratory Rate 2023-11-18 12:07:00 18.00 /min Anoop F Gabriel BP Systolic 2023-11-13 10:03:00 131 mm[Hg] Step hen F Gabreil BP Diastolic 2023-11-13 10:03:00 77 mm[Hg] Armando phen F Gabriel Weight Measured 2023-11-13 10:03:00 153.60 pounds Anoop F Gabriel Height Measured 2023-11-13 10:03:00 65.00 inches Anoop F Gabriel Body Temperature 2023-11-13 10:03:00 98.10 degrees Anoop F Gabriel Heart Rate 2023-11-13 10:03:00 68.00 /min Alicia en F Gabriel Respiratory Rate 2023-11-13 10:03:00 Anoop F Gabriel BP Systolic 2023-09-07 13:21:00 156 mm[Hg] Step hen F Gabriel BP Diastolic 2023-09-07 13:21:00 71 mm[Hg] Armando phen F Gabriel Weight Measured 2023-09-07 13:21:00 157.00 pounds Anoop F Gabriel Height Measured 2023-09-07 13:21:00 65.00 inches Anoop F Gabriel Body Temperature 2023-09-07 13:21:00 98.40 degrees Anoop F Gabriel Heart Rate 2023-09-07 13:21:00 74.00 /min Alicia en F Gabriel Respiratory Rate 2023-09-07 13:21:00 Anoop F Gabriel BP Systolic 2023-09-07 13:08:00 156 mm[Hg] Step hen F Gabriel BP Diastolic 2023-09-07 13:08:00 71 mm[Hg] Armando phen F Gabriel Weight Measured 2023-09-07 13:08:00 157.00 pounds Anoop F Gabriel Height Measured 2023-09-07 13:08:00 65.00 inches Anoop F Gabriel Body Temperature 2023-09-07 13:08:00 98.40 degrees Anoop F Gabriel Heart Rate 2023-09-07 13:08:00 74.00 /min Alicia en F Gabriel Respiratory Rate 2023-09-07 13:08:00 Anoop F Gabriel BP Systolic 2023-07-14 11:03:00 146 mm[Hg] Step hen F Gabriel BP Diastolic 2023-07-14 11:03:00 75 mm[Hg] Armando phen F Gabriel Weight Measured 2023-07-14 11:03:00 153.60 pounds Anoop F Gabriel Height Measured 2023-07-14 11:03:00 65.00 inches Anoop F Gabriel Body Temperature 2023-07-14 11:03:00 98.20 degrees Anoop F Gabriel Heart Rate 2023-07-14 11:03:00 70.00 /min Alicia en F Gabriel Respiratory Rate 2023-07-14 11:03:00 Anoop F Gabriel BP Systolic 2023-07-10 12:57:00 173 mm[Hg] Step hen F Gabriel BP Diastolic 2023-07-10 12:57:00 84 mm[Hg] Armando phen F Gabriel Weight Measured 2023-07-10 12:57:00 Anoop F Gabriel Height Measured 2023-07-10 12:57:00 Anoop F Gabriel Body Temperature 2023-07-10 12:57:00 98.30 degrees Anoop F Gabriel Heart Rate 2023-07-10 12:57:00 65.00 /min Alicia en F Gabriel Respiratory Rate 2023-07-10 12:57:00 Anoop F Gabriel BP Diastolic 2023-06-15 14:50:00 77 mm[Hg] Armando phen F Gabriel Weight Measured 2023-06-15 14:50:00 153.00 pounds Anoop F Gabriel Height Measured 2023-06-15 14:50:00 65.00 inches Anoop F Gabriel Body Temperature 2023-06-15 14:50:00 98.10 degrees Anoop F Gabriel Heart Rate 2023-06-15 14:50:00 76.00 /min Alicia en F Gabriel Respiratory Rate 2023-06-15 14:50:00 Anoop F Gabriel BP Systolic 2023-06-15 14:50:00 142 mm[Hg] Step hen F Gabriel BP Systolic 2022-08-27 08:52:00 143 mm[Hg] BP [...] Procedures Procedure Date / Time Performed Performing Clinicia n Source POCT URINALYSIS AUTO 2020-05-20 15:23:00 [facility] Plan of Care Planned Activity Planned Date Details Comments Source Goal Plan of Care Note [code = 47955-9] Goal Plan of Care Note [code = 33269-9] Goal Plan of Care Note [code = 02870-3] Goal Plan of Care Note [code = 25554-9] Goal Plan of Care Note [code = 03154-1] Goal Plan of Care Note [code = 47787-8] Goal Plan of Care Note [code = 18327-7] Goal Plan of Care Note [code = 66326-7] Goal Plan of Care Note [code = 44469-4] Goal Plan of Care Note [code = 76512-3] Goal Plan of Care Note [code = 79149-8] Goal Plan of Care Note [code = 12027-0] Goal Plan of Care Note [code = 89849-9] Goal Plan of Care Note [code = 09068-4] Goal Plan of Care Note [code = 24585-4] Goal Plan of Care Note [code = 20184-1] Goal Plan of Care Note [code = 55964-4] Goal Plan of Care Note [code = 72708-8] Goal Plan of Care Note [code = 44820-3] Goal Plan of Care Note [code = 89048-7] Goal Plan of Care Note [code = 99852-2] Goal Plan of Care Note [code = 06265-2] Goal Plan of Care Note [code = 79149-8] Goal Plan of Care Note [code = 46912-1] Goal Plan of Care Note [code = 01071-3] Goal Plan of Care Note [code = 02555-1] Goal Plan of Care Note [code = 70309-2] Goal Plan of Care Note [code = 99768-1] Goal Plan of Care Note [code = 05374-1] Goal Plan of Care Note [code = 98164-3] Goal Plan of Care Note [code = 25937-9] Goal Plan of Care Note [code = 44671-8] Goal Plan of Care Note [code = 49052-9] Goal Plan of Care Note [code = 91272-0] Goal Plan of Care Note [code = 57291-1] Goal Plan of Care Note [code = 23860-3] Goal Plan of Care Note [code = 50022-6] Goal Plan of Care Note [code = 30602-2] Goal Plan of Care Note [code = 18036-2] Goal Plan of Care Note [code = 70687-5] Goal Plan of Care Note [code = 45556-1] Goal Plan of Care Note [code = 93992-6] Goal Plan of Care Note [code = 91338-1] Goal Plan of Care Note [code = 40027-5] Goal Plan of Care Note [code = 41257-0] Goal Plan of Care Note [code = 82787-3] Goal Plan of Care Note [code = 94827-1] Goal Plan of Care Note [code = 53842-1] Goal Plan of Care Note [code = 72688-7] Goal Plan of Care Note [code = 87804-9] Goal Plan of Care Note [code = 79470-6] Goal Plan of Care Note [code = 88506-2] Goal Plan of Care Note [code = 83244-5] Goal Plan of Care Note [code = 69329-6] Goal Plan of Care Note [code = 42594-9] Goal Plan of Care Note [code = 34714-3] Goal Plan of Care Note [code = 30950-3] Goal Plan of Care Note [code = 31569-5] Goal Plan of Care Note [code = 27108-1] Goal Plan of Care Note [code = 14736-7] Goal Plan of Care Note [code = 15251-3] Goal Plan of Care Note [code = 25800-6] Goal Plan of Care Note [code = 09312-6] Goal Plan of Care Note [code = 96176-0] Goal Plan of Care Note [code = 74694-0] Goal Plan of Care Note [code = 25954-9] Goal Plan of Care Note [code = 78573-7] Goal Plan of Care Note [code = 68973-5] Goal Plan of Care Note [code = 76755-5] Goal Plan of Care Note [code = 35256-4] Goal Plan of Care Note [code = 63945-2] Goal Plan of Care Note [code = 16966-5] Goal Plan of Care Note [code = 44645-2] Goal Plan of Care Note [code = 83236-7] Goal Plan of Care Note [code = 90229-8] Goal Plan of Care Note [code = 34183-7] Goal Plan of Care Note [code = 80342-1] Goal Plan of Care Note [code = 42959-1] Goal Plan of Care Note [code = 84918-6] Goal Plan of Care Note [code = 35818-5] Goal Plan of Care Note [code = 44744-4] Goal Plan of Care Note [code = 59712-1] Goal Plan of Care Note [code = 28837-4] Goal Plan of Care Note [code = 96200-4] Goal Plan of Care Note [code = 97553-7] Goal Plan of Care Note [code = 09240-2] Goal Plan of Care Note [code = 10043-2] Goal Plan of Care Note [code = 58913-7] Goal Plan of Care Note [code = 02865-6] Goal Plan of Care Note [code = 67851-2] Goal Plan of Care Note [code = 42253-4] Goal Plan of Care Note [code = 25244-7] Goal Plan of Care Note [code = 72547-4] Goal Plan of Care Note [code = 92045-6] Goal Plan of Care Note [code = 49970-0] Goal Plan of Care Note [code = 21033-9] Goal Plan of Care Note [code = 61603-5] Goal Plan of Care Note [code = 55885-1] Goal Plan of Care Note [code = 32513-6] Goal Plan of Care Note [code = 06769-0] Goal Plan of Care Note [code = 32400-6] Goal Plan of Care Note [code = 50817-7] Goal Plan of Care Note [code = 99618-6] Goal Plan of Care Note [code = 74079-1] Goal Plan of Care Note [code = 08211-7] Goal Plan of Care Note [code = 91765-7] Goal Plan of Care Note [code = 12579-4] Goal Plan of Care Note [code = 25552-6] Goal Plan of Care Note [code = 70680-8] Goal Plan of Care Note [code = 43401-3] Goal Plan of Care Note [code = 22978-8] Goal Plan of Care Note [code = 90745-7] Goal Plan of Care Note [code = 09894-8] Goal Plan of Care Note [code = 30208-2] Goal Plan of Care Note [code = 58473-7] Goal Plan of Care Note [code = 44991-3] Goal Plan of Care Note [code = 80612-5] Goal Plan of Care Note [code = 70074-4] Goal Plan of Care Note [code = 51492-6] Goal Plan of Care Note [code = 23247-4] Goal Plan of Care Note [code = 03695-1] Goal Plan of Care Note [code = 54558-6] Goal Plan of Care Note [code = 52931-9] Goal Plan of Care Note [code = 79125-2] Goal Plan of Care Note [code = 08960-0] Goal Plan of Care Note [code = 28706-9] Encounters Start Date/Time End Date/Time Encounter Type Admission Type Attending [facility] Facility Care Department Encounter ID Source 2024-08-07 11:28:32 2024-08-07 11:28:[address] [facility] [id number] Anoop Rios 2024-07-21 16:25:15 2024-07-21 16:25:[address] [facility] [id number] Anoop Kamara Gabriel 2024-07-19 13:58:34 2024-07-19 13:58:[address] [facility] 7 Anoop Rios 2024-07-19 00:00:00 2024-07-19 00:00:[address] [facility] [id number] Anoop Kamara Gabriel 2024-07-05 10:27:59 2024-07-05 10:27:[address] [facility] [id number] Anoop Kamara Gabriel 2024-07-01 12:47:09 2024-07-01 12:47:[address] [facility] 1109 Anoopneri Rios 2024-04-24 10:06:40 2024-04-24 10:06:40 Outpatient [facility] [id number] Anoop Rios 2024-04-18 09:53:22 2024-04-18 09:53:22 Outpatient [facility] [id number] Anoop Rios 2024-04-18 00:00:00 2024-04-18 00:00:00 Outpatient Visit [facility] [id number] Anoop Rios 2024-02-21 16:01:55 2024-02-21 16:01:55 Outpatient [facility] 700 Anoop Rios 2024-02-21 00:00:00 2024-02-21 00:00:00 Outpatient Visit [facility] [id number] Anoop Rios 2024-02-10 08:10:30 2024-02-10 08:10:30 Outpatient [facility] [id number] Anoop Rios 2024-01-17 13:21:58 2024-01-17 13:21:58 Outpatient [facility] 526 Anoop Rios 2024-01-17 00:00:00 2024-01-17 00:00:00 Outpatient Visit [facility] [id number] Anoop Rios 2024-01-08 09:43:23 2024-01-08 09:43:23 Outpatient [facility] 18 Anoop Rios 2024-01-07 12:02:50 2024-01-07 12:02:50 Outpatient [facility] 17 Anoop Rios 2023-11-18 11:59:49 2023-11-18 11:59:49 Outpatient [facility] 8 Anoop Rios 2023-11-16 15:37:28 2023-11-16 15:37:28 Outpatient [facility] [id number] Anoop Rios 2023-11-13 09:57:40 2023-11-13 09:57:40 Outpatient [facility] [id number] Anoop Rios 2023-10-01 16:04:06 2023-10-01 16:04:06 Outpatient [facility] [id number] Anoop Rios 2023-09-07 13:06:43 2023-09-07 13:06:43 Outpatient [facility] 011 Anoop Rios 2023-09-03 10:29:49 2023-09-03 10:29:49 Outpatient [facility] [id number] Anoop Rios 2023-08-03 08:27:04 2023-08-03 08:27:04 Outpatient [facility] 121 Anoop Rios 2023-07-14 10:55:35 2023-07-14 10:55:35 Outpatient [facility] 112 Anoop Rios 2023-07-10 12:48:31 2023-07-10 12:48:31 Outpatient [facility] [id number] Anoop Rios 2023-06-16 11:52:46 2023-06-16 11:52:46 Outpatient [facility] 1025 Anoop Kamara Gabriel 2023-06-15 14:49:03 2023-06-15 14:49:03 Outpatient [facility] 1024 Anoop Rios 2023-06-02 15:39:05 2023-06-02 15:39:05 Outpatient [facility] [id number] Anoop Rios 2023-05-25 09:26:36 2023-05-25 09:26:36 Outpatient [facility] [id number] Anoop Kamara Gabriel 2023-05-22 12:08:33 2023-05-22 12:08:33 Outpatient SFA [facility] [id number] Anoop Rios 2023-05-12 15:44:16 2023-05-12 15:44:16 Outpatient SFA [facility] [id number] Anoop Rios 2023-03-29 10:18:05 2023-03-29 10:18:05 Outpatient [facility] [id number] Anoop Rios 2023-03-15 11:30:49 2023-03-15 11:30:49 Outpatient SFA [facility] [id number] Anoop Rios 2023-02-03 09:54:26 2023-02-03 09:54:26 Outpatient [facility] 14 Anoop Rios 2023-02-01 08:26:11 2023-02-01 08:26:11 Outpatient [facility]FA [facility] 611 Anoop Rios 2023-01-28 08:49:35 2023-01-28 08:49:35 Outpatient SFA [facility] 607 Anoop Kamara Gabriel 2023-01-26 17:06:29 2023-01-26 17:06:29 Outpatient SFA [facility] 605 Anoop Rios 2022-12-16 13:58:44 2022-12-16 13:58:44 Outpatient [facility] 425 Anoop Kamara Gabriel 2022-12-14 13:10:00 2022-12-14 13:10:00 Outpatient [facility] [id number] Anoop Kamara Gabriel 2022-10-21 09:05:48 2022-10-21 09:05:48 Outpatient SFA SFA 300 Anoop Kamara Gabriel 2022-09-29 11:21:33 2022-09-29 11:21:33 Outpatient SFA SFA 206 Anoop Kamara Gabriel 2022-08-28 10:50:45 2022-08-28 10:50:45 Outpatient SFA SFA 105 Anoop Kamara Axis 2022-08-27 08:31:37 2022-08-27 08:31:37 Outpatient SFA SFA 104 Anoop Kamara Axis 2022-08-27 00:00:00 2022-08-27 00:00:00 Outpatient Visit [id number] 2022-07-30 10:15:02 2022-07-30 10:15:02 Outpatient SFA SFA 1208 Anoop Rios 2022-07-28 11:11:30 2022-07-28 11:11:[address] [facility] [id number] Anoop Rios 2022-07-28 00:00:00 2022-07-28 00:00:00 Outpatient Visit [id number] 2022-07-06 14:10:48 2022-07-06 14:10:[address] [facility] [id number] Anoop Rios 2022-07-06 00:00:00 2022-07-06 00:00:00 Outpatient Visit [id number] 11:11:54 2022-06-01 11:11:[address] [facility] [id number] Anoop Rios 2022-03-30 00:00:00 2022-03-30 00:00:00 Outpatient Visit [id number] 2020-11-04 16:00:00 2020-11-04 15:29:37 Outpatient ERMA LEWIS [facility] [id number] General acute hospital 2020-10-14 12:40:00 2020-10-14 15:41:21 Outpatient ERMA LEWIS [facility] [id number] General acute hospital 2020-06-17 09:00:00 2020-06-17 09:00:00 Outpatient YULISA IYER [facility] [id number] General acute hospital 2020-05-20 09:15:33 2020-05-20 09:45:33 Office Visit Yulisa Felipe [facility] [id number] General acute hospital 2020-05-20 09:30:00 2020-05-20 09:30:00 Outpatient YULISA IYER [facility] [id number] General acute hospital Results Test Description Test Time Test Comments Results Result Co mments Source URIC [id number] 00:00:00* Test Item Value Reference Range Interpretation Comme nts URIC ACID (test code = 2233) 5.9 MG/DL Anoop Kamara AustinURIC [id number] 00:00:00* Test Item Value Reference Range Interpretation Comme nts URIC ACID (test code = 2233) 5.9 MG/DL Anoop Kamara AustinURIC [id number] 00:00:00* Test Item Value Reference Range Interpretation Comme nts URIC ACID (test code = 2233) 5.9 MG/DL Anoop Kamara AxisLIPID [id number] 05:57:56* Test Item Value Reference Range Interpretation Comme nts CHOLESTEROL (test code = 2210) 113 MG/DL <200 TRIGLYCERIDES (test code = 2232) 177 MG/DL <150 H HDL CHOLESTEROL (test code = 2220) 32 MG/DL >39 L CALC LDL CHOL (test code = 2237) 56 MG/DL <100 NOTE: CALCULATED LDL IS BASED ON AMALIA-BECERRA METHOD WHICHINCLUDES ADJUSTABLE TRIGLYCERIDE:VLDL CHOLESTEROL RATIO.THIS FACTOR VARIES BY MEASURED TRIGLYCERIDE AND NON-HDLCHOLESTEROL CONCENTRATIONS WITH INCREASED CALCULATED LDL SEENIN HIGHER TRIGLYCERIDE OR LOWER NON-HDL SPECIMENS. FOR MOREINFORMATION, SEE CLIENT ANNOUNCEMENT AT [email or web address] RISK RATIO LDL/HDL (test code = 2238) 1.75 RATIO <3.55 COMPREHENSIVE METABOLIC [id number] 05:57:56* Test Item Value Reference Range Interpretation Comme nts GLUCOSE (test code = 2217) 170 MG/DL 70-99 H BUN (test code = 2208) 12 MG/DL 8-23 CREATININE (test code = 2214) 1.14 MG/DL 0.80-1.40 eGFR (2020 CKD-EPI) (test co de = 33896) 71 ML/MIN/1.73 >60 CALC BUN/CREAT (test code = 2235) 11 RATIO 6-28 SODIUM (test code = 223) 143 MEQ/L 133-146 POTASSIUM (test code = 2228) 4.3 MEQ/L 3.5-5.4 CHLORIDE (test code = 2215) 103 MEQ/L 95-107 CARBON DIOXIDE (test code = 2206) 26 MEQ/L 19-31 CALCIUM (test code = 2208) 9.3 MG/DL 8.5-10.5 PROTEIN, TOTAL (test code = 2228) 6.4 G/DL 6.1-8.3 ALBUMIN (test code = 2200) 4.2 G/DL 3.5-5.2 CALC GLOBULIN (test code = 2240) 2.2 G/DL 1.9-3.7 CALC A/G RATIO (test code = 4) 1.9 RATIO 1.0-2.6 BILIRUBIN, TOTAL (test code = 2206) 0.4 MG/DL <=1.2 ALKALINE PHOSPHATASE (test code = 2203) 73 U/L 40-125 AST (test code = 2218) 13 U/L 9-50 ALT (test code = 2219) 13 U/L 5-50 HEPATITIS PANEL, [id number] 03:20:25* Test Item Value Reference Range Interpretation Comments HEPATITIS A TOTAL AB (test code = 2725) REACTIVE NON-REACTIVE A HEPATITIS B SURF AG (test code = 2739) NON-REACTIVE NON-REACTIVE HEP B CORE TOTAL AB (test code = 2729) REACTIVE NON-REACTIVE A HEPATITIS B SURFACE AB (test code = 2737) REACTIVE NON-REACTIVE A HEPATITIS C ANTIBODY (test code = 4675) NON-REACTIVE NON-REACTIVE INTERPRETATION HEPATITIS A: (test code = 2552) (NOTE) Hepatitis A sero logy consistent with past exposure or previousvaccination to hepatitis A virus. No evidence of current acutehepatitis A infection. INTERPRETATION HEPATITIS B: (test code = 25135) (NOTE) Hepatitis B sero logy consistent with past exposure to hepatitis Bvirus with immunity to hepatitis B virus. No evidence of currentacute hepatitis B infection. INTERPRETATION HEPATITIS C: (test code = 17967) (NOTE) Hepatitis C sero logy shows no evidence of exposure to hepatitisC virus at this time. It can take up to 12 months after exposure tothe hepatitis C virus for antibodies to become detectable in the blood in certain patients. HIV 1/2 4TH GEN, RFLX [id number] 03:20:25* Test Item Value Reference Range Interpretation Comme nts HIV 1/2 4TH GEN, RFLX CONF ( test code = 3514) NON-REACTIVE NON-REACTIVE HEPATITIS A [id number] 03:20:25* Test Item Value Reference Range Interpretation Comme nts HEPATITIS A IgM (test code = 2728) NON-REACTIVE NON-REACTIVE UNLESS OTHERW ISE INDICATED, ALL TESTING PERFORMED AT [facility] [address] [place] [address] [employer] OPERATOR: OZZIE ALBERT M.D. [place] NUMBER [id number] [facility] [place]. [id number] HEMOGLOBIN [id number] 02:10:59* Test Item Value Reference Range Interpretation Comme nts HEMOGLOBIN A1c (test code = 35618) 6.9 % 4.2-5.6 H [employer] GUIDELINES FOR HGB A1C: PREDIABETES/INCREASED RISK . . . . . . . 5.7-6.4% DIAGNOSIS OF DIABETES . . . . . . . . . >=6.5% WITH CONFIRMATION OR APPROPRIATE SYMPTOMS NOTE: ASSAY MAY BE AFFECTED BY HEMOGLOBINOPATHIES (SICKLE CELL ANEMIA, S-C DISEASE, OTHERS) OR ARTIFICIALLY LOWERED BY DECREASED RED CELL SURVIVAL (HEMOLYTIC ANEMIAS, BLOOD LOSS, ETC.). CONSIDER ALTERNATE TESTING OR LABORATORY CONSULTATION. CBC W/AUTO DIFF WITH [id number] 01:19:31* Test Item Value Reference Range Interpretation Comme nts WBC (test code = 1001) 5.3 K/UL 3.5-11.0 RBC (test code = 1002) 4.72 M/UL 4.50-6.10 HEMOGLOBIN (test code = 1003) 13.1 G/DL 13.5-17.0 L HEMATOCRIT (test code = 1004) 39.4 % 40.0-51.0 L MCV (test code = 1005) 83.5 fL 80.0-99.0 MCH (test code = 1006) 27.8 PG 25.0-33.0 MCHC (test code = 1007) 33.2 G/DL 31.0-36.0 RDW (test code = 1038) 13.1 % 11.5-15.0 NEUTROPHILS (test code = 1008) 46.1 % LYMPHOCYTES (test code = 1010) 42.4 % MONOCYTES (test code = 1011) 7.8 % EOSINOPHILS (test code = 1012) 2.7 % BASOPHILS (test code = 1013) 0.8 % IMMATURE GRANULOCYTES (test code = 1036) 0.2 % NUCLEATED RBCS (test code = 1065) 0.0 /100 WBC'S See_Comment [Automated messa ge] The system which generated this result transmitted reference range: 0.0. The reference range was not used to interpret this result as normal/abnormal. PLATELET COUNT (test code = 1015) 349 K/UL 130-400 ABSOLUTE NEUTROPHILS (test code = 1066) 2.44 K/UL 1.50-7.50 ABSOLUTE LYMPHOCYTES (test code = 1067) 2.24 K/UL 1.00-4.00 ABSOLUTE MONOCYTES (test code = 1068) 0.41 K/UL 0.20-1.00 ABSOLUTE EOSINOPHILS (test code = 1040) 0.14 K/UL 0.00-0.50 ABSOLUTE BASOPHILS (test code = 1069) 0.04 K/UL 0.00-0.20 ABS IMMATURE GRANULOCYTES (test code = 1020) 0.01 K/UL 0.00-0.10 ABS NUCLEATED RBCS (test code = 32710) 0.00 K/UL 0.00-0.11 CBC W/AUTO [id number] 00:00:00* Test Item Value Reference Range Interpretation Comme nts WBC (test code = 1001) 5.3 K/UL RBC (test code = 1002) 4.72 M/UL HEMOGLOBIN (test code = 1003) 13.1 G/DL HEMATOCRIT (test code = 1004) 39.4 % MCV (test code = 1005) 83.5 fL MCH (test code = 1006) 27.8 PG MCHC (test code = 1007) 33.2 G/DL RDW (test code = 1038) 13.1 % NEUTROPHILS (test code = 1008) 46.1 % LYMPHOCYTES (test code = 1010) 42.4 % MONOCYTES (test code = 1011) 7.8 % EOSINOPHILS (test code = 1012) 2.7 % BASOPHILS (test code = 1013) 0.8 % IMMATURE GRANULOCYTES (test code = 1036) 0.2 % NUCLEATED RBCS (test code = 1065) 0.0 /100WBC'S PLATELET COUNT (test code = 1015) 349 K/UL ABSOLUTE NEUTROPHILS (test c ode = 1066) 2.44 K/UL ABSOLUTE LYMPHOCYTES (test c ode = 1067) 2.24 K/UL ABSOLUTE MONOCYTES (test cod e = 1068) 0.41 K/UL ABSOLUTE EOSINOPHILS (test c ode = 1040) 0.14 K/UL ABSOLUTE BASOPHILS (test cod e = 1069) 0.04 K/UL ABS IMMATURE GRANULOCYTES (t est code = 1020) 0.01 K/UL ABS NUCLEATED RBCS (test cod e = 09436) 0.00 K/UL Anoop RiosHEMOGLOBIN [id number] 00:00:00* Test Item Value Reference Range Interpretation Comme nts HEMOGLOBIN A1c (test code = 12453) 6.9 % Anoop RiosLIPID [id number] 00:00:00* Test Item Value Reference Range Interpretation Comme nts CHOLESTEROL (test code = 2210) 113 MG/DL TRIGLYCERIDES (test code = 2232) 177 MG/DL HDL CHOLESTEROL (test code = 2220) 32 MG/DL CALC LDL CHOL (test code = 2237) 56 MG/DL RISK RATIO LDL/HDL (test cod e = 2238) 1.75 RATIO Anoop RiosCOMPREHENSIVE METABOLIC [id number] 00:00:00* Test Item Value Reference Range Interpretation Comme nts GLUCOSE (test code = 2217) 170 MG/DL BUN (test code = 2208) 12 MG/DL CREATININE (test code = 2214) 1.14 MG/DL eGFR (2020 CKD-EPI) (test co de = 84253) 71 ML/MIN/1.73 CALC BUN/CREAT (test code = 2235) 11 RATIO SODIUM (test code = 2231) 143 MEQ/L POTASSIUM (test code = 2228) 4.3 MEQ/L CHLORIDE (test code = 2215) 103 MEQ/L CARBON DIOXIDE (test code = 2206) 26 MEQ/L CALCIUM (test code = 2209) 9.3 MG/DL PROTEIN, TOTAL (test code = 2229) 6.4 G/DL ALBUMIN (test code = 2201) 4.2 G/DL CALC GLOBULIN (test code = 2240) 2.2 G/DL CALC A/G RATIO (test code = 2234) 1.9 RATIO BILIRUBIN, TOTAL (test code = 2207) 0.4 MG/DL ALKALINE PHOSPHATASE (test code = 2204) 73 U/L AST (test code = 2218) 13 U/L ALT (test code = 2219) 13 U/L Anoop RiosHEPATITIS PROFILE (A,B,C)2023-09-08 00:00:00* Test Item Value Reference Range Interpretation Comme nts HEPATITIS A TOTAL AB (test c ode = 2725) REACTIVE HEPATITIS B SURF AG (test co de = 2739) NON-REACTIVE HEP B CORE TOTAL AB (test co de = 2729) REACTIVE HEPATITIS B SURFACE AB (test code = 2737) REACTIVE HEPATITIS C ANTIBODY (test c ode = 4621) NON-REACTIVE INTERPRETATION HEPATITIS A: (test code = 2552) (NOTE) INTERPRETATION HEPATITIS B: (test code = 27286) (NOTE) INTERPRETATION HEPATITIS C: (test code = 22960) (NOTE) Anoop RiosHIV 1/2 4TH GEN, RFLX [id number] 00:00:00* Test Item Value Reference Range Interpretation Comme nts HIV 1/2 4TH GEN, RFLX CONF ( test code = 3514) NON-REACTIVE Anoop DuránPATITIS A IgM [REFLEX]2023-09-08 00:00:00* Test Item Value Reference Range Interpretation Comme nts HEPATITIS A IgM (test code = 2728) NON-REACTIVE Anoop RiosCBC W/AUTO [id number] 00:00:00* Test Item Value Reference Range Interpretation Comme nts WBC (test code = 1001) 5.3 K/UL RBC (test code = 1002) 4.72 M/UL HEMOGLOBIN (test code = 1003) 13.1 G/DL HEMATOCRIT (test code = 1004) 39.4 % MCV (test code = 1005) 83.5 fL MCH (test code = 1006) 27.8 PG MCHC (test code = 1007) 33.2 G/DL RDW (test code = 1038) 13.1 % NEUTROPHILS (test code = 1008) 46.1 % LYMPHOCYTES (test code = 1010) 42.4 % MONOCYTES (test code = 1011) 7.8 % EOSINOPHILS (test code = 1012) 2.7 % BASOPHILS (test code = 1013) 0.8 % IMMATURE GRANULOCYTES (test code = 1036) 0.2 % NUCLEATED RBCS (test code = 1065) 0.0 /100WBC'S PLATELET COUNT (test code = 1015) 349 K/UL ABSOLUTE NEUTROPHILS (test c ode = 1066) 2.44 K/UL ABSOLUTE LYMPHOCYTES (test c ode = 1067) 2.24 K/UL ABSOLUTE MONOCYTES (test cod e = 1068) 0.41 K/UL ABSOLUTE EOSINOPHILS (test c ode = 1040) 0.14 K/UL ABSOLUTE BASOPHILS (test cod e = 1069) 0.04 K/UL ABS IMMATURE GRANULOCYTES (t est code = 1020) 0.01 K/UL ABS NUCLEATED RBCS (test cod e = 50434) 0.00 K/UL Anoop RiosHEMOGLOBIN [id number] 00:00:00* Test Item Value Reference Range Interpretation Comme nts HEMOGLOBIN A1c (test code = 52985) 6.9 % Anoop RiosLIPID [id number] 00:00:00* Test Item Value Reference Range Interpretation Comme nts CHOLESTEROL (test code = 2210) 113 MG/DL TRIGLYCERIDES (test code = 2232) 177 MG/DL HDL CHOLESTEROL (test code = 2220) 32 MG/DL CALC LDL CHOL (test code = 2237) 56 MG/DL RISK RATIO LDL/HDL (test cod e = 2238) 1.75 RATIO Anoop RiosCOMPREHENSIVE METABOLIC [id number] 00:00:00* Test Item Value Reference Range Interpretation Comme nts GLUCOSE (test code = 2217) 170 MG/DL BUN (test code = 2208) 12 MG/DL CREATININE (test code = 2214) 1.14 MG/DL eGFR (2020 CKD-EPI) (test co de = 90931) 71 ML/MIN/1.73 CALC BUN/CREAT (test code = 2235) 11 RATIO SODIUM (test code = 2231) 143 MEQ/L POTASSIUM (test code = 2228) 4.3 MEQ/L CHLORIDE (test code = 2215) 103 MEQ/L CARBON DIOXIDE (test code = 2206) 26 MEQ/L CALCIUM (test code = 2209) 9.3 MG/DL PROTEIN, TOTAL (test code = 2229) 6.4 G/DL ALBUMIN (test code = 2201) 4.2 G/DL CALC GLOBULIN (test code = 2240) 2.2 G/DL CALC A/G RATIO (test code = 2234) 1.9 RATIO BILIRUBIN, TOTAL (test code = 2207) 0.4 MG/DL ALKALINE PHOSPHATASE (test code = 2204) 73 U/L AST (test code = 2218) 13 U/L ALT (test code = 2219) 13 U/L Anoop Kamara AustinHEPATITIS PROFILE (A,B,C)2023-09-08 00:00:00* Test Item Value Reference Range Interpretation Comme nts HEPATITIS A TOTAL AB (test c ode = 2725) REACTIVE HEPATITIS B SURF AG (test co de = 2739) NON-REACTIVE HEP B CORE TOTAL AB (test co de = 2729) REACTIVE HEPATITIS B SURFACE AB (test code = 2737) REACTIVE HEPATITIS C ANTIBODY (test c ode = 4690) NON-REACTIVE INTERPRETATION HEPATITIS A: (test code = 2552) (NOTE) INTERPRETATION HEPATITIS B: (test code = 54632) (NOTE) INTERPRETATION HEPATITIS C: (test code = 44955) (NOTE) Anoop Kamara AustinHIV 1/2 4TH GEN, RFLX [id number] 00:00:00* Test Item Value Reference Range Interpretation Comme nts HIV 1/2 4TH GEN, RFLX CONF ( test code = 3514) NON-REACTIVE Anoop RiosHEPATITIS A IgM [REFLEX]2023-09-08 00:00:00* Test Item Value Reference Range Interpretation Comme nts HEPATITIS A IgM (test code = 2728) NON-REACTIVE Anoop RiosCBC W/AUTO [id number] 00:00:00* Test Item Value Reference Range Interpretation Comme nts WBC (test code = 1001) 5.3 K/UL RBC (test code = 1002) 4.72 M/UL HEMOGLOBIN (test code = 1003) 13.1 G/DL HEMATOCRIT (test code = 1004) 39.4 % MCV (test code = 1005) 83.5 fL MCH (test code = 1006) 27.8 PG MCHC (test code = 1007) 33.2 G/DL RDW (test code = 1038) 13.1 % NEUTROPHILS (test code = 1008) 46.1 % LYMPHOCYTES (test code = 1010) 42.4 % MONOCYTES (test code = 1011) 7.8 % EOSINOPHILS (test code = 1012) 2.7 % BASOPHILS (test code = 1013) 0.8 % IMMATURE GRANULOCYTES (test code = 1036) 0.2 % NUCLEATED RBCS (test code = 1065) 0.0 /100WBC'S PLATELET COUNT (test code = 1015) 349 K/UL ABSOLUTE NEUTROPHILS (test c ode = 1066) 2.44 K/UL ABSOLUTE LYMPHOCYTES (test c ode = 1067) 2.24 K/UL ABSOLUTE MONOCYTES (test cod e = 1068) 0.41 K/UL ABSOLUTE EOSINOPHILS (test c ode = 1040) 0.14 K/UL ABSOLUTE BASOPHILS (test cod e = 1069) 0.04 K/UL ABS IMMATURE GRANULOCYTES (t est code = 1020) 0.01 K/UL ABS NUCLEATED RBCS (test cod e = 88714) 0.00 K/UL Anoop RiosHEMOGLOBIN [id number] 00:00:00* Test Item Value Reference Range Interpretation Comme nts HEMOGLOBIN A1c (test code = 58036) 6.9 % Anoop RiosLIPID [id number] 00:00:00* Test Item Value Reference Range Interpretation Comme nts CHOLESTEROL (test code = 2210) 113 MG/DL TRIGLYCERIDES (test code = 2232) 177 MG/DL HDL CHOLESTEROL (test code = 2220) 32 MG/DL CALC LDL CHOL (test code = 2237) 56 MG/DL RISK RATIO LDL/HDL (test cod e = 2238) 1.75 RATIO Anoop RiosCOMPREHENSIVE METABOLIC [id number] 00:00:00* Test Item Value Reference Range Interpretation Comme nts GLUCOSE (test code = 2217) 170 MG/DL BUN (test code = 2208) 12 MG/DL CREATININE (test code = 2214) 1.14 MG/DL eGFR (2020 CKD-EPI) (test co de = 30066) 71 ML/MIN/1.73 CALC BUN/CREAT (test code = 2235) 11 RATIO SODIUM (test code = 2231) 143 MEQ/L POTASSIUM (test code = 2228) 4.3 MEQ/L CHLORIDE (test code = 2215) 103 MEQ/L CARBON DIOXIDE (test code = 2206) 26 MEQ/L CALCIUM (test code = 2209) 9.3 MG/DL PROTEIN, TOTAL (test code = 2229) 6.4 G/DL ALBUMIN (test code = 2201) 4.2 G/DL CALC GLOBULIN (test code = 2240) 2.2 G/DL CALC A/G RATIO (test code = 2234) 1.9 RATIO BILIRUBIN, TOTAL (test code = 2207) 0.4 MG/DL ALKALINE PHOSPHATASE (test code = 2204) 73 U/L AST (test code = 2218) 13 U/L ALT (test code = 2219) 13 U/L Anoop DuránPATITIS PROFILE (A,B,C)2023-09-08 00:00:00* Test Item Value Reference Range Interpretation Comme nts HEPATITIS A TOTAL AB (test c ode = 2725) REACTIVE HEPATITIS B SURF AG (test co de = 2739) NON-REACTIVE HEP B CORE TOTAL AB (test co de = 2729) REACTIVE HEPATITIS B SURFACE AB (test code = 2737) REACTIVE HEPATITIS C ANTIBODY (test c ode = 4675) NON-REACTIVE INTERPRETATION HEPATITIS A: (test code = 2552) (NOTE) INTERPRETATION HEPATITIS B: (test code = 99215) (NOTE) INTERPRETATION HEPATITIS C: (test code = 54504) (NOTE) Anoop RiosHIV 1/2 4TH GEN, RFLX [id number] 00:00:00* Test Item Value Reference Range Interpretation Comme nts HIV 1/2 4TH GEN, RFLX CONF ( test code = 3514) NON-REACTIVE Anoop DuránPATITIS A IgM [REFLEX]2023-09-08 00:00:00* Test Item Value Reference Range Interpretation Comme nts HEPATITIS A IgM (test code = 2728) NON-REACTIVE Anoop RiosCBC W/AUTO [id number] 00:00:00* Test Item Value Reference Range Interpretation Comme nts WBC (test code = 1001) 5.3 K/UL RBC (test code = 1002) 4.72 M/UL HEMOGLOBIN (test code = 1003) 13.1 G/DL HEMATOCRIT (test code = 1004) 39.4 % MCV (test code = 1005) 83.5 fL MCH (test code = 1006) 27.8 PG MCHC (test code = 1007) 33.2 G/DL RDW (test code = 1038) 13.1 % NEUTROPHILS (test code = 1008) 46.1 % LYMPHOCYTES (test code = 1010) 42.4 % MONOCYTES (test code = 1011) 7.8 % EOSINOPHILS (test code = 1012) 2.7 % BASOPHILS (test code = 1013) 0.8 % IMMATURE GRANULOCYTES (test code = 1036) 0.2 % NUCLEATED RBCS (test code = 1065) 0.0 /100WBC'S PLATELET COUNT (test code = 1015) 349 K/UL ABSOLUTE NEUTROPHILS (test c ode = 1066) 2.44 K/UL ABSOLUTE LYMPHOCYTES (test c ode = 1067) 2.24 K/UL ABSOLUTE MONOCYTES (test cod e = 1068) 0.41 K/UL ABSOLUTE EOSINOPHILS (test c ode = 1040) 0.14 K/UL ABSOLUTE BASOPHILS (test cod e = 1069) 0.04 K/UL ABS IMMATURE GRANULOCYTES (t est code = 1020) 0.01 K/UL ABS NUCLEATED RBCS (test cod e = 93960) 0.00 K/UL Anoop RiosHEMOGLOBIN [id number] 00:00:00* Test Item Value Reference Range Interpretation Comme nts HEMOGLOBIN A1c (test code = 97198) 6.9 % Anoop RiosLIPID [id number] 00:00:00* Test Item Value Reference Range Interpretation Comme nts CHOLESTEROL (test code = 2210) 113 MG/DL TRIGLYCERIDES (test code = 2232) 177 MG/DL HDL CHOLESTEROL (test code = 2220) 32 MG/DL CALC LDL CHOL (test code = 2237) 56 MG/DL RISK RATIO LDL/HDL (test cod e = 2238) 1.75 RATIO Anoop RiosCOMPREHENSIVE METABOLIC [id number] 00:00:00* Test Item Value Reference Range Interpretation Comme nts GLUCOSE (test code = 2217) 170 MG/DL BUN (test code = 2208) 12 MG/DL CREATININE (test code = 2214) 1.14 MG/DL eGFR (2020 CKD-EPI) (test co de = 98236) 71 ML/MIN/1.73 CALC BUN/CREAT (test code = 2235) 11 RATIO SODIUM (test code = 2231) 143 MEQ/L POTASSIUM (test code = 2228) 4.3 MEQ/L CHLORIDE (test code = 2215) 103 MEQ/L CARBON DIOXIDE (test code = 2206) 26 MEQ/L CALCIUM (test code = 2209) 9.3 MG/DL PROTEIN, TOTAL (test code = 2229) 6.4 G/DL ALBUMIN (test code = 2201) 4.2 G/DL CALC GLOBULIN (test code = 2240) 2.2 G/DL CALC A/G RATIO (test code = 2234) 1.9 RATIO BILIRUBIN, TOTAL (test code = 2207) 0.4 MG/DL ALKALINE PHOSPHATASE (test code = 2204) 73 U/L AST (test code = 2218) 13 U/L ALT (test code = 2219) 13 U/L Anoop RiosHEPATITIS PROFILE (A,B,C)2023-09-08 00:00:00* Test Item Value Reference Range Interpretation Comme nts HEPATITIS A TOTAL AB (test c ode = 2725) REACTIVE HEPATITIS B SURF AG (test co de = 2739) NON-REACTIVE HEP B CORE TOTAL AB (test co de = 2729) REACTIVE HEPATITIS B SURFACE AB (test code = 2737) REACTIVE HEPATITIS C ANTIBODY (test c ode = 4675) NON-REACTIVE INTERPRETATION HEPATITIS A: (test code = 2552) (NOTE) INTERPRETATION HEPATITIS B: (test code = 64463) (NOTE) INTERPRETATION HEPATITIS C: (test code = 94870) (NOTE) Anoop Kamara AustinHIV 1/2 4TH GEN, RFLX [id number] 00:00:00* Test Item Value Reference Range Interpretation Comme nts HIV 1/2 4TH GEN, RFLX CONF ( test code = 3514) NON-REACTIVE Anoop RiosHEPATITIS A IgM [REFLEX]2023-09-08 00:00:00* Test Item Value Reference Range Interpretation Comme nts HEPATITIS A IgM (test code = 2728) NON-REACTIVE Anoop RiosRojgyiI-[id number] 10:40:10* Test Item Value Reference Range Interpretation Comme nts D-DIMER (test code = 1405) 0.43 UG/ML FEU <=0.49 NOTE: Provided reference range is established for evaluation of Deep Venous Thrombosis/Pulmonary Embolus (DVT/PE). Results below cutoff value of <=0.49 UG/ML FEU have a high negative predictive value forDVT/PE. No reference range is established for disseminatedintra-vascu lar coagulation (DIC). FOLIC [id number] 07:00:29* Test Item Value Reference Range Interpretation Comme [facility] FOLIC ACID (test code = 2695) 7.6 UG/L SEE BELOW INTERPRETI VE RANGES DEFICIENCY . . . . . . . . . . . . . . . UG/L <4.0 POSSIBLE DEFICIENCY. . . . . . . . . . . UG/L 4.0-5.9 SUFFICIENT . . . . . . . . . . . . . . . UG/L >=6.0 VITAMIN [id number] 07:00:29* Test Item Value Reference Range Interpretation Comme [facility] VITAMIN B-12 (test code = 2840) 304 PG/ML 200-950 HEMOGLOBIN [id number] 03:28:07* Test Item Value Reference Range Interpretation Comme [facility] HEMOGLOBIN A1c (test code = 46704) 6.5 % 4.2-5.6 H [employer] GUIDELINES FOR HGB A1C: PREDIABETES/INCREASED RISK . . . . . . . 5.7-6.4% DIAGNOSIS OF DIABETES . . . . . . . . . >=6.5% WITH CONFIRMATION OR APPROPRIATE SYMPTOMS NOTE: ASSAY MAY BE AFFECTED BY HEMOGLOBINOPATHIES (SICKLE CELL ANEMIA, S-C DISEASE, OTHERS) OR ARTIFICIALLY LOWERED BY DECREASED RED CELL SURVIVAL (HEMOLYTIC ANEMIAS, BLOOD LOSS, ETC.). CONSIDER ALTERNATE TESTING OR LABORATORY CONSULTATION. UNLESS OTHERWISE INDICATED, ALL TESTING PERFORMED AT [facility] [address] [place] [address] [employer] OPERATOR: OZZIE ALBERT M.D. CLIA NUMBER [id number] [facility] [place]. [id number] CBC W/AUTO DIFF WITH [id number] 02:19:21* Test Item Value Reference Range Interpretation Comme [facility] WBC (test code = 1001) 6.9 K/UL 3.5-11.0 RBC (test code = 1002) 4.60 M/UL 4.50-6.10 HEMOGLOBIN (test code = 1003) 12.6 G/DL 13.5-17.0 L HEMATOCRIT (test code = 1004) 38.6 % 40.0-51.0 L MCV (test code = 1005) 83.9 fL 80.0-99.0 MCH (test code = 1006) 27.4 PG 25.0-33.0 MCHC (test code = 1007) 32.6 G/DL 31.0-36.0 RDW (test code = 1038) 14.0 % 11.5-15.0 NEUTROPHILS (test code = 1008) 51.8 % LYMPHOCYTES (test code = 1010) 36.7 % MONOCYTES (test code = 1011) 8.0 % EOSINOPHILS (test code = 1012) 2.5 % BASOPHILS (test code = 1013) 0.6 % IMMATURE GRANULOCYTES (test code = 1036) 0.4 % NUCLEATED RBCS (test code = 1065) 0.0 /100 WBC'S See_Comment [Automated messa ge] The system which generated this result transmitted reference range: 0.0. The reference range was not used to interpret this result as normal/abnormal. PLATELET COUNT (test code = 1015) 385 K/UL 130-400 ABSOLUTE NEUTROPHILS (test code = 1066) 3.57 K/UL 1.50-7.50 ABSOLUTE LYMPHOCYTES (test code = 1067) 2.53 K/UL 1.00-4.00 ABSOLUTE MONOCYTES (test code = 1068) 0.55 K/UL 0.20-1.00 ABSOLUTE EOSINOPHILS (test code = 1040) 0.17 K/UL 0.00-0.50 ABSOLUTE BASOPHILS (test code = 1069) 0.04 K/UL 0.00-0.20 ABS IMMATURE GRANULOCYTES (test code = 1020) 0.03 K/UL 0.00-0.10 ABS NUCLEATED RBCS (test code = 71908) 0.00 K/UL 0.00-0.11 [id number] 00:00:00* Test Item Value Reference Range Interpretation Comme nts D-DIMER (test code = 1405) 0.43 UG/MLFEU [facility] [id number] 00:00:00* Test Item Value Reference Range Interpretation Comme nts WBC (test code = 1001) 6.9 K/UL RBC (test code = 1002) 4.60 M/UL HEMOGLOBIN (test code = 1003) 12.6 G/DL HEMATOCRIT (test code = 1004) 38.6 % MCV (test code = 1005) 83.9 fL MCH (test code = 1006) 27.4 PG MCHC (test code = 1007) 32.6 G/DL RDW (test code = 1038) 14.0 % NEUTROPHILS (test code = 1008) 51.8 % LYMPHOCYTES (test code = 1010) 36.7 % MONOCYTES (test code = 1011) 8.0 % EOSINOPHILS (test code = 1012) 2.5 % BASOPHILS (test code = 1013) 0.6 % IMMATURE GRANULOCYTES (test code = 1036) 0.4 % NUCLEATED RBCS (test code = 1065) 0.0 /100WBC'S PLATELET COUNT (test code = 1015) 385 K/UL ABSOLUTE NEUTROPHILS (test c ode = 1066) 3.57 K/UL ABSOLUTE LYMPHOCYTES (test c ode = 1067) 2.53 K/UL ABSOLUTE MONOCYTES (test cod e = 1068) 0.55 K/UL ABSOLUTE EOSINOPHILS (test c ode = 1040) 0.17 K/UL ABSOLUTE BASOPHILS (test cod e = 1069) 0.04 K/UL ABS IMMATURE GRANULOCYTES (t est code = 1020) 0.03 K/UL ABS NUCLEATED RBCS (test cod e = 15704) 0.00 K/UL Anoop RiosFOLIC [id number] 00:00:00* Test Item Value Reference Range Interpretation Comme nts FOLIC ACID (test code = 2695) 7.6 UG/L Anoop RiosVITAMIN [id number] 00:00:00* Test Item Value Reference Range Interpretation Comme nts VITAMIN B-12 (test code = 2840) 304 PG/ML Anoop RiosHEMOGLOBIN [id number] 00:00:00* Test Item Value Reference Range Interpretation Comme nts HEMOGLOBIN A1c (test code = 67678) 6.5 % Anoop [id number] 00:00:00* Test Item Value Reference Range Interpretation Comme nts D-DIMER (test code = 1405) 0.43 UG/MLFEU Anoop RiosCBC W/AUTO [id number] 00:00:00* Test Item Value Reference Range Interpretation Comme nts WBC (test code = 1001) 6.9 K/UL RBC (test code = 1002) 4.60 M/UL HEMOGLOBIN (test code = 1003) 12.6 G/DL HEMATOCRIT (test code = 1004) 38.6 % MCV (test code = 1005) 83.9 fL MCH (test code = 1006) 27.4 PG MCHC (test code = 1007) 32.6 G/DL RDW (test code = 1038) 14.0 % NEUTROPHILS (test code = 1008) 51.8 % LYMPHOCYTES (test code = 1010) 36.7 % MONOCYTES (test code = 1011) 8.0 % EOSINOPHILS (test code = 1012) 2.5 % BASOPHILS (test code = 1013) 0.6 % IMMATURE GRANULOCYTES (test code = 1036) 0.4 % NUCLEATED RBCS (test code = 1065) 0.0 /100WBC'S PLATELET COUNT (test code = 1015) 385 K/UL ABSOLUTE NEUTROPHILS (test c ode = 1066) 3.57 K/UL ABSOLUTE LYMPHOCYTES (test c ode = 1067) 2.53 K/UL ABSOLUTE MONOCYTES (test cod e = 1068) 0.55 K/UL ABSOLUTE EOSINOPHILS (test c ode = 1040) 0.17 K/UL ABSOLUTE BASOPHILS (test cod e = 1069) 0.04 K/UL ABS IMMATURE GRANULOCYTES (t est code = 1020) 0.03 K/UL ABS NUCLEATED RBCS (test cod e = 90280) 0.00 K/UL Anoop RiosFOLIC [id number] 00:00:00* Test Item Value Reference Range Interpretation Comme nts FOLIC ACID (test code = 2695) 7.6 UG/L Anoop RiosVITAMIN [id number] 00:00:00* Test Item Value Reference Range Interpretation Comme nts VITAMIN B-12 (test code = 2840) 304 PG/ML Anoop RiosHEMOGLOBIN [id number] 00:00:00* Test Item Value Reference Range Interpretation Comme nts HEMOGLOBIN A1c (test code = 62932) 6.5 % Anoop RiosQfkvpdO-[id number] 00:00:00* Test Item Value Reference Range Interpretation Comme nts D-DIMER (test code = 1405) 0.43 UG/MLFEU Anoopneri RiosCBC W/AUTO [id number] 00:00:00* Test Item Value Reference Range Interpretation Comme nts WBC (test code = 1001) 6.9 K/UL RBC (test code = 1002) 4.60 M/UL HEMOGLOBIN (test code = 1003) 12.6 G/DL HEMATOCRIT (test code = 1004) 38.6 % MCV (test code = 1005) 83.9 fL MCH (test code = 1006) 27.4 PG MCHC (test code = 1007) 32.6 G/DL RDW (test code = 1038) 14.0 % NEUTROPHILS (test code = 1008) 51.8 % LYMPHOCYTES (test code = 1010) 36.7 % MONOCYTES (test code = 1011) 8.0 % EOSINOPHILS (test code = 1012) 2.5 % BASOPHILS (test code = 1013) 0.6 % IMMATURE GRANULOCYTES (test code = 1036) 0.4 % NUCLEATED RBCS (test code = 1065) 0.0 /100WBC'S PLATELET COUNT (test code = 1015) 385 K/UL ABSOLUTE NEUTROPHILS (test c ode = 1066) 3.57 K/UL ABSOLUTE LYMPHOCYTES (test c ode = 1067) 2.53 K/UL ABSOLUTE MONOCYTES (test cod e = 1068) 0.55 K/UL ABSOLUTE EOSINOPHILS (test c ode = 1040) 0.17 K/UL ABSOLUTE BASOPHILS (test cod e = 1069) 0.04 K/UL ABS IMMATURE GRANULOCYTES (t est code = 1020) 0.03 K/UL ABS NUCLEATED RBCS (test cod e = 11783) 0.00 K/UL Anoop RiosFOLIC [id number] 00:00:00* Test Item Value Reference Range Interpretation Comme nts FOLIC ACID (test code = 2695) 7.6 UG/L Anoop RiosVITAMIN [id number] 00:00:00* Test Item Value Reference Range Interpretation Comme nts VITAMIN B-12 (test code = 2840) 304 PG/ML Anoop RiosHEMOGLOBIN [id number] 00:00:00* Test Item Value Reference Range Interpretation Comme nts HEMOGLOBIN A1c (test code = 08188) 6.5 % Anoop [id number]-[id number] 00:00:00* Test Item Value Reference Range Interpretation Comme nts D-DIMER (test code = 1405) 0.43 UG/MLFEU Anoop RiosCBC W/AUTO [id number] 00:00:00* Test Item Value Reference Range Interpretation Comme nts WBC (test code = 1001) 6.9 K/UL RBC (test code = 1002) 4.60 M/UL HEMOGLOBIN (test code = 1003) 12.6 G/DL HEMATOCRIT (test code = 1004) 38.6 % MCV (test code = 1005) 83.9 fL MCH (test code = 1006) 27.4 PG MCHC (test code = 1007) 32.6 G/DL RDW (test code = 1038) 14.0 % NEUTROPHILS (test code = 1008) 51.8 % LYMPHOCYTES (test code = 1010) 36.7 % MONOCYTES (test code = 1011) 8.0 % EOSINOPHILS (test code = 1012) 2.5 % BASOPHILS (test code = 1013) 0.6 % IMMATURE GRANULOCYTES (test code = 1036) 0.4 % NUCLEATED RBCS (test code = 1065) 0.0 /100WBC'S PLATELET COUNT (test code = 1015) 385 K/UL ABSOLUTE NEUTROPHILS (test c ode = 1066) 3.57 K/UL ABSOLUTE LYMPHOCYTES (test c ode = 1067) 2.53 K/UL ABSOLUTE MONOCYTES (test cod e = 1068) 0.55 K/UL ABSOLUTE EOSINOPHILS (test c ode = 1040) 0.17 K/UL ABSOLUTE BASOPHILS (test cod e = 1069) 0.04 K/UL ABS IMMATURE GRANULOCYTES (t est code = 1020) 0.03 K/UL ABS NUCLEATED RBCS (test cod e = 35685) 0.00 K/UL Anoop RiosFOLIC [id number] 00:00:00* Test Item Value Reference Range Interpretation Comme nts FOLIC ACID (test code = 2695) 7.6 UG/L Anoop RiosVITAMIN [id number] 00:00:00* Test Item Value Reference Range Interpretation Comme nts VITAMIN B-12 (test code = 2840) 304 PG/ML Anoop RiosHEMOGLOBIN [id number] 00:00:00* Test Item Value Reference Range Interpretation Comme nts HEMOGLOBIN A1c (test code = 33051) 6.5 % Anoop Kamara AustinOCCULT BLD,FECAL,IMMUNOASSAY [id number] 12:39:44* Test Item Value Reference Range Interpretation Comme nts OCCULT BLD, FECAL (test code = 73361) NEGATIVE NEGATIVE [facility] has important pathology staff changes effective 10/21/2022. New pathology staff will provide uninterrupted, excellent patient care and clinical consultation. See URL: [email or web address]. UNLESS OTHERWISE INDICATED, ALL TESTING PERFORMED AT [facility] [address] [place] [address] [employer] OPERATOR: OZZIE ALBERT M.D. [place] NUMBER [id number] [facility] [place]. [id number] OCCULT BLD,FECAL,IMMUNOASSAY [id number] 00:00:00* Test Item Value Reference Range Interpretation Comme nts OCCULT BLD, FECAL (test code = 83448) NEGATIVE Anoop Anh AustinOCCULT BLD,FECAL,IMMUNOASSAY [id number] 00:00:00* Test Item Value Reference Range Interpretation Comme nts OCCULT BLD, FECAL (test code = 72296) NEGATIVE Anoop F AustinOCCULT BLD,FECAL,IMMUNOASSAY [id number] 00:00:00* Test Item Value Reference Range Interpretation Comme nts OCCULT BLD, FECAL (test code = 83736) NEGATIVE Anoop F AustinOCCULT BLD,FECAL,IMMUNOASSAY [id number] 00:00:00* Test Item Value Reference Range Interpretation Comme nts OCCULT BLD, FECAL (test code = 00553) NEGATIVE Anoop Kamara AustinLIPID [id number] 08:36:25* Test Item Value Reference Range Interpretation Comme nts CHOLESTEROL (test code = 2210) 114 MG/DL <200 TRIGLYCERIDES (test code = 2232) 286 MG/DL <150 H HDL CHOLESTEROL (test code = 2220) 30 MG/DL >39 L CALC LDL CHOL (test code = 2237) 50 MG/DL <100 NOTE: CALCULATED LDL IS BASED ON AMALIA-BECERRA METHOD WHICHINCLUDES ADJUSTABLE TRIGLYCERIDE:VLDL CHOLESTEROL RATIO.THIS FACTOR VARIES BY MEASURED TRIGLYCERIDE AND NON-HDLCHOLESTEROL CONCENTRATIONS WITH INCREASED CALCULATED LDL SEENIN HIGHER TRIGLYCERIDE OR LOWER NON-HDL SPECIMENS. FOR MOREINFORMATION, SEE CLIENT ANNOUNCEMENT AT [email or web address] RISK RATIO LDL/HDL (test code = 2238) 1.67 RATIO <3.55 COMPREHENSIVE METABOLIC [id number] 08:36:25* Test Item Value Reference Range Interpretation Comme nts GLUCOSE (test code = 2217) 169 MG/DL 70-99 H BUN (test code = 220) 10 MG/DL 8-23 CREATININE (test code = 2214) 1.12 MG/DL 0.80-1.40 eGFR (2020 CKD-EPI) (test code = 59516) 73 ML/MIN/1.73 >60 CALC BUN/CREAT (test code = 2235) 9 RATIO 6-28 SODIUM (test code = 223) 143 MEQ/L 133-146 POTASSIUM (test code = 2228) 4.5 MEQ/L 3.5-5.4 CHLORIDE (test code = 2215) 103 MEQ/L 95-107 CARBON DIOXIDE (test code = 2206) 26 MEQ/L 19-31 CALCIUM (test code = 2209) 9.3 MG/DL 8.5-10.5 PROTEIN, TOTAL (test code = 222) 6.4 G/DL 6.1-8.3 ALBUMIN (test code = 2201) 3.9 G/DL 3.5-5.2 CALC GLOBULIN (test code = 2240) 2.5 G/DL 1.9-3.7 CALC A/G RATIO (test code = 2234) 1.6 RATIO 1.0-2.6 BILIRUBIN, TOTAL (test code = 2207) 0.3 MG/DL See_Comment [Automated me ssage] The system which generated this result transmitted reference range: <=1.2. The reference range was not used to interpret this result as normal/abnormal. ALKALINE PHOSPHATASE (test code = 2204) 82 U/L 40-123 AST (test code = 2218) 14 U/L 9-50 ALT (test code = 2219) 10 U/L 5-50 [facility] has impo rtant pathology staff changes effective 10/21/2022. New pathology staff will provide uninterrupted, excellent patient care and clinical consultation. See URL: [email or web address]. UNLESS OTHERWISE INDICATED, ALL TESTING PERFORMED AT [facility] [address] [place] [address] F[employer]MIC[employer] OPERATOR: OZZIE ALBERT M.D. [place] NUMBER [id number] [facility] [place]. [id number] HEMOGLOBIN [id number] 02:38:31* Test Item Value Reference Range Interpretation Comme nts HEMOGLOBIN A1c (test code = 02474) 6.8 % 4.2-5.6 H [employer] GUIDELINES FOR HGB A1C: PREDIABETES/INCREASED RISK . . . . . . . 5.7-6.4% DIAGNOSIS OF DIABETES . . . . . . . . . >=6.5% WITH CONFIRMATION OR APPROPRIATE SYMPTOMS NOTE: ASSAY MAY BE AFFECTED BY HEMOGLOBINOPATHIES (SICKLE CELL ANEMIA, S-C DISEASE, OTHERS) OR ARTIFICIALLY LOWERED BY DECREASED RED CELL SURVIVAL (HEMOLYTIC ANEMIAS, BLOOD LOSS, ETC.). CONSIDER ALTERNATE TESTING OR LABORATORY CONSULTATION. HEMOGLOBIN [id number] 00:00:00* Test Item Value Reference Range Interpretation Comme [facility] HEMOGLOBIN A1c (test code = 45328) 6.8 % Anoop RiosLIPID [id number] 00:00:00* Test Item Value Reference Range Interpretation Comme nts CHOLESTEROL (test code = 2210) 114 MG/DL TRIGLYCERIDES (test code = 2232) 286 MG/DL HDL CHOLESTEROL (test code = 2220) 30 MG/DL CALC LDL CHOL (test code = 2237) 50 MG/DL RISK RATIO LDL/HDL (test cod e = 2238) 1.67 RATIO Anoop RiosCOMPREHENSIVE METABOLIC [id number] 00:00:00* Test Item Value Reference Range Interpretation Comme nts GLUCOSE (test code = 2217) 169 MG/DL BUN (test code = 2208) 10 MG/DL CREATININE (test code = 2214) 1.12 MG/DL eGFR (2020 CKD-EPI) (test co de = 40937) 73 ML/MIN/1.73 CALC BUN/CREAT (test code = 2235) 9 RATIO SODIUM (test code = 2231) 143 MEQ/L POTASSIUM (test code = 2228) 4.5 MEQ/L CHLORIDE (test code = 2215) 103 MEQ/L CARBON DIOXIDE (test code = 2206) 26 MEQ/L CALCIUM (test code = 2209) 9.3 MG/DL PROTEIN, TOTAL (test code = 2229) 6.4 G/DL ALBUMIN (test code = 2201) 3.9 G/DL CALC GLOBULIN (test code = 2240) 2.5 G/DL CALC A/G RATIO (test code = 2234) 1.6 RATIO BILIRUBIN, TOTAL (test code = 2207) 0.3 MG/DL ALKALINE PHOSPHATASE (test code = 2204) 82 U/L AST (test code = 2218) 14 U/L ALT (test code = 2219) 10 U/L Anoop RiosHEMOGLOBIN [id number] 00:00:00* Test Item Value Reference Range Interpretation Comme nts HEMOGLOBIN A1c (test code = 41978) 6.8 % Anoop RiosLIPID [id number] 00:00:00* Test Item Value Reference Range Interpretation Comme nts CHOLESTEROL (test code = 2210) 114 MG/DL TRIGLYCERIDES (test code = 2232) 286 MG/DL HDL CHOLESTEROL (test code = 2220) 30 MG/DL CALC LDL CHOL (test code = 2237) 50 MG/DL RISK RATIO LDL/HDL (test cod e = 2238) 1.67 RATIO Anoop RiosCOMPREHENSIVE METABOLIC [id number] 00:00:00* Test Item Value Reference Range Interpretation Comme nts GLUCOSE (test code = 2217) 169 MG/DL BUN (test code = 2208) 10 MG/DL CREATININE (test code = 2214) 1.12 MG/DL eGFR (2020 CKD-EPI) (test co de = 55112) 73 ML/MIN/1.73 CALC BUN/CREAT (test code = 2235) 9 RATIO SODIUM (test code = 2231) 143 MEQ/L POTASSIUM (test code = 2228) 4.5 MEQ/L CHLORIDE (test code = 2215) 103 MEQ/L CARBON DIOXIDE (test code = 2206) 26 MEQ/L CALCIUM (test code = 2209) 9.3 MG/DL PROTEIN, TOTAL (test code = 2229) 6.4 G/DL ALBUMIN (test code = 2201) 3.9 G/DL CALC GLOBULIN (test code = 2240) 2.5 G/DL CALC A/G RATIO (test code = 2234) 1.6 RATIO BILIRUBIN, TOTAL (test code = 2207) 0.3 MG/DL ALKALINE PHOSPHATASE (test code = 2204) 82 U/L AST (test code = 2218) 14 U/L ALT (test code = 2219) 10 U/L Anoop RiosHEMOGLOBIN [id number] 00:00:00* Test Item Value Reference Range Interpretation Comme nts HEMOGLOBIN A1c (test code = 28529) 6.8 % Anoop RiosLIPID [id number] 00:00:00* Test Item Value Reference Range Interpretation Comme nts CHOLESTEROL (test code = 2210) 114 MG/DL TRIGLYCERIDES (test code = 2232) 286 MG/DL HDL CHOLESTEROL (test code = 2220) 30 MG/DL CALC LDL CHOL (test code = 2237) 50 MG/DL RISK RATIO LDL/HDL (test cod e = 2238) 1.67 RATIO Anoop RiosCOMPREHENSIVE METABOLIC [id number] 00:00:00* Test Item Value Reference Range Interpretation Comme nts GLUCOSE (test code = 2217) 169 MG/DL BUN (test code = 2208) 10 MG/DL CREATININE (test code = 2214) 1.12 MG/DL eGFR (2020 CKD-EPI) (test co de = 06351) 73 ML/MIN/1.73 CALC BUN/CREAT (test code = 2235) 9 RATIO SODIUM (test code = 2231) 143 MEQ/L POTASSIUM (test code = 2228) 4.5 MEQ/L CHLORIDE (test code = 2215) 103 MEQ/L CARBON DIOXIDE (test code = 2206) 26 MEQ/L CALCIUM (test code = 2209) 9.3 MG/DL PROTEIN, TOTAL (test code = 2229) 6.4 G/DL ALBUMIN (test code = 2201) 3.9 G/DL CALC GLOBULIN (test code = 2240) 2.5 G/DL CALC A/G RATIO (test code = 2234) 1.6 RATIO BILIRUBIN, TOTAL (test code = 2207) 0.3 MG/DL ALKALINE PHOSPHATASE (test code = 2204) 82 U/L AST (test code = 2218) 14 U/L ALT (test code = 2219) 10 U/L Anoop RiosHEMOGLOBIN [id number] 00:00:00* Test Item Value Reference Range Interpretation Comme nts HEMOGLOBIN A1c (test code = 98309) 6.8 % Anoop RiosLIPID [id number] 00:00:00* Test Item Value Reference Range Interpretation Comme nts CHOLESTEROL (test code = 2210) 114 MG/DL TRIGLYCERIDES (test code = 2232) 286 MG/DL HDL CHOLESTEROL (test code = 2220) 30 MG/DL CALC LDL CHOL (test code = 2237) 50 MG/DL RISK RATIO LDL/HDL (test cod e = 2238) 1.67 RATIO Anoop RiosCOMPREHENSIVE METABOLIC [id number] 00:00:00* Test Item Value Reference Range Interpretation Comme nts GLUCOSE (test code = 2217) 169 MG/DL BUN (test code = 2208) 10 MG/DL CREATININE (test code = 2214) 1.12 MG/DL eGFR (2020 CKD-EPI) (test co de = 26647) 73 ML/MIN/1.73 CALC BUN/CREAT (test code = 2235) 9 RATIO SODIUM (test code = 2231) 143 MEQ/L POTASSIUM (test code = 2228) 4.5 MEQ/L CHLORIDE (test code = 2215) 103 MEQ/L CARBON DIOXIDE (test code = 2206) 26 MEQ/L CALCIUM (test code = 2209) 9.3 MG/DL PROTEIN, TOTAL (test code = 2229) 6.4 G/DL ALBUMIN (test code = 2201) 3.9 G/DL CALC GLOBULIN (test code = 2240) 2.5 G/DL CALC A/G RATIO (test code = 2234) 1.6 RATIO BILIRUBIN, TOTAL (test code = 2207) 0.3 MG/DL ALKALINE PHOSPHATASE (test code = 2204) 82 U/L AST (test code = 2218) 14 U/L ALT (test code = 2219) 10 U/L Anoop RiosLIPID [id number] 06:51:25* Test Item Value Reference Range Interpretation Comme nts CHOLESTEROL (test code = 2210) 141 MG/DL <200 TRIGLYCERIDES (test code = 2232) 187 MG/DL <150 H HDL CHOLESTEROL (test code = 2220) 35 MG/DL >39 L CALC LDL CHOL (test code = 2237) 78 MG/DL <100 NOTE: CALCULATED LDL IS BASED ON AMALIA-BECERRA METHOD WHICHINCLUDES ADJUSTABLE TRIGLYCERIDE:VLDL CHOLESTEROL RATIO.THIS FACTOR VARIES BY MEASURED TRIGLYCERIDE AND NON-HDLCHOLESTEROL CONCENTRATIONS WITH INCREASED CALCULATED LDL SEENIN HIGHER TRIGLYCERIDE OR LOWER NON-HDL SPECIMENS. FOR MOREINFORMATION, SEE CLIENT ANNOUNCEMENT AT [email or web address] RISK RATIO LDL/HDL (test code = 2237) 2.23 RATIO <3.55 COMPREHENSIVE METABOLIC [id number] 06:51:25* Test Item Value Reference Range Interpretation Comme nts GLUCOSE (test code = 2216) 164 MG/DL 70-99 H BUN (test code = 2207) 18 MG/DL 8-23 CREATININE (test code = 2213) 1.16 MG/DL 0.80-1.40 eGFR (2020 CKD-EPI) (test code = ) 70 ML/MIN/1.73 >60 CALC BUN/CREAT (test code = 2234) 16 RATIO 6-28 SODIUM (test code = 2230) 137 MEQ/L 133-146 POTASSIUM (test code = 2227) 4.2 MEQ/L 3.5-5.4 CHLORIDE (test code = 2214) 96 MEQ/L 95-107 CARBON DIOXIDE (test code = 2205) 27 MEQ/L 19-31 CALCIUM (test code = 2208) 10.0 MG/DL 8.5-10.5 PROTEIN, TOTAL (test code = 2228) 6.9 G/DL 6.1-8.3 ALBUMIN (test code = 2200) 4.4 G/DL 3.5-5.2 CALC GLOBULIN (test code = 2240) 2.5 G/DL 1.9-3.7 CALC A/G RATIO (test code = 2233) 1.8 RATIO 1.0-2.6 BILIRUBIN, TOTAL (test code = 2206) 0.5 MG/DL See_Comment [Automated me ssage] The system which generated this result transmitted reference range: <=1.2. The reference range was not used to interpret this result as normal/abnormal. ALKALINE PHOSPHATASE (test code = 2203) 76 U/L 40-123 AST (test code = 2218) 14 U/L 9-50 ALT (test code = 2219) 14 U/L 5-50 UNLESS OTHERWISE INDICATED, [facility] [address] [place] [address] F[employer]MIC[employer] OPERATOR: JARRET BOND M.D. DEV[place] NUMBER [id number] [facility] [place]. [id number] HEMOGLOBIN [id number] 02:33:17* Test Item Value Reference Range Interpretation Comme [facility] HEMOGLOBIN A1c (test code = 82669) 7.0 % 4.2-5.6 H [employer] GUIDELINES FOR HGB A1C: PREDIABETES/INCREASED RISK . . . . . . . 5.7-6.4% DIAGNOSIS OF DIABETES . . . . . . . . . >=6.5% WITH CONFIRMATION OR APPROPRIATE SYMPTOMS NOTE: ASSAY MAY BE AFFECTED BY HEMOGLOBINOPATHIES (SICKLE CELL ANEMIA, S-C DISEASE, OTHERS) OR ARTIFICIALLY LOWERED BY DECREASED RED CELL SURVIVAL (HEMOLYTIC ANEMIAS, BLOOD LOSS, ETC.). CONSIDER ALTERNATE TESTING OR LABORATORY CONSULTATION. HEMOGLOBIN [id number] 00:00:00* Test Item Value Reference Range Interpretation Comme [facility] HEMOGLOBIN A1c (test code = 81906) 7.0 % Anoop Kamara AustinLIPID [id number] 00:00:00* Test Item Value Reference Range Interpretation Comme nts CHOLESTEROL (test code = 2210) 141 MG/DL TRIGLYCERIDES (test code = 2232) 187 MG/DL HDL CHOLESTEROL (test code = 2220) 35 MG/DL CALC LDL CHOL (test code = 2237) 78 MG/DL RISK RATIO LDL/HDL (test cod e = 2238) 2.23 RATIO Anoop RiosCOMPREHENSIVE METABOLIC [id number] 00:00:00* Test Item Value Reference Range Interpretation Comme nts GLUCOSE (test code = 2217) 164 MG/DL BUN (test code = 2208) 18 MG/DL CREATININE (test code = 2214) 1.16 MG/DL eGFR (2020 CKD-EPI) (test co de = 04514) 70 ML/MIN/1.73 CALC BUN/CREAT (test code = 2235) 16 RATIO SODIUM (test code = 2231) 137 MEQ/L POTASSIUM (test code = 2228) 4.2 MEQ/L CHLORIDE (test code = 2215) 96 MEQ/L CARBON DIOXIDE (test code = 2206) 27 MEQ/L CALCIUM (test code = 2209) 10.0 MG/DL PROTEIN, TOTAL (test code = 2229) 6.9 G/DL ALBUMIN (test code = 2201) 4.4 G/DL CALC GLOBULIN (test code = 2240) 2.5 G/DL CALC A/G RATIO (test code = 2234) 1.8 RATIO BILIRUBIN, TOTAL (test code = 2207) 0.5 MG/DL ALKALINE PHOSPHATASE (test code = 2204) 76 U/L AST (test code = 2218) 14 U/L ALT (test code = 2219) 14 U/L Anoop RiosHEMOGLOBIN [id number] 00:00:00* Test Item Value Reference Range Interpretation Comme nts HEMOGLOBIN A1c (test code = 14741) 7.0 % Anoop RiosLIPID [id number] 00:00:00* Test Item Value Reference Range Interpretation Comme nts CHOLESTEROL (test code = 2210) 141 MG/DL TRIGLYCERIDES (test code = 2232) 187 MG/DL HDL CHOLESTEROL (test code = 2220) 35 MG/DL CALC LDL CHOL (test code = 2237) 78 MG/DL RISK RATIO LDL/HDL (test cod e = 2238) 2.23 RATIO Anoop RiosCOMPREHENSIVE METABOLIC [id number] 00:00:00* Test Item Value Reference Range Interpretation Comme nts GLUCOSE (test code = 2217) 164 MG/DL BUN (test code = 2208) 18 MG/DL CREATININE (test code = 2214) 1.16 MG/DL eGFR (2020 CKD-EPI) (test co de = 49632) 70 ML/MIN/1.73 CALC BUN/CREAT (test code = 2235) 16 RATIO SODIUM (test code = 2231) 137 MEQ/L POTASSIUM (test code = 2228) 4.2 MEQ/L CHLORIDE (test code = 2215) 96 MEQ/L CARBON DIOXIDE (test code = 2206) 27 MEQ/L CALCIUM (test code = 2209) 10.0 MG/DL PROTEIN, TOTAL (test code = 2229) 6.9 G/DL ALBUMIN (test code = 2201) 4.4 G/DL CALC GLOBULIN (test code = 2240) 2.5 G/DL CALC A/G RATIO (test code = 2234) 1.8 RATIO BILIRUBIN, TOTAL (test code = 2207) 0.5 MG/DL ALKALINE PHOSPHATASE (test code = 2204) 76 U/L AST (test code = 2218) 14 U/L ALT (test code = 2219) 14 U/L Anoop RiosHEMOGLOBIN [id number] 00:00:00* Test Item Value Reference Range Interpretation Comme nts HEMOGLOBIN A1c (test code = 73385) 7.0 % Anoop RiosLIPID [id number] 00:00:00* Test Item Value Reference Range Interpretation Comme nts CHOLESTEROL (test code = 2210) 141 MG/DL TRIGLYCERIDES (test code = 2232) 187 MG/DL HDL CHOLESTEROL (test code = 2220) 35 MG/DL CALC LDL CHOL (test code = 2237) 78 MG/DL RISK RATIO LDL/HDL (test cod e = 2238) 2.23 RATIO Anoop RiosCOMPREHENSIVE METABOLIC [id number] 00:00:00* Test Item Value Reference Range Interpretation Comme nts GLUCOSE (test code = 2217) 164 MG/DL BUN (test code = 2208) 18 MG/DL CREATININE (test code = 2214) 1.16 MG/DL eGFR (2020 CKD-EPI) (test co de = 90902) 70 ML/MIN/1.73 CALC BUN/CREAT (test code = 2235) 16 RATIO SODIUM (test code = 2231) 137 MEQ/L POTASSIUM (test code = 2228) 4.2 MEQ/L CHLORIDE (test code = 2215) 96 MEQ/L CARBON DIOXIDE (test code = 2206) 27 MEQ/L CALCIUM (test code = 2209) 10.0 MG/DL PROTEIN, TOTAL (test code = 2229) 6.9 G/DL ALBUMIN (test code = 2201) 4.4 G/DL CALC GLOBULIN (test code = 2240) 2.5 G/DL CALC A/G RATIO (test code = 2234) 1.8 RATIO BILIRUBIN, TOTAL (test code = 2207) 0.5 MG/DL ALKALINE PHOSPHATASE (test code = 2204) 76 U/L AST (test code = 2218) 14 U/L ALT (test code = 2219) 14 U/L Anoop RiosHEMOGLOBIN [id number] 00:00:00* Test Item Value Reference Range Interpretation Comme nts HEMOGLOBIN A1c (test code = 33767) 7.0 % Anoop Kamara AustinLIPID [id number] 00:00:00* Test Item Value Reference Range Interpretation Comme nts CHOLESTEROL (test code = 2210) 141 MG/DL TRIGLYCERIDES (test code = 2232) 187 MG/DL HDL CHOLESTEROL (test code = 2220) 35 MG/DL CALC LDL CHOL (test code = 2237) 78 MG/DL RISK RATIO LDL/HDL (test cod e = 2238) 2.23 RATIO Anoop RiosCOMPREHENSIVE METABOLIC [id number] 00:00:00* Test Item Value Reference Range Interpretation Comme nts GLUCOSE (test code = 2217) 164 MG/DL BUN (test code = 2208) 18 MG/DL CREATININE (test code = 2214) 1.16 MG/DL eGFR (2020 CKD-EPI) (test co de = 59328) 70 ML/MIN/1.73 CALC BUN/CREAT (test code = 2235) 16 RATIO SODIUM (test code = 2231) 137 MEQ/L POTASSIUM (test code = 2228) 4.2 MEQ/L CHLORIDE (test code = 2215) 96 MEQ/L CARBON DIOXIDE (test code = 2206) 27 MEQ/L CALCIUM (test code = 2209) 10.0 MG/DL PROTEIN, TOTAL (test code = 2229) 6.9 G/DL ALBUMIN (test code = 2201) 4.4 G/DL CALC GLOBULIN (test code = 2240) 2.5 G/DL CALC A/G RATIO (test code = 2234) 1.8 RATIO BILIRUBIN, TOTAL (test code = 2207) 0.5 MG/DL ALKALINE PHOSPHATASE (test code = 2204) 76 U/L AST (test code = 2218) 14 U/L ALT (test code = 2219) 14 U/L Anoop RiosH. PYLORI (BREATH)2022-02-12 13:01:06* Test Item Value Reference Range Interpretation Comme nts H. PYLORI (BREATH) (test code = 64063) NEGATIVE NEGATIVE UNLESS OTHER [place] INDICATED, ALL TESTING PERFORMED [facility] [address] [place] [id number] [employer]MIC[employer] OPERATOR: JARRET BOND M.D. CLIA NUMBER [id number] [place]. [id number] H. PYLORI (BREATH)2022-02-12 00:00:00* Test Item Value Reference Range Interpretation Comme nts H. PYLORI (BREATH) (test cod e = 15813) NEGATIVE H. PYLORI (BREATH)2022-02-12 00:00:00* Test Item Value Reference Range Interpretation Comme nts H. PYLORI (BREATH) (test cod e = 78538) NEGATIVE H. PYLORI (BREATH)2022-02-12 00:00:00* Test Item Value Reference Range Interpretation Comme nts H. PYLORI (BREATH) (test cod e = 65903) NEGATIVE Anoop F AustinH. PYLORI (BREATH)2022-02-12 00:00:00* Test Item Value Reference Range Interpretation Comme nts H. PYLORI (BREATH) (test cod e = 09889) NEGATIVE Anoop F AustinH. PYLORI (BREATH)2022-02-12 00:00:00* Test Item Value Reference Range Interpretation Comme nts H. PYLORI (BREATH) (test cod e = 16836) NEGATIVE Anoop F AustinH. PYLORI (BREATH)2022-02-12 00:00:00* Test Item Value Reference Range Interpretation Comme nts H. PYLORI (BREATH) (test cod e = 18893) NEGATIVE Anoop F AustinH. PYLORI (BREATH)2022-02-12 00:00:00* Test Item Value Reference Range Interpretation Comme nts H. PYLORI (BREATH) (test cod e = 98910) NEGATIVE H. PYLORI (BREATH)2022-02-12 00:00:00* Test Item Value Reference Range Interpretation Comme nts H. PYLORI (BREATH) (test cod e = 26325) NEGATIVE COMPREHENSIVE METABOLIC [id number] 02:04:03* Test Item Value Reference Range Interpretation Comme nts GLUCOSE (test code = 2217) 123 MG/DL 70-99 H BUN (test code = 2208) 14 MG/DL 8-23 CREATININE (test code = 2214) 1.17 MG/DL 0.80-1.40 eGFR (2020 CKD-EPI) (test code = 40029) 70 ML/MIN/1.73 >60 CALC BUN/CREAT (test code = 2235) 12 RATIO 6-28 SODIUM (test code = 2231) 141 MEQ/L 133-146 POTASSIUM (test code = 2228) 4.6 MEQ/L 3.5-5.4 CHLORIDE (test code = 2215) 99 MEQ/L 95-107 CARBON DIOXIDE (test code = 2206) 26 MEQ/L 19-31 CALCIUM (test code = 2208) 10.3 MG/DL 8.5-10.5 PROTEIN, TOTAL (test code = 2228) 7.5 G/DL 6.1-8.3 ALBUMIN (test code = 2200) 4.6 G/DL 3.5-5.2 CALC GLOBULIN (test code = 0) 2.9 G/DL 1.9-3.7 CALC A/G RATIO (test code = 2234) 1.6 RATIO 1.0-2.6 BILIRUBIN, TOTAL (test code = 2206) 0.5 MG/DL See_Comment [Automated me ssage] The system which generated this result transmitted reference range: <=1.2. The reference range was not used to interpret this result as normal/abnormal. ALKALINE PHOSPHATASE (test code = 2203) 81 U/L 40-123 AST (test code = 2217) 20 U/L 9-50 ALT (test code = 2218) 21 U/L 5-50 [id number] 02:03:52* Test Item Value Reference Range Interpretation Comme nts LIPASE (test code = 2057) 36 U/L 13-60 [id number] 02:03:52* Test Item Value Reference Range Interpretation Comme nts AMYLASE (test code = 2204) 93 U/L 28-100 UNLESS OTHERWISE INDICATED, ALL TESTING PERFORMED [facility] [address] [place] [address] FINE CHEMICALS OPERATOR: JARRET BOND M.D. CLIA NUMBER [id number] [facility] [place]. [id number] 00:00:00* Test Item Value Reference Range Interpretation Comme nts AMYLASE (test code = 5) 93 U/L COMPREHENSIVE METABOLIC [id number] 00:00:00* Test Item Value Reference Range Interpretation Comme nts GLUCOSE (test code = 2216) 123 MG/DL BUN (test code = 2207) 14 MG/DL CREATININE (test code = 4) 1.17 MG/DL eGFR (2020 CKD-EPI) (test co de = 05439) 70 ML/MIN/1.73 CALC BUN/CREAT (test code = 2234) 12 RATIO SODIUM (test code = 223) 141 MEQ/L POTASSIUM (test code = 2228) 4.6 MEQ/L CHLORIDE (test code = 2215) 99 MEQ/L CARBON DIOXIDE (test code = 2206) 26 MEQ/L CALCIUM (test code = 2209) 10.3 MG/DL PROTEIN, TOTAL (test code = 2229) 7.5 G/DL ALBUMIN (test code = 2201) 4.6 G/DL CALC GLOBULIN (test code = 2240) 2.9 G/DL CALC A/G RATIO (test code = 2234) 1.6 RATIO BILIRUBIN, TOTAL (test code = 2207) 0.5 MG/DL ALKALINE PHOSPHATASE (test code = 2204) 81 U/L AST (test code = 2218) 20 U/L ALT (test code = 2219) 21 U/L [id number] 00:00:00* Test Item Value Reference Range Interpretation Comme nts LIPASE (test code = 205) 36 U/L [id number] 00:00:00* Test Item Value Reference Range Interpretation Comme nts AMYLASE (test code = 5) 93 U/L COMPREHENSIVE METABOLIC [id number] 00:00:00* Test Item Value Reference Range Interpretation Comme nts GLUCOSE (test code = 2217) 123 MG/DL BUN (test code = 2208) 14 MG/DL CREATININE (test code = 2214) 1.17 MG/DL eGFR (2020 CKD-EPI) (test co de = 17065) 70 ML/MIN/1.73 CALC BUN/CREAT (test code = 2235) 12 RATIO SODIUM (test code = 2231) 141 MEQ/L POTASSIUM (test code = 2228) 4.6 MEQ/L CHLORIDE (test code = 2215) 99 MEQ/L CARBON DIOXIDE (test code = 2206) 26 MEQ/L CALCIUM (test code = 2209) 10.3 MG/DL PROTEIN, TOTAL (test code = 2229) 7.5 G/DL ALBUMIN (test code = 2201) 4.6 G/DL CALC GLOBULIN (test code = 2240) 2.9 G/DL CALC A/G RATIO (test code = 2234) 1.6 RATIO BILIRUBIN, TOTAL (test code = 2207) 0.5 MG/DL ALKALINE PHOSPHATASE (test code = 2204) 81 U/L AST (test code = 2218) 20 U/L ALT (test code = 2219) 21 U/L [id number] 00:00:00* Test Item Value Reference Range Interpretation Comme nts LIPASE (test code = 2058) 36 U/L [id number] 00:00:00* Test Item Value Reference Range Interpretation Comme nts AMYLASE (test code = 2205) 93 U/L COMPREHENSIVE METABOLIC [id number] 00:00:00* Test Item Value Reference Range Interpretation Comme nts GLUCOSE (test code = 2217) 123 MG/DL BUN (test code = 2208) 14 MG/DL CREATININE (test code = 2214) 1.17 MG/DL eGFR (2020 CKD-EPI) (test co de = 35772) 70 ML/MIN/1.73 CALC BUN/CREAT (test code = 2235) 12 RATIO SODIUM (test code = 2231) 141 MEQ/L POTASSIUM (test code = 2228) 4.6 MEQ/L CHLORIDE (test code = 2215) 99 MEQ/L CARBON DIOXIDE (test code = 2206) 26 MEQ/L CALCIUM (test code = 2209) 10.3 MG/DL PROTEIN, TOTAL (test code = 2229) 7.5 G/DL ALBUMIN (test code = 2201) 4.6 G/DL CALC GLOBULIN (test code = 2240) 2.9 G/DL CALC A/G RATIO (test code = 2234) 1.6 RATIO BILIRUBIN, TOTAL (test code = 2207) 0.5 MG/DL ALKALINE PHOSPHATASE (test code = 2204) 81 U/L AST (test code = 2218) 20 U/L ALT (test code = 2219) 21 U/L Anoop F [id number] 00:00:00* Test Item Value Reference Range Interpretation Comme nts LIPASE (test code = 2057) 36 U/L Anoop F [id number] 00:00:00* Test Item Value Reference Range Interpretation Comme nts AMYLASE (test code = 5) 93 U/L Anoop F AustinCOMPREHENSIVE METABOLIC [id number] 00:00:00* Test Item Value Reference Range Interpretation Comme nts GLUCOSE (test code = 2217) 123 MG/DL BUN (test code = 2208) 14 MG/DL CREATININE (test code = 2214) 1.17 MG/DL eGFR (2020 CKD-EPI) (test co de = 17906) 70 ML/MIN/1.73 CALC BUN/CREAT (test code = 2235) 12 RATIO SODIUM (test code = 2231) 141 MEQ/L POTASSIUM (test code = 2228) 4.6 MEQ/L CHLORIDE (test code = 2215) 99 MEQ/L CARBON DIOXIDE (test code = 2206) 26 MEQ/L CALCIUM (test code = 2209) 10.3 MG/DL PROTEIN, TOTAL (test code = 2229) 7.5 G/DL ALBUMIN (test code = 2201) 4.6 G/DL CALC GLOBULIN (test code = 2240) 2.9 G/DL CALC A/G RATIO (test code = 2234) 1.6 RATIO BILIRUBIN, TOTAL (test code = 2207) 0.5 MG/DL ALKALINE PHOSPHATASE (test code = 4) 81 U/L AST (test code = 2218) 20 U/L ALT (test code = 2219) 21 U/L Anoop Kamara [id number] 00:00:00* Test Item Value Reference Range Interpretation Comme nts LIPASE (test code = 2057) 36 U/L Anoop F [id number] 00:00:00* Test Item Value Reference Range Interpretation Comme nts AMYLASE (test code = 5) 93 U/L Anoop RiosCOMPREHENSIVE METABOLIC [id number] 00:00:00* Test Item Value Reference Range Interpretation Comme nts GLUCOSE (test code = 2217) 123 MG/DL BUN (test code = 2208) 14 MG/DL CREATININE (test code = 2214) 1.17 MG/DL eGFR (2020 CKD-EPI) (test co de = 03164) 70 ML/MIN/1.73 CALC BUN/CREAT (test code = 2235) 12 RATIO SODIUM (test code = 2231) 141 MEQ/L POTASSIUM (test code = 2228) 4.6 MEQ/L CHLORIDE (test code = 2215) 99 MEQ/L CARBON DIOXIDE (test code = 2206) 26 MEQ/L CALCIUM (test code = 2209) 10.3 MG/DL PROTEIN, TOTAL (test code = 2229) 7.5 G/DL ALBUMIN (test code = 2201) 4.6 G/DL CALC GLOBULIN (test code = 2240) 2.9 G/DL CALC A/G RATIO (test code = 2234) 1.6 RATIO BILIRUBIN, TOTAL (test code = 2207) 0.5 MG/DL ALKALINE PHOSPHATASE (test code = 2204) 81 U/L AST (test code = 2218) 20 U/L ALT (test code = 2219) 21 U/L Anoop Kamara [id number] 00:00:00* Test Item Value Reference Range Interpretation Comme nts LIPASE (test code = 2057) 36 U/L Anoop F [id number] 00:00:00* Test Item Value Reference Range Interpretation Comme nts AMYLASE (test code = 5) 93 U/L Anoop Kamara AustinCOMPREHENSIVE METABOLIC [id number] 00:00:00* Test Item Value Reference Range Interpretation Comme nts GLUCOSE (test code = 2217) 123 MG/DL BUN (test code = 2208) 14 MG/DL CREATININE (test code = 2214) 1.17 MG/DL eGFR (2020 CKD-EPI) (test co de = 97194) 70 ML/MIN/1.73 CALC BUN/CREAT (test code = 2235) 12 RATIO SODIUM (test code = 2231) 141 MEQ/L POTASSIUM (test code = 2228) 4.6 MEQ/L CHLORIDE (test code = 2215) 99 MEQ/L CARBON DIOXIDE (test code = 2206) 26 MEQ/L CALCIUM (test code = 2209) 10.3 MG/DL PROTEIN, TOTAL (test code = 2229) 7.5 G/DL ALBUMIN (test code = 2201) 4.6 G/DL CALC GLOBULIN (test code = 2240) 2.9 G/DL CALC A/G RATIO (test code = 2234) 1.6 RATIO BILIRUBIN, TOTAL (test code = 2207) 0.5 MG/DL ALKALINE PHOSPHATASE (test code = 2204) 81 U/L AST (test code = 2218) 20 U/L ALT (test code = 2219) 21 U/L Anoop F [id number] 00:00:00* Test Item Value Reference Range Interpretation Comme nts LIPASE (test code = 2057) 36 U/L Anoop F [id number] 00:00:00* Test Item Value Reference Range Interpretation Comme nts AMYLASE (test code = 2205) 93 U/L Anoop RiosCOMPREHENSIVE METABOLIC [id number] 00:00:00* Test Item Value Reference Range Interpretation Comme nts GLUCOSE (test code = 2217) 123 MG/DL BUN (test code = 2208) 14 MG/DL CREATININE (test code = 2214) 1.17 MG/DL eGFR (2020 CKD-EPI) (test co de = 78925) 70 ML/MIN/1.73 CALC BUN/CREAT (test code = 2235) 12 RATIO SODIUM (test code = 2231) 141 MEQ/L POTASSIUM (test code = 2228) 4.6 MEQ/L CHLORIDE (test code = 2215) 99 MEQ/L CARBON DIOXIDE (test code = 2206) 26 MEQ/L CALCIUM (test code = 2209) 10.3 MG/DL PROTEIN, TOTAL (test code = 2229) 7.5 G/DL ALBUMIN (test code = 2201) 4.6 G/DL CALC GLOBULIN (test code = 2240) 2.9 G/DL CALC A/G RATIO (test code = 2234) 1.6 RATIO BILIRUBIN, TOTAL (test code = 2207) 0.5 MG/DL ALKALINE PHOSPHATASE (test code = 2204) 81 U/L AST (test code = 2218) 20 U/L ALT (test code = 2219) 21 U/L [id number] 00:00:00* Test Item Value Reference Range Interpretation Comme nts LIPASE (test code = 2057) 36 U/L [id number] 00:00:00* Test Item Value Reference Range Interpretation Comme nts AMYLASE (test code = 2205) 93 U/L COMPREHENSIVE METABOLIC [id number] 00:00:00* Test Item Value Reference Range Interpretation Comme nts GLUCOSE (test code = 2217) 123 MG/DL BUN (test code = 2208) 14 MG/DL CREATININE (test code = 2214) 1.17 MG/DL eGFR (2020 CKD-EPI) (test co de = 67182) 70 ML/MIN/1.73 CALC BUN/CREAT (test code = 2235) 12 RATIO SODIUM (test code = 2231) 141 MEQ/L POTASSIUM (test code = 2228) 4.6 MEQ/L CHLORIDE (test code = 2215) 99 MEQ/L CARBON DIOXIDE (test code = 2206) 26 MEQ/L CALCIUM (test code = 2209) 10.3 MG/DL PROTEIN, TOTAL (test code = 2229) 7.5 G/DL ALBUMIN (test code = 2201) 4.6 G/DL CALC GLOBULIN (test code = 2240) 2.9 G/DL CALC A/G RATIO (test code = 2234) 1.6 RATIO BILIRUBIN, TOTAL (test code = 2207) 0.5 MG/DL ALKALINE PHOSPHATASE (test code = 2204) 81 U/L AST (test code = 2218) 20 U/L ALT (test code = 2218) 21 U/L [id number] 00:00:00* Test Item Value Reference Range Interpretation Comme [facility] LIPASE (test code = 2058) 36 U/L HEMOGLOBIN [id number] 04:23:33* Test Item Value Reference Range Interpretation Comme [facility] HEMOGLOBIN A1c (test code = 11406) 6.8 % 4.2-5.6 H [employer] GUIDELINES FOR HGB A1C: PREDIABETES/INCREASED RISK . . . . . . . 5.7-6.4% DIAGNOSIS OF DIABETES . . . . . . . . . >=6.5% WITH CONFIRMATION OR APPROPRIATE SYMPTOMS NOTE: ASSAY MAY BE AFFECTED BY HEMOGLOBINOPATHIES (SICKLE CELL ANEMIA, S-C DISEASE, OTHERS) OR ARTIFICIALLY LOWERED BY DECREASED RED CELL SURVIVAL (HEMOLYTIC ANEMIAS, BLOOD LOSS, ETC.). CONSIDER ALTERNATE TESTING OR LABORATORY CONSULTATION. CBC W/AUTO DIFF WITH [id number] 04:15:41* Test Item Value Reference Range Interpretation Comme nts WBC (test code = 1001) 13.4 K/UL 3.5-11.0 H RBC (test code = 1002) 5.15 M/UL 4.50-6.10 HEMOGLOBIN (test code = 1003) 14.0 G/DL 13.5-17.0 HEMATOCRIT (test code = 1004) 43.7 % 40.0-51.0 MCV (test code = 1005) 84.9 fL 80.0-99.0 MCH (test code = 1006) 27.2 PG 25.0-33.0 MCHC (test code = 1007) 32.0 G/DL 31.0-36.0 RDW (test code = 1038) 13.3 % 11.5-15.0 NEUTROPHILS (test code = 1008) 83.4 % LYMPHOCYTES (test code = 1010) 10.1 % MONOCYTES (test code = 1011) 5.5 % EOSINOPHILS (test code = 1012) 0.3 % BASOPHILS (test code = 1013) 0.3 % IMMATURE GRANULOCYTES (test code = 1036) 0.4 % NUCLEATED RBCS (test code = 1065) 0.0 /100 WBC'S See_Comment [Automated messa ge] The system which generated this result transmitted reference range: 0.0. The reference range was not used to interpret this result as normal/abnormal. PLATELET COUNT (test code = 1015) 340 K/UL 130-400 ABSOLUTE NEUTROPHILS (test code = 1066) 11.18 K/UL 1.50-7.50 H ABSOLUTE LYMPHOCYTES (test code = 1067) 1.35 K/UL 1.00-4.00 ABSOLUTE MONOCYTES (test code = 1068) 0.73 K/UL 0.20-1.00 ABSOLUTE EOSINOPHILS (test code = 1040) 0.04 K/UL 0.00-0.50 ABSOLUTE BASOPHILS (test code = 1069) 0.04 K/UL 0.00-0.20 ABS IMMATURE GRANULOCYTES (test code = 1020) 0.05 K/UL 0.00-0.10 ABS NUCLEATED RBCS (test code = 15580) 0.00 K/UL 0.00-0.11 CBC W/AUTO [id number] 00:00:00* Test Item Value Reference Range Interpretation Comme nts WBC (test code = 1001) 13.4 K/UL [...] = 1013) 0.3 % IMMATURE GRANULOCYTES (test code = 1036) 0.4 % NUCLEATED RBCS (test code = 1065) 0.0 /100WBC'S PLATELET COUNT (test code = 1015) 340 K/UL ABSOLUTE NEUTROPHILS (test c ode = 1066) 11.18 K/UL ABSOLUTE LYMPHOCYTES (test c ode = 1067) 1.35 K/UL ABSOLUTE MONOCYTES (test cod e = 1068) 0.73 K/UL ABSOLUTE EOSINOPHILS (test c ode = 1040) 0.04 K/UL ABSOLUTE BASOPHILS (test cod e = 1069) 0.04 K/UL ABS IMMATURE GRANULOCYTES (t est code = 1020) 0.05 K/UL ABS NUCLEATED RBCS (test cod e = 85346) 0.00 K/UL HEMOGLOBIN [id number] 00:00:00* Test Item Value Reference Range Interpretation Comme nts HEMOGLOBIN A1c (test code = 47229) 6.8 % CBC W/AUTO [id number] 00:00:00* Test Item Value Reference Range Interpretation Comme nts WBC (test code = 1001) 13.4 K/UL [...] = 1013) 0.3 % IMMATURE GRANULOCYTES (test code = 1036) 0.4 % NUCLEATED RBCS (test code = 1065) 0.0 /100WBC'S PLATELET COUNT (test code = 1015) 340 K/UL ABSOLUTE NEUTROPHILS (test c ode = 1066) 11.18 K/UL ABSOLUTE LYMPHOCYTES (test c ode = 1067) 1.35 K/UL ABSOLUTE MONOCYTES (test cod e = 1068) 0.73 K/UL ABSOLUTE EOSINOPHILS (test c ode = 1040) 0.04 K/UL ABSOLUTE BASOPHILS (test cod e = 1069) 0.04 K/UL ABS IMMATURE GRANULOCYTES (t est code = 1020) 0.05 K/UL ABS NUCLEATED RBCS (test cod e = 02888) 0.00 K/UL HEMOGLOBIN [id number] 00:00:00* Test Item Value Reference Range Interpretation Comme nts HEMOGLOBIN A1c (test code = 93553) 6.8 % CBC W/AUTO [id number] 00:00:00* Test Item Value Reference Range Interpretation Comme nts WBC (test code = 1001) 13.4 K/UL [...] = 1013) 0.3 % IMMATURE GRANULOCYTES (test code = 1036) 0.4 % NUCLEATED RBCS (test code = 1065) 0.0 /100WBC'S PLATELET COUNT (test code = 1015) 340 K/UL ABSOLUTE NEUTROPHILS (test c ode = 1066) 11.18 K/UL ABSOLUTE LYMPHOCYTES (test c ode = 1067) 1.35 K/UL ABSOLUTE MONOCYTES (test cod e = 1068) 0.73 K/UL ABSOLUTE EOSINOPHILS (test c ode = 1040) 0.04 K/UL ABSOLUTE BASOPHILS (test cod e = 1069) 0.04 K/UL ABS IMMATURE GRANULOCYTES (t est code = 1020) 0.05 K/UL ABS NUCLEATED RBCS (test cod e = 92051) 0.00 K/UL Anoop F AustinHEMOGLOBIN [id number] 00:00:00* Test Item Value Reference Range Interpretation Comme nts HEMOGLOBIN A1c (test code = 25710) 6.8 % Anoop F AustinCBC W/AUTO [id number] 00:00:00* Test Item Value Reference Range Interpretation Comme nts WBC (test code = 1001) 13.4 K/UL [...] = 1013) 0.3 % IMMATURE GRANULOCYTES (test code = 1036) 0.4 % NUCLEATED RBCS (test code = 1065) 0.0 /100WBC'S PLATELET COUNT (test code = 1015) 340 K/UL ABSOLUTE NEUTROPHILS (test c ode = 1066) 11.18 K/UL ABSOLUTE LYMPHOCYTES (test c ode = 1067) 1.35 K/UL ABSOLUTE MONOCYTES (test cod e = 1068) 0.73 K/UL ABSOLUTE EOSINOPHILS (test c ode = 1040) 0.04 K/UL ABSOLUTE BASOPHILS (test cod e = 1069) 0.04 K/UL ABS IMMATURE GRANULOCYTES (t est code = 1020) 0.05 K/UL ABS NUCLEATED RBCS (test cod e = 73888) 0.00 K/UL Anoop RiosHEMOGLOBIN [id number] 00:00:00* Test Item Value Reference Range Interpretation Comme nts HEMOGLOBIN A1c (test code = 02927) 6.8 % Anoop RiosCBC W/AUTO [id number] 00:00:00* Test Item Value Reference Range Interpretation Comme nts WBC (test code = 1001) 13.4 K/UL [...] = 1013) 0.3 % IMMATURE GRANULOCYTES (test code = 1036) 0.4 % NUCLEATED RBCS (test code = 1065) 0.0 /100WBC'S PLATELET COUNT (test code = 1015) 340 K/UL ABSOLUTE NEUTROPHILS (test c ode = 1066) 11.18 K/UL ABSOLUTE LYMPHOCYTES (test c ode = 1067) 1.35 K/UL ABSOLUTE MONOCYTES (test cod e = 1068) 0.73 K/UL ABSOLUTE EOSINOPHILS (test c ode = 1040) 0.04 K/UL ABSOLUTE BASOPHILS (test cod e = 1069) 0.04 K/UL ABS IMMATURE GRANULOCYTES (t est code = 1020) 0.05 K/UL ABS NUCLEATED RBCS (test cod e = 61378) 0.00 K/UL Anoop RiosHEMOGLOBIN [id number] 00:00:00* Test Item Value Reference Range Interpretation Comme nts HEMOGLOBIN A1c (test code = 84956) 6.8 % Anoop RiosCBC W/AUTO [id number] 00:00:00* Test Item Value Reference Range Interpretation Comme nts WBC (test code = 1001) 13.4 K/UL [...] = 1013) 0.3 % IMMATURE GRANULOCYTES (test code = 1036) 0.4 % NUCLEATED RBCS (test code = 1065) 0.0 /100WBC'S PLATELET COUNT (test code = 1015) 340 K/UL ABSOLUTE NEUTROPHILS (test c ode = 1066) 11.18 K/UL ABSOLUTE LYMPHOCYTES (test c ode = 1067) 1.35 K/UL ABSOLUTE MONOCYTES (test cod e = 1068) 0.73 K/UL ABSOLUTE EOSINOPHILS (test c ode = 1040) 0.04 K/UL ABSOLUTE BASOPHILS (test cod e = 1069) 0.04 K/UL ABS IMMATURE GRANULOCYTES (t est code = 1020) 0.05 K/UL ABS NUCLEATED RBCS (test cod e = 70592) 0.00 K/UL Anoop RiosHEMOGLOBIN [id number] 00:00:00* Test Item Value Reference Range Interpretation Comme nts HEMOGLOBIN A1c (test code = 37083) 6.8 % Anoop RiosCBC W/AUTO [id number] 00:00:00* Test Item Value Reference Range Interpretation Comme nts WBC (test code = 1001) 13.4 K/UL [...] = 1013) 0.3 % IMMATURE GRANULOCYTES (test code = 1036) 0.4 % NUCLEATED RBCS (test code = 1065) 0.0 /100WBC'S PLATELET COUNT (test code = 1015) 340 K/UL ABSOLUTE NEUTROPHILS (test c ode = 1066) 11.18 K/UL ABSOLUTE LYMPHOCYTES (test c ode = 1067) 1.35 K/UL ABSOLUTE MONOCYTES (test cod e = 1068) 0.73 K/UL ABSOLUTE EOSINOPHILS (test c ode = 1040) 0.04 K/UL ABSOLUTE BASOPHILS (test cod e = 1069) 0.04 K/UL ABS IMMATURE GRANULOCYTES (t est code = 1020) 0.05 K/UL ABS NUCLEATED RBCS (test cod e = 74686) 0.00 K/UL HEMOGLOBIN [id number] 00:00:00* Test Item Value Reference Range Interpretation Comme nts HEMOGLOBIN A1c (test code = 81575) 6.8 % CBC W/AUTO [id number] 00:00:00* Test Item Value Reference Range Interpretation Comme nts WBC (test code = 1001) 13.4 K/UL [...] = 1013) 0.3 % IMMATURE GRANULOCYTES (test code = 1036) 0.4 % NUCLEATED RBCS (test code = 1065) 0.0 /100WBC'S PLATELET COUNT (test code = 1015) 340 K/UL ABSOLUTE NEUTROPHILS (test c ode = 1066) 11.18 K/UL ABSOLUTE LYMPHOCYTES (test c ode = 1067) 1.35 K/UL ABSOLUTE MONOCYTES (test cod e = 1068) 0.73 K/UL ABSOLUTE EOSINOPHILS (test c ode = 1040) 0.04 K/UL ABSOLUTE BASOPHILS (test cod e = 1069) 0.04 K/UL ABS IMMATURE GRANULOCYTES (t est code = 1020) 0.05 K/UL ABS NUCLEATED RBCS (test cod e = 35331) 0.00 K/UL HEMOGLOBIN [id number] 00:00:00* Test Item Value Reference Range Interpretation Comme nts HEMOGLOBIN A1c (test code = 32222) 6.8 % LIPID [id number] 03:48:14* Test Item Value Reference Range Interpretation Comme nts CHOLESTEROL (test code = 2210) 132 MG/DL <200 TRIGLYCERIDES (test code = 2232) 63 MG/DL <150 HDL CHOLESTEROL (test code = 2220) 37 MG/DL >39 L CALC LDL CHOL (test code = 2237) 81 MG/DL <100 NOTE: CALCULATED LDL IS BASED ON AMALIA-BECERRA METHOD WHICHINCLUDES ADJUSTABLE TRIGLYCERIDE:VLDL CHOLESTEROL RATIO.THIS FACTOR VARIES BY MEASURED TRIGLYCERIDE AND NON-HDLCHOLESTEROL CONCENTRATIONS WITH INCREASED CALCULATED LDL SEENIN HIGHER TRIGLYCERIDE OR LOWER NON-HDL SPECIMENS. FOR MOREINFORMATION, SEE CLIENT ANNOUNCEMENT AT [email or web address] RISK RATIO LDL/HDL (test code = 2238) 2.19 RATIO <3.55 UNLESS OTHERW ISE INDICATED, ALL TESTING PERFORMED [facility] [employer] [address] [place] [address] [employer] OPERATOR: JARRET BOND M.D. CLIA NUMBER [id number] [facility] [place] [place]. [id number] HEMOGLOBIN [id number] 03:30:53* Test Item Value Reference Range Interpretation Comme [facility] HEMOGLOBIN A1c (test code = 33680) 7.1 % 4.2-5.6 [employer] GUIDELINES FOR HGB A1C: PREDIABETES/INCREASED RISK . . . . . . . 5.7-6.4% DIAGNOSIS OF DIABETES . . . . . . . . . >=6.5% WITH CONFIRMATION OR APPROPRIATE SYMPTOMS NOTE: ASSAY MAY BE AFFECTED BY HEMOGLOBINOPATHIES (SICKLE CELL ANEMIA, S-C DISEASE, OTHERS) OR ARTIFICIALLY LOWERED BY DECREASED RED CELL SURVIVAL (HEMOLYTIC ANEMIAS, BLOOD LOSS, ETC.). CONSIDER ALTERNATE TESTING OR LABORATORY CONSULTATION. HEMOGLOBIN [id number] 00:00:00* Test Item Value Reference Range Interpretation Comme nts HEMOGLOBIN A1c (test code = 63616) 7.1 % LIPID [id number] 00:00:00* Test Item Value Reference Range Interpretation Comme nts CHOLESTEROL (test code = 2210) 132 MG/DL TRIGLYCERIDES (test code = 2232) 63 MG/DL HDL CHOLESTEROL (test code = 2220) 37 MG/DL CALC LDL CHOL (test code = 2237) 81 MG/DL RISK RATIO LDL/HDL (test cod e = 2238) 2.19 RATIO HEMOGLOBIN [id number] 00:00:00* Test Item Value Reference Range Interpretation Comme nts HEMOGLOBIN A1c (test code = 75759) 7.1 % LIPID [id number] 00:00:00* Test Item Value Reference Range Interpretation Comme nts CHOLESTEROL (test code = 2210) 132 MG/DL TRIGLYCERIDES (test code = 2232) 63 MG/DL HDL CHOLESTEROL (test code = 2220) 37 MG/DL CALC LDL CHOL (test code = 2237) 81 MG/DL RISK RATIO LDL/HDL (test cod e = 2238) 2.19 RATIO HEMOGLOBIN [id number] 00:00:00* Test Item Value Reference Range Interpretation Comme nts HEMOGLOBIN A1c (test code = 17705) 7.1 % Anoop Kamara AustinLIPID [id number] 00:00:00* Test Item Value Reference Range Interpretation Comme nts CHOLESTEROL (test code = 2210) 132 MG/DL TRIGLYCERIDES (test code = 2232) 63 MG/DL HDL CHOLESTEROL (test code = 2220) 37 MG/DL CALC LDL CHOL (test code = 2237) 81 MG/DL RISK RATIO LDL/HDL (test cod e = 2238) 2.19 RATIO Anoop Kamara AustinHEMOGLOBIN [id number] 00:00:00* Test Item Value Reference Range Interpretation Comme nts HEMOGLOBIN A1c (test code = 17142) 7.1 % Anoop Kamara AustinLIPID [id number] 00:00:00* Test Item Value Reference Range Interpretation Comme nts CHOLESTEROL (test code = 2210) 132 MG/DL TRIGLYCERIDES (test code = 2232) 63 MG/DL HDL CHOLESTEROL (test code = 2220) 37 MG/DL CALC LDL CHOL (test code = 2237) 81 MG/DL RISK RATIO LDL/HDL (test cod e = 2238) 2.19 RATIO Anoop Kamara AustinHEMOGLOBIN [id number] 00:00:00* Test Item Value Reference Range Interpretation Comme nts HEMOGLOBIN A1c (test code = 51341) 7.1 % Anoop Kamara AustinLIPID [id number] 00:00:00* Test Item Value Reference Range Interpretation Comme nts CHOLESTEROL (test code = 2210) 132 MG/DL TRIGLYCERIDES (test code = 2232) 63 MG/DL HDL CHOLESTEROL (test code = 2220) 37 MG/DL CALC LDL CHOL (test code = 2237) 81 MG/DL RISK RATIO LDL/HDL (test cod e = 2238) 2.19 RATIO Anoop Kamara AustinHEMOGLOBIN [id number] 00:00:00* Test Item Value Reference Range Interpretation Comme nts HEMOGLOBIN A1c (test code = 54545) 7.1 % Anoop Kamara AustinLIPID [id number] 00:00:00* Test Item Value Reference Range Interpretation Comme nts CHOLESTEROL (test code = 2210) 132 MG/DL TRIGLYCERIDES (test code = 2232) 63 MG/DL HDL CHOLESTEROL (test code = 2220) 37 MG/DL CALC LDL CHOL (test code = 2237) 81 MG/DL RISK RATIO LDL/HDL (test cod e = 2238) 2.19 RATIO Anoop Kamara AustinHEMOGLOBIN [id number] 00:00:00* Test Item Value Reference Range Interpretation Comme nts HEMOGLOBIN A1c (test code = 02344) 7.1 % LIPID [id number] 00:00:00* Test Item Value Reference Range Interpretation Comme nts CHOLESTEROL (test code = 2210) 132 MG/DL TRIGLYCERIDES (test code = 2232) 63 MG/DL HDL CHOLESTEROL (test code = 2220) 37 MG/DL CALC LDL CHOL (test code = 2237) 81 MG/DL RISK RATIO LDL/HDL (test cod e = 2238) 2.19 RATIO HEMOGLOBIN [id number] 00:00:00* Test Item Value Reference Range Interpretation Comme nts HEMOGLOBIN A1c (test code = 92266) 7.1 % LIPID [id number] 00:00:00* Test Item Value Reference Range Interpretation Comme nts CHOLESTEROL (test code = 2210) 132 MG/DL TRIGLYCERIDES (test code = 2232) 63 MG/DL HDL CHOLESTEROL (test code = 2220) 37 MG/DL CALC LDL CHOL (test code = 2237) 81 MG/DL RISK RATIO LDL/HDL (test cod e = 2238) 2.19 RATIO HEMOGLOBIN [id number] 00:00:00* Test Item Value Reference Range Interpretation Comme nts HEMOGLOBIN A1c (test code = 53963) 6.7 % LIPID [id number] 00:00:00* Test Item Value Reference Range Interpretation Comme nts CHOLESTEROL (test code = 2210) 128 MG/DL TRIGLYCERIDES (test code = 2232) 97 MG/DL HDL CHOLESTEROL (test code = 2220) 34 MG/DL CALC LDL CHOL (test code = 2237) 76 MG/DL RISK RATIO LDL/HDL (test cod e = 2238) 2.24 RATIO HEMOGLOBIN [id number] 00:00:00* Test Item Value Reference Range Interpretation Comme nts HEMOGLOBIN A1c (test code = 03918) 6.7 % LIPID [id number] 00:00:00* Test Item Value Reference Range Interpretation Comme nts CHOLESTEROL (test code = 2210) 128 MG/DL TRIGLYCERIDES (test code = 2232) 97 MG/DL HDL CHOLESTEROL (test code = 2220) 34 MG/DL CALC LDL CHOL (test code = 2237) 76 MG/DL RISK RATIO LDL/HDL (test cod e = 2238) 2.24 RATIO HEMOGLOBIN [id number] 00:00:00* Test Item Value Reference Range Interpretation Comme nts HEMOGLOBIN A1c (test code = 59934) 6.7 % Anoop Kamara AustinLIPID [id number] 00:00:00* Test Item Value Reference Range Interpretation Comme nts CHOLESTEROL (test code = 2210) 128 MG/DL TRIGLYCERIDES (test code = 2232) 97 MG/DL HDL CHOLESTEROL (test code = 2220) 34 MG/DL CALC LDL CHOL (test code = 2237) 76 MG/DL RISK RATIO LDL/HDL (test cod e = 2238) 2.24 RATIO Anoop Kamara AustinHEMOGLOBIN [id number] 00:00:00* Test Item Value Reference Range Interpretation Comme nts HEMOGLOBIN A1c (test code = 37405) 6.7 % Anoop Kamara AustinLIPID [id number] 00:00:00* Test Item Value Reference Range Interpretation Comme nts CHOLESTEROL (test code = 2210) 128 MG/DL TRIGLYCERIDES (test code = 2232) 97 MG/DL HDL CHOLESTEROL (test code = 2220) 34 MG/DL CALC LDL CHOL (test code = 2237) 76 MG/DL RISK RATIO LDL/HDL (test cod e = 2238) 2.24 RATIO Anoop Kamara AustinHEMOGLOBIN [id number] 00:00:00* Test Item Value Reference Range Interpretation Comme nts HEMOGLOBIN A1c (test code = 37625) 6.7 % Anoop Kamara AustinLIPID [id number] 00:00:00* Test Item Value Reference Range Interpretation Comme nts CHOLESTEROL (test code = 2210) 128 MG/DL TRIGLYCERIDES (test code = 2232) 97 MG/DL HDL CHOLESTEROL (test code = 2220) 34 MG/DL CALC LDL CHOL (test code = 2237) 76 MG/DL RISK RATIO LDL/HDL (test cod e = 2238) 2.24 RATIO Anoop RiosHEMOGLOBIN [id number] 00:00:00* Test Item Value Reference Range Interpretation Comme nts HEMOGLOBIN A1c (test code = 77048) 6.7 % Anoop Kamara AustinLIPID [id number] 00:00:00* Test Item Value Reference Range Interpretation Comme nts CHOLESTEROL (test code = 2210) 128 MG/DL TRIGLYCERIDES (test code = 2232) 97 MG/DL HDL CHOLESTEROL (test code = 2220) 34 MG/DL CALC LDL CHOL (test code = 2237) 76 MG/DL RISK RATIO LDL/HDL (test cod e = 2238) 2.24 RATIO Anoop Kamara AustinHEMOGLOBIN [id number] 00:00:00* Test Item Value Reference Range Interpretation Comme nts HEMOGLOBIN A1c (test code = 87760) 6.7 % LIPID [id number] 00:00:00* Test Item Value Reference Range Interpretation Comme nts CHOLESTEROL (test code = 2210) 128 MG/DL TRIGLYCERIDES (test code = 2232) 97 MG/DL HDL CHOLESTEROL (test code = 2220) 34 MG/DL CALC LDL CHOL (test code = 2237) 76 MG/DL RISK RATIO LDL/HDL (test cod e = 2238) 2.24 RATIO HEMOGLOBIN [id number] 00:00:00* Test Item Value Reference Range Interpretation Comme nts HEMOGLOBIN A1c (test code = 34072) 6.7 % LIPID [id number] 00:00:00* Test Item Value Reference Range Interpretation Comme nts CHOLESTEROL (test code = 2210) 128 MG/DL TRIGLYCERIDES (test code = 2232) 97 MG/DL HDL CHOLESTEROL (test code = 2220) 34 MG/DL CALC LDL CHOL (test code = 2237) 76 MG/DL RISK RATIO LDL/HDL (test cod e = 2238) 2.24 RATIO HEMOGLOBIN [id number] 00:00:00* Test Item Value Reference Range Interpretation Comme nts HEMOGLOBIN A1c (test code = 67160) 6.8 % LIPID [id number] 00:00:00* Test Item Value Reference Range Interpretation Comme nts CHOLESTEROL (test code = 2210) 146 MG/DL TRIGLYCERIDES (test code = 2232) 90 MG/DL HDL CHOLESTEROL (test code = 2220) 36 MG/DL CALC LDL CHOL (test code = 2237) 92 MG/DL RISK RATIO LDL/HDL (test cod e = 2238) 2.56 RATIO COMPREHENSIVE METABOLIC [id number] 00:00:00* Test Item Value Reference Range Interpretation Comme nts GLUCOSE (test code = 2217) 121 MG/DL BUN (test code = 2208) 16 MG/DL CREATININE (test code = 2214) 1.02 MG/DL eGFR AMER. (test cod e = 08996) 90 ML/MIN/1.73 eGFR NON- AMER. (test code = 07869) 78 ML/MIN/1.73 CALC BUN/CREAT (test code = 2235) 16 RATIO SODIUM (test code = 2231) 139 MEQ/L POTASSIUM (test code = 2228) 4.3 MEQ/L CHLORIDE (test code = 2215) 101 MEQ/L CARBON DIOXIDE (test code = 2206) 28 MEQ/L CALCIUM (test code = 2209) 9.9 MG/DL PROTEIN, TOTAL (test code = 2229) 7.3 G/DL ALBUMIN (test code = 2201) 4.6 G/DL CALC GLOBULIN (test code = 2240) 2.7 G/DL CALC A/G RATIO (test code = 2234) 1.7 RATIO BILIRUBIN, TOTAL (test code = 2207) 0.4 MG/DL ALKALINE PHOSPHATASE (test code = 2204) 67 U/L AST (test code = 2218) 12 U/L ALT (test code = 2219) 11 U/L HEMOGLOBIN [id number] 00:00:00* Test Item Value Reference Range Interpretation Comme nts HEMOGLOBIN A1c (test code = 80870) 6.8 % LIPID [id number] 00:00:00* Test Item Value Reference Range Interpretation Comme nts CHOLESTEROL (test code = 2210) 146 MG/DL TRIGLYCERIDES (test code = 2232) 90 MG/DL HDL CHOLESTEROL (test code = 2220) 36 MG/DL CALC LDL CHOL (test code = 2237) 92 MG/DL RISK RATIO LDL/HDL (test cod e = 2238) 2.56 RATIO COMPREHENSIVE METABOLIC [id number] 00:00:00* Test Item Value Reference Range Interpretation Comme nts GLUCOSE (test code = 2217) 121 MG/DL BUN (test code = 2208) 16 MG/DL CREATININE (test code = 2214) 1.02 MG/DL eGFR AMER. (test cod e = 97442) 90 ML/MIN/1.73 eGFR NON- AMER. (test code = 85786) 78 ML/MIN/1.73 CALC BUN/CREAT (test code = 2235) 16 RATIO SODIUM (test code = 2231) 139 MEQ/L POTASSIUM (test code = 2228) 4.3 MEQ/L CHLORIDE (test code = 2215) 101 MEQ/L CARBON DIOXIDE (test code = 2206) 28 MEQ/L CALCIUM (test code = 2209) 9.9 MG/DL PROTEIN, TOTAL (test code = 2229) 7.3 G/DL ALBUMIN (test code = 2201) 4.6 G/DL CALC GLOBULIN (test code = 2240) 2.7 G/DL CALC A/G RATIO (test code = 2234) 1.7 RATIO BILIRUBIN, TOTAL (test code = 2207) 0.4 MG/DL ALKALINE PHOSPHATASE (test code = 2204) 67 U/L AST (test code = 2218) 12 U/L ALT (test code = 2219) 11 U/L HEMOGLOBIN [id number] 00:00:00* Test Item Value Reference Range Interpretation Comme nts HEMOGLOBIN A1c (test code = 51585) 6.8 % Anoop Kamara AustinLIPID [id number] 00:00:00* Test Item Value Reference Range Interpretation Comme nts CHOLESTEROL (test code = 2210) 146 MG/DL TRIGLYCERIDES (test code = 2232) 90 MG/DL HDL CHOLESTEROL (test code = 2220) 36 MG/DL CALC LDL CHOL (test code = 2237) 92 MG/DL RISK RATIO LDL/HDL (test cod e = 2238) 2.56 RATIO Anoop RiosCOMPREHENSIVE METABOLIC [id number] 00:00:00* Test Item Value Reference Range Interpretation Comme nts GLUCOSE (test code = 2217) 121 MG/DL BUN (test code = 2208) 16 MG/DL CREATININE (test code = 2214) 1.02 MG/DL eGFR AMER. (test cod e = 56628) 90 ML/MIN/1.73 eGFR NON- AMER. (test code = 19826) 78 ML/MIN/1.73 CALC BUN/CREAT (test code = 2235) 16 RATIO SODIUM (test code = 2231) 139 MEQ/L POTASSIUM (test code = 2228) 4.3 MEQ/L CHLORIDE (test code = 2215) 101 MEQ/L CARBON DIOXIDE (test code = 2206) 28 MEQ/L CALCIUM (test code = 2209) 9.9 MG/DL PROTEIN, TOTAL (test code = 2229) 7.3 G/DL ALBUMIN (test code = 2201) 4.6 G/DL CALC GLOBULIN (test code = 2240) 2.7 G/DL CALC A/G RATIO (test code = 2234) 1.7 RATIO BILIRUBIN, TOTAL (test code = 2207) 0.4 MG/DL ALKALINE PHOSPHATASE (test code = 2204) 67 U/L AST (test code = 2218) 12 U/L ALT (test code = 2219) 11 U/L Anoop RiosHEMOGLOBIN [id number] 00:00:00* Test Item Value Reference Range Interpretation Comme nts HEMOGLOBIN A1c (test code = 50078) 6.8 % Anoop RiosLIPID [id number] 00:00:00* Test Item Value Reference Range Interpretation Comme nts CHOLESTEROL (test code = 2210) 146 MG/DL TRIGLYCERIDES (test code = 2232) 90 MG/DL HDL CHOLESTEROL (test code = 2220) 36 MG/DL CALC LDL CHOL (test code = 2237) 92 MG/DL RISK RATIO LDL/HDL (test cod e = 2238) 2.56 RATIO Anoop RiosCOMPREHENSIVE METABOLIC [id number] 00:00:00* Test Item Value Reference Range Interpretation Comme nts GLUCOSE (test code = 2217) 121 MG/DL BUN (test code = 2208) 16 MG/DL CREATININE (test code = 2214) 1.02 MG/DL eGFR AMER. (test cod e = 45039) 90 ML/MIN/1.73 eGFR NON- AMER. (test code = 55530) 78 ML/MIN/1.73 CALC BUN/CREAT (test code = 2235) 16 RATIO SODIUM (test code = 2231) 139 MEQ/L POTASSIUM (test code = 2228) 4.3 MEQ/L CHLORIDE (test code = 2215) 101 MEQ/L CARBON DIOXIDE (test code = 2206) 28 MEQ/L CALCIUM (test code = 2209) 9.9 MG/DL PROTEIN, TOTAL (test code = 2229) 7.3 G/DL ALBUMIN (test code = 2201) 4.6 G/DL CALC GLOBULIN (test code = 2240) 2.7 G/DL CALC A/G RATIO (test code = 2234) 1.7 RATIO BILIRUBIN, TOTAL (test code = 2207) 0.4 MG/DL ALKALINE PHOSPHATASE (test code = 2204) 67 U/L AST (test code = 2218) 12 U/L ALT (test code = 2219) 11 U/L Anoop RiosHEMOGLOBIN [id number] 00:00:00* Test Item Value Reference Range Interpretation Comme nts HEMOGLOBIN A1c (test code = 25188) 6.8 % Anoop RiosLIPID [id number] 00:00:00* Test Item Value Reference Range Interpretation Comme nts CHOLESTEROL (test code = 2210) 146 MG/DL TRIGLYCERIDES (test code = 2232) 90 MG/DL HDL CHOLESTEROL (test code = 2220) 36 MG/DL CALC LDL CHOL (test code = 2237) 92 MG/DL RISK RATIO LDL/HDL (test cod e = 2238) 2.56 RATIO Anoop RiosCOMPREHENSIVE METABOLIC [id number] 00:00:00* Test Item Value Reference Range Interpretation Comme nts GLUCOSE (test code = 2217) 121 MG/DL BUN (test code = 2208) 16 MG/DL CREATININE (test code = 2214) 1.02 MG/DL eGFR AMER. (test cod e = 97267) 90 ML/MIN/1.73 eGFR NON- AMER. (test code = 15025) 78 ML/MIN/1.73 CALC BUN/CREAT (test code = 2235) 16 RATIO SODIUM (test code = 2231) 139 MEQ/L POTASSIUM (test code = 2228) 4.3 MEQ/L CHLORIDE (test code = 2215) 101 MEQ/L CARBON DIOXIDE (test code = 2206) 28 MEQ/L CALCIUM (test code = 2209) 9.9 MG/DL PROTEIN, TOTAL (test code = 2229) 7.3 G/DL ALBUMIN (test code = 2201) 4.6 G/DL CALC GLOBULIN (test code = 2240) 2.7 G/DL CALC A/G RATIO (test code = 2234) 1.7 RATIO BILIRUBIN, TOTAL (test code = 2207) 0.4 MG/DL ALKALINE PHOSPHATASE (test code = 2204) 67 U/L AST (test code = 2218) 12 U/L ALT (test code = 2219) 11 U/L Anoop RiosHEMOGLOBIN [id number] 00:00:00* Test Item Value Reference Range Interpretation Comme nts HEMOGLOBIN A1c (test code = 78276) 6.8 % Anoop RiosLIPID [id number] 00:00:00* Test Item Value Reference Range Interpretation Comme nts CHOLESTEROL (test code = 2210) 146 MG/DL TRIGLYCERIDES (test code = 2232) 90 MG/DL HDL CHOLESTEROL (test code = 2220) 36 MG/DL CALC LDL CHOL (test code = 2237) 92 MG/DL RISK RATIO LDL/HDL (test cod e = 2238) 2.56 RATIO Anoop RiosCOMPREHENSIVE METABOLIC [id number] 00:00:00* Test Item Value Reference Range Interpretation Comme nts GLUCOSE (test code = 2217) 121 MG/DL BUN (test code = 2208) 16 MG/DL CREATININE (test code = 2214) 1.02 MG/DL eGFR AMER. (test cod e = 23107) 90 ML/MIN/1.73 eGFR NON- AMER. (test code = 07384) 78 ML/MIN/1.73 CALC BUN/CREAT (test code = 2235) 16 RATIO SODIUM (test code = 2231) 139 MEQ/L POTASSIUM (test code = 2228) 4.3 MEQ/L CHLORIDE (test code = 2215) 101 MEQ/L CARBON DIOXIDE (test code = 2206) 28 MEQ/L CALCIUM (test code = 2209) 9.9 MG/DL PROTEIN, TOTAL (test code = 2229) 7.3 G/DL ALBUMIN (test code = 2201) 4.6 G/DL CALC GLOBULIN (test code = 2240) 2.7 G/DL CALC A/G RATIO (test code = 2234) 1.7 RATIO BILIRUBIN, TOTAL (test code = 2207) 0.4 MG/DL ALKALINE PHOSPHATASE (test code = 2204) 67 U/L AST (test code = 2218) 12 U/L ALT (test code = 2219) 11 U/L Anoop Kamara AustinHEMOGLOBIN [id number] 00:00:00* Test Item Value Reference Range Interpretation Comme nts HEMOGLOBIN A1c (test code = 03119) 6.8 % LIPID [id number] 00:00:00* Test Item Value Reference Range Interpretation Comme nts CHOLESTEROL (test code = 2210) 146 MG/DL TRIGLYCERIDES (test code = 2232) 90 MG/DL HDL CHOLESTEROL (test code = 2220) 36 MG/DL CALC LDL CHOL (test code = 2237) 92 MG/DL RISK RATIO LDL/HDL (test cod e = 2238) 2.56 RATIO COMPREHENSIVE METABOLIC [id number] 00:00:00* Test Item Value Reference Range Interpretation Comme nts GLUCOSE (test code = 7) 121 MG/DL BUN (test code = 2208) 16 MG/DL CREATININE (test code = 2214) 1.02 MG/DL eGFR AMER. (test cod e = 07643) 90 ML/MIN/1.73 eGFR NON- AMER. (test code = 52911) 78 ML/MIN/1.73 CALC BUN/CREAT (test code = 2235) 16 RATIO SODIUM (test code = 2231) 139 MEQ/L POTASSIUM (test code = 2228) 4.3 MEQ/L CHLORIDE (test code = 2215) 101 MEQ/L CARBON DIOXIDE (test code = 2206) 28 MEQ/L CALCIUM (test code = 2209) 9.9 MG/DL PROTEIN, TOTAL (test code = 2229) 7.3 G/DL ALBUMIN (test code = 2201) 4.6 G/DL CALC GLOBULIN (test code = 2240) 2.7 G/DL CALC A/G RATIO (test code = 2234) 1.7 RATIO BILIRUBIN, TOTAL (test code = 2207) 0.4 MG/DL ALKALINE PHOSPHATASE (test code = 2204) 67 U/L AST (test code = 2218) 12 U/L ALT (test code = 2219) 11 U/L HEMOGLOBIN [id number] 00:00:00* Test Item Value Reference Range Interpretation Comme nts HEMOGLOBIN A1c (test code = 31771) 6.8 % LIPID [id number] 00:00:00* Test Item Value Reference Range Interpretation Comme nts CHOLESTEROL (test code = 2210) 146 MG/DL TRIGLYCERIDES (test code = 2232) 90 MG/DL HDL CHOLESTEROL (test code = 2220) 36 MG/DL CALC LDL CHOL (test code = 2237) 92 MG/DL RISK RATIO LDL/HDL (test cod e = 2238) 2.56 RATIO COMPREHENSIVE METABOLIC [id number] 00:00:00* Test Item Value Reference Range Interpretation Comme nts GLUCOSE (test code = 2217) 121 MG/DL BUN (test code = 2208) 16 MG/DL CREATININE (test code = 2214) 1.02 MG/DL eGFR AMER. (test cod e = 59681) 90 ML/MIN/1.73 eGFR NON- AMER. (test code = 11937) 78 ML/MIN/1.73 CALC BUN/CREAT (test code = 2235) 16 RATIO SODIUM (test code = 2231) 139 MEQ/L POTASSIUM (test code = 2228) 4.3 MEQ/L CHLORIDE (test code = 2215) 101 MEQ/L CARBON DIOXIDE (test code = 2206) 28 MEQ/L CALCIUM (test code = 2209) 9.9 MG/DL PROTEIN, TOTAL (test code = 2229) 7.3 G/DL ALBUMIN (test code = 2201) 4.6 G/DL CALC GLOBULIN (test code = 2240) 2.7 G/DL CALC A/G RATIO (test code = 2234) 1.7 RATIO BILIRUBIN, TOTAL (test code = 2207) 0.4 MG/DL ALKALINE PHOSPHATASE (test code = 2204) 67 U/L AST (test code = 2218) 12 U/L ALT (test code = 2219) 11 U/L HEMOGLOBIN [id number] 00:00:00* Test Item Value Reference Range Interpretation Comme nts HEMOGLOBIN A1c (test code = 39405) 6.7 % MICROALBUMIN/CREATININE, RANDOM AND [id number] 00:00:00* Test Item Value Reference Range Interpretation Comme nts CREATININE, URINE, CONC. (te st code = 2071) 121.3 MG/DL ALBUMIN, URINE, RANDOM (test code = 47934) <0.2 MG/DL CALC ALBUMIN/CREAT, RND (jennifer t code = 52708) <2 MG/G HEMOGLOBIN [id number] 00:00:00* Test Item Value Reference Range Interpretation Comme nts HEMOGLOBIN A1c (test code = 90177) 6.7 % MICROALBUMIN/CREATININE, RANDOM AND [id number] 00:00:00* Test Item Value Reference Range Interpretation Comme nts CREATININE, URINE, CONC. (te st code = 2071) 121.3 MG/DL ALBUMIN, URINE, RANDOM (test code = 49803) <0.2 MG/DL CALC ALBUMIN/CREAT, RND (jennifer t code = 81896) <2 MG/G HEMOGLOBIN [id number] 00:00:00* Test Item Value Reference Range Interpretation Comme nts HEMOGLOBIN A1c (test code = 46090) 6.7 % Anoop F AustinMICROALBUMIN/CREATININE, RANDOM AND [id number] 00:00:00* Test Item Value Reference Range Interpretation Comme nts CREATININE, URINE, CONC. (te st code = 2071) 121.3 MG/DL ALBUMIN, URINE, RANDOM (test code = 37464) <0.2 MG/DL CALC ALBUMIN/CREAT, RND (jennifer t code = 53641) <2 MG/G Anoop F AustinHEMOGLOBIN [id number] 00:00:00* Test Item Value Reference Range Interpretation Comme nts HEMOGLOBIN A1c (test code = 02561) 6.7 % Anoop F AustinMICROALBUMIN/CREATININE, RANDOM AND [id number] 00:00:00* Test Item Value Reference Range Interpretation Comme nts CREATININE, URINE, CONC. (te st code = 2071) 121.3 MG/DL ALBUMIN, URINE, RANDOM (test code = 57866) <0.2 MG/DL CALC ALBUMIN/CREAT, RND (jennifer t code = 25042) <2 MG/G Anoop F AustinHEMOGLOBIN [id number] 00:00:00* Test Item Value Reference Range Interpretation Comme nts HEMOGLOBIN A1c (test code = 62057) 6.7 % Anoop F AustinMICROALBUMIN/CREATININE, RANDOM AND [id number] 00:00:00* Test Item Value Reference Range Interpretation Comme nts CREATININE, URINE, CONC. (te st code = 2071) 121.3 MG/DL ALBUMIN, URINE, RANDOM (test code = 13783) <0.2 MG/DL CALC ALBUMIN/CREAT, RND (jennifer t code = 95228) <2 MG/G Anoop Kamara AustinHEMOGLOBIN [id number] 00:00:00* Test Item Value Reference Range Interpretation Comme nts HEMOGLOBIN A1c (test code = 15532) 6.7 % Anoop Kamara AustinMICROALBUMIN/CREATININE, RANDOM AND [id number] 00:00:00* Test Item Value Reference Range Interpretation Comme nts CREATININE, URINE, CONC. (te st code = 2071) 121.3 MG/DL ALBUMIN, URINE, RANDOM (test code = 69602) <0.2 MG/DL CALC ALBUMIN/CREAT, RND (jennifer t code = 50578) <2 MG/G Anoop Kamara AustinHEMOGLOBIN [id number] 00:00:00* Test Item Value Reference Range Interpretation Comme nts HEMOGLOBIN A1c (test code = 07090) 6.7 % MICROALBUMIN/CREATININE, RANDOM AND [id number] 00:00:00* Test Item Value Reference Range Interpretation Comme nts CREATININE, URINE, CONC. (te st code = 2071) 121.3 MG/DL ALBUMIN, URINE, RANDOM (test code = 05309) <0.2 MG/DL CALC ALBUMIN/CREAT, RND (jennifer t code = 70650) <2 MG/G HEMOGLOBIN [id number] 00:00:00* Test Item Value Reference Range Interpretation Comme nts HEMOGLOBIN A1c (test code = 30708) 6.7 % MICROALBUMIN/CREATININE, RANDOM AND [id number] 00:00:00* Test Item Value Reference Range Interpretation Comme nts CREATININE, URINE, CONC. (te st code = 2071) 121.3 MG/DL ALBUMIN, URINE, RANDOM (test code = 40060) <0.2 MG/DL CALC ALBUMIN/CREAT, RND (jennifer t code = 24051) <2 MG/G POCT URINALYSIS, [id number] 15:23:00* Test Item Value Reference Range Interpretation Comme nts POCT U SP GRAV (test code = 3255) 1.020 mg/dl 1.005-1.025 POCT PH U (test code = 3254) 7.5 mg/dl 5-8 POCT U LEUK EST (test code = 3263) Negative Negative - Negative POCT U NIT (test code = 3262) Negative Negative - Negati ve POCT U PROT (test code = 3259) Negative Negative - Negative POCT U GLU (test code = 3256) Negative Negative - Negati ve POCT U KETONE (test code = 3258) Negative Negative - Negative POCT U UROBILI (test code = 3260) 1.0 mg/dl 0.2-1 POCT U BILI (test code = 3261) Negative Negative - Negative POCT U BLD (test code = 3257) Negative Negative - Negati ve POCT U COLOR (test code = 3266) yellow POCT U APPEAR (test code = 3267) clear Lab Interpretation (test cod e = 01810-8) [facility] [id number] 15:23:00 * Test Item Value Reference Range Interpretation Comme nts POCT U SP GRAV (test code = 3255) 1.020 mg/dl 1.005-1.025 POCT PH U (test code = 3254) 7.5 mg/dl 5-8 POCT U LEUK EST (test code = 3263) Negative Negative - Negative POCT U NIT (test code = 3262) Negative Negative - Negati ve POCT U PROT (test code = 3259) Negative Negative - Negative POCT U GLU (test code = 3256) Negative Negative - Negati ve POCT U KETONE (test code = 3258) Negative Negative - Negative POCT U UROBILI (test code = 3260) 1.0 mg/dl 0.2-1 POCT U BILI (test code = 3261) Negative Negative - Negative POCT U BLD (test code = 3257) Negative Negative - Negati ve POCT U COLOR (test code = 3266) yellow POCT U APPEAR (test code = 3267) clear Lab Interpretation (test cod e = 11332-5) [facility] [id number] 00:00:00* Test Item Value Reference Range Interpretation Comme nts GLUCOSE (test code = 2217) 219 MG/DL BUN (test code = 2208) 16 MG/DL CREATININE (test code = 2214) 1.13 MG/DL eGFR AMER. (test cod e = 99842) 80 ML/MIN/1.73 eGFR NON- AMER. (test code = 79007) 69 ML/MIN/1.73 CALC BUN/CREAT (test code = 2235) 14 RATIO SODIUM (test code = 2231) 137 MEQ/L POTASSIUM (test code = 2228) 4.2 MEQ/L CHLORIDE (test code = 2215) 99 MEQ/L CARBON DIOXIDE (test code = 2206) 23 MEQ/L CALCIUM (test code = 2209) 10.0 MG/DL PROTEIN, TOTAL (test code = 2229) 6.8 G/DL ALBUMIN (test code = 2201) 4.5 G/DL CALC GLOBULIN (test code = 2240) 2.3 G/DL CALC A/G RATIO (test code = 2234) 2.0 RATIO BILIRUBIN, TOTAL (test code = 2207) 0.4 MG/DL ALKALINE PHOSPHATASE (test code = 2204) 70 U/L AST (test code = 2218) 18 U/L ALT (test code = 2219) 17 U/L VITAMIN [id number] 00:00:00* Test Item Value Reference Range Interpretation Comme nts VITAMIN B-12 (test code = 2840) 340 PG/ML VITAMIN D, 25 [id number] 00:00:00* Test Item Value Reference Range Interpretation Comme nts VITAMIN D, 25 OH (test code = 4958) 28 NG/ML COMPREHENSIVE METABOLIC [id number] 00:00:00* Test Item Value Reference Range Interpretation Comme nts GLUCOSE (test code = 2217) 219 MG/DL BUN (test code = 2208) 16 MG/DL CREATININE (test code = 2214) 1.13 MG/DL eGFR AMER. (test cod e = 00998) 80 ML/MIN/1.73 eGFR NON- AMER. (test code = 61518) 69 ML/MIN/1.73 CALC BUN/CREAT (test code = 2235) 14 RATIO SODIUM (test code = 2231) 137 MEQ/L POTASSIUM (test code = 2228) 4.2 MEQ/L CHLORIDE (test code = 2215) 99 MEQ/L CARBON DIOXIDE (test code = 2206) 23 MEQ/L CALCIUM (test code = 2209) 10.0 MG/DL PROTEIN, TOTAL (test code = 2229) 6.8 G/DL ALBUMIN (test code = 2201) 4.5 G/DL CALC GLOBULIN (test code = 2240) 2.3 G/DL CALC A/G RATIO (test code = 2234) 2.0 RATIO BILIRUBIN, TOTAL (test code = 2207) 0.4 MG/DL ALKALINE PHOSPHATASE (test code = 2204) 70 U/L AST (test code = 2218) 18 U/L ALT (test code = 2219) 17 U/L VITAMIN [id number] 00:00:00* Test Item Value Reference Range Interpretation Comme nts VITAMIN B-12 (test code = 2840) 340 PG/ML VITAMIN D, 25 [id number] 00:00:00* Test Item Value Reference Range Interpretation Comme nts VITAMIN D, 25 [place] (test code = 4958) 28 NG/ML COMPREHENSIVE METABOLIC [id number] 00:00:00* Test Item Value Reference Range Interpretation Comme nts GLUCOSE (test code = 2217) 219 MG/DL BUN (test code = 2208) 16 MG/DL CREATININE (test code = 2214) 1.13 MG/DL eGFR AMER. (test cod e = 18284) 80 ML/MIN/1.73 eGFR NON- AMER. (test code = 95710) 69 ML/MIN/1.73 CALC BUN/CREAT (test code = 2235) 14 RATIO SODIUM (test code = 2231) 137 MEQ/L POTASSIUM (test code = 2228) 4.2 MEQ/L CHLORIDE (test code = 2215) 99 MEQ/L CARBON DIOXIDE (test code = 2206) 23 MEQ/L CALCIUM (test code = 2209) 10.0 MG/DL PROTEIN, TOTAL (test code = 2229) 6.8 G/DL ALBUMIN (test code = 2201) 4.5 G/DL CALC GLOBULIN (test code = 2240) 2.3 G/DL CALC A/G RATIO (test code = 2234) 2.0 RATIO BILIRUBIN, TOTAL (test code = 2207) 0.4 MG/DL ALKALINE PHOSPHATASE (test code = 2204) 70 U/L AST (test code = 2218) 18 U/L ALT (test code = 2219) 17 U/L Anoop RiosVITAMIN [id number] 00:00:00* Test Item Value Reference Range Interpretation Comme [facility] VITAMIN B-12 (test code = 2840) 340 PG/ML Anoop Kamara AustinVITAMIN D, 25 [id number] 00:00:00* Test Item Value Reference Range Interpretation Comme [facility] VITAMIN D, 25 [place] (test code = 4958) 28 NG/ML Anoop RiosCOMPREHENSIVE METABOLIC [id number] 00:00:00* Test Item Value Reference Range Interpretation Comme nts GLUCOSE (test code = 2217) 219 MG/DL BUN (test code = 2208) 16 MG/DL CREATININE (test code = 2214) 1.13 MG/DL eGFR AMER. (test cod e = 23837) 80 ML/MIN/1.73 eGFR NON- AMER. (test code = 12572) 69 ML/MIN/1.73 CALC BUN/CREAT (test code = 2235) 14 RATIO SODIUM (test code = 2231) 137 MEQ/L POTASSIUM (test code = 2228) 4.2 MEQ/L CHLORIDE (test code = 2215) 99 MEQ/L CARBON DIOXIDE (test code = 2206) 23 MEQ/L CALCIUM (test code = 2209) 10.0 MG/DL PROTEIN, TOTAL (test code = 2229) 6.8 G/DL ALBUMIN (test code = 2201) 4.5 G/DL CALC GLOBULIN (test code = 2240) 2.3 G/DL CALC A/G RATIO (test code = 2234) 2.0 RATIO BILIRUBIN, TOTAL (test code = 2207) 0.4 MG/DL ALKALINE PHOSPHATASE (test code = 2204) 70 U/L AST (test code = 2218) 18 U/L ALT (test code = 2219) 17 U/L Anoop RiosVITAMIN [id number] 00:00:00* Test Item Value Reference Range Interpretation Comme [facility] VITAMIN B-12 (test code = 2840) 340 PG/ML Anoop F AustinVITAMIN D, 25 [id number] 00:00:00* Test Item Value Reference Range Interpretation Comme [facility] VITAMIN D, 25 [place] (test code = 4958) 28 NG/ML Anoop RiosCOMPREHENSIVE METABOLIC [id number] 00:00:00* Test Item Value Reference Range Interpretation Comme nts GLUCOSE (test code = 2217) 219 MG/DL BUN (test code = 2208) 16 MG/DL CREATININE (test code = 2214) 1.13 MG/DL eGFR AMER. (test cod e = 78803) 80 ML/MIN/1.73 eGFR NON- AMER. (test code = 16596) 69 ML/MIN/1.73 CALC BUN/CREAT (test code = 2235) 14 RATIO SODIUM (test code = 2231) 137 MEQ/L POTASSIUM (test code = 2228) 4.2 MEQ/L CHLORIDE (test code = 2215) 99 MEQ/L CARBON DIOXIDE (test code = 2206) 23 MEQ/L CALCIUM (test code = 2209) 10.0 MG/DL PROTEIN, TOTAL (test code = 2229) 6.8 G/DL ALBUMIN (test code = 2201) 4.5 G/DL CALC GLOBULIN (test code = 2240) 2.3 G/DL CALC A/G RATIO (test code = 2234) 2.0 RATIO BILIRUBIN, TOTAL (test code = 2207) 0.4 MG/DL ALKALINE PHOSPHATASE (test code = 2204) 70 U/L AST (test code = 2218) 18 U/L ALT (test code = 2219) 17 U/L Anoop RiosVITAMIN [id number] 00:00:00* Test Item Value Reference Range Interpretation Comme [facility] VITAMIN B-12 (test code = 2840) 340 PG/ML Anoop RiosVITAMIN D, 25 [id number] 00:00:00* Test Item Value Reference Range Interpretation Comme [facility] VITAMIN D, 25 OH (test code = 4958) 28 NG/ML Anoop RiosCOMPREHENSIVE METABOLIC [id number] 00:00:00* Test Item Value Reference Range Interpretation Comme nts GLUCOSE (test code = 2217) 219 MG/DL BUN (test code = 2208) 16 MG/DL CREATININE (test code = 2214) 1.13 MG/DL eGFR AMER. (test cod e = 81810) 80 ML/MIN/1.73 eGFR NON- AMER. (test code = 11856) 69 ML/MIN/1.73 CALC BUN/CREAT (test code = 2235) 14 RATIO SODIUM (test code = 2231) 137 MEQ/L POTASSIUM (test code = 2228) 4.2 MEQ/L CHLORIDE (test code = 2215) 99 MEQ/L CARBON DIOXIDE (test code = 2206) 23 MEQ/L CALCIUM (test code = 2209) 10.0 MG/DL PROTEIN, TOTAL (test code = 2229) 6.8 G/DL ALBUMIN (test code = 2201) 4.5 G/DL CALC GLOBULIN (test code = 2240) 2.3 G/DL CALC A/G RATIO (test code = 2234) 2.0 RATIO BILIRUBIN, TOTAL (test code = 2207) 0.4 MG/DL ALKALINE PHOSPHATASE (test code = 2204) 70 U/L AST (test code = 2218) 18 U/L ALT (test code = 2219) 17 U/L Anoop RiosVITAMIN [id number] 00:00:00* Test Item Value Reference Range Interpretation Comme [facility] VITAMIN B-12 (test code = 2840) 340 PG/ML Anoop RiosVITAMIN D, 25 [id number] 00:00:00* Test Item Value Reference Range Interpretation Comme [facility] VITAMIN D, 25 OH (test code = 4958) 28 NG/ML Anoop RiosCOMPREHENSIVE METABOLIC [id number] 00:00:00* Test Item Value Reference Range Interpretation Comme nts GLUCOSE (test code = 2217) 219 MG/DL BUN (test code = 2208) 16 MG/DL CREATININE (test code = 2214) 1.13 MG/DL eGFR AMER. (test cod e = 78546) 80 ML/MIN/1.73 eGFR NON- AMER. (test code = 13325) 69 ML/MIN/1.73 CALC BUN/CREAT (test code = 2235) 14 RATIO SODIUM (test code = 2231) 137 MEQ/L POTASSIUM (test code = 2228) 4.2 MEQ/L CHLORIDE (test code = 2215) 99 MEQ/L CARBON DIOXIDE (test code = 2206) 23 MEQ/L CALCIUM (test code = 2209) 10.0 MG/DL PROTEIN, TOTAL (test code = 2229) 6.8 G/DL ALBUMIN (test code = 2201) 4.5 G/DL CALC GLOBULIN (test code = 2240) 2.3 G/DL CALC A/G RATIO (test code = 2234) 2.0 RATIO BILIRUBIN, TOTAL (test code = 2207) 0.4 MG/DL ALKALINE PHOSPHATASE (test code = 2204) 70 U/L AST (test code = 2218) 18 U/L ALT (test code = 2219) 17 U/L VITAMIN [id number] 00:00:00* Test Item Value Reference Range Interpretation Comme [facility] VITAMIN B-12 (test code = 2840) 340 PG/ML VITAMIN D, 25 [id number] 00:00:00* Test Item Value Reference Range Interpretation Comme [facility] VITAMIN D, 25 OH (test code = 4958) 28 NG/ML COMPREHENSIVE METABOLIC [id number] 00:00:00* Test Item Value Reference Range Interpretation Comme nts GLUCOSE (test code = 2217) 219 MG/DL BUN (test code = 2208) 16 MG/DL CREATININE (test code = 2214) 1.13 MG/DL eGFR AMER. (test cod e = 78608) 80 ML/MIN/1.73 eGFR NON- AMER. (test code = 34376) 69 ML/MIN/1.73 CALC BUN/CREAT (test code = 2235) 14 RATIO SODIUM (test code = 2231) 137 MEQ/L POTASSIUM (test code = 2228) 4.2 MEQ/L CHLORIDE (test code = 2215) 99 MEQ/L CARBON DIOXIDE (test code = 2206) 23 MEQ/L CALCIUM (test code = 2209) 10.0 MG/DL PROTEIN, TOTAL (test code = 2229) 6.8 G/DL ALBUMIN (test code = 2201) 4.5 G/DL CALC GLOBULIN (test code = 2240) 2.3 G/DL CALC A/G RATIO (test code = 2234) 2.0 RATIO BILIRUBIN, TOTAL (test code = 2207) 0.4 MG/DL ALKALINE PHOSPHATASE (test code = 2204) 70 U/L AST (test code = 2218) 18 U/L ALT (test code = 2219) 17 U/L VITAMIN [id number] 00:00:00* Test Item Value Reference Range Interpretation Comme nts VITAMIN B-12 (test code = 2840) 340 PG/ML VITAMIN D, 25 [id number] 00:00:00* Test Item Value Reference Range Interpretation Comme nts VITAMIN D, 25 OH (test code = 4958) 28 NG/ML COMPREHENSIVE METABOLIC [id number] 00:00:00* Test Item Value Reference Range Interpretation Comme nts GLUCOSE (test code = 2217) 99 MG/DL BUN (test code = 2208) 18 MG/DL CREATININE (test code = 2214) 1.04 MG/DL eGFR AMER. (test cod e = 54199) 89 ML/MIN/1.73 eGFR NON- AMER. (test code = 01618) 77 ML/MIN/1.73 CALC BUN/CREAT (test code = 2235) 17 RATIO SODIUM (test code = 2231) 142 MEQ/L POTASSIUM (test code = 2228) 4.0 MEQ/L CHLORIDE (test code = 2215) 101 MEQ/L CARBON DIOXIDE (test code = 2206) 27 MEQ/L CALCIUM (test code = 2209) 9.6 MG/DL PROTEIN, TOTAL (test code = 2229) 7.3 G/DL ALBUMIN (test code = 2201) 4.7 G/DL CALC GLOBULIN (test code = 2240) 2.6 G/DL CALC A/G RATIO (test code = 2234) 1.8 RATIO BILIRUBIN, TOTAL (test code = 2207) 0.4 MG/DL ALKALINE PHOSPHATASE (test code = 2204) 69 U/L AST (test code = 2218) 15 U/L ALT (test code = 2219) 16 U/L ALBUMIN, URINE, RANDOM [ADDED]2020-01-05 00:00:00* Test Item Value Reference Range Interpretation Comme nts ALBUMIN, URINE, RANDOM (test code = 91778) <0.2 MG/DL CBC W/AUTO [id number] 00:00:00* Test Item Value Reference Range Interpretation Comme nts WBC (test code = 1001) 7.4 K/UL [...] (test code = 1015) 346 K/UL HEMOGLOBIN [id number] 00:00:00* Test Item Value Reference Range Interpretation Comme nts HEMOGLOBIN A1c (test code = 27161) 6.2 % LIPID [id number] 00:00:00* Test Item Value Reference Range Interpretation Comme nts CHOLESTEROL (test code = 2210) 124 MG/DL TRIGLYCERIDES (test code = 2232) 97 MG/DL HDL CHOLESTEROL (test code = 2220) 33 MG/DL CALC LDL CHOL (test code = 2237) 73 MG/DL RISK RATIO LDL/HDL (test cod e = 2238) 2.21 RATIO COMPREHENSIVE METABOLIC [id number] 00:00:00* Test Item Value Reference Range Interpretation Comme nts GLUCOSE (test code = 2217) 99 MG/DL BUN (test code = 2208) 18 MG/DL CREATININE (test code = 2214) 1.04 MG/DL eGFR AMER. (test cod e = 25331) 89 ML/MIN/1.73 eGFR NON- AMER. (test code = 43011) 77 ML/MIN/1.73 CALC BUN/CREAT (test code = 2235) 17 RATIO SODIUM (test code = 2231) 142 MEQ/L POTASSIUM (test code = 2228) 4.0 MEQ/L CHLORIDE (test code = 2215) 101 MEQ/L CARBON DIOXIDE (test code = 2206) 27 MEQ/L CALCIUM (test code = 2209) 9.6 MG/DL PROTEIN, TOTAL (test code = 2229) 7.3 G/DL ALBUMIN (test code = 2201) 4.7 G/DL CALC GLOBULIN (test code = 2240) 2.6 G/DL CALC A/G RATIO (test code = 2234) 1.8 RATIO BILIRUBIN, TOTAL (test code = 2207) 0.4 MG/DL ALKALINE PHOSPHATASE (test code = 2204) 69 U/L AST (test code = 2218) 15 U/L ALT (test code = 2219) 16 U/L ALBUMIN, URINE, RANDOM [ADDED]2020-01-05 00:00:00* Test Item Value Reference Range Interpretation Comme nts ALBUMIN, URINE, RANDOM (test code = 57696) <0.2 MG/DL CBC W/AUTO [id number] 00:00:00* Test Item Value Reference Range Interpretation Comme nts WBC (test code = 1001) 7.4 K/UL [...] (test code = 1015) 346 K/UL HEMOGLOBIN [id number] 00:00:00* Test Item Value Reference Range Interpretation Comme nts HEMOGLOBIN A1c (test code = 90518) 6.2 % LIPID [id number] 00:00:00* Test Item Value Reference Range Interpretation Comme nts CHOLESTEROL (test code = 2210) 124 MG/DL TRIGLYCERIDES (test code = 2232) 97 MG/DL HDL CHOLESTEROL (test code = 2220) 33 MG/DL CALC LDL CHOL (test code = 2237) 73 MG/DL RISK RATIO LDL/HDL (test cod e = 2238) 2.21 RATIO COMPREHENSIVE METABOLIC [id number] 00:00:00* Test Item Value Reference Range Interpretation Comme nts GLUCOSE (test code = 2217) 99 MG/DL BUN (test code = 2208) 18 MG/DL CREATININE (test code = 2214) 1.04 MG/DL eGFR AMER. (test cod e = 11152) 89 ML/MIN/1.73 eGFR NON- AMER. (test code = 89285) 77 ML/MIN/1.73 CALC BUN/CREAT (test code = 2235) 17 RATIO SODIUM (test code = 2231) 142 MEQ/L POTASSIUM (test code = 2228) 4.0 MEQ/L CHLORIDE (test code = 2215) 101 MEQ/L CARBON DIOXIDE (test code = 2206) 27 MEQ/L CALCIUM (test code = 2209) 9.6 MG/DL PROTEIN, TOTAL (test code = 2229) 7.3 G/DL ALBUMIN (test code = 2201) 4.7 G/DL CALC GLOBULIN (test code = 2240) 2.6 G/DL CALC A/G RATIO (test code = 2234) 1.8 RATIO BILIRUBIN, TOTAL (test code = 2207) 0.4 MG/DL ALKALINE PHOSPHATASE (test code = 2204) 69 U/L AST (test code = 2218) 15 U/L ALT (test code = 2219) 16 U/L ALBUMIN, URINE, RANDOM [ADDED]2020-01-05 00:00:00* Test Item Value Reference Range Interpretation Comme nts ALBUMIN, URINE, RANDOM (test code = 40431) <0.2 MG/DL CBC W/AUTO [id number] 00:00:00* Test Item Value Reference Range Interpretation Comme nts WBC (test code = 1001) 7.4 K/UL [...] COUNT (test code = 1015) 346 K/UL Anoop F AustinHEMOGLOBIN [id number] 00:00:00* Test Item Value Reference Range Interpretation Comme cindy HEMOGLOBIN A1c (test code = 69623) 6.2 % Anoop RiosLIPID [id number] 00:00:00* Test Item Value Reference Range Interpretation Comme nts CHOLESTEROL (test code = 2210) 124 MG/DL TRIGLYCERIDES (test code = 2232) 97 MG/DL HDL CHOLESTEROL (test code = 2220) 33 MG/DL CALC LDL CHOL (test code = 2237) 73 MG/DL RISK RATIO LDL/HDL (test cod e = 2238) 2.21 RATIO Anopo RiosCOMPREHENSIVE METABOLIC [id number] 00:00:00* Test Item Value Reference Range Interpretation Comme nts GLUCOSE (test code = 2217) 99 MG/DL BUN (test code = 2208) 18 MG/DL CREATININE (test code = 2214) 1.04 MG/DL eGFR AMER. (test cod e = 88927) 89 ML/MIN/1.73 eGFR NON- AMER. (test code = 76136) 77 ML/MIN/1.73 CALC BUN/CREAT (test code = 2235) 17 RATIO SODIUM (test code = 2231) 142 MEQ/L POTASSIUM (test code = 2228) 4.0 MEQ/L CHLORIDE (test code = 2215) 101 MEQ/L CARBON DIOXIDE (test code = 2206) 27 MEQ/L CALCIUM (test code = 2209) 9.6 MG/DL PROTEIN, TOTAL (test code = 2229) 7.3 G/DL ALBUMIN (test code = 2201) 4.7 G/DL CALC GLOBULIN (test code = 2240) 2.6 G/DL CALC A/G RATIO (test code = 2234) 1.8 RATIO BILIRUBIN, TOTAL (test code = 2207) 0.4 MG/DL ALKALINE PHOSPHATASE (test code = 2204) 69 U/L AST (test code = 2218) 15 U/L ALT (test code = 2219) 16 U/L Anoop RiosALBUMIN, URINE, RANDOM [ADDED]2020-01-05 00:00:00* Test Item Value Reference Range Interpretation Comme nts ALBUMIN, URINE, RANDOM (test code = 59096) <0.2 MG/DL Anoop RiosCBC W/AUTO [id number] 00:00:00* Test Item Value Reference Range Interpretation Comme nts WBC (test code = 1001) 7.4 K/UL [...] COUNT (test code = 1015) 346 K/UL Anoop RiosHEMOGLOBIN [id number] 00:00:00* Test Item Value Reference Range Interpretation Comme [facility] HEMOGLOBIN A1c (test code = 63820) 6.2 % Anoop RiosLIPID [id number] 00:00:00* Test Item Value Reference Range Interpretation Comme nts CHOLESTEROL (test code = 2210) 124 MG/DL TRIGLYCERIDES (test code = 2232) 97 MG/DL HDL CHOLESTEROL (test code = 2220) 33 MG/DL CALC LDL CHOL (test code = 2237) 73 MG/DL RISK RATIO LDL/HDL (test cod e = 2238) 2.21 RATIO Anoop RiosCOMPREHENSIVE METABOLIC [id number] 00:00:00* Test Item Value Reference Range Interpretation Comme nts GLUCOSE (test code = 2217) 99 MG/DL BUN (test code = 2208) 18 MG/DL CREATININE (test code = 2214) 1.04 MG/DL eGFR AMER. (test cod e = 27250) 89 ML/MIN/1.73 eGFR NON- AMER. (test code = 24659) 77 ML/MIN/1.73 CALC BUN/CREAT (test code = 2235) 17 RATIO SODIUM (test code = 2231) 142 MEQ/L POTASSIUM (test code = 2228) 4.0 MEQ/L CHLORIDE (test code = 2215) 101 MEQ/L CARBON DIOXIDE (test code = 2206) 27 MEQ/L CALCIUM (test code = 2209) 9.6 MG/DL PROTEIN, TOTAL (test code = 2229) 7.3 G/DL ALBUMIN (test code = 2201) 4.7 G/DL CALC GLOBULIN (test code = 2240) 2.6 G/DL CALC A/G RATIO (test code = 2234) 1.8 RATIO BILIRUBIN, TOTAL (test code = 2207) 0.4 MG/DL ALKALINE PHOSPHATASE (test code = 2204) 69 U/L AST (test code = 2218) 15 U/L ALT (test code = 2219) 16 U/L Anoop RiosALBUMIN, URINE, RANDOM [ADDED]2020-01-05 00:00:00* Test Item Value Reference Range Interpretation Comme [facility] ALBUMIN, URINE, RANDOM (test code = 85322) <0.2 MG/DL Anoop RiosCBC W/AUTO [id number] 00:00:00* Test Item Value Reference Range Interpretation Comme nts WBC (test code = 1001) 7.4 K/UL [...] COUNT (test code = 1015) 346 K/UL Anoop RiosHEMOGLOBIN [id number] 00:00:00* Test Item Value Reference Range Interpretation Comme cindy HEMOGLOBIN A1c (test code = 76820) 6.2 % Anoop RiosLIPID [id number] 00:00:00* Test Item Value Reference Range Interpretation Comme nts CHOLESTEROL (test code = 2210) 124 MG/DL TRIGLYCERIDES (test code = 2232) 97 MG/DL HDL CHOLESTEROL (test code = 2220) 33 MG/DL CALC LDL CHOL (test code = 2237) 73 MG/DL RISK RATIO LDL/HDL (test cod e = 2238) 2.21 RATIO Anoop RiosCOMPREHENSIVE METABOLIC [id number] 00:00:00* Test Item Value Reference Range Interpretation Comme nts GLUCOSE (test code = 2217) 99 MG/DL BUN (test code = 2208) 18 MG/DL CREATININE (test code = 2214) 1.04 MG/DL eGFR AMER. (test cod e = 21502) 89 ML/MIN/1.73 eGFR NON- AMER. (test code = 67841) 77 ML/MIN/1.73 CALC BUN/CREAT (test code = 2235) 17 RATIO SODIUM (test code = 2231) 142 MEQ/L POTASSIUM (test code = 2228) 4.0 MEQ/L CHLORIDE (test code = 2215) 101 MEQ/L CARBON DIOXIDE (test code = 2206) 27 MEQ/L CALCIUM (test code = 2209) 9.6 MG/DL PROTEIN, TOTAL (test code = 2229) 7.3 G/DL ALBUMIN (test code = 2201) 4.7 G/DL CALC GLOBULIN (test code = 2240) 2.6 G/DL CALC A/G RATIO (test code = 2234) 1.8 RATIO BILIRUBIN, TOTAL (test code = 2207) 0.4 MG/DL ALKALINE PHOSPHATASE (test code = 2204) 69 U/L AST (test code = 2218) 15 U/L ALT (test code = 2219) 16 U/L Anoop RiosALBUMIN, URINE, RANDOM [ADDED]2020-01-05 00:00:00* Test Item Value Reference Range Interpretation Comme nts ALBUMIN, URINE, RANDOM (test code = 94775) <0.2 MG/DL Anoop Kamara GabrielCBC W/AUTO [id number] 00:00:00* Test Item Value Reference Range Interpretation Comme nts WBC (test code = 1001) 7.4 K/UL [...] COUNT (test code = 1015) 346 K/UL Anoop RiosHEMOGLOBIN [id number] 00:00:00* Test Item Value Reference Range Interpretation Comme [facility] HEMOGLOBIN A1c (test code = 14823) 6.2 % Anoop RiosLIPID [id number] 00:00:00* Test Item Value Reference Range Interpretation Comme nts CHOLESTEROL (test code = 2210) 124 MG/DL TRIGLYCERIDES (test code = 2232) 97 MG/DL HDL CHOLESTEROL (test code = 2220) 33 MG/DL CALC LDL CHOL (test code = 2237) 73 MG/DL RISK RATIO LDL/HDL (test cod e = 2238) 2.21 RATIO Anoop RiosCOMPREHENSIVE METABOLIC [id number] 00:00:00* Test Item Value Reference Range Interpretation Comme nts GLUCOSE (test code = 2217) 99 MG/DL BUN (test code = 2208) 18 MG/DL CREATININE (test code = 2214) 1.04 MG/DL eGFR AMER. (test cod e = 31103) 89 ML/MIN/1.73 eGFR NON- AMER. (test code = 17655) 77 ML/MIN/1.73 CALC BUN/CREAT (test code = 2235) 17 RATIO SODIUM (test code = 2231) 142 MEQ/L POTASSIUM (test code = 2228) 4.0 MEQ/L CHLORIDE (test code = 2215) 101 MEQ/L CARBON DIOXIDE (test code = 2206) 27 MEQ/L CALCIUM (test code = 2209) 9.6 MG/DL PROTEIN, TOTAL (test code = 2229) 7.3 G/DL ALBUMIN (test code = 2201) 4.7 G/DL CALC GLOBULIN (test code = 2240) 2.6 G/DL CALC A/G RATIO (test code = 2234) 1.8 RATIO BILIRUBIN, TOTAL (test code = 2207) 0.4 MG/DL ALKALINE PHOSPHATASE (test code = 2204) 69 U/L AST (test code = 2218) 15 U/L ALT (test code = 2219) 16 U/L Anoop RiosALBUMIN, URINE, RANDOM [ADDED]2020-01-05 00:00:00* Test Item Value Reference Range Interpretation Comme nts ALBUMIN, URINE, RANDOM (test code = 24877) <0.2 MG/DL Anoop RiosCBC W/AUTO [id number] 00:00:00* Test Item Value Reference Range Interpretation Comme nts WBC (test code = 1001) 7.4 K/UL [...] (test code = 1015) 346 K/UL HEMOGLOBIN [id number] 00:00:00* Test Item Value Reference Range Interpretation Comme nts HEMOGLOBIN A1c (test code = 13008) 6.2 % LIPID [id number] 00:00:00* Test Item Value Reference Range Interpretation Comme nts CHOLESTEROL (test code = 2210) 124 MG/DL TRIGLYCERIDES (test code = 2232) 97 MG/DL HDL CHOLESTEROL (test code = 2220) 33 MG/DL CALC LDL CHOL (test code = 2237) 73 MG/DL RISK RATIO LDL/HDL (test cod e = 2238) 2.21 RATIO COMPREHENSIVE METABOLIC [id number] 00:00:00* Test Item Value Reference Range Interpretation Comme nts GLUCOSE (test code = 2217) 99 MG/DL BUN (test code = 2208) 18 MG/DL CREATININE (test code = 2214) 1.04 MG/DL eGFR AMER. (test cod e = 45665) 89 ML/MIN/1.73 eGFR NON- AMER. (test code = 49558) 77 ML/MIN/1.73 CALC BUN/CREAT (test code = 2235) 17 RATIO SODIUM (test code = 2231) 142 MEQ/L POTASSIUM (test code = 2228) 4.0 MEQ/L CHLORIDE (test code = 2215) 101 MEQ/L CARBON DIOXIDE (test code = 2206) 27 MEQ/L CALCIUM (test code = 2209) 9.6 MG/DL PROTEIN, TOTAL (test code = 2229) 7.3 G/DL ALBUMIN (test code = 2201) 4.7 G/DL CALC GLOBULIN (test code = 2240) 2.6 G/DL CALC A/G RATIO (test code = 2234) 1.8 RATIO BILIRUBIN, TOTAL (test code = 2207) 0.4 MG/DL ALKALINE PHOSPHATASE (test code = 2204) 69 U/L AST (test code = 2218) 15 U/L ALT (test code = 2219) 16 U/L ALBUMIN, URINE, RANDOM [ADDED]2020-01-05 00:00:00* Test Item Value Reference Range Interpretation Comme nts ALBUMIN, URINE, RANDOM (test code = 18202) <0.2 MG/DL CBC W/AUTO [id number] 00:00:00* Test Item Value Reference Range Interpretation Comme nts WBC (test code = 1001) 7.4 K/UL [...] (test code = 1015) 346 K/UL HEMOGLOBIN [id number] 00:00:00* Test Item Value Reference Range Interpretation Comme nts HEMOGLOBIN A1c (test code = 71221) 6.2 % LIPID [id number] 00:00:00* Test Item Value Reference Range Interpretation Comme nts CHOLESTEROL (test code = 2210) 124 MG/DL TRIGLYCERIDES (test code = 2232) 97 MG/DL HDL CHOLESTEROL (test code = 2220) 33 MG/DL CALC LDL CHOL (test code = 2237) 73 MG/DL RISK RATIO LDL/HDL (test cod e = 2238) 2.21 RATIO [id number] 00:00:00* Test Item Value Reference Range Interpretation Comme nts TESTOSTERONE (test code = 2830) 452 NG/DL PSA, [id number] 00:00:00* Test Item Value Reference Range Interpretation Comme nts PSA, TOTAL (test code = 2606) 2.08 NG/ML [id number] 00:00:00* Test Item Value Reference Range Interpretation Comme nts TESTOSTERONE (test code = 2830) 452 NG/DL PSA, [id number] 00:00:00* Test Item Value Reference Range Interpretation Comme nts PSA, TOTAL (test code = 2606) 2.08 NG/ML [id number] 00:00:00* Test Item Value Reference Range Interpretation Comme nts TESTOSTERONE (test code = 2830) 452 NG/DL Anoop Kamara AustinPSA, [id number] 00:00:00* Test Item Value Reference Range Interpretation Comme nts PSA, TOTAL (test code = 2606) 2.08 NG/ML Anoop F [id number] 00:00:00* Test Item Value Reference Range Interpretation Comme nts TESTOSTERONE (test code = 2830) 452 NG/DL Anoop Anh AustinPSA, [id number] 00:00:00* Test Item Value Reference Range Interpretation Comme nts PSA, TOTAL (test code = 2606) 2.08 NG/ML Anoop F [id number] 00:00:00* Test Item Value Reference Range Interpretation Comme nts TESTOSTERONE (test code = 2830) 452 NG/DL Anoop F AustinPSA, [id number] 00:00:00* Test Item Value Reference Range Interpretation Comme nts PSA, TOTAL (test code = 2606) 2.08 NG/ML Anoop Kamara [id number] 00:00:00* Test Item Value Reference Range Interpretation Comme nts TESTOSTERONE (test code = 2830) 452 NG/DL Anoop RiosPSA, [id number] 00:00:00* Test Item Value Reference Range Interpretation Comme nts PSA, TOTAL (test code = 2606) 2.08 NG/ML Anoop Kamara [id number] 00:00:00* Test Item Value Reference Range Interpretation Comme nts TESTOSTERONE (test code = 2830) 452 NG/DL PSA, [id number] 00:00:00* Test Item Value Reference Range Interpretation Comme nts PSA, TOTAL (test code = 2606) 2.08 NG/ML [id number] 00:00:00* Test Item Value Reference Range Interpretation Comme nts TESTOSTERONE (test code = 2830) 452 NG/DL PSA, [id number] 00:00:00* Test Item Value Reference Range Interpretation Comme nts PSA, TOTAL (test code = 2606) 2.08 NG/ML CBC W/AUTO [id number] 00:00:00* Test Item Value Reference Range Interpretation Comme nts WBC (test code = 1001) 6.9 K/UL [...] (test code = 1015) 368 K/UL LIPID [id number] 00:00:00* Test Item Value Reference Range Interpretation Comme nts CHOLESTEROL (test code = 2210) 142 MG/DL TRIGLYCERIDES (test code = 2232) 62 MG/DL HDL CHOLESTEROL (test code = 2220) 38 MG/DL CALC LDL CHOL (test code = 2237) 92 MG/DL RISK RATIO LDL/HDL (test cod e = 2238) 2.41 RATIO HEMOGLOBIN [id number] 00:00:00* Test Item Value Reference Range Interpretation Comme nts HEMOGLOBIN A1c (test code = 93707) 6.4 % COMPREHENSIVE METABOLIC [id number] 00:00:00* Test Item Value Reference Range Interpretation Comme nts GLUCOSE (test code = 2217) 109 MG/DL BUN (test code = 2208) 14 MG/DL CREATININE (test code = 2214) 0.94 MG/DL eGFR AMER. (test cod e = 15016) 101 ML/MIN/1.73 eGFR NON- AMER. (test code = 77506) 87 ML/MIN/1.73 CALC BUN/CREAT (test code = 2235) 15 RATIO SODIUM (test code = 2231) 141 MEQ/L POTASSIUM (test code = 2228) 4.6 MEQ/L CHLORIDE (test code = 2215) 99 MEQ/L CARBON DIOXIDE (test code = 2206) 30 MEQ/L CALCIUM (test code = 2209) 9.8 MG/DL PROTEIN, TOTAL (test code = 2229) 7.3 G/DL ALBUMIN (test code = 2201) 4.5 G/DL CALC GLOBULIN (test code = 2240) 2.8 G/DL CALC A/G RATIO (test code = 2234) 1.6 RATIO BILIRUBIN, TOTAL (test code = 2207) 0.4 MG/DL ALKALINE PHOSPHATASE (test code = 2204) 79 U/L AST (test code = 2218) 19 U/L ALT (test code = 2219) 29 U/L CBC W/AUTO [id number] 00:00:00* Test Item Value Reference Range Interpretation Comme nts WBC (test code = 1001) 6.9 K/UL [...] (test code = 1015) 368 K/UL LIPID [id number] 00:00:00* Test Item Value Reference Range Interpretation Comme nts CHOLESTEROL (test code = 2210) 142 MG/DL TRIGLYCERIDES (test code = 2232) 62 MG/DL HDL CHOLESTEROL (test code = 2220) 38 MG/DL CALC LDL CHOL (test code = 2237) 92 MG/DL RISK RATIO LDL/HDL (test cod e = 2238) 2.41 RATIO HEMOGLOBIN [id number] 00:00:00* Test Item Value Reference Range Interpretation Comme nts HEMOGLOBIN A1c (test code = 33684) 6.4 % COMPREHENSIVE METABOLIC [id number] 00:00:00* Test Item Value Reference Range Interpretation Comme nts GLUCOSE (test code = 2217) 109 MG/DL BUN (test code = 2208) 14 MG/DL CREATININE (test code = 2214) 0.94 MG/DL eGFR AMER. (test cod e = 00064) 101 ML/MIN/1.73 eGFR NON- AMER. (test code = 94637) 87 ML/MIN/1.73 CALC BUN/CREAT (test code = 2235) 15 RATIO SODIUM (test code = 2231) 141 MEQ/L POTASSIUM (test code = 2228) 4.6 MEQ/L CHLORIDE (test code = 2215) 99 MEQ/L CARBON DIOXIDE (test code = 2206) 30 MEQ/L CALCIUM (test code = 2209) 9.8 MG/DL PROTEIN, TOTAL (test code = 2229) 7.3 G/DL ALBUMIN (test code = 2201) 4.5 G/DL CALC GLOBULIN (test code = 2240) 2.8 G/DL CALC A/G RATIO (test code = 2234) 1.6 RATIO BILIRUBIN, TOTAL (test code = 2207) 0.4 MG/DL ALKALINE PHOSPHATASE (test code = 2204) 79 U/L AST (test code = 2218) 19 U/L ALT (test code = 2219) 29 U/L CBC W/AUTO [id number] 00:00:00* Test Item Value Reference Range Interpretation Comme nts WBC (test code = 1001) 6.9 K/UL [...] COUNT (test code = 1015) 368 K/UL Anoop Kamara AustinLIPID [id number] 00:00:00* Test Item Value Reference Range Interpretation Comme nts CHOLESTEROL (test code = 2210) 142 MG/DL TRIGLYCERIDES (test code = 2232) 62 MG/DL HDL CHOLESTEROL (test code = 2220) 38 MG/DL CALC LDL CHOL (test code = 2237) 92 MG/DL RISK RATIO LDL/HDL (test cod e = 2238) 2.41 RATIO Anoop RiosHEMOGLOBIN [id number] 00:00:00* Test Item Value Reference Range Interpretation Comme nts HEMOGLOBIN A1c (test code = 87655) 6.4 % Anoop RiosCOMPREHENSIVE METABOLIC [id number] 00:00:00* Test Item Value Reference Range Interpretation Comme nts GLUCOSE (test code = 2217) 109 MG/DL BUN (test code = 2208) 14 MG/DL CREATININE (test code = 2214) 0.94 MG/DL eGFR AMER. (test cod e = 23577) 101 ML/MIN/1.73 eGFR NON- AMER. (test code = 77175) 87 ML/MIN/1.73 CALC BUN/CREAT (test code = 2235) 15 RATIO SODIUM (test code = 2231) 141 MEQ/L POTASSIUM (test code = 2228) 4.6 MEQ/L CHLORIDE (test code = 2215) 99 MEQ/L CARBON DIOXIDE (test code = 2206) 30 MEQ/L CALCIUM (test code = 2209) 9.8 MG/DL PROTEIN, TOTAL (test code = 2229) 7.3 G/DL ALBUMIN (test code = 2201) 4.5 G/DL CALC GLOBULIN (test code = 2240) 2.8 G/DL CALC A/G RATIO (test code = 2234) 1.6 RATIO BILIRUBIN, TOTAL (test code = 2207) 0.4 MG/DL ALKALINE PHOSPHATASE (test code = 2204) 79 U/L AST (test code = 2218) 19 U/L ALT (test code = 2219) 29 U/L Anoop Kamara GabrielCBC W/AUTO [id number] 00:00:00* Test Item Value Reference Range Interpretation Comme nts WBC (test code = 1001) 6.9 K/UL [...] COUNT (test code = 1015) 368 K/UL Anoop Kamara GabrielLIPID [id number] 00:00:00* Test Item Value Reference Range Interpretation Comme nts CHOLESTEROL (test code = 2210) 142 MG/DL TRIGLYCERIDES (test code = 2232) 62 MG/DL HDL CHOLESTEROL (test code = 2220) 38 MG/DL CALC LDL CHOL (test code = 2237) 92 MG/DL RISK RATIO LDL/HDL (test cod e = 2238) 2.41 RATIO Anoop Kamara GabrielHEMOGLOBIN [id number] 00:00:00* Test Item Value Reference Range Interpretation Comme nts HEMOGLOBIN A1c (test code = 32276) 6.4 % Anoop RiosCOMPREHENSIVE METABOLIC [id number] 00:00:00* Test Item Value Reference Range Interpretation Comme nts GLUCOSE (test code = 2217) 109 MG/DL BUN (test code = 2208) 14 MG/DL CREATININE (test code = 2214) 0.94 MG/DL eGFR AMER. (test cod e = 02265) 101 ML/MIN/1.73 eGFR NON- AMER. (test code = 39256) 87 ML/MIN/1.73 CALC BUN/CREAT (test code = 2235) 15 RATIO SODIUM (test code = 2231) 141 MEQ/L POTASSIUM (test code = 2228) 4.6 MEQ/L CHLORIDE (test code = 2215) 99 MEQ/L CARBON DIOXIDE (test code = 2206) 30 MEQ/L CALCIUM (test code = 2209) 9.8 MG/DL PROTEIN, TOTAL (test code = 2229) 7.3 G/DL ALBUMIN (test code = 2201) 4.5 G/DL CALC GLOBULIN (test code = 2240) 2.8 G/DL CALC A/G RATIO (test code = 2234) 1.6 RATIO BILIRUBIN, TOTAL (test code = 2207) 0.4 MG/DL ALKALINE PHOSPHATASE (test code = 2204) 79 U/L AST (test code = 2218) 19 U/L ALT (test code = 2219) 29 U/[facility] [id number] 00:00:00* Test Item Value Reference Range Interpretation Comme nts WBC (test code = 1001) 6.9 K/UL [...] COUNT (test code = 1015) 368 K/UL Anoop F AustinLIPID [id number] 00:00:00* Test Item Value Reference Range Interpretation Comme nts CHOLESTEROL (test code = 2210) 142 MG/DL TRIGLYCERIDES (test code = 2232) 62 MG/DL HDL CHOLESTEROL (test code = 2220) 38 MG/DL CALC LDL CHOL (test code = 2237) 92 MG/DL RISK RATIO LDL/HDL (test cod e = 2238) 2.41 RATIO Anoop RiosHEMOGLOBIN [id number] 00:00:00* Test Item Value Reference Range Interpretation Comme nts HEMOGLOBIN A1c (test code = 77178) 6.4 % Anoop RiosCOMPREHENSIVE METABOLIC [id number] 00:00:00* Test Item Value Reference Range Interpretation Comme nts GLUCOSE (test code = 2217) 109 MG/DL BUN (test code = 2208) 14 MG/DL CREATININE (test code = 2214) 0.94 MG/DL eGFR AMER. (test cod e = 26669) 101 ML/MIN/1.73 eGFR NON- AMER. (test code = 16228) 87 ML/MIN/1.73 CALC BUN/CREAT (test code = 2235) 15 RATIO SODIUM (test code = 2231) 141 MEQ/L POTASSIUM (test code = 2228) 4.6 MEQ/L CHLORIDE (test code = 2215) 99 MEQ/L CARBON DIOXIDE (test code = 2206) 30 MEQ/L CALCIUM (test code = 2209) 9.8 MG/DL PROTEIN, TOTAL (test code = 2229) 7.3 G/DL ALBUMIN (test code = 2201) 4.5 G/DL CALC GLOBULIN (test code = 2240) 2.8 G/DL CALC A/G RATIO (test code = 2234) 1.6 RATIO BILIRUBIN, TOTAL (test code = 2207) 0.4 MG/DL ALKALINE PHOSPHATASE (test code = 2204) 79 U/L AST (test code = 2218) 19 U/L ALT (test code = 2219) 29 U/L Anoop RiosCBC W/AUTO [id number] 00:00:00* Test Item Value Reference Range Interpretation Comme nts WBC (test code = 1001) 6.9 K/UL [...] COUNT (test code = 1015) 368 K/UL Anoop RiosLIPID [id number] 00:00:00* Test Item Value Reference Range Interpretation Comme nts CHOLESTEROL (test code = 2210) 142 MG/DL TRIGLYCERIDES (test code = 2232) 62 MG/DL HDL CHOLESTEROL (test code = 2220) 38 MG/DL CALC LDL CHOL (test code = 2237) 92 MG/DL RISK RATIO LDL/HDL (test cod e = 2238) 2.41 RATIO Anoop RiosHEMOGLOBIN [id number] 00:00:00* Test Item Value Reference Range Interpretation Comme nts HEMOGLOBIN A1c (test code = 53408) 6.4 % Anoop RiosCOMPREHENSIVE METABOLIC [id number] 00:00:00* Test Item Value Reference Range Interpretation Comme nts GLUCOSE (test code = 2217) 109 MG/DL BUN (test code = 2208) 14 MG/DL CREATININE (test code = 2214) 0.94 MG/DL eGFR AMER. (test cod e = 97736) 101 ML/MIN/1.73 eGFR NON- AMER. (test code = 34645) 87 ML/MIN/1.73 CALC BUN/CREAT (test code = 2235) 15 RATIO SODIUM (test code = 2231) 141 MEQ/L POTASSIUM (test code = 2228) 4.6 MEQ/L CHLORIDE (test code = 2215) 99 MEQ/L CARBON DIOXIDE (test code = 2206) 30 MEQ/L CALCIUM (test code = 2209) 9.8 MG/DL PROTEIN, TOTAL (test code = 2229) 7.3 G/DL ALBUMIN (test code = 2201) 4.5 G/DL CALC GLOBULIN (test code = 2240) 2.8 G/DL CALC A/G RATIO (test code = 2234) 1.6 RATIO BILIRUBIN, TOTAL (test code = 2207) 0.4 MG/DL ALKALINE PHOSPHATASE (test code = 2204) 79 U/L AST (test code = 2218) 19 U/L ALT (test code = 2219) 29 U/L [facility] [id number] 00:00:00* Test Item Value Reference Range Interpretation Comme nts WBC (test code = 1001) 6.9 K/UL [...] (test code = 1015) 368 K/UL LIPID [id number] 00:00:00* Test Item Value Reference Range Interpretation Comme nts CHOLESTEROL (test code = 2210) 142 MG/DL TRIGLYCERIDES (test code = 2232) 62 MG/DL HDL CHOLESTEROL (test code = 2220) 38 MG/DL CALC LDL CHOL (test code = 2237) 92 MG/DL RISK RATIO LDL/HDL (test cod e = 2238) 2.41 RATIO HEMOGLOBIN [id number] 00:00:00* Test Item Value Reference Range Interpretation Comme nts HEMOGLOBIN A1c (test code = 51458) 6.4 % COMPREHENSIVE METABOLIC [id number] 00:00:00* Test Item Value Reference Range Interpretation Comme nts GLUCOSE (test code = 2217) 109 MG/DL BUN (test code = 2208) 14 MG/DL CREATININE (test code = 2214) 0.94 MG/DL eGFR AMER. (test cod e = 29547) 101 ML/MIN/1.73 eGFR NON- AMER. (test code = 81501) 87 ML/MIN/1.73 CALC BUN/CREAT (test code = 2235) 15 RATIO SODIUM (test code = 2231) 141 MEQ/L POTASSIUM (test code = 2228) 4.6 MEQ/L CHLORIDE (test code = 2215) 99 MEQ/L CARBON DIOXIDE (test code = 2206) 30 MEQ/L CALCIUM (test code = 2209) 9.8 MG/DL PROTEIN, TOTAL (test code = 2229) 7.3 G/DL ALBUMIN (test code = 2201) 4.5 G/DL CALC GLOBULIN (test code = 2240) 2.8 G/DL CALC A/G RATIO (test code = 2234) 1.6 RATIO BILIRUBIN, TOTAL (test code = 2207) 0.4 MG/DL ALKALINE PHOSPHATASE (test code = 2204) 79 U/L AST (test code = 2218) 19 U/L ALT (test code = 2219) 29 U/L CBC W/AUTO [id number] 00:00:00* Test Item Value Reference Range Interpretation Comme nts WBC (test code = 1001) 6.9 K/UL [...] (test code = 1015) 368 K/UL LIPID [id number] 00:00:00* Test Item Value Reference Range Interpretation Comme nts CHOLESTEROL (test code = 2210) 142 MG/DL TRIGLYCERIDES (test code = 2232) 62 MG/DL HDL CHOLESTEROL (test code = 2220) 38 MG/DL CALC LDL CHOL (test code = 2237) 92 MG/DL RISK RATIO LDL/HDL (test cod e = 2238) 2.41 RATIO HEMOGLOBIN [id number] 00:00:00* Test Item Value Reference Range Interpretation Comme nts HEMOGLOBIN A1c (test code = 14525) 6.4 % COMPREHENSIVE METABOLIC [id number] 00:00:00* Test Item Value Reference Range Interpretation Comme nts GLUCOSE (test code = 2217) 109 MG/DL BUN (test code = 2208) 14 MG/DL CREATININE (test code = 2214) 0.94 MG/DL eGFR AMER. (test cod e = 91243) 101 ML/MIN/1.73 eGFR NON- AMER. (test code = 37037) 87 ML/MIN/1.73 CALC BUN/CREAT (test code = 2235) 15 RATIO SODIUM (test code = 2231) 141 MEQ/L POTASSIUM (test code = 2228) 4.6 MEQ/L CHLORIDE (test code = 2215) 99 MEQ/L CARBON DIOXIDE (test code = 2206) 30 MEQ/L CALCIUM (test code = 2209) 9.8 MG/DL PROTEIN, TOTAL (test code = 2229) 7.3 G/DL ALBUMIN (test code = 2201) 4.5 G/DL CALC GLOBULIN (test code = 2240) 2.8 G/DL CALC A/G RATIO (test code = 2234) 1.6 RATIO BILIRUBIN, TOTAL (test code = 2207) 0.4 MG/DL ALKALINE PHOSPHATASE (test code = 2204) 79 U/L AST (test code = 2218) 19 U/L ALT (test code = 2219) 29 U/L COMPREHENSIVE METABOLIC [id number] 00:00:00* Test Item Value Reference Range Interpretation Comme nts GLUCOSE (test code = 2217) 182 MG/DL BUN (test code = 2208) 12 MG/DL CREATININE (test code = 2214) 0.97 MG/DL eGFR AMER. (test cod e = 84199) 97 ML/MIN/1.73 eGFR NON- AMER. (test code = 79696) 84 ML/MIN/1.73 CALC BUN/CREAT (test code = 2235) 12 RATIO SODIUM (test code = 2231) 140 MEQ/L POTASSIUM (test code = 2228) 4.2 MEQ/L CHLORIDE (test code = 2215) 99 MEQ/L CARBON DIOXIDE (test code = 2206) 28 MEQ/L CALCIUM (test code = 2209) 9.2 MG/DL PROTEIN, TOTAL (test code = 2229) 6.9 G/DL ALBUMIN (test code = 2201) 4.4 G/DL CALC GLOBULIN (test code = 2240) 2.5 G/DL CALC A/G RATIO (test code = 2234) 1.8 RATIO BILIRUBIN, TOTAL (test code = 2207) 0.6 MG/DL ALKALINE PHOSPHATASE (test code = 2204) 74 U/L AST (test code = 2218) 19 U/L ALT (test code = 2219) 28 U/L COMPREHENSIVE METABOLIC [id number] 00:00:00* Test Item Value Reference Range Interpretation Comme nts GLUCOSE (test code = 2217) 182 MG/DL BUN (test code = 2208) 12 MG/DL CREATININE (test code = 2214) 0.97 MG/DL eGFR AMER. (test cod e = 92721) 97 ML/MIN/1.73 eGFR NON- AMER. (test code = 29111) 84 ML/MIN/1.73 CALC BUN/CREAT (test code = 2235) 12 RATIO SODIUM (test code = 2231) 140 MEQ/L POTASSIUM (test code = 2228) 4.2 MEQ/L CHLORIDE (test code = 2215) 99 MEQ/L CARBON DIOXIDE (test code = 2206) 28 MEQ/L CALCIUM (test code = 2209) 9.2 MG/DL PROTEIN, TOTAL (test code = 2229) 6.9 G/DL ALBUMIN (test code = 2201) 4.4 G/DL CALC GLOBULIN (test code = 2240) 2.5 G/DL CALC A/G RATIO (test code = 2234) 1.8 RATIO BILIRUBIN, TOTAL (test code = 2207) 0.6 MG/DL ALKALINE PHOSPHATASE (test code = 2204) 74 U/L AST (test code = 2218) 19 U/L ALT (test code = 2219) 28 U/L COMPREHENSIVE METABOLIC [id number] 00:00:00* Test Item Value Reference Range Interpretation Comme nts GLUCOSE (test code = 2217) 182 MG/DL BUN (test code = 2208) 12 MG/DL CREATININE (test code = 2214) 0.97 MG/DL eGFR AMER. (test cod e = 47319) 97 ML/MIN/1.73 eGFR NON- AMER. (test code = 39831) 84 ML/MIN/1.73 CALC BUN/CREAT (test code = 2235) 12 RATIO SODIUM (test code = 2231) 140 MEQ/L POTASSIUM (test code = 2228) 4.2 MEQ/L CHLORIDE (test code = 2215) 99 MEQ/L CARBON DIOXIDE (test code = 2206) 28 MEQ/L CALCIUM (test code = 2209) 9.2 MG/DL PROTEIN, TOTAL (test code = 2229) 6.9 G/DL ALBUMIN (test code = 2201) 4.4 G/DL CALC GLOBULIN (test code = 2240) 2.5 G/DL CALC A/G RATIO (test code = 2234) 1.8 RATIO BILIRUBIN, TOTAL (test code = 2207) 0.6 MG/DL ALKALINE PHOSPHATASE (test code = 2204) 74 U/L AST (test code = 2218) 19 U/L ALT (test code = 2219) 28 U/L Anoop F AxisCOMPREHENSIVE METABOLIC [id number] 00:00:00* Test Item Value Reference Range Interpretation Comme nts GLUCOSE (test code = 2217) 182 MG/DL BUN (test code = 2208) 12 MG/DL CREATININE (test code = 2214) 0.97 MG/DL eGFR AMER. (test cod e = 49111) 97 ML/MIN/1.73 eGFR NON- AMER. (test code = 65134) 84 ML/MIN/1.73 CALC BUN/CREAT (test code = 2235) 12 RATIO SODIUM (test code = 2231) 140 MEQ/L POTASSIUM (test code = 2228) 4.2 MEQ/L CHLORIDE (test code = 2215) 99 MEQ/L CARBON DIOXIDE (test code = 2206) 28 MEQ/L CALCIUM (test code = 2209) 9.2 MG/DL PROTEIN, TOTAL (test code = 2229) 6.9 G/DL ALBUMIN (test code = 2201) 4.4 G/DL CALC GLOBULIN (test code = 2240) 2.5 G/DL CALC A/G RATIO (test code = 2234) 1.8 RATIO BILIRUBIN, TOTAL (test code = 2207) 0.6 MG/DL ALKALINE PHOSPHATASE (test code = 2204) 74 U/L AST (test code = 2218) 19 U/L ALT (test code = 2219) 28 U/L [facility] [id number] 00:00:00* Test Item Value Reference Range Interpretation Comme nts GLUCOSE (test code = 2217) 182 MG/DL BUN (test code = 2208) 12 MG/DL CREATININE (test code = 2214) 0.97 MG/DL eGFR AMER. (test cod e = 32509) 97 ML/MIN/1.73 eGFR NON- AMER. (test code = 40788) 84 ML/MIN/1.73 CALC BUN/CREAT (test code = 2235) 12 RATIO SODIUM (test code = 2231) 140 MEQ/L POTASSIUM (test code = 2228) 4.2 MEQ/L CHLORIDE (test code = 2215) 99 MEQ/L CARBON DIOXIDE (test code = 2206) 28 MEQ/L CALCIUM (test code = 2209) 9.2 MG/DL PROTEIN, TOTAL (test code = 2229) 6.9 G/DL ALBUMIN (test code = 2201) 4.4 G/DL CALC GLOBULIN (test code = 2240) 2.5 G/DL CALC A/G RATIO (test code = 2234) 1.8 RATIO BILIRUBIN, TOTAL (test code = 2207) 0.6 MG/DL ALKALINE PHOSPHATASE (test code = 2204) 74 U/L AST (test code = 2218) 19 U/L ALT (test code = 2219) 28 U/L [facility]oop [facility] [id number] 00:00:00* Test Item Value Reference Range Interpretation Comme nts GLUCOSE (test code = 2217) 182 MG/DL BUN (test code = 2208) 12 MG/DL CREATININE (test code = 2214) 0.97 MG/DL eGFR AMER. (test cod e = 91466) 97 ML/MIN/1.73 eGFR NON- AMER. (test code = 39529) 84 ML/MIN/1.73 CALC BUN/CREAT (test code = 2235) 12 RATIO SODIUM (test code = 2231) 140 MEQ/L POTASSIUM (test code = 2228) 4.2 MEQ/L CHLORIDE (test code = 2215) 99 MEQ/L CARBON DIOXIDE (test code = 2206) 28 MEQ/L CALCIUM (test code = 2209) 9.2 MG/DL PROTEIN, TOTAL (test code = 2229) 6.9 G/DL ALBUMIN (test code = 2201) 4.4 G/DL CALC GLOBULIN (test code = 2240) 2.5 G/DL CALC A/G RATIO (test code = 2234) 1.8 RATIO BILIRUBIN, TOTAL (test code = 2207) 0.6 MG/DL ALKALINE PHOSPHATASE (test code = 2204) 74 U/L AST (test code = 2218) 19 U/L ALT (test code = 2219) 28 U/L Anoop Anh RiosCOMPREHENSIVE METABOLIC [id number] 00:00:00* Test Item Value Reference Range Interpretation Comme nts GLUCOSE (test code = 2217) 182 MG/DL BUN (test code = 2208) 12 MG/DL CREATININE (test code = 2214) 0.97 MG/DL eGFR AMER. (test cod e = 52427) 97 ML/MIN/1.73 eGFR NON- AMER. (test code = 14697) 84 ML/MIN/1.73 CALC BUN/CREAT (test code = 2235) 12 RATIO SODIUM (test code = 2231) 140 MEQ/L POTASSIUM (test code = 2228) 4.2 MEQ/L CHLORIDE (test code = 2215) 99 MEQ/L CARBON DIOXIDE (test code = 2206) 28 MEQ/L CALCIUM (test code = 2209) 9.2 MG/DL PROTEIN, TOTAL (test code = 2229) 6.9 G/DL ALBUMIN (test code = 2201) 4.4 G/DL CALC GLOBULIN (test code = 2240) 2.5 G/DL CALC A/G RATIO (test code = 2234) 1.8 RATIO BILIRUBIN, TOTAL (test code = 2207) 0.6 MG/DL ALKALINE PHOSPHATASE (test code = 2204) 74 U/L AST (test code = 2218) 19 U/L ALT (test code = 2219) 28 U/L COMPREHENSIVE METABOLIC [id number] 00:00:00* Test Item Value Reference Range Interpretation Comme nts GLUCOSE (test code = 2217) 182 MG/DL BUN (test code = 2208) 12 MG/DL CREATININE (test code = 2214) 0.97 MG/DL eGFR AMER. (test cod e = 01893) 97 ML/MIN/1.73 eGFR NON- AMER. (test code = 76147) 84 ML/MIN/1.73 CALC BUN/CREAT (test code = 2235) 12 RATIO SODIUM (test code = 2231) 140 MEQ/L POTASSIUM (test code = 2228) 4.2 MEQ/L CHLORIDE (test code = 2215) 99 MEQ/L CARBON DIOXIDE (test code = 2206) 28 MEQ/L CALCIUM (test code = 2209) 9.2 MG/DL PROTEIN, TOTAL (test code = 2229) 6.9 G/DL ALBUMIN (test code = 2201) 4.4 G/DL CALC GLOBULIN (test code = 2240) 2.5 G/DL CALC A/G RATIO (test code = 2234) 1.8 RATIO BILIRUBIN, TOTAL (test code = 2207) 0.6 MG/DL ALKALINE PHOSPHATASE (test code = 2204) 74 U/L AST (test code = 2218) 19 U/L ALT (test code = 2219) 28 U/L LIPID PANEL [ADDED]2019-04-08 00:00:00* Test Item Value Reference Range Interpretation Comme nts CHOLESTEROL (test code = 2210) 120 MG/DL TRIGLYCERIDES (test code = 2232) 206 MG/DL HDL CHOLESTEROL (test code = 2220) 32 MG/DL CALC LDL CHOL (test code = 2237) 47 MG/DL RISK RATIO LDL/HDL (test cod e = 2238) 1.46 RATIO COMPREHENSIVE METABOLIC PANEL [ADDED]2019-04-08 00:00:00* Test Item Value Reference Range Interpretation Comme nts GLUCOSE (test code = 2217) 225 MG/DL BUN (test code = 2208) 14 MG/DL CREATININE (test code = 2214) 0.89 MG/DL eGFR AMER. (test cod e = 21360) 81 ML/MIN/1.73 eGFR NON- AMER. (test code = 59059) 70 ML/MIN/1.73 CALC BUN/CREAT (test code = 2235) 16 RATIO SODIUM (test code = 2231) 139 MEQ/L POTASSIUM (test code = 2228) 4.7 MEQ/L CHLORIDE (test code = 2215) 99 MEQ/L CARBON DIOXIDE (test code = 2206) 26 MEQ/L CALCIUM (test code = 2209) 9.1 MG/DL PROTEIN, TOTAL (test code = 2229) 6.6 G/DL ALBUMIN (test code = 2201) 4.3 G/DL CALC GLOBULIN (test code = 2240) 2.3 G/DL CALC A/G RATIO (test code = 2234) 1.9 RATIO BILIRUBIN, TOTAL (test code = 2207) 0.7 MG/DL ALKALINE PHOSPHATASE (test code = 2204) 82 U/L AST (test code = 2218) 22 U/L ALT (test code = 2219) 33 U/L PSA, TOTAL [ADDED]2019-04-08 00:00:00* Test Item Value Reference Range Interpretation Comme nts PSA, TOTAL (test code = 2606) 1.71 NG/ML LIPID PANEL [ADDED]2019-04-08 00:00:00* Test Item Value Reference Range Interpretation Comme nts CHOLESTEROL (test code = 2210) 120 MG/DL TRIGLYCERIDES (test code = 2232) 206 MG/DL HDL CHOLESTEROL (test code = 2220) 32 MG/DL CALC LDL CHOL (test code = 2237) 47 MG/DL RISK RATIO LDL/HDL (test cod e = 2238) 1.46 RATIO COMPREHENSIVE METABOLIC PANEL [ADDED]2019-04-08 00:00:00* Test Item Value Reference Range Interpretation Comme nts GLUCOSE (test code = 2217) 225 MG/DL BUN (test code = 2208) 14 MG/DL CREATININE (test code = 2214) 0.89 MG/DL eGFR AMER. (test cod e = 99552) 81 ML/MIN/1.73 eGFR NON- AMER. (test code = 24509) 70 ML/MIN/1.73 CALC BUN/CREAT (test code = 2235) 16 RATIO SODIUM (test code = 2231) 139 MEQ/L POTASSIUM (test code = 2228) 4.7 MEQ/L CHLORIDE (test code = 2215) 99 MEQ/L CARBON DIOXIDE (test code = 2206) 26 MEQ/L CALCIUM (test code = 2209) 9.1 MG/DL PROTEIN, TOTAL (test code = 2229) 6.6 G/DL ALBUMIN (test code = 2201) 4.3 G/DL CALC GLOBULIN (test code = 2240) 2.3 G/DL CALC A/G RATIO (test code = 2234) 1.9 RATIO BILIRUBIN, TOTAL (test code = 2207) 0.7 MG/DL ALKALINE PHOSPHATASE (test code = 2204) 82 U/L AST (test code = 2218) 22 U/L ALT (test code = 2219) 33 U/L PSA, TOTAL [ADDED]2019-04-08 00:00:00* Test Item Value Reference Range Interpretation Comme nts PSA, TOTAL (test code = 2606) 1.71 NG/ML LIPID PANEL [ADDED]2019-04-08 00:00:00* Test Item Value Reference Range Interpretation Comme nts CHOLESTEROL (test code = 2210) 120 MG/DL TRIGLYCERIDES (test code = 2232) 206 MG/DL HDL CHOLESTEROL (test code = 2220) 32 MG/DL CALC LDL CHOL (test code = 2237) 47 MG/DL RISK RATIO LDL/HDL (test cod e = 2238) 1.46 RATIO Anoop RiosCOMPREHENSIVE METABOLIC PANEL [ADDED]2019-04-08 00:00:00* Test Item Value Reference Range Interpretation Comme nts GLUCOSE (test code = 2217) 225 MG/DL BUN (test code = 2208) 14 MG/DL CREATININE (test code = 2214) 0.89 MG/DL eGFR AMER. (test cod e = 66618) 81 ML/MIN/1.73 eGFR NON- AMER. (test code = 40166) 70 ML/MIN/1.73 CALC BUN/CREAT (test code = 2235) 16 RATIO SODIUM (test code = 2231) 139 MEQ/L POTASSIUM (test code = 2228) 4.7 MEQ/L CHLORIDE (test code = 2215) 99 MEQ/L CARBON DIOXIDE (test code = 2206) 26 MEQ/L CALCIUM (test code = 2209) 9.1 MG/DL PROTEIN, TOTAL (test code = 2229) 6.6 G/DL ALBUMIN (test code = 2201) 4.3 G/DL CALC GLOBULIN (test code = 2240) 2.3 G/DL CALC A/G RATIO (test code = 2234) 1.9 RATIO BILIRUBIN, TOTAL (test code = 2207) 0.7 MG/DL ALKALINE PHOSPHATASE (test code = 2204) 82 U/L AST (test code = 2218) 22 U/L ALT (test code = 2219) 33 U/L Anoop RiosPSA, TOTAL [ADDED]2019-04-08 00:00:00* Test Item Value Reference Range Interpretation Comme nts PSA, TOTAL (test code = 2606) 1.71 NG/ML Anoop RiosLIPID PANEL [ADDED]2019-04-08 00:00:00* Test Item Value Reference Range Interpretation Comme nts CHOLESTEROL (test code = 2210) 120 MG/DL TRIGLYCERIDES (test code = 2232) 206 MG/DL HDL CHOLESTEROL (test code = 2220) 32 MG/DL CALC LDL CHOL (test code = 2237) 47 MG/DL RISK RATIO LDL/HDL (test cod e = 2238) 1.46 RATIO Anoop RiosCOMPREHENSIVE METABOLIC PANEL [ADDED]2019-04-08 00:00:00* Test Item Value Reference Range Interpretation Comme nts GLUCOSE (test code = 2217) 225 MG/DL BUN (test code = 2208) 14 MG/DL CREATININE (test code = 2214) 0.89 MG/DL eGFR AMER. (test cod e = 94198) 81 ML/MIN/1.73 eGFR NON- AMER. (test code = 40590) 70 ML/MIN/1.73 CALC BUN/CREAT (test code = 2235) 16 RATIO SODIUM (test code = 2231) 139 MEQ/L POTASSIUM (test code = 2228) 4.7 MEQ/L CHLORIDE (test code = 2215) 99 MEQ/L CARBON DIOXIDE (test code = 2206) 26 MEQ/L CALCIUM (test code = 2209) 9.1 MG/DL PROTEIN, TOTAL (test code = 2229) 6.6 G/DL ALBUMIN (test code = 2201) 4.3 G/DL CALC GLOBULIN (test code = 2240) 2.3 G/DL CALC A/G RATIO (test code = 2234) 1.9 RATIO BILIRUBIN, TOTAL (test code = 2207) 0.7 MG/DL ALKALINE PHOSPHATASE (test code = 2204) 82 U/L AST (test code = 2218) 22 U/L ALT (test code = 2219) 33 U/L Anoop RiosPSA, TOTAL [ADDED]2019-04-08 00:00:00* Test Item Value Reference Range Interpretation Comme nts PSA, TOTAL (test code = 2606) 1.71 NG/ML Anoop Kamara AustinLIPID PANEL [ADDED]2019-04-08 00:00:00* Test Item Value Reference Range Interpretation Comme nts CHOLESTEROL (test code = 2210) 120 MG/DL TRIGLYCERIDES (test code = 2232) 206 MG/DL HDL CHOLESTEROL (test code = 2220) 32 MG/DL CALC LDL CHOL (test code = 2237) 47 MG/DL RISK RATIO LDL/HDL (test cod e = 2238) 1.46 RATIO Anoop RiosCOMPREHENSIVE METABOLIC PANEL [ADDED]2019-04-08 00:00:00* Test Item Value Reference Range Interpretation Comme nts GLUCOSE (test code = 2217) 225 MG/DL BUN (test code = 2208) 14 MG/DL CREATININE (test code = 2214) 0.89 MG/DL eGFR AMER. (test cod e = 02218) 81 ML/MIN/1.73 eGFR NON- AMER. (test code = 20164) 70 ML/MIN/1.73 CALC BUN/CREAT (test code = 2235) 16 RATIO SODIUM (test code = 2231) 139 MEQ/L POTASSIUM (test code = 2228) 4.7 MEQ/L CHLORIDE (test code = 2215) 99 MEQ/L CARBON DIOXIDE (test code = 2206) 26 MEQ/L CALCIUM (test code = 2209) 9.1 MG/DL PROTEIN, TOTAL (test code = 2229) 6.6 G/DL ALBUMIN (test code = 2201) 4.3 G/DL CALC GLOBULIN (test code = 2240) 2.3 G/DL CALC A/G RATIO (test code = 2234) 1.9 RATIO BILIRUBIN, TOTAL (test code = 2207) 0.7 MG/DL ALKALINE PHOSPHATASE (test code = 2204) 82 U/L AST (test code = 2218) 22 U/L ALT (test code = 2219) 33 U/L Anoop RiosPSA, TOTAL [ADDED]2019-04-08 00:00:00* Test Item Value Reference Range Interpretation Comme nts PSA, TOTAL (test code = 2606) 1.71 NG/ML Anoop F AustinLIPID PANEL [ADDED]2019-04-08 00:00:00* Test Item Value Reference Range Interpretation Comme nts CHOLESTEROL (test code = 2210) 120 MG/DL TRIGLYCERIDES (test code = 2232) 206 MG/DL HDL CHOLESTEROL (test code = 2220) 32 MG/DL CALC LDL CHOL (test code = 2237) 47 MG/DL RISK RATIO LDL/HDL (test cod e = 2238) 1.46 RATIO Anoop RiosCOMPREHENSIVE METABOLIC PANEL [ADDED]2019-04-08 00:00:00* Test Item Value Reference Range Interpretation Comme nts GLUCOSE (test code = 2217) 225 MG/DL BUN (test code = 2208) 14 MG/DL CREATININE (test code = 2214) 0.89 MG/DL eGFR AMER. (test cod e = 69432) 81 ML/MIN/1.73 eGFR NON- AMER. (test code = 65449) 70 ML/MIN/1.73 CALC BUN/CREAT (test code = 2235) 16 RATIO SODIUM (test code = 2231) 139 MEQ/L POTASSIUM (test code = 2228) 4.7 MEQ/L CHLORIDE (test code = 2215) 99 MEQ/L CARBON DIOXIDE (test code = 2206) 26 MEQ/L CALCIUM (test code = 2209) 9.1 MG/DL PROTEIN, TOTAL (test code = 2229) 6.6 G/DL ALBUMIN (test code = 2201) 4.3 G/DL CALC GLOBULIN (test code = 2240) 2.3 G/DL CALC A/G RATIO (test code = 2234) 1.9 RATIO BILIRUBIN, TOTAL (test code = 2207) 0.7 MG/DL ALKALINE PHOSPHATASE (test code = 2204) 82 U/L AST (test code = 2218) 22 U/L ALT (test code = 2219) 33 U/L Anoop RiosPSA, TOTAL [ADDED]2019-04-08 00:00:00* Test Item Value Reference Range Interpretation Comme nts PSA, TOTAL (test code = 2606) 1.71 NG/ML Anoop RiosLIPID PANEL [ADDED]2019-04-08 00:00:00* Test Item Value Reference Range Interpretation Comme nts CHOLESTEROL (test code = 2210) 120 MG/DL TRIGLYCERIDES (test code = 2232) 206 MG/DL HDL CHOLESTEROL (test code = 2220) 32 MG/DL CALC LDL CHOL (test code = 2237) 47 MG/DL RISK RATIO LDL/HDL (test cod e = 2238) 1.46 RATIO COMPREHENSIVE METABOLIC PANEL [ADDED]2019-04-08 00:00:00* Test Item Value Reference Range Interpretation Comme nts GLUCOSE (test code = 2217) 225 MG/DL BUN (test code = 2208) 14 MG/DL CREATININE (test code = 2214) 0.89 MG/DL eGFR AMER. (test cod e = 65372) 81 ML/MIN/1.73 eGFR NON- AMER. (test code = 75131) 70 ML/MIN/1.73 CALC BUN/CREAT (test code = 2235) 16 RATIO SODIUM (test code = 2231) 139 MEQ/L POTASSIUM (test code = 2228) 4.7 MEQ/L CHLORIDE (test code = 2215) 99 MEQ/L CARBON DIOXIDE (test code = 2206) 26 MEQ/L CALCIUM (test code = 2209) 9.1 MG/DL PROTEIN, TOTAL (test code = 2229) 6.6 G/DL ALBUMIN (test code = 2201) 4.3 G/DL CALC GLOBULIN (test code = 2240) 2.3 G/DL CALC A/G RATIO (test code = 2234) 1.9 RATIO BILIRUBIN, TOTAL (test code = 2207) 0.7 MG/DL ALKALINE PHOSPHATASE (test code = 2204) 82 U/L AST (test code = 2218) 22 U/L ALT (test code = 2219) 33 U/L PSA, TOTAL [ADDED]2019-04-08 00:00:00* Test Item Value Reference Range Interpretation Comme nts PSA, TOTAL (test code = 2606) 1.71 NG/ML LIPID PANEL [ADDED]2019-04-08 00:00:00* Test Item Value Reference Range Interpretation Comme nts CHOLESTEROL (test code = 2210) 120 MG/DL TRIGLYCERIDES (test code = 2232) 206 MG/DL HDL CHOLESTEROL (test code = 2220) 32 MG/DL CALC LDL CHOL (test code = 2237) 47 MG/DL RISK RATIO LDL/HDL (test cod e = 2238) 1.46 RATIO COMPREHENSIVE METABOLIC PANEL [ADDED]2019-04-08 00:00:00* Test Item Value Reference Range Interpretation Comme nts GLUCOSE (test code = 2217) 225 MG/DL BUN (test code = 2208) 14 MG/DL CREATININE (test code = 2214) 0.89 MG/DL eGFR AMER. (test cod e = 43305) 81 ML/MIN/1.73 eGFR NON- AMER. (test code = 33485) 70 ML/MIN/1.73 CALC BUN/CREAT (test code = 2235) 16 RATIO SODIUM (test code = 2231) 139 MEQ/L POTASSIUM (test code = 2228) 4.7 MEQ/L CHLORIDE (test code = 2215) 99 MEQ/L CARBON DIOXIDE (test code = 2206) 26 MEQ/L CALCIUM (test code = 2209) 9.1 MG/DL PROTEIN, TOTAL (test code = 2229) 6.6 G/DL ALBUMIN (test code = 2201) 4.3 G/DL CALC GLOBULIN (test code = 2240) 2.3 G/DL CALC A/G RATIO (test code = 2234) 1.9 RATIO BILIRUBIN, TOTAL (test code = 2207) 0.7 MG/DL ALKALINE PHOSPHATASE (test code = 2204) 82 U/L AST (test code = 2218) 22 U/L ALT (test code = 2219) 33 U/L PSA, TOTAL [ADDED]2019-04-08 00:00:00* Test Item Value Reference Range Interpretation Comme nts PSA, TOTAL (test code = 2606) 1.71 NG/ML HEMOGLOBIN [id number] 00:00:00* Test Item Value Reference Range Interpretation Comme nts HEMOGLOBIN A1c (test code = 06344) 6.5 % HEMOGLOBIN [id number] 00:00:00* Test Item Value Reference Range Interpretation Comme nts HEMOGLOBIN A1c (test code = 78750) 6.5 % HEMOGLOBIN [id number] 00:00:00* Test Item Value Reference Range Interpretation Comme nts HEMOGLOBIN A1c (test code = 37203) 6.5 % Anoop F AustinHEMOGLOBIN [id number] 00:00:00* Test Item Value Reference Range Interpretation Comme nts HEMOGLOBIN A1c (test code = 07892) 6.5 % Aonop F AustinHEMOGLOBIN [id number] 00:00:00* Test Item Value Reference Range Interpretation Comme nts HEMOGLOBIN A1c (test code = 59532) 6.5 % Anoop Kamara AustinHEMOGLOBIN [id number] 00:00:00* Test Item Value Reference Range Interpretation Comme cindy HEMOGLOBIN A1c (test code = 63505) 6.5 % Anoop Kamara AustinHEMOGLOBIN [id number] 00:00:00* Test Item Value Reference Range Interpretation Comme nts HEMOGLOBIN A1c (test code = 78758) 6.5 % HEMOGLOBIN [id number] 00:00:00* Test Item Value Reference Range Interpretation Comme nts HEMOGLOBIN A1c (test code = 80224) 6.5 % HEMOGLOBIN [id number] 00:00:00* Test Item Value Reference Range Interpretation Comme nts HEMOGLOBIN A1c (test code = 13194) 7.5 % LIPID [id number] 00:00:00* Test Item Value Reference Range Interpretation Comme nts CHOLESTEROL (test code = 2210) 227 MG/DL TRIGLYCERIDES (test code = 2232) 66 MG/DL HDL CHOLESTEROL (test code = 2220) 40 MG/DL CALC LDL CHOL (test code = 2237) 174 MG/DL RISK RATIO LDL/HDL (test cod e = 2238) 4.35 RATIO COMPREHENSIVE METABOLIC [id number] 00:00:00* Test Item Value Reference Range Interpretation Comme nts GLUCOSE (test code = 2217) 89 MG/DL BUN (test code = 2208) 13 MG/DL CREATININE (test code = 2214) 1.06 MG/DL eGFR AMER. (test cod e = 13961) 87 ML/MIN/1.73 eGFR NON- AMER. (test code = 63779) 75 ML/MIN/1.73 CALC BUN/CREAT (test code = 2235) 12 RATIO SODIUM (test code = 2231) 143 MEQ/L POTASSIUM (test code = 2228) 3.9 MEQ/L CHLORIDE (test code = 2215) 103 MEQ/L CARBON DIOXIDE (test code = 2206) 28 MEQ/L CALCIUM (test code = 2209) 9.2 MG/DL PROTEIN, TOTAL (test code = 2229) 7.1 G/DL ALBUMIN (test code = 2201) 4.5 G/DL CALC GLOBULIN (test code = 2240) 2.6 G/DL CALC A/G RATIO (test code = 2234) 1.7 RATIO BILIRUBIN, TOTAL (test code = 2207) 0.3 MG/DL ALKALINE PHOSPHATASE (test code = 2204) 66 U/L AST (test code = 2218) 21 U/L ALT (test code = 2219) 18 U/L HEMOGLOBIN [id number] 00:00:00* Test Item Value Reference Range Interpretation Comme nts HEMOGLOBIN A1c (test code = 18590) 7.5 % LIPID [id number] 00:00:00* Test Item Value Reference Range Interpretation Comme nts CHOLESTEROL (test code = 2210) 227 MG/DL TRIGLYCERIDES (test code = 2232) 66 MG/DL HDL CHOLESTEROL (test code = 2220) 40 MG/DL CALC LDL CHOL (test code = 2237) 174 MG/DL RISK RATIO LDL/HDL (test cod e = 2238) 4.35 RATIO COMPREHENSIVE METABOLIC [id number] 00:00:00* Test Item Value Reference Range Interpretation Comme nts GLUCOSE (test code = 2217) 89 MG/DL BUN (test code = 2208) 13 MG/DL CREATININE (test code = 2214) 1.06 MG/DL eGFR AMER. (test cod e = 56882) 87 ML/MIN/1.73 eGFR NON- AMER. (test code = 22028) 75 ML/MIN/1.73 CALC BUN/CREAT (test code = 2235) 12 RATIO SODIUM (test code = 2231) 143 MEQ/L POTASSIUM (test code = 2228) 3.9 MEQ/L CHLORIDE (test code = 2215) 103 MEQ/L CARBON DIOXIDE (test code = 2206) 28 MEQ/L CALCIUM (test code = 2209) 9.2 MG/DL PROTEIN, TOTAL (test code = 2229) 7.1 G/DL ALBUMIN (test code = 2201) 4.5 G/DL CALC GLOBULIN (test code = 2240) 2.6 G/DL CALC A/G RATIO (test code = 2234) 1.7 RATIO BILIRUBIN, TOTAL (test code = 2207) 0.3 MG/DL ALKALINE PHOSPHATASE (test code = 2204) 66 U/L AST (test code = 2218) 21 U/L ALT (test code = 2219) 18 U/L HEMOGLOBIN [id number] 00:00:00* Test Item Value Reference Range Interpretation Comme nts HEMOGLOBIN A1c (test code = 23796) 7.5 % Anoop Kamara AustinLIPID [id number] 00:00:00* Test Item Value Reference Range Interpretation Comme nts CHOLESTEROL (test code = 2210) 227 MG/DL TRIGLYCERIDES (test code = 2232) 66 MG/DL HDL CHOLESTEROL (test code = 2220) 40 MG/DL CALC LDL CHOL (test code = 2237) 174 MG/DL RISK RATIO LDL/HDL (test cod e = 2238) 4.35 RATIO Anoop RiosCOMPREHENSIVE METABOLIC [id number] 00:00:00* Test Item Value Reference Range Interpretation Comme nts GLUCOSE (test code = 2217) 89 MG/DL BUN (test code = 2208) 13 MG/DL CREATININE (test code = 2214) 1.06 MG/DL eGFR AMER. (test cod e = 61583) 87 ML/MIN/1.73 eGFR NON- AMER. (test code = 98467) 75 ML/MIN/1.73 CALC BUN/CREAT (test code = 2235) 12 RATIO SODIUM (test code = 2231) 143 MEQ/L POTASSIUM (test code = 2228) 3.9 MEQ/L CHLORIDE (test code = 2215) 103 MEQ/L CARBON DIOXIDE (test code = 2206) 28 MEQ/L CALCIUM (test code = 2209) 9.2 MG/DL PROTEIN, TOTAL (test code = 2229) 7.1 G/DL ALBUMIN (test code = 2201) 4.5 G/DL CALC GLOBULIN (test code = 2240) 2.6 G/DL CALC A/G RATIO (test code = 2234) 1.7 RATIO BILIRUBIN, TOTAL (test code = 2207) 0.3 MG/DL ALKALINE PHOSPHATASE (test code = 2204) 66 U/L AST (test code = 2218) 21 U/L ALT (test code = 2219) 18 U/L Anoop RiosHEMOGLOBIN [id number] 00:00:00* Test Item Value Reference Range Interpretation Comme nts HEMOGLOBIN A1c (test code = 82768) 7.5 % Anoop Kamara AustinLIPID [id number] 00:00:00* Test Item Value Reference Range Interpretation Comme nts CHOLESTEROL (test code = 2210) 227 MG/DL TRIGLYCERIDES (test code = 2232) 66 MG/DL HDL CHOLESTEROL (test code = 2220) 40 MG/DL CALC LDL CHOL (test code = 2237) 174 MG/DL RISK RATIO LDL/HDL (test cod e = 2238) 4.35 RATIO Anoop RiosCOMPREHENSIVE METABOLIC [id number] 00:00:00* Test Item Value Reference Range Interpretation Comme nts GLUCOSE (test code = 2217) 89 MG/DL BUN (test code = 2208) 13 MG/DL CREATININE (test code = 2214) 1.06 MG/DL eGFR AMER. (test cod e = 52214) 87 ML/MIN/1.73 eGFR NON- AMER. (test code = 35356) 75 ML/MIN/1.73 CALC BUN/CREAT (test code = 2235) 12 RATIO SODIUM (test code = 2231) 143 MEQ/L POTASSIUM (test code = 2228) 3.9 MEQ/L CHLORIDE (test code = 2215) 103 MEQ/L CARBON DIOXIDE (test code = 2206) 28 MEQ/L CALCIUM (test code = 2209) 9.2 MG/DL PROTEIN, TOTAL (test code = 2229) 7.1 G/DL ALBUMIN (test code = 2201) 4.5 G/DL CALC GLOBULIN (test code = 2240) 2.6 G/DL CALC A/G RATIO (test code = 2234) 1.7 RATIO BILIRUBIN, TOTAL (test code = 2207) 0.3 MG/DL ALKALINE PHOSPHATASE (test code = 2204) 66 U/L AST (test code = 2218) 21 U/L ALT (test code = 2219) 18 U/L Anoop RiosHEMOGLOBIN [id number] 00:00:00* Test Item Value Reference Range Interpretation Comme nts HEMOGLOBIN A1c (test code = 83367) 7.5 % Anoop RiosLIPID [id number] 00:00:00* Test Item Value Reference Range Interpretation Comme nts CHOLESTEROL (test code = 2210) 227 MG/DL TRIGLYCERIDES (test code = 2232) 66 MG/DL HDL CHOLESTEROL (test code = 2220) 40 MG/DL CALC LDL CHOL (test code = 2237) 174 MG/DL RISK RATIO LDL/HDL (test cod e = 2238) 4.35 RATIO Anoop RiosCOMPREHENSIVE METABOLIC [id number] 00:00:00* Test Item Value Reference Range Interpretation Comme nts GLUCOSE (test code = 2217) 89 MG/DL BUN (test code = 2208) 13 MG/DL CREATININE (test code = 2214) 1.06 MG/DL eGFR AMER. (test cod e = 57631) 87 ML/MIN/1.73 eGFR NON- AMER. (test code = 49464) 75 ML/MIN/1.73 CALC BUN/CREAT (test code = 2235) 12 RATIO SODIUM (test code = 2231) 143 MEQ/L POTASSIUM (test code = 2228) 3.9 MEQ/L CHLORIDE (test code = 2215) 103 MEQ/L CARBON DIOXIDE (test code = 2206) 28 MEQ/L CALCIUM (test code = 2209) 9.2 MG/DL PROTEIN, TOTAL (test code = 2229) 7.1 G/DL ALBUMIN (test code = 2201) 4.5 G/DL CALC GLOBULIN (test code = 2240) 2.6 G/DL CALC A/G RATIO (test code = 2234) 1.7 RATIO BILIRUBIN, TOTAL (test code = 2207) 0.3 MG/DL ALKALINE PHOSPHATASE (test code = 2204) 66 U/L AST (test code = 2218) 21 U/L ALT (test code = 2219) 18 U/L Anoop RiosHEMOGLOBIN [id number] 00:00:00* Test Item Value Reference Range Interpretation Comme nts HEMOGLOBIN A1c (test code = 65107) 7.5 % Anoop Kamara AustinLIPID [id number] 00:00:00* Test Item Value Reference Range Interpretation Comme nts CHOLESTEROL (test code = 2210) 227 MG/DL TRIGLYCERIDES (test code = 2232) 66 MG/DL HDL CHOLESTEROL (test code = 2220) 40 MG/DL CALC LDL CHOL (test code = 2237) 174 MG/DL RISK RATIO LDL/HDL (test cod e = 2238) 4.35 RATIO Anoop RiosCOMPREHENSIVE METABOLIC [id number] 00:00:00* Test Item Value Reference Range Interpretation Comme nts GLUCOSE (test code = 2217) 89 MG/DL BUN (test code = 2208) 13 MG/DL CREATININE (test code = 2214) 1.06 MG/DL eGFR AMER. (test cod e = 86326) 87 ML/MIN/1.73 eGFR NON- AMER. (test code = 78384) 75 ML/MIN/1.73 CALC BUN/CREAT (test code = 2235) 12 RATIO SODIUM (test code = 2231) 143 MEQ/L POTASSIUM (test code = 2228) 3.9 MEQ/L CHLORIDE (test code = 2215) 103 MEQ/L CARBON DIOXIDE (test code = 2206) 28 MEQ/L CALCIUM (test code = 2209) 9.2 MG/DL PROTEIN, TOTAL (test code = 2229) 7.1 G/DL ALBUMIN (test code = 2201) 4.5 G/DL CALC GLOBULIN (test code = 2240) 2.6 G/DL CALC A/G RATIO (test code = 2234) 1.7 RATIO BILIRUBIN, TOTAL (test code = 2207) 0.3 MG/DL ALKALINE PHOSPHATASE (test code = 2204) 66 U/L AST (test code = 2218) 21 U/L ALT (test code = 2219) 18 U/L Anoop Kamara AustinHEMOGLOBIN [id number] 00:00:00* Test Item Value Reference Range Interpretation Comme nts HEMOGLOBIN A1c (test code = 50482) 7.5 % LIPID [id number] 00:00:00* Test Item Value Reference Range Interpretation Comme nts CHOLESTEROL (test code = 2210) 227 MG/DL TRIGLYCERIDES (test code = 2232) 66 MG/DL HDL CHOLESTEROL (test code = 2220) 40 MG/DL CALC LDL CHOL (test code = 2237) 174 MG/DL RISK RATIO LDL/HDL (test cod e = 2238) 4.35 RATIO COMPREHENSIVE METABOLIC [id number] 00:00:00* Test Item Value Reference Range Interpretation Comme nts GLUCOSE (test code = 2217) 89 MG/DL BUN (test code = 2208) 13 MG/DL CREATININE (test code = 2214) 1.06 MG/DL eGFR AMER. (test cod e = 90716) 87 ML/MIN/1.73 eGFR NON- AMER. (test code = 48855) 75 ML/MIN/1.73 CALC BUN/CREAT (test code = 2235) 12 RATIO SODIUM (test code = 2231) 143 MEQ/L POTASSIUM (test code = 2228) 3.9 MEQ/L CHLORIDE (test code = 2215) 103 MEQ/L CARBON DIOXIDE (test code = 2206) 28 MEQ/L CALCIUM (test code = 2209) 9.2 MG/DL PROTEIN, TOTAL (test code = 2229) 7.1 G/DL ALBUMIN (test code = 2201) 4.5 G/DL CALC GLOBULIN (test code = 2240) 2.6 G/DL CALC A/G RATIO (test code = 2234) 1.7 RATIO BILIRUBIN, TOTAL (test code = 2207) 0.3 MG/DL ALKALINE PHOSPHATASE (test code = 2204) 66 U/L AST (test code = 2218) 21 U/L ALT (test code = 2219) 18 U/L HEMOGLOBIN [id number] 00:00:00* Test Item Value Reference Range Interpretation Comme nts HEMOGLOBIN A1c (test code = 47816) 7.5 % LIPID [id number] 00:00:00* Test Item Value Reference Range Interpretation Comme nts CHOLESTEROL (test code = 2210) 227 MG/DL TRIGLYCERIDES (test code = 2232) 66 MG/DL HDL CHOLESTEROL (test code = 2220) 40 MG/DL CALC LDL CHOL (test code = 2237) 174 MG/DL RISK RATIO LDL/HDL (test cod e = 2238) 4.35 RATIO COMPREHENSIVE METABOLIC [id number] 00:00:00* Test Item Value Reference Range Interpretation Comme nts GLUCOSE (test code = 2217) 89 MG/DL BUN (test code = 2208) 13 MG/DL CREATININE (test code = 2214) 1.06 MG/DL eGFR AMER. (test cod e = 24398) 87 ML/MIN/1.73 eGFR NON- AMER. (test code = 91804) 75 ML/MIN/1.73 CALC BUN/CREAT (test code = 2235) 12 RATIO SODIUM (test code = 2231) 143 MEQ/L POTASSIUM (test code = 2228) 3.9 MEQ/L CHLORIDE (test code = 2215) 103 MEQ/L CARBON DIOXIDE (test code = 2206) 28 MEQ/L CALCIUM (test code = 2209) 9.2 MG/DL PROTEIN, TOTAL (test code = 2229) 7.1 G/DL ALBUMIN (test code = 2201) 4.5 G/DL CALC GLOBULIN (test code = 2240) 2.6 G/DL CALC A/G RATIO (test code = 2234) 1.7 RATIO BILIRUBIN, TOTAL (test code = 2207) 0.3 MG/DL ALKALINE PHOSPHATASE (test code = 2204) 66 U/L AST (test code = 2218) 21 U/L ALT (test code = 2219) 18 U/L LIPID [id number] 00:00:00* Test Item Value Reference Range Interpretation Comme nts CHOLESTEROL (test code = 2210) 207 MG/DL TRIGLYCERIDES (test code = 2232) 274 MG/DL HDL CHOLESTEROL (test code = 2220) 37 MG/DL CALC LDL CHOL (test code = 2237) 115 MG/DL RISK RATIO LDL/HDL (test cod e = 2238) 3.11 RATIO LIPID [id number] 00:00:00* Test Item Value Reference Range Interpretation Comme nts CHOLESTEROL (test code = 2210) 207 MG/DL TRIGLYCERIDES (test code = 2232) 274 MG/DL HDL CHOLESTEROL (test code = 2220) 37 MG/DL CALC LDL CHOL (test code = 2237) 115 MG/DL RISK RATIO LDL/HDL (test cod e = 2238) 3.11 RATIO LIPID [id number] 00:00:00* Test Item Value Reference Range Interpretation Comme nts CHOLESTEROL (test code = 2210) 207 MG/DL TRIGLYCERIDES (test code = 2232) 274 MG/DL HDL CHOLESTEROL (test code = 2220) 37 MG/DL CALC LDL CHOL (test code = 2237) 115 MG/DL RISK RATIO LDL/HDL (test cod e = 2238) 3.11 RATIO Anoop F AustinLIPID [id number] 00:00:00* Test Item Value Reference Range Interpretation Comme nts CHOLESTEROL (test code = 2210) 207 MG/DL TRIGLYCERIDES (test code = 2232) 274 MG/DL HDL CHOLESTEROL (test code = 2220) 37 MG/DL CALC LDL CHOL (test code = 2237) 115 MG/DL RISK RATIO LDL/HDL (test cod e = 2238) 3.11 RATIO Anoop F AustinLIPID [id number] 00:00:00* Test Item Value Reference Range Interpretation Comme nts CHOLESTEROL (test code = 2210) 207 MG/DL TRIGLYCERIDES (test code = 2232) 274 MG/DL HDL CHOLESTEROL (test code = 2220) 37 MG/DL CALC LDL CHOL (test code = 2237) 115 MG/DL RISK RATIO LDL/HDL (test cod e = 2238) 3.11 RATIO Anoop RiosLIPID [id number] 00:00:00* Test Item Value Reference Range Interpretation Comme nts CHOLESTEROL (test code = 2210) 207 MG/DL TRIGLYCERIDES (test code = 2232) 274 MG/DL HDL CHOLESTEROL (test code = 2220) 37 MG/DL CALC LDL CHOL (test code = 2237) 115 MG/DL RISK RATIO LDL/HDL (test cod e = 2238) 3.11 RATIO Anoop RiosLIPID [id number] 00:00:00* Test Item Value Reference Range Interpretation Comme nts CHOLESTEROL (test code = 2210) 207 MG/DL TRIGLYCERIDES (test code = 2232) 274 MG/DL HDL CHOLESTEROL (test code = 2220) 37 MG/DL CALC LDL CHOL (test code = 2237) 115 MG/DL RISK RATIO LDL/HDL (test cod e = 2238) 3.11 RATIO LIPID [id number] 00:00:00* Test Item Value Reference Range Interpretation Comme nts CHOLESTEROL (test code = 2210) 207 MG/DL TRIGLYCERIDES (test code = 2232) 274 MG/DL HDL CHOLESTEROL (test code = 2220) 37 MG/DL CALC LDL CHOL (test code = 2237) 115 MG/DL RISK RATIO LDL/HDL (test cod e = 2238) 3.11 RATIO PSA, [id number] 00:00:00* Test Item Value Reference Range Interpretation Comme nts PSA, TOTAL (test code = 2606) 2.45 NG/ML PSA, [id number] 00:00:00* Test Item Value Reference Range Interpretation Comme nts PSA, TOTAL (test code = 2606) 2.45 NG/ML PSA, [id number] 00:00:00* Test Item Value Reference Range Interpretation Comme nts PSA, TOTAL (test code = 2606) 2.45 NG/ML Anoop Kamara AustinPSA, [id number] 00:00:00* Test Item Value Reference Range Interpretation Comme nts PSA, TOTAL (test code = 2606) 2.45 NG/ML Anoop PorterA, [id number] 00:00:00* Test Item Value Reference Range Interpretation Comme nts PSA, TOTAL (test code = 2606) 2.45 NG/ML Anoop RiosPSA, [id number] 00:00:00* Test Item Value Reference Range Interpretation Comme nts PSA, TOTAL (test code = 2606) 2.45 NG/ML Anoop RoisPSA, [id number] 00:00:00* Test Item Value Reference Range Interpretation Comme nts PSA, TOTAL (test code = 2606) 2.45 NG/ML PSA, [id number] 00:00:00* Test Item Value Reference Range Interpretation Comme nts PSA, TOTAL (test code = 2606) 2.45 NG/ML COMPREHENSIVE METABOLIC [id number] 00:00:00* Test Item Value Reference Range Interpretation Comme nts GLUCOSE (test code = 2217) 123 MG/DL BUN (test code = 2208) 12 MG/DL CREATININE (test code = 2214) 1.03 MG/DL eGFR AMER. (test cod e = 50065) 91 ML/MIN/1.73 eGFR NON- AMER. (test code = 77661) 79 ML/MIN/1.73 CALC BUN/CREAT (test code = 2235) 12 RATIO SODIUM (test code = 2231) 141 MEQ/L POTASSIUM (test code = 2228) 5.2 MEQ/L CHLORIDE (test code = 2215) 97 MEQ/L CARBON DIOXIDE (test code = 2206) 27 MEQ/L CALCIUM (test code = 2209) 10.0 MG/DL PROTEIN, TOTAL (test code = 2229) 8.1 G/DL ALBUMIN (test code = 2201) 4.4 G/DL CALC GLOBULIN (test code = 2240) 3.7 G/DL CALC A/G RATIO (test code = 2234) 1.2 RATIO BILIRUBIN, TOTAL (test code = 2207) 0.2 MG/DL ALKALINE PHOSPHATASE (test code = 2204) 95 U/L AST (test code = 2218) 18 U/L ALT (test code = 2219) 11 U/L HEMOGLOBIN [id number] 00:00:00* Test Item Value Reference Range Interpretation Comme nts HEMOGLOBIN A1c (test code = 98221) 6.8 % COMPREHENSIVE METABOLIC [id number] 00:00:00* Test Item Value Reference Range Interpretation Comme nts GLUCOSE (test code = 2217) 123 MG/DL BUN (test code = 2208) 12 MG/DL CREATININE (test code = 2214) 1.03 MG/DL eGFR AMER. (test cod e = 13146) 91 ML/MIN/1.73 eGFR NON- AMER. (test code = 76908) 79 ML/MIN/1.73 CALC BUN/CREAT (test code = 2235) 12 RATIO SODIUM (test code = 2231) 141 MEQ/L POTASSIUM (test code = 2228) 5.2 MEQ/L CHLORIDE (test code = 2215) 97 MEQ/L CARBON DIOXIDE (test code = 2206) 27 MEQ/L CALCIUM (test code = 2209) 10.0 MG/DL PROTEIN, TOTAL (test code = 2229) 8.1 G/DL ALBUMIN (test code = 2201) 4.4 G/DL CALC GLOBULIN (test code = 2240) 3.7 G/DL CALC A/G RATIO (test code = 2234) 1.2 RATIO BILIRUBIN, TOTAL (test code = 2207) 0.2 MG/DL ALKALINE PHOSPHATASE (test code = 2204) 95 U/L AST (test code = 2218) 18 U/L ALT (test code = 2219) 11 U/L HEMOGLOBIN [id number] 00:00:00* Test Item Value Reference Range Interpretation Comme nts HEMOGLOBIN A1c (test code = 86030) 6.8 % COMPREHENSIVE METABOLIC [id number] 00:00:00* Test Item Value Reference Range Interpretation Comme nts GLUCOSE (test code = 2217) 123 MG/DL BUN (test code = 2208) 12 MG/DL CREATININE (test code = 2214) 1.03 MG/DL eGFR AMER. (test cod e = 27065) 91 ML/MIN/1.73 eGFR NON- AMER. (test code = 66838) 79 ML/MIN/1.73 CALC BUN/CREAT (test code = 2235) 12 RATIO SODIUM (test code = 2231) 141 MEQ/L POTASSIUM (test code = 2228) 5.2 MEQ/L CHLORIDE (test code = 2215) 97 MEQ/L CARBON DIOXIDE (test code = 2206) 27 MEQ/L CALCIUM (test code = 2209) 10.0 MG/DL PROTEIN, TOTAL (test code = 2229) 8.1 G/DL ALBUMIN (test code = 2201) 4.4 G/DL CALC GLOBULIN (test code = 2240) 3.7 G/DL CALC A/G RATIO (test code = 2234) 1.2 RATIO BILIRUBIN, TOTAL (test code = 2207) 0.2 MG/DL ALKALINE PHOSPHATASE (test code = 2204) 95 U/L AST (test code = 2218) 18 U/L ALT (test code = 2219) 11 U/L Anoop RiosHEMOGLOBIN [id number] 00:00:00* Test Item Value Reference Range Interpretation Comme nts HEMOGLOBIN A1c (test code = 42720) 6.8 % Anoop RiosCOMPREHENSIVE METABOLIC [id number] 00:00:00* Test Item Value Reference Range Interpretation Comme nts GLUCOSE (test code = 2217) 123 MG/DL BUN (test code = 2208) 12 MG/DL CREATININE (test code = 2214) 1.03 MG/DL eGFR AMER. (test cod e = 89399) 91 ML/MIN/1.73 eGFR NON- AMER. (test code = 32785) 79 ML/MIN/1.73 CALC BUN/CREAT (test code = 2235) 12 RATIO SODIUM (test code = 2231) 141 MEQ/L POTASSIUM (test code = 2228) 5.2 MEQ/L CHLORIDE (test code = 2215) 97 MEQ/L CARBON DIOXIDE (test code = 2206) 27 MEQ/L CALCIUM (test code = 2209) 10.0 MG/DL PROTEIN, TOTAL (test code = 2229) 8.1 G/DL ALBUMIN (test code = 2201) 4.4 G/DL CALC GLOBULIN (test code = 2240) 3.7 G/DL CALC A/G RATIO (test code = 2234) 1.2 RATIO BILIRUBIN, TOTAL (test code = 2207) 0.2 MG/DL ALKALINE PHOSPHATASE (test code = 2204) 95 U/L AST (test code = 2218) 18 U/L ALT (test code = 2219) 11 U/L Anoop RiosHEMOGLOBIN [id number] 00:00:00* Test Item Value Reference Range Interpretation Comme nts HEMOGLOBIN A1c (test code = 44030) 6.8 % Anoop RiosCOMPREHENSIVE METABOLIC [id number] 00:00:00* Test Item Value Reference Range Interpretation Comme nts GLUCOSE (test code = 2217) 123 MG/DL BUN (test code = 2208) 12 MG/DL CREATININE (test code = 2214) 1.03 MG/DL eGFR AMER. (test cod e = 46490) 91 ML/MIN/1.73 eGFR NON- AMER. (test code = 79941) 79 ML/MIN/1.73 CALC BUN/CREAT (test code = 2235) 12 RATIO SODIUM (test code = 2231) 141 MEQ/L POTASSIUM (test code = 2228) 5.2 MEQ/L CHLORIDE (test code = 2215) 97 MEQ/L CARBON DIOXIDE (test code = 2206) 27 MEQ/L CALCIUM (test code = 2209) 10.0 MG/DL PROTEIN, TOTAL (test code = 2229) 8.1 G/DL ALBUMIN (test code = 2201) 4.4 G/DL CALC GLOBULIN (test code = 2240) 3.7 G/DL CALC A/G RATIO (test code = 2234) 1.2 RATIO BILIRUBIN, TOTAL (test code = 2207) 0.2 MG/DL ALKALINE PHOSPHATASE (test code = 2204) 95 U/L AST (test code = 2218) 18 U/L ALT (test code = 2219) 11 U/L Anoop RiosHEMOGLOBIN [id number] 00:00:00* Test Item Value Reference Range Interpretation Comme cindy HEMOGLOBIN A1c (test code = 80096) 6.8 % Anoop Kamara AustinCOMPREHENSIVE METABOLIC [id number] 00:00:00* Test Item Value Reference Range Interpretation Comme nts GLUCOSE (test code = 2217) 123 MG/DL BUN (test code = 2208) 12 MG/DL CREATININE (test code = 2214) 1.03 MG/DL eGFR AMER. (test cod e = 67762) 91 ML/MIN/1.73 eGFR NON- AMER. (test code = 34468) 79 ML/MIN/1.73 CALC BUN/CREAT (test code = 2235) 12 RATIO SODIUM (test code = 2231) 141 MEQ/L POTASSIUM (test code = 2228) 5.2 MEQ/L CHLORIDE (test code = 2215) 97 MEQ/L CARBON DIOXIDE (test code = 2206) 27 MEQ/L CALCIUM (test code = 2209) 10.0 MG/DL PROTEIN, TOTAL (test code = 2229) 8.1 G/DL ALBUMIN (test code = 2201) 4.4 G/DL CALC GLOBULIN (test code = 2240) 3.7 G/DL CALC A/G RATIO (test code = 2234) 1.2 RATIO BILIRUBIN, TOTAL (test code = 2207) 0.2 MG/DL ALKALINE PHOSPHATASE (test code = 2204) 95 U/L AST (test code = 2218) 18 U/L ALT (test code = 2219) 11 U/L Anoop Kamara AxisHEMOGLOBIN [id number] 00:00:00* Test Item Value Reference Range Interpretation Comme [facility] HEMOGLOBIN A1c (test code = 17606) 6.8 % Anoop Kamara AxisCOMPREHENSIVE METABOLIC [id number] 00:00:00* Test Item Value Reference Range Interpretation Comme nts GLUCOSE (test code = 2217) 123 MG/DL BUN (test code = 2208) 12 MG/DL CREATININE (test code = 2214) 1.03 MG/DL eGFR AMER. (test cod e = 45519) 91 ML/MIN/1.73 eGFR NON- AMER. (test code = 83427) 79 ML/MIN/1.73 CALC BUN/CREAT (test code = 2235) 12 RATIO SODIUM (test code = 2231) 141 MEQ/L POTASSIUM (test code = 2228) 5.2 MEQ/L CHLORIDE (test code = 2215) 97 MEQ/L CARBON DIOXIDE (test code = 2206) 27 MEQ/L CALCIUM (test code = 2209) 10.0 MG/DL PROTEIN, TOTAL (test code = 2229) 8.1 G/DL ALBUMIN (test code = 2201) 4.4 G/DL CALC GLOBULIN (test code = 2240) 3.7 G/DL CALC A/G RATIO (test code = 2234) 1.2 RATIO BILIRUBIN, TOTAL (test code = 2207) 0.2 MG/DL ALKALINE PHOSPHATASE (test code = 2204) 95 U/L AST (test code = 2218) 18 U/L ALT (test code = 2219) 11 U/L HEMOGLOBIN [id number] 00:00:00* Test Item Value Reference Range Interpretation Comme nts HEMOGLOBIN A1c (test code = 50301) 6.8 % COMPREHENSIVE METABOLIC [id number] 00:00:00* Test Item Value Reference Range Interpretation Comme nts GLUCOSE (test code = 2217) 123 MG/DL BUN (test code = 2208) 12 MG/DL CREATININE (test code = 2214) 1.03 MG/DL eGFR AMER. (test cod e = 05593) 91 ML/MIN/1.73 eGFR NON- AMER. (test code = 30548) 79 ML/MIN/1.73 CALC BUN/CREAT (test code = 2235) 12 RATIO SODIUM (test code = 2231) 141 MEQ/L POTASSIUM (test code = 2228) 5.2 MEQ/L CHLORIDE (test code = 2215) 97 MEQ/L CARBON DIOXIDE (test code = 2206) 27 MEQ/L CALCIUM (test code = 2209) 10.0 MG/DL PROTEIN, TOTAL (test code = 2229) 8.1 G/DL ALBUMIN (test code = 2201) 4.4 G/DL CALC GLOBULIN (test code = 2240) 3.7 G/DL CALC A/G RATIO (test code = 2234) 1.2 RATIO BILIRUBIN, TOTAL (test code = 2207) 0.2 MG/DL ALKALINE PHOSPHATASE (test code = 2204) 95 U/L AST (test code = 2218) 18 U/L ALT (test code = 2219) 11 U/L HEMOGLOBIN [id number] 00:00:00* Test Item Value Reference Range Interpretation Comme nts HEMOGLOBIN A1c (test code = 48476) 6.8 % [id number] 00:00:00* Test Item Value Reference Range Interpretation Comme nts TSH (test code = 2821) 0.960 UIU/ML PSA, [id number] 00:00:00* Test Item Value Reference Range Interpretation Comme nts PSA, TOTAL (test code = 2606) 15.63 NG/ML COMPREHENSIVE METABOLIC [id number] 00:00:00* Test Item Value Reference Range Interpretation Comme nts GLUCOSE (test code = 2217) 147 MG/DL BUN (test code = 2208) 8 MG/DL CREATININE (test code = 2214) 0.91 MG/DL eGFR AMER. (test cod e = 70007) 106 ML/MIN/1.73 eGFR NON- AMER. (test code = 38634) 91 ML/MIN/1.73 CALC BUN/CREAT (test code = 2235) 9 RATIO SODIUM (test code = 2231) 136 MEQ/L POTASSIUM (test code = 2228) 4.3 MEQ/L CHLORIDE (test code = 2215) 94 MEQ/L CARBON DIOXIDE (test code = 2206) 28 MEQ/L CALCIUM (test code = 2209) 9.3 MG/DL PROTEIN, TOTAL (test code = 2229) 8.0 G/DL ALBUMIN (test code = 2201) 4.1 G/DL CALC GLOBULIN (test code = 2240) 3.9 G/DL CALC A/G RATIO (test code = 2234) 1.1 RATIO BILIRUBIN, TOTAL (test code = 2207) 0.3 MG/DL ALKALINE PHOSPHATASE (test code = 2204) 92 U/L AST (test code = 2218) 20 U/L ALT (test code = 2219) 27 U/L LIPID [id number] 00:00:00* Test Item Value Reference Range Interpretation Comme nts CHOLESTEROL (test code = 2210) 210 MG/DL TRIGLYCERIDES (test code = 2232) 126 MG/DL HDL CHOLESTEROL (test code = 2220) 32 MG/DL CALC LDL CHOL (test code = 2237) 153 MG/DL RISK RATIO LDL/HDL (test cod e = 2238) 4.78 RATIO CBC W/AUTO [id number] 00:00:00* Test Item Value Reference Range Interpretation Comme nts WBC (test code = 1001) 7.7 K/UL [...] (test code = 1015) 527 K/UL HEMOGLOBIN [id number] 00:00:00* Test Item Value Reference Range Interpretation Comme nts HEMOGLOBIN A1c (test code = 09639) 8.9 % [id number] 00:00:00* Test Item Value Reference Range Interpretation Comme nts TSH (test code = 2821) 0.960 UIU/ML PSA, [id number] 00:00:00* Test Item Value Reference Range Interpretation Comme nts PSA, TOTAL (test code = 2606) 15.63 NG/ML COMPREHENSIVE METABOLIC [id number] 00:00:00* Test Item Value Reference Range Interpretation Comme nts GLUCOSE (test code = 2217) 147 MG/DL BUN (test code = 2208) 8 MG/DL CREATININE (test code = 2214) 0.91 MG/DL eGFR AMER. (test cod e = 86162) 106 ML/MIN/1.73 eGFR NON- AMER. (test code = 51152) 91 ML/MIN/1.73 CALC BUN/CREAT (test code = 2235) 9 RATIO SODIUM (test code = 2231) 136 MEQ/L POTASSIUM (test code = 2228) 4.3 MEQ/L CHLORIDE (test code = 2215) 94 MEQ/L CARBON DIOXIDE (test code = 2206) 28 MEQ/L CALCIUM (test code = 2209) 9.3 MG/DL PROTEIN, TOTAL (test code = 2229) 8.0 G/DL ALBUMIN (test code = 2201) 4.1 G/DL CALC GLOBULIN (test code = 2240) 3.9 G/DL CALC A/G RATIO (test code = 2234) 1.1 RATIO BILIRUBIN, TOTAL (test code = 2207) 0.3 MG/DL ALKALINE PHOSPHATASE (test code = 2204) 92 U/L AST (test code = 2218) 20 U/L ALT (test code = 2219) 27 U/L LIPID [id number] 00:00:00* Test Item Value Reference Range Interpretation Comme nts CHOLESTEROL (test code = 2210) 210 MG/DL TRIGLYCERIDES (test code = 2232) 126 MG/DL HDL CHOLESTEROL (test code = 2220) 32 MG/DL CALC LDL CHOL (test code = 2237) 153 MG/DL RISK RATIO LDL/HDL (test cod e = 2238) 4.78 RATIO CBC W/AUTO [id number] 00:00:00* Test Item Value Reference Range Interpretation Comme nts WBC (test code = 1001) 7.7 K/UL [...] (test code = 1015) 527 K/UL HEMOGLOBIN [id number] 00:00:00* Test Item Value Reference Range Interpretation Comme nts HEMOGLOBIN A1c (test code = 21997) 8.9 % [id number] 00:00:00* Test Item Value Reference Range Interpretation Comme nts TSH (test code = 2821) 0.960 UIU/ML PSA, [id number] 00:00:00* Test Item Value Reference Range Interpretation Comme nts PSA, TOTAL (test code = 2606) 15.63 NG/ML COMPREHENSIVE METABOLIC [id number] 00:00:00* Test Item Value Reference Range Interpretation Comme nts GLUCOSE (test code = 2217) 147 MG/DL BUN (test code = 2208) 8 MG/DL CREATININE (test code = 2214) 0.91 MG/DL eGFR AMER. (test cod e = 61814) 106 ML/MIN/1.73 eGFR NON- AMER. (test code = 26982) 91 ML/MIN/1.73 CALC BUN/CREAT (test code = 2235) 9 RATIO SODIUM (test code = 2231) 136 MEQ/L POTASSIUM (test code = 2228) 4.3 MEQ/L CHLORIDE (test code = 2215) 94 MEQ/L CARBON DIOXIDE (test code = 2206) 28 MEQ/L CALCIUM (test code = 2209) 9.3 MG/DL PROTEIN, TOTAL (test code = 2229) 8.0 G/DL ALBUMIN (test code = 2201) 4.1 G/DL CALC GLOBULIN (test code = 2240) 3.9 G/DL CALC A/G RATIO (test code = 2234) 1.1 RATIO BILIRUBIN, TOTAL (test code = 2207) 0.3 MG/DL ALKALINE PHOSPHATASE (test code = 2204) 92 U/L AST (test code = 2218) 20 U/L ALT (test code = 2219) 27 U/L Anoop RiosLIPID [id number] 00:00:00* Test Item Value Reference Range Interpretation Comme nts CHOLESTEROL (test code = 2210) 210 MG/DL TRIGLYCERIDES (test code = 2232) 126 MG/DL HDL CHOLESTEROL (test code = 2220) 32 MG/DL CALC LDL CHOL (test code = 2237) 153 MG/DL RISK RATIO LDL/HDL (test cod e = 2238) 4.78 RATIO Anoop Anh GabrielCBC W/AUTO [id number] 00:00:00* Test Item Value Reference Range Interpretation Comme nts WBC (test code = 1001) 7.7 K/UL [...] COUNT (test code = 1015) 527 K/UL Anoop RiosHEMOGLOBIN [id number] 00:00:00* Test Item Value Reference Range Interpretation Comme cindy HEMOGLOBIN A1c (test code = 86509) 8.9 % Anoop [id number] 00:00:00* Test Item Value Reference Range Interpretation Comme nts TSH (test code = 2821) 0.960 UIU/ML Anoop RiosPSA, [id number] 00:00:00* Test Item Value Reference Range Interpretation Comme nts PSA, TOTAL (test code = 2606) 15.63 NG/ML Anoop RiosCOMPREHENSIVE METABOLIC [id number] 00:00:00* Test Item Value Reference Range Interpretation Comme nts GLUCOSE (test code = 2217) 147 MG/DL BUN (test code = 2208) 8 MG/DL CREATININE (test code = 2214) 0.91 MG/DL eGFR AMER. (test cod e = 26167) 106 ML/MIN/1.73 eGFR NON- AMER. (test code = 76673) 91 ML/MIN/1.73 CALC BUN/CREAT (test code = 2235) 9 RATIO SODIUM (test code = 2231) 136 MEQ/L POTASSIUM (test code = 2228) 4.3 MEQ/L CHLORIDE (test code = 2215) 94 MEQ/L CARBON DIOXIDE (test code = 2206) 28 MEQ/L CALCIUM (test code = 2209) 9.3 MG/DL PROTEIN, TOTAL (test code = 2229) 8.0 G/DL ALBUMIN (test code = 2201) 4.1 G/DL CALC GLOBULIN (test code = 2240) 3.9 G/DL CALC A/G RATIO (test code = 2234) 1.1 RATIO BILIRUBIN, TOTAL (test code = 2207) 0.3 MG/DL ALKALINE PHOSPHATASE (test code = 2204) 92 U/L AST (test code = 2218) 20 U/L ALT (test code = 2219) 27 U/L Anoop RiosLIPID [id number] 00:00:00* Test Item Value Reference Range Interpretation Comme nts CHOLESTEROL (test code = 2210) 210 MG/DL TRIGLYCERIDES (test code = 2232) 126 MG/DL HDL CHOLESTEROL (test code = 2220) 32 MG/DL CALC LDL CHOL (test code = 2237) 153 MG/DL RISK RATIO LDL/HDL (test cod e = 2238) 4.78 RATIO Anoop RiosCBC W/AUTO [id number] 00:00:00* Test Item Value Reference Range Interpretation Comme nts WBC (test code = 1001) 7.7 K/UL [...] COUNT (test code = 1015) 527 K/UL Anoop RiosHEMOGLOBIN [id number] 00:00:00* Test Item Value Reference Range Interpretation Comme cindy HEMOGLOBIN A1c (test code = 42935) 8.9 % Anoop [id number] 00:00:00* Test Item Value Reference Range Interpretation Comme nts TSH (test code = 2821) 0.960 UIU/ML Anoop RiosPSA, [id number] 00:00:00* Test Item Value Reference Range Interpretation Comme nts PSA, TOTAL (test code = 2606) 15.63 NG/ML Anoop RiosCOMPREHENSIVE METABOLIC [id number] 00:00:00* Test Item Value Reference Range Interpretation Comme nts GLUCOSE (test code = 2217) 147 MG/DL BUN (test code = 2208) 8 MG/DL CREATININE (test code = 2214) 0.91 MG/DL eGFR AMER. (test cod e = 28794) 106 ML/MIN/1.73 eGFR NON- AMER. (test code = 01000) 91 ML/MIN/1.73 CALC BUN/CREAT (test code = 2235) 9 RATIO SODIUM (test code = 2231) 136 MEQ/L POTASSIUM (test code = 2228) 4.3 MEQ/L CHLORIDE (test code = 2215) 94 MEQ/L CARBON DIOXIDE (test code = 2206) 28 MEQ/L CALCIUM (test code = 2209) 9.3 MG/DL PROTEIN, TOTAL (test code = 2229) 8.0 G/DL ALBUMIN (test code = 2201) 4.1 G/DL CALC GLOBULIN (test code = 2240) 3.9 G/DL CALC A/G RATIO (test code = 2234) 1.1 RATIO BILIRUBIN, TOTAL (test code = 2207) 0.3 MG/DL ALKALINE PHOSPHATASE (test code = 2204) 92 U/L AST (test code = 2218) 20 U/L ALT (test code = 2219) 27 U/L Anoop RiosLIPID [id number] 00:00:00* Test Item Value Reference Range Interpretation Comme nts CHOLESTEROL (test code = 2210) 210 MG/DL TRIGLYCERIDES (test code = 2232) 126 MG/DL HDL CHOLESTEROL (test code = 2220) 32 MG/DL CALC LDL CHOL (test code = 2237) 153 MG/DL RISK RATIO LDL/HDL (test cod e = 2238) 4.78 RATIO Anoop RiosCBC W/AUTO [id number] 00:00:00* Test Item Value Reference Range Interpretation Comme nts WBC (test code = 1001) 7.7 K/UL [...] COUNT (test code = 1015) 527 K/UL Anoop RiosHEMOGLOBIN [id number] 00:00:00* Test Item Value Reference Range Interpretation Comme nts HEMOGLOBIN A1c (test code = 05157) 8.9 % Anoop [id number] 00:00:00* Test Item Value Reference Range Interpretation Comme nts TSH (test code = 2821) 0.960 UIU/ML Anoop RiosPSA, [id number] 00:00:00* Test Item Value Reference Range Interpretation Comme nts PSA, TOTAL (test code = 2606) 15.63 NG/ML Anoop RiosCOMPREHENSIVE METABOLIC [id number] 00:00:00* Test Item Value Reference Range Interpretation Comme nts GLUCOSE (test code = 2217) 147 MG/DL BUN (test code = 2208) 8 MG/DL CREATININE (test code = 2214) 0.91 MG/DL eGFR AMER. (test cod e = 21468) 106 ML/MIN/1.73 eGFR NON- AMER. (test code = 82190) 91 ML/MIN/1.73 CALC BUN/CREAT (test code = 2235) 9 RATIO SODIUM (test code = 2231) 136 MEQ/L POTASSIUM (test code = 2228) 4.3 MEQ/L CHLORIDE (test code = 2215) 94 MEQ/L CARBON DIOXIDE (test code = 2206) 28 MEQ/L CALCIUM (test code = 2209) 9.3 MG/DL PROTEIN, TOTAL (test code = 2229) 8.0 G/DL ALBUMIN (test code = 2201) 4.1 G/DL CALC GLOBULIN (test code = 2240) 3.9 G/DL CALC A/G RATIO (test code = 2234) 1.1 RATIO BILIRUBIN, TOTAL (test code = 2207) 0.3 MG/DL ALKALINE PHOSPHATASE (test code = 2204) 92 U/L AST (test code = 2218) 20 U/L ALT (test code = 2219) 27 U/L Anoop RiosLIPID [id number] 00:00:00* Test Item Value Reference Range Interpretation Comme nts CHOLESTEROL (test code = 2210) 210 MG/DL TRIGLYCERIDES (test code = 2232) 126 MG/DL HDL CHOLESTEROL (test code = 2220) 32 MG/DL CALC LDL CHOL (test code = 2237) 153 MG/DL RISK RATIO LDL/HDL (test cod e = 2238) 4.78 RATIO Anoop RiosCBC W/AUTO [id number] 00:00:00* Test Item Value Reference Range Interpretation Comme nts WBC (test code = 1001) 7.7 K/UL [...] COUNT (test code = 1015) 527 K/UL Anoop RiosHEMOGLOBIN [id number] 00:00:00* Test Item Value Reference Range Interpretation Comme cindy HEMOGLOBIN A1c (test code = 75655) 8.9 % Anoop [id number] 00:00:00* Test Item Value Reference Range Interpretation Comme cindy TSH (test code = 2821) 0.960 UIU/ML Anoop RiosPSA, [id number] 00:00:00* Test Item Value Reference Range Interpretation Comme cindy PSA, TOTAL (test code = 2606) 15.63 NG/ML Anoop RiosCOMPREHENSIVE METABOLIC [id number] 00:00:00* Test Item Value Reference Range Interpretation Comme nts GLUCOSE (test code = 2217) 147 MG/DL BUN (test code = 2208) 8 MG/DL CREATININE (test code = 2214) 0.91 MG/DL eGFR AMER. (test cod e = 93527) 106 ML/MIN/1.73 eGFR NON- AMER. (test code = 01896) 91 ML/MIN/1.73 CALC BUN/CREAT (test code = 2235) 9 RATIO SODIUM (test code = 2231) 136 MEQ/L POTASSIUM (test code = 2228) 4.3 MEQ/L CHLORIDE (test code = 2215) 94 MEQ/L CARBON DIOXIDE (test code = 2206) 28 MEQ/L CALCIUM (test code = 2209) 9.3 MG/DL PROTEIN, TOTAL (test code = 2229) 8.0 G/DL ALBUMIN (test code = 2201) 4.1 G/DL CALC GLOBULIN (test code = 2240) 3.9 G/DL CALC A/G RATIO (test code = 2234) 1.1 RATIO BILIRUBIN, TOTAL (test code = 2207) 0.3 MG/DL ALKALINE PHOSPHATASE (test code = 2204) 92 U/L AST (test code = 2218) 20 U/L ALT (test code = 2219) 27 U/L LIPID [id number] 00:00:00* Test Item Value Reference Range Interpretation Comme nts CHOLESTEROL (test code = 2210) 210 MG/DL TRIGLYCERIDES (test code = 2232) 126 MG/DL HDL CHOLESTEROL (test code = 2220) 32 MG/DL CALC LDL CHOL (test code = 2237) 153 MG/DL RISK RATIO LDL/HDL (test cod e = 2238) 4.78 RATIO CBC W/AUTO [id number] 00:00:00* Test Item Value Reference Range Interpretation Comme nts WBC (test code = 1001) 7.7 K/UL [...] (test code = 1015) 527 K/UL HEMOGLOBIN [id number] 00:00:00* Test Item Value Reference Range Interpretation Comme nts HEMOGLOBIN A1c (test code = 00964) 8.9 % [id number] 00:00:00* Test Item Value Reference Range Interpretation Comme nts TSH (test code = 2821) 0.960 UIU/ML PSA, [id number] 00:00:00* Test Item Value Reference Range Interpretation Comme nts PSA, TOTAL (test code = 2606) 15.63 NG/ML COMPREHENSIVE METABOLIC [id number] 00:00:00* Test Item Value Reference Range Interpretation Comme nts GLUCOSE (test code = 2217) 147 MG/DL BUN (test code = 2208) 8 MG/DL CREATININE (test code = 2214) 0.91 MG/DL eGFR AMER. (test cod e = 50704) 106 ML/MIN/1.73 eGFR NON- AMER. (test code = 34377) 91 ML/MIN/1.73 CALC BUN/CREAT (test code = 2235) 9 RATIO SODIUM (test code = 2231) 136 MEQ/L POTASSIUM (test code = 2228) 4.3 MEQ/L CHLORIDE (test code = 2215) 94 MEQ/L CARBON DIOXIDE (test code = 2206) 28 MEQ/L CALCIUM (test code = 2209) 9.3 MG/DL PROTEIN, TOTAL (test code = 2229) 8.0 G/DL ALBUMIN (test code = 2201) 4.1 G/DL CALC GLOBULIN (test code = 2240) 3.9 G/DL CALC A/G RATIO (test code = 2234) 1.1 RATIO BILIRUBIN, TOTAL (test code = 2207) 0.3 MG/DL ALKALINE PHOSPHATASE (test code = 2204) 92 U/L AST (test code = 2218) 20 U/L ALT (test code = 2219) 27 U/L LIPID [id number] 00:00:00* Test Item Value Reference Range Interpretation Comme nts CHOLESTEROL (test code = 2210) 210 MG/DL TRIGLYCERIDES (test code = 2232) 126 MG/DL HDL CHOLESTEROL (test code = 2220) 32 MG/DL CALC LDL CHOL (test code = 2237) 153 MG/DL RISK RATIO LDL/HDL (test cod e = 2238) 4.78 RATIO CBC W/AUTO [id number] 00:00:00* Test Item Value Reference Range Interpretation Comme nts WBC (test code = 1001) 7.7 K/UL [...] (test code = 1015) 527 K/UL HEMOGLOBIN [id number] 00:00:00* Test Item Value Reference Range Interpretation Comme nts HEMOGLOBIN A1c (test code = 92284) 8.9 %
[2024-08-13] MEDS ORDERED: IBUPROFEN 200 MG TAB PO ONE (11:56)
--- NOTE | 2024-08-13 12:15 | RAD REPORT ---
EXAM: CT brain without contrast HISTORY: PAIN COMPARISON: None TECHNIQUE: Multiple contiguous axial images were obtained and a CT of the brain without contrast. Sag ittal and coronal reformats were performed. One or more of the following dose reduction techniques were used: Automated exposure control, adjust ment of the mA and/or kV according to patient size, and/or iterative reconstruction. FINDINGS: No evidence of hydrocephalus, intracranial hemorrhage, or extra-axial fluid collection. The brain is normal in morphology. Focus of gliosis is seen right frontal lobe compatible with old i nfarct or trauma. The calvarium is intact. The visualized paranasal sinuses and mastoid air cells are essentially clear . IMPRESSION: No evidence of acute intracranial abnormality. EXAM: CT of the cervical spine without contrast HISTORY: Neck pain, injury PAIN TECHNIQUE: Multiple contiguous axial images were obtained in a CT of the cervical spine without contr ast. Sagittal and coronal reformats were performed. FINDINGS: The vertebral bodies demonstrate normal height and alignment. No evidence of acute fracture or subluxation.. Moderate multilevel degenerative changes are present with disc thinning and posterior osteophytes throughout the cervical spine levels. No prevertebral soft tissue swelling is seen. The posterior facets are well aligned. Normal alignment of the skull base with the cervical spine is seen. The lung apices are unremarkable. IMPRESSION: No evidence of acute osseous abnormality of the cervical spine. Moderate multilevel cervical degenerative spondylosis.
--- NOTE | 2024-08-13 12:17 | RAD REPORT ---
EXAM: CT CHEST, ABDOMEN AND PELVIS WITHOUT CONTRAST CLINICAL INDICATION: PAIN TECHNIQUE: CT chest, abdomen and pelvis was performed without contrast, as per department protocol. A xial, sagittal and coronal reconstructions were obtained. One or more of the following dose reduction techniques were used: Automated exposure control, adjustment of the mA and/or kV according to patient size, and/or iterative reconstruction. Unless otherwise specified, incidental findings do not require dedicated imaging follow-up. Examination is limited by the lack of intravenous contrast material. COMPARISON: No prior exam. FINDINGS: LUNGS: No evidence of airspace or interstitial process. No nodules. PLEURA: No pleural effusion. No pneumothorax. MEDIASTINUM AND LYMPH NODES: No mediastinal mass or fluid collection. Normal size mediastinal, hilar, and axillary lymph nodes. OSSEOUS STRUCTURES AND CHEST WALL: Intact. LIVER: Normal in size and contour. No focal lesion or biliary dilatation. Grossly unremarkable gallbl adder. PANCREAS: No mass, ductal dilation, or juan-pancreatic fluid. SPLEEN: Normal size. No focal lesion. ADRENALS: Normal; no mass. KIDNEYS: Normal size and contour. No hydronephrosis. URINARY BLADDER: Normal contour. GASTROINTESTINAL TRACT: No bowel obstruction, free air, significant free fluid or abscess. APPENDIX: Normal appendix. LYMPH NODES: No lymphadenopathy. MUSCULOSKELETAL: No acute or suspicious osseous abnormality. OTHER: IMPRESSION: No acute or significant abnormalities seen in the chest, abdomen or pelvis.
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
[2024-08-13 13:22] VITALS: BP 138/79; TEMP 97.3; O2SAT 100
== END 2024-08-13 13:10 | disposition home or self-care (01) ==
LOC: ER 11:26
DX: S29.011A Strain of muscle and tendon of front wall of thorax, initial encounter (principal); S29.012A Strain of muscle and tendon of back wall of thorax, initial encounter; V49.49XA Driver injured in collision with other motor vehicles in traffic accident, initial encounter
CPT/HCPCS: 70450; 71250; 72125; 74176; 99282